=== PATIENT | female | born 1945 | race Caucasian/White ===

== ENCOUNTER → 2016-05-09 | Day surgery (SDC) | payer MEDICARE ==
[~2016-05-09] VITALS: Ht 167.6 cm; Wt 81.6 kg
[~2016-05-09] MED LIST: ALAVERT10 M1 PO; ALPRAZOLAM0.25 M2 PO; AMARYL2 MG PO; AMBIEN10 MG PO; AMBIEN5 MG PO; AMOXICILLIN500 M3 PO; AMOXICILLIN500 MG PO; ANTIVERT/2525 M1 PO; ANTIVERT25 MG PO; APRESOLINE25 MG PO; ARANESP100 MCG/1 SQ; ASPIRIN EC325 MG PO; ASPIRIN81 M1 PO; ATARAX25 MG PO; AUGMENTIN 500500 MG PO; AUGMENTIN 875 M1 TAB PO; BENTYL10 MG PO; CARAFATE1 GM; CARDIZEM CD180 MG PO; CARISOPRODOL350 M1 PO; CATAPRES0.3 MG PO; CEFTIN500 M1 PO; CEFUROXIME AXE250 MG PO; CELEXA20 MG PO; CILASTATIN IV; CIPRO250 MG PO; CIPRO500 MG PO; CIPROFLOXACIN500 M4 PO; CIPROFLOXACIN500 MG PO; CLEOCIN150 MG PO; CLONIDINE0.2 MG PO; CLONIDINE0.3 MG/21 PO; COUMADIN5 MG PO; COUMADIN7.5 M1 PO; Catapres PO; DEXTROSE IV; DIFLUCAN IV; DITROPAN5 MG PO; DONNATAL1 CA1 PO; DOXYCYCLINE MO100 MG PO; DUONEB 3 MG/3 ML3 M1 INH; DUONEB 3 MG/3 ML3 M1 NEB; DURAGESIC25 MCG/HR TD; ECOTRIN81 MG PO; FIORICET 50-301 EACH PO; FISH OIL1 IU PO; FLAGYL500 MG PO; FLEXERIL10 MG PO; FUROSEMIDE40 MG PO; HEPARIN SO5000 UNIT1 SQ; HYDROCHLOROTHIA25 MG PO; HYDROCODONE BIT1 T11 PO; IMIPENEM IV; KCL PO; KEFLEX500 MG PO; LASIX10 MG/M1 PO; LEVOFLOXACIN500 MG PO; LIDODERM 5% PATC1 EA T; LISINOPRIL2.5 MG PO; LISINOPRIL20 MG PO; LISINOPRIL40 MG PO; LOPRESSOR100 M1 PO; LOPRESSOR25 MG PO; LOPRESSOR50 M1 PO; LOTRIMIN AF133 GM TP; LOTRISONE CREAM15 GM TP; Lopressor25 MG PO; MACROBID100 M1 PO; MACRODANTIN100 M1 PO; MEDROL DOSEPAK4 MG PO; MOTRIN800 MG PO; MULTIVITAMIN1 CTB PO; NAPROSYN500 MG PO; NEURONTIN300 MG PO; NEURONTIN400 MG PO; NITROFURANTOIN100 MG PO; NORCO 325 MG-101 TAB PO; NOVOLOG10 ML IV; PERCOCET 325 MG1 TA2 PO; PERCOCET 325 MG1 TA7 PO; PHENERGAN25 M1 PO; PRAVACHOL40 MG PO; PRAVASTATIN SOD40 MG PO; PREDNICOT20 MG PO; PRILOSEC OTC20 MG PO; PRILOSEC20 M1 PO; PRILOSEC20 MG; PRILOSEC40 MG PO; PRINIVIL40 MG PO; PROTONIX IV40 MG IV; PROTONIX40 MG PO; PYRIDIUM100 MG PO; PYRIDIUM200 M1 PO; PYRIDIUM200 MG PO; ROBITUSSIN DM 105 ML PO; SILVADENE1% T; SOMA250 MG PO; SOMA350 MG PO; SYMBICORT1 AE1 INH; TEMAZEPAM15 M1 PO; TESSALON PERLE100 MG PO; TRAMADOL HCL50 MG PO; TYLENOL EXTRA500 M2 PO; ULTRAM50 MG PO; UNASYN 3GM3 GM/100 M IM; UNASYN 3GM3 GM/100 M IV; VALIUM10 MG PO; VICO10300 PO; VICODIN 5-3001 EACH PO; VITAMIN D2000 IU PO; VITAMIN E100 I1 PO; XANAX0.5 MG PO; ZANTAC 150150 MG PO; ZOCOR40 MG PO; ZOFRAN2 MG/ML IV; ZOFRAN4 MG PO; [UNRECOGNIZED DRUG - OTHER] PO; [UNRECOGNIZED DRUG - REMARK]
--- NOTE | ~2016-05-09 | PROC NOTE ---
[place], [place] PROCEDURE NOTE NAME: FARHAT MORALES UNIT #: [id number] ROOM: DOCTOR: REJI PATEL MD BIRTHDATE: [birth year] DOS: 05/09/2016 PREOPERATIVE DIAGNOSIS: History of diverticulitis. POSTOPERATIVE DIAGNOSIS: Pancolonic diverticulosis. PROCEDURE: Colonoscopy. ENDOSCOPIST: Reji Patel MD. DISPUTE COORDINATOR: MSMc. ANESTHESIA: MAC. INDICATIONS: This is a 71-year-old lady with a history of diverticulitis in the past, who comes in for colonoscopy. The procedure and its complications were explained to the patient in detail preoperatively. Complications that were discussed included but were not limited to bleeding, infection, perforation of the colon and missed lesions she agreed to proceed. DESCRIPTION OF PROCEDURE: After identifying the patient, the patient was brought to the endoscopy suite and placed in the left lateral position. After time-out procedure was called, the anesthesia team administered IV sedation to the patient and a digital rectal exam was performed by nh and this was within normal limits. At this point, an adult colonoscope was now introduced into the anal canal and advanced sequentially into the rectum, sigmoid colon, descending colon, transverse colon and ascending colon up to the cecum. There were some patches of stool that could be visualized in different parts of the colon and this was all sucked away. There was found to be diverticulosis in the sigmoid colon, but also in parts of the transverse colon as well. There were no other lesions that could be identified after the cecum was reached the colonoscopy was withdrawn. The withdrawal procedure took about 7 minutes and the findings of a planned colonic diverticulosis was confirmed after the colonoscope was withdrawn the patient was taken to the recovery room in a stable fashion based on these findings the patient is recommended to have another colonoscopy in 10 years or earlier if there are any symptoms that may arise between now and the period of 10 years. These findings were discussed with the patient and her in detail. [place], [place] PROCEDURE NOTE NAME: FARHAT MORALES UNIT #: [id number] ROOM: DOCTOR: REJI PATEL MD BIRTHDATE: [birth year] Reji Patel MD CM:PROCNOTE:PROCEDURE NOTE 1002 1231 REJI PATEL MD
[2016-05-09 07:30] VITALS: BP 135/75
[2016-05-09 09:14] VITALS: BP 138/74
[2016-05-09 09:28] VITALS: BP 174/98
[2016-05-09 09:38] VITALS: BP 176/89
== END | disposition home or self-care (01) ==
LOC: SDC 05-05 11:00
DX: K57.30 Diverticulosis of large intestine without perforation or abscess without bleeding (principal); Z86.73 Personal history of transient ischemic attack (TIA), and cerebral infarction without residual deficits; I10 Essential (primary) hypertension; E11.9 Type 2 diabetes mellitus without complications; G43.909 Migraine, unspecified, not intractable, without status migrainosus; K76.0 Fatty (change of) liver, not elsewhere classified; Z87.01 Personal history of pneumonia (recurrent); Z86.718 Personal history of other venous thrombosis and embolism; Z82.49 Family history of ischemic heart disease and other diseases of the circulatory system

== ENCOUNTER → 2016-05-22 | Outpatient (CLI) | payer MEDICARE ==
[2016-05-22 12:08] LABS: BASO % 0.4 % (0.0-1.0); EOS # 0.2 10*3/uL (0.0-0.4); EOS % 1.8 % (1.0-4.0); HEMATOCRIT 42.7 % (37.0-47.0); HEMOGLOBIN 13.8 g/dl (12.0-16.0); LYMPH % 17.7 % (27.0-41.0); MEAN CELL VOLUME 93.4 fl (81.0-99.0); MEAN CORPUSCULAR HGB 30.2 pg (27.0-31.0); MEAN CORPUSCULAR HGB CONC 32.3 g/dl (33.0-37.0); MEAN PLATELET VOLUME 9.9 fl (9.6-12.3); MONO # 0.9 10*3/uL (0.1-1.0); MONO % 7.9 % (3.0-9.0); NEUT # 8.1 10*3/uL (2.3-7.9); NEUT % 71.8 % (47.0-73.0); PLATELET COUNT AUTOMATED 245 10*3/uL (130-400); RED BLOOD COUNT 4.57 10*6/uL (4.10-5.10); RED CELL DISTRI WIDTH 12.7 % (0-14.5); WHITE BLOOD COUNT 11.2 10*3/uL (4.8-10.8)
[2016-05-22 12:11] LABS: BILIRUBIN NEGATIVE (NEGATIVE); BLOOD NEGATIVE (NEGATIVE); CLARITY CLEAR (CLEAR); COLOR YELLOW (YELLOW); GLUCOSE NEGATIVE (NEGATIVE); KETONE NEGATIVE (NEGATIVE); LEUKO ESTERASE 1+ (NEGATIVE); NITRITE NEGATIVE (NEGATIVE); PROTEIN NEGATIVE (NEGATIVE); SPECIFIC GRAVITY 1.025 (1.005-1.030); UROBILINOGEN 0.2 E.U./dl (0.2-1.0)
[2016-05-22 12:34] LABS: ALBUMIN 3.5 gm/dl (3.1-4.5); ALKALINE PHOSPHATASE 119 U/L (45-117); BILIRUBIN, DIRECT < 0.1 mg/dL (0.0-0.2); BILIRUBIN, TOTAL 0.5 mg/dl (0.2-1.0); BUN 11 mg/dl (7-24); CARBON DIOXIDE 26 mmol/L (21-32); CHLORIDE 106 mmol/L (98-107); EST GLOM FILT AFRICAN AMERICAN > 60 ml/min; GLUCOSE 112 mg/dL (65-99); POTASSIUM 4.6 mmol/L (3.5-5.1); SGOT/AST 17 IU/L (3-35); SGPT/ALT 16 U/L (12-78); SODIUM 141 mmol/L (136-145); TOTAL PROTEIN 8.5 gm/dL (6.4-8.2)
[2016-05-22 12:50] LABS: INTERNATIONAL NORM RATIO 0.9 (2.0-3.5)
[2016-05-22 13:15] LABS: BACTERIA 1+; MUCOUS 3+
== END | disposition home or self-care (01) ==
LOC: LAB 09:42
PROVIDERS: Surgery
DX: K57.90 Diverticulosis of intestine, part unspecified, without perforation or abscess without bleeding (principal); R10.2 Pelvic and perineal pain; Z90.49 Acquired absence of other specified parts of digestive tract

== ENCOUNTER 2016-07-22 10:01 | Inpatient (IN) | payer MEDICARE ==
[~2016-07-22] VITALS: Ht 152.4 cm; Wt 86.0 kg
[2016-07-22] VITALS (14 sets, daily range): BP systolic 110–158; BP diastolic 51–85
--- NOTE | ~2016-07-22 | PR ---
[place], [place] PROGRESS NOTE NAME: FARHAT MORALES [facility] #: [id number] UNIT #: [id number] ROOM: [facility] DOCTOR: EZEQUIEL ABDI MD BIRTHDATE: [birth year] DOS: SUBJECTIVE: The patient is very well known to me, seen by Dr. Rock yesterday. The patient was under my care up at [facility]. Cardiac status appears to be stable. OBJECTIVE: VITAL SIGNS: The patient's blood pressure is 98/50. She is in sinus rhythm. HEENT: Unremarkable. NECK: Supple, no JVD. LUNGS: Diminished breath sounds. HEART: Heart sounds are regular. ABDOMEN: According to the surgeons, the abdominal wounds are healing quite well. LABORATORY DATA: Shows hemoglobin yesterday was 7.6 and today's is pending. Potassium is 3.4, creatinine is 1.4. The patient was seen by Dr. Rock yesterday. IMPRESSION AND PLAN: The patient is status post abdominal surgery, paroxysmal atrial fibrillation, anemia. The patient was on Cardizem drip. The patient examined in the Intensive Care Unit. She is going in and out of atrial fibrillation. Metoprolol has been started and optimized the dosage and consideration should be given once the bleeding episodes stop to start some kind of anticoagulation. Creatinine is significantly improved and we will follow up. EZEQUIEL ABDI MD CM:PNTRANS 0622 0654 EZEQUIEL ABDI MD 07/24/16 0655 interface
--- NOTE | ~2016-07-22 | EKG ---
[place], [place] ELECTROCARDIOGRAM REPORT NAME: FARHAT MORALES UNIT #: [id number] ROOM: [facility] DOCTOR: JESSE CHERRY MD BIRTHDATE: [birth year] DOS: 07/22/2016 TIME: 1015 hours. Normal sinus rhythm with frequent PACs, rate 112 beats per minute. No evidence of ischemia or infraction. No previous tracing is available for comparison. JESSE CHERRY MD CM:EKGRPT:ELECTROCARDIOGRAM REPORT 1648 0119 JESSE CHERRY MD
--- NOTE | ~2016-07-22 | CON ---
[place], [place] REPORT OF CONSULTATION NAME: [facility]ES [id number] UNIT #: [id number] ROOM: [facility] DOCTOR: JESSE CHERRY MD BIRTHDATE: [birth year] DOS: 07/23/2016 HISTORY OF PRESENT ILLNESS: This is a 71-year-old -[place] woman with a history of bowel resection last month, or the month before, colostomy. She had 3 surgeries because of abscess formation, and during that period, she developed acute renal failure and had I believe 25 kilos of weight gain and was subsequently started on hemodialysis. She also had severe anemia, and in the course of her hospital stay, she developed atrial flutter/fibrillation and subsequently went into sinus rhythm and I believe she was given amiodarone at that time. She was stabilized and surgically she was improving markedly and then was transferred to [facility] where I saw her as well as Dr. 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 She last dialyzed on 07/17/2016 and her creatinine has remained fairly stable. She was transferred to this hospital because of abdominal pain and abdominal wound. In the course of evaluation, she was found to be in atrial fibrillation with rapid ventricular rate and she is back in sinus rhythm now. She does not have any palpitations or breathing difficulty. No cough, fever, or chills. She feels weak, but all-in-all had improved markedly. MEDICATIONS: Her medications were reviewed. She was not on any antiarrhythmic medication, but was on metoprolol along with other medications, but no anticoagulation. PHYSICAL EXAMINATION: GENERAL: This is a patient who looks pale. She is alert, comfortable. She is not in any distress. She is not tachypneic. Temperature is normal. VITAL SIGNS: Pulse is now 96 and regular, blood pressure 99/49. Previous blood pressures have been much higher. NECK: JVP appears to be normal. There is 1+ edema in the lower extremities and no edema of the torso. CARDIOVASCULAR: Cardiac auscultation reveals no murmurs or rub. LUNGS: She is not tachypneic. Auscultation reveals lots of crackles on the right side with reduced breath sounds, some crackles on the left side as well. DIAGNOSTIC STUDIES: First ECG demonstrated atrial fibrillation with a very rapid ventricular rate and monitor now shows sinus rhythm with rate in the 90s. Troponin I level has been just marginally abnormal. Creatinine is 1.57, potassium 3.6. Serum albumin is 1.7. Hemoglobin 8.8 g/dL. IMPRESSION: 1. This patient had recurrence of atrial fibrillation, is back in normal sinus rhythm. 2. Severe anemia is from chronic illness and due to renal insufficiency. RECOMMENDATIONS: Metoprolol dose should be continued. If heart rate is fast, we can increase this dose as well, but I strongly recommend starting her on propafenone 150 mg every 8 hours to maintain normal sinus rhythm. I think she should also be anticoagulated fully with either NOAC or warfarin on [place], [place] REPORT OF CONSULTATION NAME: FARHAT MORALES [facility]: [id number] UNIT #: [id number] ROOM: [facility] DOCTOR: JESSE CHERRY MD BIRTHDATE: [birth year] a long-term basis because of recurrence of atrial fibrillation and fear of embolic events. An echocardiogram during last hospitalization showed normal LV systolic function and one does not need to repeat another study. Probable right-sided pneumonia. This seemed to have been extensive. There is some pulmonary congestion on the left side, but this may have been from atrial fibrillation with rapid ventricular rate, i.e., some degree of diastolic dysfunction/diastolic failure. I thank you for this consult. JESSE CHERRY MD CM:CONSTR:REPORT OF CONSULTATION 0653 08/25/16 1429 interface
--- NOTE | ~2016-07-22 | CON ---
[place], [place] REPORT OF CONSULTATION NAME: [facility]AT [facility]ORALES [facility]: [id number] UNIT #: [id number] ROOM: [facility]- DOCTOR: STANISLAV GELLER MD BIRTHDATE: [birth year] DOS: 07/24/2016 REASON FOR CONSULTATION: Intraabdominal abscess and right lower lobe pneumonia. CONSULTING PHYSICIAN: Dr. Martinez. HISTORY OF PRESENT ILLNESS: This is a 71-year-old woman whom I have seen in the past for intraabdominal abscess status post exploratory laparotomy and colectomy with Meagan's procedure with colostomy bag who had problems with delayed healing and multiple intraabdominal fluid collections, needing repeat exploration and drainage of the same, also had anterior abdominal wall collection needing drainage, who had acute kidney injury during admission needing dialysis, was discharged on IV Zosyn and Diflucan to subacute nursing facility. Now, she is admitted with worsening drainage from the intraabdominal wall fistula and a fever. She had been started on broad spectrum antibiotics since admission. She remained afebrile. She was admitted to the ICU. Her kidney function had recovered to the point that her dialysis catheter was removed this morning. PAST MEDICAL HISTORY: Positive for history of hypertension, diverticulosis, CHF, AFib, abdominal abscess, anemia, anxiety, colon polyps, diverticulosis, COPD, fatty liver, GERD, hiatal hernia, hypertension, hyperlipidemia, obesity, migraine, insomnia, renal cyst. PAST SURGICAL HISTORY: History of hysterectomy, appendectomy, foot surgery, partial colectomy, tonsillectomy, adenoidectomy, abdominoplasty, cholecystectomy, colonoscopy, colostomy and exploratory laparotomy. SOCIAL HISTORY: Does not use alcohol or illicit drugs or tobacco. FAMILY HISTORY: Mother and father had coronary artery disease. ALLERGIES: REVIEWED INCLUDE SULFA, LEVOFLOXACIN, CORTISONE, HYDROMORPHONE, CODEINE, HYDROCODONE, MORPHINE, ACETAMINOPHEN, OXYCODONE, PREGABALIN, PROPOXYPHENE AND STEROIDS. HOME MEDICATIONS AND CURRENT INPATIENT MEDICATIONS: Reviewed. REVIEW OF SYSTEMS: A 14-point review of systems otherwise negative unless otherwise specified in the HPI. PHYSICAL EXAMINATION: VITAL SIGNS: Showed a temperature of 98, heart rate of 98, blood pressure of 122/61, respiratory rate of 24. GENERAL APPEARANCE: Awake, alert, oriented to time, place and person. No acute distress. Oral cavity: Moist and intact. NECK: Supple, no JVD, no lymphadenopathy. HEART: Regular rate and rhythm. S1, S2 normal. No murmurs, gallops or rubs. LUNGS: Clear to auscultation. Diminished air entry bilateral bases anteriorly. ABDOMEN: Midline retention sutures, three of them, with dry incision. [place], [place] REPORT OF CONSULTATION NAME: FARHAT MORALES UNIT #: [id number] ROOM: [facility] DOCTOR: STANISLAV GELLER MD BIRTHDATE: [birth year] part of the incision open with fibrinopurulent tissue at the base. No active drainage. Base looks healthy and red with granulation tissue. Colostomy bag with formed stools. EXTREMITIES: Mild edema, bilateral lower extremities. LABORATORY DATA: Reviewed. WBC of 9.6, hemoglobin of 8.5, platelets 242. Chemistry: BUN of 74, creatinine 1.49. AST of 20, ALT of 22, alkaline phosphatase was 194. UA: Wbc's 5-10, bacteria trace. IMAGING: Chest x-ray from this morning shows mild pulmonary vascular congestion. ASSESSMENT AND PLAN: 1. Leukocytosis, likely secondary to pelvic fluid collections versus pneumonia. I reviewed a CT of the abdomen and pelvis, which also got the lower part of the lungs. She is having no respiratory symptoms. She does have small effusion and atelectasis, not too impressed with a pneumonic process at this time. Her leukocytosis has resolved. She is currently on Zosyn and vancomycin. The intraabdominal fluid collections have resolved as well. I would therefore continue the Zosyn for another 2 weeks and follow her up in my clinic in 2 weeks' time. 2. Acute kidney injury with dialysis dependence. Her kidney function seems to have recovered. She is off dialysis. We will increase the dose of Zosyn to 3.375 every 8 hours. 3. Slow healing midline abdominal wound with open fistula. Continue dressing care per surgery. I will continue to follow. STANISLAV GELLER MD CM:CONSTR:REPORT OF CONSULTATION 1604 07/25/16 0217 interface
--- NOTE | ~2016-07-22 | EKG ---
[place], [place] ELECTROCARDIOGRAM REPORT NAME: FARHAT MORALES UNIT #: [id number] [place] [facility] DOCTOR: JESSE CHERRY MD BIRTHDATE: [birth year] DOS: 07/22/2016 TIME: 21:26 hours. Atrial fibrillation with rapid ventricular rate at 181 beats per minutes. Nonspecific ST-T wave changes in inferior and chest leads. Abnormal ECG. No previous one to compare with an ECG. JESSE CHERRY MD CM:EKGRPT:ELECTROCARDIOGRAM REPORT [id number] 1326 JESSE CHERRY MD
--- NOTE | ~2016-07-22 | PR ---
[place], [place] PROGRESS NOTE NAME: FARHAT MORALES [facility] #: [id number] UNIT #: [id number] ROOM: [facility] DOCTOR: JESSE CHERRY MD BIRTHDATE: [birth year] DOS: 07/25/2016 SUBJECTIVE: She feels quite well. She has been eating and drinking reasonably well. No abdominal pain. Has not had any diarrhea. She has no chest pain or palpitations. OBJECTIVE: GENERAL: She is very pleasant, alert, feels very comfortable, looking forward to going home. VITAL SIGNS: Pulse is irregular at 88 beats per minute, blood pressure 124/68. NECK: JVP is normal. HJR is negative. LUNGS: She has some crackles in both lungs. EXTREMITIES: No edema in the lower extremities. IMPRESSION: 1. Abdominal wound and pain has settled and the wound is healing. 2. Paroxysmal atrial fibrillation. She is in normal sinus rhythm now. 3. There is no evidence of heart failure. RECOMMENDATIONS: No specific recommendations are offered at this time. JESSE CHERRY MD CM:PNTRANS 0729 2 JESSE CHERRY MD 07/25/1613 interface
--- NOTE | ~2016-07-22 | PR ---
[place], [place] PROGRESS NOTE NAME: FARHAT MORALES [facility] #: [id number] UNIT #: [id number] ROOM: [facility] DOCTOR: STANISLAV GELLER MD BIRTHDATE: [birth year] DOS: 07/26/2016 REASON FOR FOLLOWUP: Intraabdominal abscess ____ Dr. Patel. SUBJECTIVE: The patient is feeling better, low grade fever overnight, hemodynamically stable, eating better. Walked in the hallway a little bit. OBJECTIVE: VITAL SIGNS: Temperature of 98.3, T-max of 100.6, pulse 99, respiratory rate 18, blood pressure 139/71. GENERAL APPEARANCE: Awake, alert, oriented to time, place, and person, in no acute distress. HEENT: Oral cavity moist. NECK: Supple, no JVD, no lymphadenopathy. HEART: Regular rate and rhythm. S1, S2 normal. No murmurs, gallops or rubs. LUNGS: Clear to auscultation, diminished entry anterior bases. ABDOMEN: Obese, colostomy with soft stools. Abdominal wound with healthy tissue, fibrotic tissue at the base with red beefy base. Mild serosanguineous drainage also noted. LABORATORY DATA: Reviewed. WBC of 10, hemoglobin 8.1, platelets 321. BUN 16, creatinine 1.26. AST 19, ALT 21, alk phos 169. ASSESSMENT AND PLAN: 1. Intraabdominal abscess with pelvic fluid collections, status post complicated intraabdominal surgery, slow healing wound, leukocytosis has resolved. Currently on meropenem and switched over by the resident director of national sales last night, will switch her back to ampicillin ____. Plan is to discharge her soon. If discharge is going to happen, I would continue IV antibiotics till she heals up completely. If every 6 hours of Unasyn is a problem, we can switch her to ceftriaxone and Flagyl. Otherwise, I would recommend 2 weeks of IV Unasyn 3 gram every 6 hours and follow up with myself in 2 weeks' time. 2. Acute kidney injury, improving, off dialysis now, making good urine. 3. Slow healing midline abdominal wound with open fistula. Continue dressing care per surgery and I will follow up. Okay for discharge from ID standpoint and okay with others. [place], [place] PROGRESS NOTE NAME: FARHAT MORALES UNIT #: [id number] ROOM: [facility] DOCTOR: STANISLAV GELLER MD BIRTHDATE: [birth year] STANISLAV GELLER MD CM:PNTRANS 1619 2233 STANISLAV GELLER MD 07/28/16 0033 interface
--- NOTE | ~2016-07-22 | PROC NOTE ---
[place], [place] PROCEDURE NOTE NAME: [facility]ORALES [id number] UNIT #: [id number] ROOM: [facility] DOCTOR: REJI PATEL MD BIRTHDATE: [birth year] DOS: 07/25/2016 DESCRIPTION OF PROCEDURE: The patient is well known to me and admitted with multiple medical problems, one of which is wound issues after abdominal surgery. Bedside debridement with scissors and forceps was carried out in a sharp fashion and a dressing was placed. The patient tolerated the procedure well. There were no complications. Dr. Reji Patel, the attending physician, was there for the entire case. Reji Patel MD CM:PROCNOTE:PROCEDURE NOTE 0744 1416 REJI PATEL MD
[~2016-07-22 10:01] MED LIST changes: -CILASTATIN IV; -IMIPENEM IV
[2016-07-22 10:24] LABS: BASO % 0.1 % (0.0-1.0); EOS # 0.3 10*3/uL (0.0-0.4); EOS % 1.8 % (1.0-4.0); HEMATOCRIT 26.8 % (37.0-47.0); HEMOGLOBIN 8.8 g/dl (12.0-16.0); IG # 0.1 10*3/uL (0.0-0.1); LYMPH # 2.4 10*3/uL (1.3-4.4); LYMPH % 17.6 % (27.0-41.0); MEAN CELL VOLUME 92.1 fl (81.0-99.0); MEAN CORPUSCULAR HGB 30.2 pg (27.0-31.0); MEAN CORPUSCULAR HGB CONC 32.8 g/dl (33.0-37.0); MEAN PLATELET VOLUME 9.7 fl (9.6-12.3); MONO # 0.9 10*3/uL (0.1-1.0); MONO % 6.4 % (3.0-9.0); NEUT % 73.6 % (47.0-73.0); PLATELET COUNT AUTOMATED 248 10*3/uL (130-400); RED BLOOD COUNT 2.91 10*6/uL (4.10-5.10); RED CELL DISTRI WIDTH 17.2 % (0-14.5); WHITE BLOOD COUNT 13.6 10*3/uL (4.8-10.8)
[2016-07-22] MEDS ORDERED: CILASTATIN IV (10:24)
[2016-07-22] MEDS ORDERED: IMIPENEM IV (10:24)
[2016-07-22 10:34] LABS: INTERNATIONAL NORM RATIO 1.1 (2.0-3.5); PROTHROMBIN TIME 11.3 SECONDS (9.0-12.4)
[2016-07-22 10:40] LABS: ALBUMIN 1.6 gm/dl (3.1-4.5); BILIRUBIN, TOTAL 0.6 mg/dl (0.2-1.0); C-REACTIVE PROTEIN 17.3 MG/DL (0-0.3); CKMB 1.1 ng/ml (0.5-3.6); MAGNESIUM 1.6 mg/dL (1.5-2.1); POTASSIUM 3.6 mmol/L (3.5-5.1); TOTAL PROTEIN 6.9 gm/dL (6.4-8.2); TROPONIN I 0.035 ng/ml (<0.045)
[2016-07-23] VITALS (18 sets, daily range): BP systolic 91–145; BP diastolic 40–62
[2016-07-23 03:17] LABS: BASO % 0.2 % (0.0-1.0); EOS # 0.2 10*3/uL (0.0-0.4); EOS % 1.4 % (1.0-4.0); HEMATOCRIT 24.1 % (37.0-47.0); HEMOGLOBIN 7.6 g/dl (12.0-16.0); IG # 0.1 10*3/uL (0.0-0.1); LYMPH # 1.6 10*3/uL (1.3-4.4); LYMPH % 13.9 % (27.0-41.0); MEAN CELL VOLUME 94.1 fl (81.0-99.0); MEAN CORPUSCULAR HGB 29.7 pg (27.0-31.0); MEAN CORPUSCULAR HGB CONC 31.5 g/dl (33.0-37.0); MEAN PLATELET VOLUME 9.4 fl (9.6-12.3); MONO # 0.7 10*3/uL (0.1-1.0); NEUT # 9.2 10*3/uL (2.3-7.9); NEUT % 77.8 % (47.0-73.0); PLATELET COUNT AUTOMATED 238 10*3/uL (130-400); RED BLOOD COUNT 2.56 10*6/uL (4.10-5.10); RED CELL DISTRI WIDTH 17.1 % (0-14.5); WHITE BLOOD COUNT 11.8 10*3/uL (4.8-10.8)
[2016-07-23 03:29] LABS: POTASSIUM 3.6 mmol/L (3.5-5.1)
[2016-07-23 04:50] LABS: BILIRUBIN 1+ (NEGATIVE); BLOOD TRACE-INTACT (NEGATIVE); CLARITY SL CLOUDY (CLEAR); COLOR YELLOW (YELLOW); GLUCOSE NEGATIVE (NEGATIVE); KETONE NEGATIVE (NEGATIVE); LEUKO ESTERASE NEGATIVE (NEGATIVE); NITRITE NEGATIVE (NEGATIVE); PROTEIN 2+ (NEGATIVE); SPECIFIC GRAVITY 1.025 (1.005-1.030)
[2016-07-23 04:56] LABS: BACTERIA TRACE; YEAST 1+
[2016-07-24] VITALS (12 sets, daily range): BP systolic 98–148; BP diastolic 50–77
[2016-07-24 06:00] LABS: ALBUMIN 1.5 gm/dl (3.1-4.5); BILIRUBIN, TOTAL 0.5 mg/dl (0.2-1.0); MAGNESIUM 1.6 mg/dL (1.5-2.1); PHOSPHOROUS 2.9 mg/dL (2.5-4.9); POTASSIUM 3.4 mmol/L (3.5-5.1); TOTAL PROTEIN 6.1 gm/dL (6.4-8.2)
[2016-07-24 06:17] LABS: BASO % 0.2 % (0.0-1.0); EOS # 0.3 10*3/uL (0.0-0.4); EOS % 2.7 % (1.0-4.0); HEMATOCRIT 26.6 % (37.0-47.0); HEMOGLOBIN 8.5 g/dl (12.0-16.0); IG # 0.1 10*3/uL (0.0-0.1); LYMPH # 1.5 10*3/uL (1.3-4.4); LYMPH % 15.2 % (27.0-41.0); MEAN CORPUSCULAR HGB 29.4 pg (27.0-31.0); MONO # 0.8 10*3/uL (0.1-1.0); MONO % 7.9 % (3.0-9.0); NEUT # 7.1 10*3/uL (2.3-7.9); NEUT % 73.4 % (47.0-73.0); PLATELET COUNT AUTOMATED 242 10*3/uL (130-400); RED BLOOD COUNT 2.89 10*6/uL (4.10-5.10); WHITE BLOOD COUNT 9.6 10*3/uL (4.8-10.8)
[2016-07-25] VITALS (8 sets, daily range): BP systolic 117–159; BP diastolic 51–84
[2016-07-26] VITALS: BP 118/56
[2016-07-26 04:00] VITALS: BP 149/68
[2016-07-26 06:00] LABS: ALBUMIN 1.6 gm/dl (3.1-4.5); BILIRUBIN, TOTAL 0.4 mg/dl (0.2-1.0); MAGNESIUM 1.6 mg/dL (1.5-2.1); PHOSPHOROUS 3.3 mg/dL (2.5-4.9); POTASSIUM 3.8 mmol/L (3.5-5.1); TOTAL PROTEIN 6.3 gm/dL (6.4-8.2)
[2016-07-26 06:12] LABS: BASO % 0.2 % (0.0-1.0); EOS # 0.3 10*3/uL (0.0-0.4); EOS % 3.2 % (1.0-4.0); HEMATOCRIT 26.1 % (37.0-47.0); HEMOGLOBIN 8.1 g/dl (12.0-16.0); IG # 0.1 10*3/uL (0.0-0.1); LYMPH % 20.4 % (27.0-41.0); MEAN CELL VOLUME 94.9 fl (81.0-99.0); MEAN CORPUSCULAR HGB 29.5 pg (27.0-31.0); MEAN PLATELET VOLUME 9.7 fl (9.6-12.3); MONO # 0.7 10*3/uL (0.1-1.0); MONO % 7.1 % (3.0-9.0); NEUT # 6.8 10*3/uL (2.3-7.9); NEUT % 68.3 % (47.0-73.0); RED BLOOD COUNT 2.75 10*6/uL (4.10-5.10); RED CELL DISTRI WIDTH 17.2 % (0-14.5)
[2016-07-26 06:25] LABS: PLATELET COUNT AUTOMATED 321 10*3/uL (130-400)
[2016-07-26 08:00] VITALS: BP 148/76
[2016-07-26 12:00] VITALS: BP 139/71
[2016-07-26 16:00] VITALS: BP 123/66
[2016-07-26 20:00] VITALS: BP 147/81
[2016-07-27] VITALS: BP 102/49
[2016-07-27 04:00] VITALS: BP 107/52
[2016-07-27 05:53] LABS: BASO % 0.1 % (0.0-1.0); EOS # 0.3 10*3/uL (0.0-0.4); EOS % 2.8 % (1.0-4.0); HEMATOCRIT 25.6 % (37.0-47.0); HEMOGLOBIN 8.2 g/dl (12.0-16.0); IG # 0.1 10*3/uL (0.0-0.1); LYMPH # 2.3 10*3/uL (1.3-4.4); MEAN CELL VOLUME 94.1 fl (81.0-99.0); MEAN CORPUSCULAR HGB 30.1 pg (27.0-31.0); MEAN PLATELET VOLUME 9.7 fl (9.6-12.3); MONO # 0.7 10*3/uL (0.1-1.0); MONO % 6.4 % (3.0-9.0); NEUT # 7.5 10*3/uL (2.3-7.9); NEUT % 69.1 % (47.0-73.0); PLATELET COUNT AUTOMATED 331 10*3/uL (130-400); RED BLOOD COUNT 2.72 10*6/uL (4.10-5.10); RED CELL DISTRI WIDTH 17.2 % (0-14.5); WHITE BLOOD COUNT 10.9 10*3/uL (4.8-10.8)
[2016-07-27 06:14] LABS: ALBUMIN 1.5 gm/dl (3.1-4.5); BILIRUBIN, TOTAL 0.4 mg/dl (0.2-1.0); PHOSPHOROUS 3.2 mg/dL (2.5-4.9); POTASSIUM 3.5 mmol/L (3.5-5.1); TOTAL PROTEIN 6.1 gm/dL (6.4-8.2)
[2016-07-27 08:00] VITALS: BP 133/67
[2016-07-27 12:00] VITALS: BP 130/64
[2016-07-27 16:00] VITALS: BP 127/59
[2016-07-27 20:00] VITALS: BP 158/68
[2016-07-28] VITALS: BP 116/59
[2016-07-28 04:00] VITALS: BP 136/69
[2016-07-28 05:56] LABS: BASO % 0.3 % (0.0-1.0); EOS # 0.4 10*3/uL (0.0-0.4); EOS % 3.2 % (1.0-4.0); HEMATOCRIT 26.3 % (37.0-47.0); HEMOGLOBIN 8.3 g/dl (12.0-16.0); IG # 0.1 10*3/uL (0.0-0.1); LYMPH # 1.9 10*3/uL (1.3-4.4); LYMPH % 16.6 % (27.0-41.0); MEAN CELL VOLUME 95.3 fl (81.0-99.0); MEAN CORPUSCULAR HGB 30.1 pg (27.0-31.0); MEAN CORPUSCULAR HGB CONC 31.6 g/dl (33.0-37.0); MEAN PLATELET VOLUME 9.8 fl (9.6-12.3); MONO # 0.7 10*3/uL (0.1-1.0); MONO % 6.5 % (3.0-9.0); NEUT # 8.2 10*3/uL (2.3-7.9); NEUT % 72.7 % (47.0-73.0); PLATELET COUNT AUTOMATED 367 10*3/uL (130-400); RED BLOOD COUNT 2.76 10*6/uL (4.10-5.10); RED CELL DISTRI WIDTH 17.1 % (0-14.5); WHITE BLOOD COUNT 11.2 10*3/uL (4.8-10.8)
[2016-07-28 06:17] LABS: ALBUMIN 1.6 gm/dl (3.1-4.5); MAGNESIUM 1.6 mg/dL (1.5-2.1); POTASSIUM 3.7 mmol/L (3.5-5.1)
[2016-07-28 12:00] VITALS: BP 124/67
[2016-07-28] MEDS ORDERED: UNASYN 3GM3 GM/100 M IM (14:32)
== END 2016-07-28 15:20 | disposition other institution (70) | DRG 901 ==
LOC: ED 10:01 → EDHOLD 16:43 → ICCU 16:43 → 4E 17:27 → ICCU 23:59
PROVIDERS: Emergency Medicine; Internal Medicine; Internal Medicine Nephrology
DX: T81.89XA Other complications of procedures, not elsewhere classified, initial encounter (principal); A41.9 Sepsis, unspecified organism; N17.0 Acute kidney failure with tubular necrosis; E43 Unspecified severe protein-calorie malnutrition; I50.33 Acute on chronic diastolic (congestive) heart failure; J18.9 Pneumonia, unspecified organism; N18.4 Chronic kidney disease, stage 4 (severe); I48.0 Paroxysmal atrial fibrillation; I13.0 Hypertensive heart and chronic kidney disease with heart failure and stage 1 through stage 4 chronic kidney disease, or unspecified chronic kidney disease; J44.9 Chronic obstructive pulmonary disease, unspecified; F41.9 Anxiety disorder, unspecified; K21.9 Gastro-esophageal reflux disease without esophagitis; D64.9 Anemia, unspecified; E78.5 Hyperlipidemia, unspecified; G43.909 Migraine, unspecified, not intractable, without status migrainosus; E66.09 Other obesity due to excess calories; E87.6 Hypokalemia; R74.8 Abnormal levels of other serum enzymes; Y83.8 Other surgical procedures as the cause of abnormal reaction of the patient, or of later complication, without mention of misadventure at the time of the procedure; Z68.37 Body mass index [BMI] 37.0-37.9, adult; Z90.710 Acquired absence of both cervix and uterus; Z90.49 Acquired absence of other specified parts of digestive tract; Z88.2 Allergy status to sulfonamides; Z88.1 Allergy status to other antibiotic agents; Z88.6 Allergy status to analgesic agent; Z88.8 Allergy status to other drugs, medicaments and biological substances; Z82.49 Family history of ischemic heart disease and other diseases of the circulatory system; Y92.89 Other specified places as the place of occurrence of the external cause

== ENCOUNTER 2016-07-30 18:29 | Inpatient (IN) | payer MEDICARE ==
[~2016-07-30] VITALS: Ht 165.1 cm; Wt 83.5 kg
[2016-07-30 18:29] VITALS: BP 156/80
[~2016-07-30 18:29] MED LIST changes: +CILASTATIN IV; +IMIPENEM IV
[2016-07-30] MEDS ORDERED: UNASYN 2 GM-11.5 GM IV (19:10)
[2016-07-30] MEDS ORDERED: Zofran4 MG PO (19:11)
[2016-07-30] MEDS ORDERED: PROTONIX40 MG PO (19:16)
[2016-07-30] MEDS ORDERED: MILK OF MA400 MG/51 PO (19:17)
[2016-07-30] MEDS ORDERED: DULCOLAX10 M1 RC (19:20)
[2016-07-30] MEDS ORDERED: NORMAL SALINE FL3 ML IV (19:23)
[2016-07-30] MEDS ORDERED: HEPARIN IV (19:24)
[2016-07-30] MEDS ORDERED: OXYGEN NAS (19:27)
[2016-07-30] MEDS ORDERED: SODIUM CHLORIDE IV (19:29)
[2016-07-30 19:30] LABS: BASO % 0.2 % (0.0-1.0); EOS # 0.2 10*3/uL (0.0-0.4); EOS % 1.8 % (1.0-4.0); HEMATOCRIT 25.9 % (37.0-47.0); HEMOGLOBIN 8.2 g/dl (12.0-16.0); IG # 0.1 10*3/uL (0.0-0.1); LYMPH % 17.2 % (27.0-41.0); MEAN CELL VOLUME 93.8 fl (81.0-99.0); MEAN CORPUSCULAR HGB 29.7 pg (27.0-31.0); MEAN CORPUSCULAR HGB CONC 31.7 g/dl (33.0-37.0); MEAN PLATELET VOLUME 9.6 fl (9.6-12.3); MONO # 0.8 10*3/uL (0.1-1.0); MONO % 6.7 % (3.0-9.0); NEUT # 8.8 10*3/uL (2.3-7.9); NEUT % 73.6 % (47.0-73.0); PLATELET COUNT AUTOMATED 457 10*3/uL (130-400); RED BLOOD COUNT 2.76 10*6/uL (4.10-5.10); RED CELL DISTRI WIDTH 16.6 % (0-14.5); WHITE BLOOD COUNT 11.9 10*3/uL (4.8-10.8)
[2016-07-30 19:41] LABS: INTERNATIONAL NORM RATIO 1.1 (2.0-3.5)
[2016-07-30 19:48] LABS: ALBUMIN 1.6 gm/dl (3.1-4.5); ALKALINE PHOSPHATASE 153 U/L (45-117); BILIRUBIN, TOTAL 0.3 mg/dl (0.2-1.0); BUN 11 mg/dl (7-24); CARBON DIOXIDE 28 mmol/L (21-32); CHLORIDE 104 mmol/L (98-107); EST GLOM FILT AFRICAN AMERICAN > 60 ml/min; GLUCOSE 115 mg/dL (65-99); POTASSIUM 3.6 mmol/L (3.5-5.1); SGOT/AST 19 IU/L (3-35); SGPT/ALT 16 U/L (12-78); SODIUM 142 mmol/L (136-145); TOTAL PROTEIN 6.7 gm/dL (6.4-8.2); TROPONIN I 0.017 ng/ml (<0.045)
[2016-07-30 20:00] VITALS: BP 156/88
[2016-07-30 21:19] VITALS: BP 164/86
[2016-07-30 21:52] VITALS: BP 166/90
[2016-07-30 23:11] VITALS: BP 166/85; BP 173/91
[2016-07-30 23:30] VITALS: BP 177/98
[2016-07-31] VITALS (9 sets, daily range): BP systolic 115–184; BP diastolic 60–89
[2016-07-31 06:11] LABS: BILIRUBIN NEGATIVE (NEGATIVE); BLOOD TRACE-INTACT (NEGATIVE); CLARITY SL CLOUDY (CLEAR); COLOR YELLOW (YELLOW); GLUCOSE NEGATIVE (NEGATIVE); KETONE NEGATIVE (NEGATIVE); LEUKO ESTERASE NEGATIVE (NEGATIVE); NITRITE NEGATIVE (NEGATIVE); PH 6.5 (5.0-9.0); PROTEIN 1+ (NEGATIVE); UROBILINOGEN 0.2 E.U./dl (0.2-1.0)
[2016-07-31 06:19] LABS: BACTERIA TRACE
[2016-07-31 06:20] LABS: URINE REFLEX COMMENT YES (NO)
[2016-07-31 06:22] LABS: BASO % 0.3 % (0.0-1.0); EOS # 0.2 10*3/uL (0.0-0.4); EOS % 1.9 % (1.0-4.0); HEMATOCRIT 23.9 % (37.0-47.0); HEMOGLOBIN 7.6 g/dl (12.0-16.0); IG # 0.1 10*3/uL (0.0-0.1); LYMPH # 2.1 10*3/uL (1.3-4.4); LYMPH % 19.7 % (27.0-41.0); MEAN CELL VOLUME 93.7 fl (81.0-99.0); MEAN CORPUSCULAR HGB 29.8 pg (27.0-31.0); MEAN CORPUSCULAR HGB CONC 31.8 g/dl (33.0-37.0); MEAN PLATELET VOLUME 9.9 fl (9.6-12.3); MONO # 0.8 10*3/uL (0.1-1.0); MONO % 7.3 % (3.0-9.0); NEUT # 7.5 10*3/uL (2.3-7.9); NEUT % 70.3 % (47.0-73.0); PLATELET COUNT AUTOMATED 443 10*3/uL (130-400); RED BLOOD COUNT 2.55 10*6/uL (4.10-5.10); RED CELL DISTRI WIDTH 16.6 % (0-14.5); WHITE BLOOD COUNT 10.6 10*3/uL (4.8-10.8)
[2016-07-31 06:35] LABS: ALBUMIN 1.4 gm/dl (3.1-4.5); ALKALINE PHOSPHATASE 135 U/L (45-117); BILIRUBIN, TOTAL 0.3 mg/dl (0.2-1.0); BUN 10 mg/dl (7-24); CARBON DIOXIDE 26 mmol/L (21-32); CHLORIDE 110 mmol/L (98-107); EST GLOM FILT AFRICAN AMERICAN > 60 ml/min; GLUCOSE 98 mg/dL (65-99); MAGNESIUM 1.6 mg/dL (1.5-2.1); POTASSIUM 3.6 mmol/L (3.5-5.1); SGOT/AST 19 IU/L (3-35); SGPT/ALT 13 U/L (12-78); SODIUM 144 mmol/L (136-145); TOTAL PROTEIN 6.2 gm/dL (6.4-8.2)
[2016-07-31 06:49] LABS: INTERNATIONAL NORM RATIO 1.1 (2.0-3.5); PROTHROMBIN TIME 12.2 SECONDS (9.0-12.4)
[2016-07-31 15:40] LABS: CKMB 1.4 ng/ml (0.5-3.6); TROPONIN I 0.016 ng/ml (<0.045)
== END 2016-07-31 20:16 | disposition short-term general hospital (02) | DRG 871 ==
LOC: ED 18:29 → ICCU 22:12 → EDHOLD 22:12 → ICCU 22:26
PROVIDERS: Hospitalist; Physician Assistant; Student in an Organized Health Care Education/Training Program
DX: A41.9 Sepsis, unspecified organism (principal); E43 Unspecified severe protein-calorie malnutrition; N18.4 Chronic kidney disease, stage 4 (severe); I50.32 Chronic diastolic (congestive) heart failure; J18.1 Lobar pneumonia, unspecified organism; T81.89XA Other complications of procedures, not elsewhere classified, initial encounter; I48.0 Paroxysmal atrial fibrillation; I13.10 Hypertensive heart and chronic kidney disease without heart failure, with stage 1 through stage 4 chronic kidney disease, or unspecified chronic kidney disease; J44.9 Chronic obstructive pulmonary disease, unspecified; F41.9 Anxiety disorder, unspecified; K57.90 Diverticulosis of intestine, part unspecified, without perforation or abscess without bleeding; K21.9 Gastro-esophageal reflux disease without esophagitis; G43.909 Migraine, unspecified, not intractable, without status migrainosus; Z90.710 Acquired absence of both cervix and uterus; Z90.49 Acquired absence of other specified parts of digestive tract; Z88.1 Allergy status to other antibiotic agents; Z88.5 Allergy status to narcotic agent; Z88.2 Allergy status to sulfonamides; G47.00 Insomnia, unspecified; E66.09 Other obesity due to excess calories; Z68.30 Body mass index [BMI] 30.0-30.9, adult; D64.9 Anemia, unspecified

== ENCOUNTER → 2016-07-31 | Outpatient (CLI) | payer MEDICARE ==
[~2016-07-31] MED LIST changes: +DULCOLAX10 M1 RC; +HEPARIN IV; +MILK OF MA400 MG/51 PO; +NORMAL SALINE FL3 ML IV; +OXYGEN NAS; +SODIUM CHLORIDE IV; +UNASYN 2 GM-11.5 GM IV; +Zofran4 MG PO
== END | disposition home or self-care (01) ==
LOC: TRNFUSION 00:50
DX: R79.89 Other specified abnormal findings of blood chemistry (principal); D64.9 Anemia, unspecified

== ENCOUNTER 2016-08-20 13:21 | Emergency (ER) | payer MEDICARE ==
[~2016-08-20] VITALS: Ht 165.1 cm; Wt 74.8 kg
[2016-08-20] MEDS ORDERED: AMBIEN5 MG PO (13:30)
[2016-08-20] MEDS ORDERED: COREG12.5 M1 PO (13:33)
[2016-08-20] MEDS ORDERED: LOSARTAN POTASS25 M1 PO (13:35)
[2016-08-20] MEDS ORDERED: ALDACTONE25 M1 PO (13:37)
[2016-08-20 14:18] LABS: BASO # 0.1 10*3/uL (0.0-0.1); BASO % 0.4 % (0.0-1.0); EOS # 0.3 10*3/uL (0.0-0.4); EOS % 2.5 % (1.0-4.0); HEMATOCRIT 39.2 % (37.0-47.0); HEMOGLOBIN 12.3 g/dl (12.0-16.0); IG # 0.1 10*3/uL (0.0-0.1); LYMPH # 2.9 10*3/uL (1.3-4.4); LYMPH % 23.2 % (27.0-41.0); MEAN CELL VOLUME 94.2 fl (81.0-99.0); MEAN CORPUSCULAR HGB 29.6 pg (27.0-31.0); MEAN CORPUSCULAR HGB CONC 31.4 g/dl (33.0-37.0); MEAN PLATELET VOLUME 9.4 fl (9.6-12.3); MONO # 0.9 10*3/uL (0.1-1.0); NEUT # 8.2 10*3/uL (2.3-7.9); NEUT % 66.1 % (47.0-73.0); PLATELET COUNT AUTOMATED 361 10*3/uL (130-400); RED BLOOD COUNT 4.16 10*6/uL (4.10-5.10); RED CELL DISTRI WIDTH 17.5 % (0-14.5); WHITE BLOOD COUNT 12.4 10*3/uL (4.8-10.8)
[2016-08-20 14:34] LABS: ALBUMIN 2.2 gm/dl (3.1-4.5); ALKALINE PHOSPHATASE 150 U/L (45-117); BILIRUBIN, TOTAL 0.3 mg/dl (0.2-1.0); BUN 21 mg/dl (7-24); CARBON DIOXIDE 28 mmol/L (21-32); CHLORIDE 99 mmol/L (98-107); EST GLOM FILT AFRICAN AMERICAN 36 ml/min; GLUCOSE 117 mg/dL (65-99); POTASSIUM 4.6 mmol/L (3.5-5.1); SGOT/AST 58 IU/L (3-35); SGPT/ALT 44 U/L (12-78); SODIUM 138 mmol/L (136-145)
[2016-08-20 14:38] LABS: TROPONIN I < 0.015 ng/ml (<0.045)
[2016-08-20 15:42] LABS: BILIRUBIN NEGATIVE (NEGATIVE); BLOOD 1+ (NEGATIVE); CLARITY CLOUDY (CLEAR); COLOR YELLOW (YELLOW); GLUCOSE NEGATIVE (NEGATIVE); KETONE NEGATIVE (NEGATIVE); LEUKO ESTERASE 3+ (NEGATIVE); NITRITE POSITIVE (NEGATIVE); PROTEIN TRACE (NEGATIVE); SPECIFIC GRAVITY <= 1.005 (1.005-1.030); UROBILINOGEN 0.2 E.U./dl (0.2-1.0)
[2016-08-20 15:52] LABS: URINE REFLEX COMMENT YES (NO); WBC TNTC wbc/hpf (0-5)
[2016-08-20 20:12] VITALS: BP 110/56
== END 2016-08-20 21:34 | disposition short-term general hospital (02) ==
LOC: ED 13:21
PROVIDERS: Emergency Medicine
DX: S31.109A Unspecified open wound of abdominal wall, unspecified quadrant without penetration into peritoneal cavity, initial encounter (principal); K94.09 Other complications of colostomy; I48.91 Unspecified atrial fibrillation; F41.9 Anxiety disorder, unspecified; I99.8 Other disorder of circulatory system; J44.9 Chronic obstructive pulmonary disease, unspecified; K21.9 Gastro-esophageal reflux disease without esophagitis; I12.9 Hypertensive chronic kidney disease with stage 1 through stage 4 chronic kidney disease, or unspecified chronic kidney disease; N18.4 Chronic kidney disease, stage 4 (severe); N39.0 Urinary tract infection, site not specified; B95.2 Enterococcus as the cause of diseases classified elsewhere; Z90.49 Acquired absence of other specified parts of digestive tract; Z88.1 Allergy status to other antibiotic agents; Z88.2 Allergy status to sulfonamides; Z88.6 Allergy status to analgesic agent; Z88.8 Allergy status to other drugs, medicaments and biological substances; Z79.899 Other long term (current) drug therapy; X58.XXXA Exposure to other specified factors, initial encounter; Y93.89 Activity, other specified; Y92.89 Other specified places as the place of occurrence of the external cause; Y99.9 Unspecified external cause status

== ENCOUNTER → 2016-09-24 | Outpatient (CLI) | payer MEDICARE ==
[~2016-09-24] MED LIST changes: +ALDACTONE25 M1 PO; +COREG12.5 M1 PO; +LOSARTAN POTASS25 M1 PO
== END | disposition home or self-care (01) ==
LOC: RAD/SH 08:30 → RAD 09:00
DX: J98.4 Other disorders of lung (principal); I70.0 Atherosclerosis of aorta; I10 Essential (primary) hypertension; I51.7 Cardiomegaly; R13.14 Dysphagia, pharyngoesophageal phase

== ENCOUNTER → 2016-10-03 | Day surgery (SDC) | payer MEDICARE ==
[~2016-10-03] VITALS: Ht 165.1 cm; Wt 62.1 kg
[~2016-10-03] MED LIST changes: +OMEPRAZOLE20 M2 PO
--- NOTE | ~2016-10-03 | O ---
[place], [place] OPERATIVE NOTE NAME: FARHAT MORALES UNIT #: [id number] ROOM: DOCTOR: DAVIE SEAMAN MD BIRTHDATE: [birth year] DOS: 10/03/2016 GASTROENDOSCOPIC REPORT INDICATIONS: This is a 71-year-old patient who presented with chief complaint of solid food dysphagia, undergoing investigation. PAST MEDICAL HISTORY: Hypertension, hypercholesterolemia. PAST SURGICAL HISTORY: Colostomy and revisions. ALLERGIES: SULFA, PERCOCET, PERCODAN, DARVOCET, LYRICA, CORTISONE. FAMILY HISTORY: Noncontributory. SOCIAL HISTORY: Nonsmoker, nonalcohol consumer. PROCEDURE: Today's procedure part of investigation is panendoscopy plus biopsy and balloon dilation of esophagus. PREMEDICATION: Versed and Diprivan. SCOPE: Olympus forward-viewing gastroscope Q10 video. REPORT: After putting the patient in the left lateral position and after application of lubricant to the scope, the scope was introduced. Thereafter, under direct visualization, I advanced through the length of esophagus without difficulty. Benign esophageal upper esophageal stricture was identified. Gastric pouch was entered, minimal degraded blood in the stomach was identified secondary to gastritis. Duodenal bulb, second and third part within normal limits. Antrum was biopsied for H. pylori. GI reflection of the scope reveals cardia to be benign. At this stage, a balloon size 20 was introduced into gastric pouch, inflated to size 20 and orally extracted. Highest resistance at distal esophagus and upper esophagus experienced. The patient extubated, tolerated procedure well. IMPRESSION: Esophageal stricture, benign in nature, status post balloon dilation to size 20 and gastritis, status post biopsy. PLAN AND DISCUSSION: We are going to keep this patient on omeprazole 20 mg, 1 q. day and clinical reassessment. Thank you very much indeed. [place], [place] OPERATIVE NOTE NAME: FARHAT MORALES UNIT #: [id number] ROOM: DOCTOR: DAVIE SEAMAN MD BIRTHDATE: [birth year] DAVIE SEAMAN MD CM:OPRECORD:OPERATIVE NOTE 1045 1123 CASSI SEAMAN MD 10/03/16 1426 interface
[2016-10-03 10:04] VITALS: BP 129/81
[2016-10-03 10:45] VITALS: BP 117/61
[2016-10-03 11:00] VITALS: BP 126/88
[2016-10-03 11:15] VITALS: BP 144/79
== END | disposition home or self-care (01) ==
LOC: SDC 10-01 11:00
DX: K22.2 Esophageal obstruction (principal); K29.50 Unspecified chronic gastritis without bleeding; I10 Essential (primary) hypertension; E78.00 Pure hypercholesterolemia, unspecified; Z87.891 Personal history of nicotine dependence; Z86.73 Personal history of transient ischemic attack (TIA), and cerebral infarction without residual deficits; K21.9 Gastro-esophageal reflux disease without esophagitis; J44.9 Chronic obstructive pulmonary disease, unspecified; F32.9 Major depressive disorder, single episode, unspecified; G43.909 Migraine, unspecified, not intractable, without status migrainosus; Z87.01 Personal history of pneumonia (recurrent); Z86.718 Personal history of other venous thrombosis and embolism; Z90.710 Acquired absence of both cervix and uterus; Z82.49 Family history of ischemic heart disease and other diseases of the circulatory system

== ENCOUNTER 2016-10-31 11:42 | Inpatient (IN) | payer MEDICARE ==
[~2016-10-31] VITALS: Ht 167.6 cm; Wt 65.8 kg
[~2016-10-31 11:42] MED LIST changes: +AMBIEN10 M1 PO
[2016-10-31 12:01] VITALS: BP 159/92
[2016-10-31 12:33] LABS: BASO # 0.1 10*3/uL (0.0-0.1); BASO % 0.4 % (0.0-1.0); EOS # 0.3 10*3/uL (0.0-0.4); EOS % 1.9 % (1.0-4.0); HEMOGLOBIN 13.8 g/dl (12.0-16.0); IG # 0.1 10*3/uL (0.0-0.1); LYMPH % 21.4 % (27.0-41.0); MEAN CELL VOLUME 87.9 fl (81.0-99.0); MEAN CORPUSCULAR HGB 28.2 pg (27.0-31.0); MEAN CORPUSCULAR HGB CONC 32.1 g/dl (33.0-37.0); MONO # 0.9 10*3/uL (0.1-1.0); MONO % 6.6 % (3.0-9.0); NEUT # 9.8 10*3/uL (2.3-7.9); NEUT % 69.3 % (47.0-73.0); PLATELET COUNT AUTOMATED 410 10*3/uL (130-400); RED BLOOD COUNT 4.89 10*6/uL (4.10-5.10); RED CELL DISTRI WIDTH 13.7 % (0-14.5); WHITE BLOOD COUNT 14.1 10*3/uL (4.8-10.8)
[2016-10-31 12:49] LABS: ALBUMIN 2.6 gm/dl (3.1-4.5); ALKALINE PHOSPHATASE 161 U/L (45-117); BILIRUBIN, TOTAL 0.3 mg/dl (0.2-1.0); BUN 15 mg/dl (7-24); C-REACTIVE PROTEIN 3.45 MG/DL (0-0.3); CARBON DIOXIDE 26 mmol/L (21-32); CHLORIDE 103 mmol/L (98-107); CPK 11 U/L (26-192); EST GLOM FILT AFRICAN AMERICAN 54 ml/min; GLUCOSE 106 mg/dL (65-99); MAGNESIUM 1.7 mg/dL (1.5-2.1); POTASSIUM 3.8 mmol/L (3.5-5.1); SGOT/AST 25 IU/L (3-35); SGPT/ALT 17 U/L (12-78); SODIUM 139 mmol/L (136-145); TOTAL PROTEIN 8.4 gm/dL (6.4-8.2)
[2016-10-31 12:51] LABS: CKMB < 0.5 ng/ml (0.5-3.6); TROPONIN I < 0.015 ng/ml (<0.045)
[2016-10-31 12:52] LABS: INTERNATIONAL NORM RATIO 1.1 (2.0-3.5); PROTHROMBIN TIME 11.7 SECONDS (9.0-12.4)
[2016-10-31 16:04] VITALS: BP 171/91
[2016-10-31 18:39] VITALS: BP 173/84
[2016-10-31] MEDS ORDERED: PRADAXA75 M1 PO (18:43)
[2016-10-31] MEDS ORDERED: CRESTOR10 M1 PO (18:43)
[2016-10-31] MEDS ORDERED: Zofran4 MG PO (18:44)
[2016-10-31] MEDS ORDERED: CLONIDINE HCL0.1 MG PO (18:45)
[2016-10-31 20:00] VITALS: BP 159/82
[2016-11-01 06:01] LABS: BASO # 0.1 10*3/uL (0.0-0.1); BASO % 0.6 % (0.0-1.0); EOS # 0.4 10*3/uL (0.0-0.4); EOS % 3.4 % (1.0-4.0); HEMATOCRIT 39.2 % (37.0-47.0); HEMOGLOBIN 12.5 g/dl (12.0-16.0); IG # 0.1 10*3/uL (0.0-0.1); LYMPH # 2.8 10*3/uL (1.3-4.4); LYMPH % 22.7 % (27.0-41.0); MEAN CELL VOLUME 88.7 fl (81.0-99.0); MEAN CORPUSCULAR HGB 28.3 pg (27.0-31.0); MEAN CORPUSCULAR HGB CONC 31.9 g/dl (33.0-37.0); MEAN PLATELET VOLUME 9.4 fl (9.6-12.3); MONO % 8.3 % (3.0-9.0); NEUT # 8.1 10*3/uL (2.3-7.9); NEUT % 64.5 % (47.0-73.0); PLATELET COUNT AUTOMATED 384 10*3/uL (130-400); RED BLOOD COUNT 4.42 10*6/uL (4.10-5.10); RED CELL DISTRI WIDTH 13.5 % (0-14.5); WHITE BLOOD COUNT 12.5 10*3/uL (4.8-10.8)
[2016-11-01 06:02] LABS: ALBUMIN 2.3 gm/dl (3.1-4.5); ALKALINE PHOSPHATASE 143 U/L (45-117); BILIRUBIN, TOTAL 0.3 mg/dl (0.2-1.0); BUN 16 mg/dl (7-24); CARBON DIOXIDE 24 mmol/L (21-32); CHLORIDE 104 mmol/L (98-107); CHOLESTEROL 157 mg/dL (<200); EST GLOM FILT AFRICAN AMERICAN > 60 ml/min; GLUCOSE 87 mg/dL (65-99); HDL CHOLESTEROL 31 mg/dl (40-60); LDL CHOLESTEROL 99 mg/dL (9-159); MAGNESIUM 1.5 mg/dL (1.5-2.1); PHOSPHOROUS 3.3 mg/dL (2.5-4.9); POTASSIUM 3.6 mmol/L (3.5-5.1); SGOT/AST 28 IU/L (3-35); SGPT/ALT 17 U/L (12-78); SODIUM 139 mmol/L (136-145); TOTAL PROTEIN 7.5 gm/dL (6.4-8.2); TRIGLYCERIDES 134 mg/dl (<150); VLDL CHOLESTEROL 27 mg/dL (6-40)
[2016-11-01 06:59] LABS: HEMOGLOBIN A1c 6.3 % (4.8-5.6)
[2016-11-01 07:39] LABS: FOLIC ACID 6.56 ng/mL (>5.38)
[2016-11-01 08:00] VITALS: BP 151/80
[2016-11-01 12:00] VITALS: BP 146/76
[2016-11-01 16:00] VITALS: BP 148/75
[2016-11-01 17:32] LABS: BILIRUBIN NEGATIVE (NEGATIVE); BLOOD TRACE-INTACT (NEGATIVE); CLARITY SL CLOUDY (CLEAR); COLOR YELLOW (YELLOW); GLUCOSE NEGATIVE (NEGATIVE); KETONE NEGATIVE (NEGATIVE); LEUKO ESTERASE 2+ (NEGATIVE); NITRITE NEGATIVE (NEGATIVE); PH 5.5 (5.0-9.0); PROTEIN NEGATIVE (NEGATIVE); UROBILINOGEN 0.2 E.U./dl (0.2-1.0)
[2016-11-01 17:40] LABS: BACTERIA 2+; URINE REFLEX COMMENT YES (NO); WBC TNTC wbc/hpf (0-5)
[2016-11-01] MEDS ORDERED: PRAD75 PO (19:14)
[2016-11-01] MEDS ORDERED: OMEPRAZOLE D/R20 MG PO (19:15)
[2016-11-01 20:00] VITALS: BP 158/80
[2016-11-02] VITALS: BP 148/87
[2016-11-02 08:00] VITALS: BP 116/70
[2016-11-02 12:00] VITALS: BP 125/72
[2016-11-02] MEDS ORDERED: LOPRESSOR25 MG PO (13:44)
[2016-11-02] MEDS ORDERED: DOXYCYCLINE100 M3 PO (13:46)
[2016-11-02] MEDS ORDERED: ASPIRIN ADULT L81 M1 PO (14:14)
== END 2016-11-02 15:26 | disposition home health service (06) | DRG 393 ==
LOC: ED 11:42 → EDHOLD 17:05 → 5E 17:05
PROVIDERS: Emergency Medicine; Hospitalist; Internal Medicine
DX: K94.01 Colostomy hemorrhage (principal); A41.9 Sepsis, unspecified organism; N17.0 Acute kidney failure with tubular necrosis; R65.20 Severe sepsis without septic shock; N18.4 Chronic kidney disease, stage 4 (severe); D68.59 Other primary thrombophilia; I50.32 Chronic diastolic (congestive) heart failure; I13.0 Hypertensive heart and chronic kidney disease with heart failure and stage 1 through stage 4 chronic kidney disease, or unspecified chronic kidney disease; Z99.81 Dependence on supplemental oxygen; K76.0 Fatty (change of) liver, not elsewhere classified; T45.515A Adverse effect of anticoagulants, initial encounter; D47.3 Essential (hemorrhagic) thrombocythemia; F41.9 Anxiety disorder, unspecified; I48.2 Chronic atrial fibrillation; G47.00 Insomnia, unspecified; K21.9 Gastro-esophageal reflux disease without esophagitis; J44.9 Chronic obstructive pulmonary disease, unspecified; E66.01 Morbid (severe) obesity due to excess calories; F32.9 Major depressive disorder, single episode, unspecified; K57.90 Diverticulosis of intestine, part unspecified, without perforation or abscess without bleeding; Z88.2 Allergy status to sulfonamides; Z88.1 Allergy status to other antibiotic agents; Z88.6 Allergy status to analgesic agent; Z88.8 Allergy status to other drugs, medicaments and biological substances; Z90.710 Acquired absence of both cervix and uterus; Z90.49 Acquired absence of other specified parts of digestive tract; Z86.73 Personal history of transient ischemic attack (TIA), and cerebral infarction without residual deficits; Z86.718 Personal history of other venous thrombosis and embolism; Z79.899 Other long term (current) drug therapy; Z68.24 Body mass index [BMI] 24.0-24.9, adult; Y92.89 Other specified places as the place of occurrence of the external cause; Z82.49 Family history of ischemic heart disease and other diseases of the circulatory system; Y83.3 Surgical operation with formation of external stoma as the cause of abnormal reaction of the patient, or of later complication, without mention of misadventure at the time of the procedure

== ENCOUNTER → 2017-07-16 | Outpatient (CLI) | payer MEDICARE ==
[~2017-07-16] MED LIST changes: +AMOXICILLIN250 MG PO; +ASPIRIN ADULT L81 M1 PO; +CLONIDINE HCL0.1 MG PO; +CRESTOR10 M1 PO; +DOXYCYCLINE100 M3 PO; +OMEPRAZOLE D/R20 MG PO; +PRAD75 PO; +PRADAXA75 M1 PO
[2017-07-16 10:07] LABS: CREATININE 1.15 mg/dL (0.55-1.02); POTASSIUM 4.7 mmol/L (3.5-5.1)
== END | disposition home or self-care (01) ==
LOC: LAB 09:17
PROVIDERS: Internal Medicine
DX: E86.0 Dehydration (principal)

== ENCOUNTER 2017-08-10 09:43 | Emergency (ER) | payer MEDICARE ==
[~2017-08-10] VITALS: Wt 77.6 kg
[~2017-08-10 09:43] MED LIST changes: +PERCOCET 5-3251 EACH PO
[2017-08-10 09:46] VITALS: BP 132/59
[2017-08-10 10:04] LABS: BASO # 0.1 10*3/uL (0.0-0.1); BASO % 0.6 % (0.0-1.0); EOS # 0.4 10*3/uL (0.0-0.4); HEMATOCRIT 35.6 % (37.0-47.0); HEMOGLOBIN 11.6 g/dl (12.0-16.0); LYMPH # 2.4 10*3/uL (1.3-4.4); MEAN CELL VOLUME 92.5 fl (81.0-99.0); MEAN CORPUSCULAR HGB 30.1 pg (27.0-31.0); MEAN CORPUSCULAR HGB CONC 32.6 g/dl (33.0-37.0); MEAN PLATELET VOLUME 9.5 fl (9.6-12.3); MONO # 0.7 10*3/uL (0.1-1.0); MONO % 8.3 % (3.0-9.0); NEUT # 4.9 10*3/uL (2.3-7.9); NEUT % 57.7 % (47.0-73.0); PLATELET COUNT AUTOMATED 235 10*3/uL (130-400); RED BLOOD COUNT 3.85 10*6/uL (4.10-5.10); RED CELL DISTRI WIDTH 12.8 % (0-14.5); WHITE BLOOD COUNT 8.5 10*3/uL (4.8-10.8)
[2017-08-10 10:19] LABS: ALBUMIN 3.1 gm/dl (3.1-4.5); CREATININE 1.31 mg/dL (0.55-1.02); POTASSIUM 4.3 mmol/L (3.5-5.1); TOTAL PROTEIN 7.8 gm/dL (6.4-8.2)
[2017-08-10 10:47] LABS: BILIRUBIN NEGATIVE (NEGATIVE); BLOOD NEGATIVE (NEGATIVE); CLARITY CLEAR (CLEAR); COLOR YELLOW (YELLOW); GLUCOSE NEGATIVE (NEGATIVE); KETONE NEGATIVE (NEGATIVE); LEUKO ESTERASE NEGATIVE (NEGATIVE); NITRITE NEGATIVE (NEGATIVE); UROBILINOGEN 0.2 E.U./dl (0.2-1.0)
[2017-08-10 10:56] LABS: BACTERIA 1+
== END 2017-08-10 11:08 | disposition home or self-care (01) ==
LOC: ED 09:43
PROVIDERS: Emergency Medicine
DX: M54.5 Low back pain (principal); I48.91 Unspecified atrial fibrillation; I13.0 Hypertensive heart and chronic kidney disease with heart failure and stage 1 through stage 4 chronic kidney disease, or unspecified chronic kidney disease; N18.4 Chronic kidney disease, stage 4 (severe); I50.9 Heart failure, unspecified; J44.9 Chronic obstructive pulmonary disease, unspecified; K21.9 Gastro-esophageal reflux disease without esophagitis; E66.9 Obesity, unspecified; Z79.82 Long term (current) use of aspirin; Z79.899 Other long term (current) drug therapy; Z88.2 Allergy status to sulfonamides; Z90.710 Acquired absence of both cervix and uterus; Z90.49 Acquired absence of other specified parts of digestive tract; Z98.890 Other specified postprocedural states; Z88.1 Allergy status to other antibiotic agents; Z88.5 Allergy status to narcotic agent; Z88.8 Allergy status to other drugs, medicaments and biological substances

== ENCOUNTER → 2017-08-19 | Outpatient (CLI) | payer MEDICARE | END | disposition home or self-care (01) | LOC: RAD 08:52 | DX: M54.9 Dorsalgia, unspecified (principal) ==

== ENCOUNTER → 2017-10-01 | Outpatient (CLI) | payer MEDICARE ==
[~2017-10-01] MED LIST changes: +AMINOPHYLLIN200 MG PO; +LOSARTAN POTASS50 M1 PO; +ONDANSETRON4 MG SL; +PERCOCET 7.5-31 EACH PO; +PHENAZOPYRIDIN100 M1 PO; +VITAMIN E400 UNI3 PO; +ZOFRAN ODT4 MG SL
[2017-10-01 12:28] LABS: BASO % 0.4 % (0.0-1.0); EOS # 0.3 10*3/uL (0.0-0.4); EOS % 2.7 % (1.0-4.0); HEMATOCRIT 36.9 % (37.0-47.0); HEMOGLOBIN 11.8 g/dl (12.0-16.0); LYMPH # 2.7 10*3/uL (1.3-4.4); LYMPH % 26.1 % (27.0-41.0); MEAN CELL VOLUME 92.9 fl (81.0-99.0); MEAN CORPUSCULAR HGB 29.7 pg (27.0-31.0); MEAN PLATELET VOLUME 9.6 fl (9.6-12.3); MONO # 0.7 10*3/uL (0.1-1.0); MONO % 6.4 % (3.0-9.0); NEUT # 6.6 10*3/uL (2.3-7.9); NEUT % 64.1 % (47.0-73.0); PLATELET COUNT AUTOMATED 254 10*3/uL (130-400); RED BLOOD COUNT 3.97 10*6/uL (4.10-5.10); RED CELL DISTRI WIDTH 12.5 % (0-14.5); WHITE BLOOD COUNT 10.3 10*3/uL (4.8-10.8)
[2017-10-01 12:43] LABS: ALBUMIN 3.3 gm/dl (3.1-4.5); CREATININE 1.25 mg/dL (0.55-1.02); POTASSIUM 4.3 mmol/L (3.5-5.1); TOTAL PROTEIN 8.4 gm/dL (6.4-8.2)
== END | disposition home or self-care (01) ==
LOC: LAB 11:52 → CT 13:00
PROVIDERS: Nurse Practitioner Family
DX: K57.30 Diverticulosis of large intestine without perforation or abscess without bleeding (principal); I70.90 Unspecified atherosclerosis; I10 Essential (primary) hypertension; N20.0 Calculus of kidney; N39.0 Urinary tract infection, site not specified; R11.0 Nausea; Z90.49 Acquired absence of other specified parts of digestive tract; Z90.710 Acquired absence of both cervix and uterus

== ENCOUNTER 2017-10-22 07:48 | Inpatient (IN) | payer MEDICARE ==
[~2017-10-22] VITALS: Ht 167.6 cm; Wt 83.0 kg
[2017-10-22] VITALS (7 sets, daily range): BP systolic 121–166; BP diastolic 59–78
--- NOTE | ~2017-10-22 | EKG ---
[place], [place] ELECTROCARDIOGRAM REPORT NAME: FARHAT MORALES UNIT #: [id number] ROOM: [facility] DOCTOR: JESSE CHERRY MD BIRTHDATE: [birth year] DOS: 10/22/2017 TIME: 0820 hours. FINDINGS: 1. Normal sinus rhythm at 68 beats per minute. 2. The tracing is normal. 3. No previous tracing is available for comparison. JESSE CHERRY MD CM:EKGRPT:ELECTROCARDIOGRAM REPORT 1745 0009 JESSE CHERRY MD
[~2017-10-22 07:48] MED LIST changes: -AMINOPHYLLIN200 MG PO; -LOSARTAN POTASS50 M1 PO; -ONDANSETRON4 MG SL; -PERCOCET 7.5-31 EACH PO; -PHENAZOPYRIDIN100 M1 PO; -VITAMIN E400 UNI3 PO; -ZOFRAN ODT4 MG SL
[2017-10-22 08:17] LABS: BILIRUBIN NEGATIVE (NEGATIVE); BLOOD TRACE-INTACT (NEGATIVE); CLARITY CLOUDY (CLEAR); COLOR YELLOW (YELLOW); GLUCOSE NEGATIVE (NEGATIVE); KETONE NEGATIVE (NEGATIVE); LEUKO ESTERASE 3+ (NEGATIVE); NITRITE NEGATIVE (NEGATIVE); PH 6.5 (5.0-9.0); SPECIFIC GRAVITY 1.015 (1.005-1.030); UROBILINOGEN 0.2 E.U./dl (0.2-1.0)
[2017-10-22 08:21] LABS: BASO # 0.1 10*3/uL (0.0-0.1); BASO % 0.6 % (0.0-1.0); EOS # 0.2 10*3/uL (0.0-0.4); EOS % 2.4 % (1.0-4.0); HEMATOCRIT 39.4 % (37.0-47.0); HEMOGLOBIN 12.6 g/dl (12.0-16.0); LYMPH # 1.4 10*3/uL (1.3-4.4); LYMPH % 16.4 % (27.0-41.0); MEAN CELL VOLUME 93.1 fl (81.0-99.0); MEAN CORPUSCULAR HGB 29.8 pg (27.0-31.0); MEAN PLATELET VOLUME 9.2 fl (9.6-12.3); MONO # 0.5 10*3/uL (0.1-1.0); MONO % 6.2 % (3.0-9.0); NEUT # 6.5 10*3/uL (2.3-7.9); NEUT % 74.2 % (47.0-73.0); PLATELET COUNT AUTOMATED 261 10*3/uL (130-400); RED BLOOD COUNT 4.23 10*6/uL (4.10-5.10); RED CELL DISTRI WIDTH 12.9 % (0-14.5); WHITE BLOOD COUNT 8.7 10*3/uL (4.8-10.8)
[2017-10-22 08:31] LABS: ACT PARTIAL THROMBO TIME 23.8 SECONDS (20.8-31.5)
[2017-10-22 08:38] LABS: ALBUMIN 3.1 gm/dl (3.1-4.5); ALKALINE PHOSPHATASE 111 U/L (45-117); BUN 17 mg/dl (7-24); CHLORIDE 101 mmol/L (98-107); CREATININE 1.24 mg/dL (0.55-1.02); LIPASE 178 U/L (73-393); POTASSIUM 4.1 mmol/L (3.5-5.1); SGOT/AST 16 IU/L (3-35); SGPT/ALT 16 U/L (12-78); SODIUM 136 mmol/L (136-145); TOTAL PROTEIN 7.9 gm/dL (6.4-8.2)
[2017-10-22 08:46] LABS: BACTERIA 2+; EPITHELIAL CELLS 15-20; WBC TNTC wbc/hpf (0-5)
[2017-10-22 08:55] LABS: TROPONIN I < 0.015 ng/ml (<0.045)
[2017-10-22] MEDS ORDERED: LOPRESSOR25 MG PO (11:08)
[2017-10-22] MEDS ORDERED: Lopressor25 MG PO (11:28)
[2017-10-22] MEDS ORDERED: LOPRESSOR50 M1 PO (11:29)
[2017-10-23] VITALS: BP 116/57
[2017-10-23 06:30] LABS: BASO # 0.1 10*3/uL (0.0-0.1); BASO % 0.8 % (0.0-1.0); EOS # 0.5 10*3/uL (0.0-0.4); EOS % 6.2 % (1.0-4.0); HEMATOCRIT 36.5 % (37.0-47.0); HEMOGLOBIN 11.3 g/dl (12.0-16.0); LYMPH # 2.5 10*3/uL (1.3-4.4); LYMPH % 30.3 % (27.0-41.0); MEAN CELL VOLUME 94.3 fl (81.0-99.0); MEAN CORPUSCULAR HGB 29.2 pg (27.0-31.0); MEAN PLATELET VOLUME 9.5 fl (9.6-12.3); MONO # 0.7 10*3/uL (0.1-1.0); MONO % 8.1 % (3.0-9.0); NEUT # 4.5 10*3/uL (2.3-7.9); NEUT % 54.1 % (47.0-73.0); PLATELET COUNT AUTOMATED 250 10*3/uL (130-400); RED BLOOD COUNT 3.87 10*6/uL (4.10-5.10); WHITE BLOOD COUNT 8.3 10*3/uL (4.8-10.8)
[2017-10-23 06:41] LABS: ACT PARTIAL THROMBO TIME 24.3 SECONDS (20.8-31.5)
[2017-10-23 07:01] LABS: ALBUMIN 2.8 gm/dl (3.1-4.5); ALKALINE PHOSPHATASE 128 U/L (45-117); BUN 16 mg/dl (7-24); CHLORIDE 108 mmol/L (98-107); CHOLESTEROL 164 mg/dL (<200); CREATININE 1.18 mg/dL (0.55-1.02); FREE T4 0.95 ng/dl (0.76-1.46); HDL CHOLESTEROL 35 mg/dl (40-60); LDL CHOLESTEROL 90 mg/dL (9-159); PHOSPHOROUS 3.8 mg/dL (2.5-4.9); SGOT/AST 17 IU/L (3-35); SGPT/ALT 18 U/L (12-78); SODIUM 142 mmol/L (136-145); TRIGLYCERIDES 196 mg/dl (<150); VLDL CHOLESTEROL 39 mg/dL (6-40)
[2017-10-23 07:59] LABS: VITAMIN D, 25-HYDROXY 11.2 ng/mL (30-100)
[2017-10-23 08:00] VITALS: BP 127/54
[2017-10-23 12:00] VITALS: BP 97/54
[2017-10-23] MEDS ORDERED: AMINOPHYLLIN200 MG PO (12:59)
[2017-10-23 13:29] VITALS: BP 112/58
== END 2017-10-23 14:11 | disposition home or self-care (01) | DRG 690 ==
LOC: ED 07:48 → 5E 09:22 → EDHOLD 09:22 → 5E 09:43
PROVIDERS: Emergency Medicine; Family Medicine
DX: N39.0 Urinary tract infection, site not specified (principal); E44.0 Moderate protein-calorie malnutrition; N18.4 Chronic kidney disease, stage 4 (severe); I48.91 Unspecified atrial fibrillation; E83.41 Hypermagnesemia; I50.32 Chronic diastolic (congestive) heart failure; I13.0 Hypertensive heart and chronic kidney disease with heart failure and stage 1 through stage 4 chronic kidney disease, or unspecified chronic kidney disease; E66.9 Obesity, unspecified; N28.1 Cyst of kidney, acquired; R31.9 Hematuria, unspecified; G89.29 Other chronic pain; R73.9 Hyperglycemia, unspecified; K76.0 Fatty (change of) liver, not elsewhere classified; M54.5 Low back pain; F41.9 Anxiety disorder, unspecified; J44.9 Chronic obstructive pulmonary disease, unspecified; G47.00 Insomnia, unspecified; K21.9 Gastro-esophageal reflux disease without esophagitis; K57.90 Diverticulosis of intestine, part unspecified, without perforation or abscess without bleeding; R11.2 Nausea with vomiting, unspecified; Z79.82 Long term (current) use of aspirin; Z93.3 Colostomy status; Z88.2 Allergy status to sulfonamides; Z88.6 Allergy status to analgesic agent; Z88.8 Allergy status to other drugs, medicaments and biological substances; Z79.899 Other long term (current) drug therapy; Z90.710 Acquired absence of both cervix and uterus; Z90.49 Acquired absence of other specified parts of digestive tract; Z90.89 Acquired absence of other organs; Z82.49 Family history of ischemic heart disease and other diseases of the circulatory system; Z68.29 Body mass index [BMI] 29.0-29.9, adult

== ENCOUNTER 2017-10-24 10:47 | Inpatient (IN) | payer MEDICARE ==
[~2017-10-24] VITALS: Ht 167.6 cm; Wt 83.1 kg
--- NOTE | ~2017-10-24 | O ---
[place], [place] OPERATIVE NOTE NAME: [facility]ES [id number] UNIT #: [id number] ROOM: 416 DOCTOR: JURGEN OCAMPODAVIE BIRTHDATE: [birth year] DOS: 10/26/2017 HISTORY OF PRESENT ILLNESS: This is a 72-year-old patient who presented with chief complaint of epigastric distress, dyspepsia, undergoing investigation. The patient has been admitted with CBC, white blood cell 8.7, H and H of 12 and 39. Differential within normal limit. Lactic acid normal. Urinalysis then 2+ bacteria. Comprehensive metabolic panel: BUN and creatinine 17 and 1.2. Electrolytes balance, liver function tests normal. BNP of 5254. Troponin normal. CT scan of the abdomen and pelvis, no acute changes were noticed. Urine culture results were negative. PAST MEDICAL HISTORY: Associated with atrial fibrillation, anxiety, congestive heart failure, chronic back pain, renal insufficiency, COPD, history of diverticulitis, status post colostomy, hyperglycemia. PAST SURGICAL HISTORY: Colostomy for diverticulitis and left sigmoid resection, hysterectomy, partial colectomy, tonsillectomy, adenoidectomy, cholecystectomy. SOCIAL HISTORY: Nonsmoker, nonalcohol consumer. FAMILY HISTORY: Noncontributory. MEDICATION: List reviewed. PROCEDURE: Today's procedure part of investigation is panendoscopy plus biopsy. PREMEDICATION: Versed and propofol. SCOPE: Olympus forward-viewing gastroscope Q10 video. REPORT: After putting the patient in left lateral position and application of lubricant to the scope, the scope was introduced. Thereafter, under direct visualization, I advanced through the length of esophagus without difficulty. A 2 cm hiatal hernia was noticed. Gastric pouch was entered. Moderate to severe gastritis, particularly expressed in antrum was identified, photographed and biopsied. Duodenal bulb, second and third part within normal limit. The patient extubated, tolerated procedure well. IMPRESSION: Moderate to severe gastritis. A small hiatal hernia 2 cm. PLAN AND DISCUSSION: This patient is on multiple medications and among which was Cipro and Flagyl that has been modified and pain medication as well. The patient has been on aspirin, Zofran and others that was reviewed. I do not see a PPI coverage for her. We are going to start her on Protonix 40 mg 1 daily p.o., and that would be adequate for management of her gastritis. DIET: Going to be given regular as tolerated. She needs a colonoscopy. Apparently, there are plans for reversal of colostomy and this is going to be organized the next day or two. [place], [place] OPERATIVE NOTE NAME: FARHAT MORALES UNIT #: [id number] ROOM: [facility] DOCTOR: DAVIE SEAMAN MD BIRTHDATE: [birth year] DAVIE SEAMAN MD CM:OPRECORD:OPERATIVE NOTE 1743 1828 DAVIE SEAMAN MD 10/27/17 1020 interface
--- NOTE | ~2017-10-24 | CON ---
[place], [place] REPORT OF CONSULTATION [id number] UN[facility] #: [id number] ROOM: 416 DOCTOR: DAVIE SEAMAN MD BIRTHDATE: [birth year] DOS: 10/26/2017 HISTORY OF PRESENT ILLNESS: This is a 72-year-old patient who presented with chief complaint of epigastric distress, dyspepsia, undergoing investigation. The patient has been admitted with CBC, white blood cell 8.7, H and H of 12 and 39. Differential within normal limit. Lactic acid normal. Urinalysis then 2+ bacteria. Comprehensive metabolic panel: BUN and creatinine 17 and 1.2. Electrolytes balance, liver function tests normal. BNP of 5254. Troponin normal. CT scan of the abdomen and pelvis, no acute changes were noticed. Urine culture results were negative. PAST MEDICAL HISTORY: Associated with atrial fibrillation, anxiety, congestive heart failure, chronic back pain, renal insufficiency, COPD, history of diverticulitis, status post colostomy, hyperglycemia. PAST SURGICAL HISTORY: Colostomy for diverticulitis and left sigmoid resection, hysterectomy, partial colectomy, tonsillectomy, adenoidectomy, cholecystectomy. SOCIAL HISTORY: Nonsmoker, nonalcohol consumer. FAMILY HISTORY: Noncontributory. MEDICATION: List reviewed. PROCEDURE: Today's procedure part of investigation is panendoscopy plus biopsy. PREMEDICATION: Versed and propofol. SCOPE: Olympus forward-viewing gastroscope Q10 video. REPORT: After putting the patient in left lateral position and application of lubricant to the scope, the scope was introduced. Thereafter, under direct visualization, I advanced through the length of esophagus without difficulty. A 2 cm hiatal hernia was noticed. Gastric pouch was entered. Moderate to severe gastritis, particularly expressed in antrum was identified, photographed and biopsied. Duodenal bulb, second and third part within normal limit. The patient extubated, tolerated procedure well. IMPRESSION: Moderate to severe gastritis. A small hiatal hernia 2 cm. PLAN AND DISCUSSION: This patient is on multiple medications and among which was Cipro and Flagyl that has been modified and pain medication as well. The patient has been on aspirin, Zofran and others that was reviewed. I do not see a PPI coverage for her. We are going to start her on Protonix 40 mg 1 daily p.o., and that would be adequate for management of her gastritis. DIET: Going to be given regular as tolerated. She needs a colonoscopy. Apparently, there are plans for reversal of colostomy and this is going to be organized the next day or two. [place], [place] REPORT OF CONSULTATION NAME: FARHAT MORALES UNIT #: [id number] ROOM: [facility] DOCTOR: DAVIE SEAMAN MD BIRTHDATE: [birth year] DAVIE SEAMAN MD CM:CONSTR:REPORT OF CONSULTATION 1743 10/27/17 1023 CHRISTINE SANTANA.TM
--- NOTE | ~2017-10-24 | O ---
[place], [place] OPERATIVE NOTE NAME: FARHAT MORALES UNIT #: [id number] ROOM: 416 DOCTOR: DAVEI SEAMAN MD BIRTHDATE: [birth year] DOS: 10/28/2017 HISTORY OF PRESENT ILLNESS: This is a 72-year-old patient status post previous colostomy, nonspecific abdominal pain and possibility for reanastomosis of the colon. PROCEDURE: Today's procedure part of investigation is colonoscopy per rectum and per ostomy. PREMEDICATION: Propofol. SCOPE: Olympus Skai colonoscope 10L video. REPORT: After putting the patient in left lateral position and application of lubricant to the scope, the scope was introduced. Thereafter, under direct visualization, I advanced through the length of colon through the rectum. Approximately 27 cm anastomotic site was noticed. Diverticulosis in this segment also encounter. Anastomotic site appears to be fresh and benign. Scope was withdrawn. The patient extubated, tolerated procedure well. At this stage, the ostomy site was approached from anterior part of the abdomen. Scope was introduced into the ostomy and advanced throughout the length of colon. There was no pathology except diverticulosis and colon. Base of cecum and appendiceal orifice photographed. Air was suctioned out. The patient was extubated, tolerated the procedure well. IMPRESSION: Diverticulosis. DISCUSSION: This patient had colonoscopy per rectum and per ostomy site done at the site the colon is viable for reanastomosis in the near future. Workup in progress. We will feed the patient today. DAVIE SEAMAN MD CM:OPRECORD:OPERATIVE NOTE [id number] DAVIE SEAMAN MD 10/28/17 1116 interface
--- NOTE | ~2017-10-24 | WRIGHTHP ---
[place], [place] PATIENT HISTORY AND PHYSICAL EXAM NAME: FARHAT MORALES [facility] #: [id number] UNIT #: [id number] ROOM: 416 DOCTOR: LELIA LUNA MD BIRTHDATE: [birth year] DOS: 10/24/2017 HISTORY OF PRESENT ILLNESS: She was admitted to the hospital only few days ago on Thursday last and was discharged from the hospital only on and she stayed home only for one day and yesterday came to Emergency Department with history of nausea and vomiting and feeling of marked weakness, so she was readmitted to the hospital to see what is happening with her and the patient was admitted last time with UTI, nausea and vomiting, hyperglycemia, hypermagnesia, congestive heart failure, anxiety, hypertension, insomnia, GERD syndrome, diverticulosis, COPD, chronic kidney disease, fatty liver, renal cyst, protein caloric malnutrition, chronic back pain. The patient has a colostomy in the left iliac fossa. ALLERGIES: She is allergic to multiple medications including SULFA, LEVOFLOXACIN, CORTISONE, HYDROMORPHONE, CODEINE, HYDROCODONE, OXYCODONE, LYRICA, AND DARVOCET-N 100. The patient has been taking the carisoprodol 350 mg every 8 hours p.r.n., Ambien 10 mg at bedtime p.r.n., aspirin 81 mg daily, Crestor 10 mg daily, Zofran 4 mg p.r.n., clonidine 0.1 mg twice daily and metoprolol 50 mg twice daily. PAST MEDICAL HISTORY: She has past history of atrial fibrillation, anxiety, congestive heart failure, chronic pain, chronic kidney disease with colostomy in place, COPD, diverticulosis, fatty liver, GERD syndrome, hypertension, hyperglycemia, hypermagnesia, protein-calorie malnutrition, renal cyst. PAST SURGICAL HISTORY: As showed a history of hysterectomy, appendectomy, foot surgery, partial colectomy, tonsillectomy, adenoidectomy, history of abdominoplasty, cholecystectomy and colonoscopy. PHYSICAL EXAMINATION: GENERAL: The patient is conscious, alert and oriented, sitting comfortably in the bed. VITAL SIGNS: Her blood pressure is 147/84, pulse 66, respirations 20, temperature 97.3. She is 5 feet 6 inches tall, weighing 179 pound. HEENT: Her ENT examination unremarkable. No glandular enlargement. NECK: Trachea is center. Neck veins are distended. HEART: Regular, no murmur. LUNGS: Showing increased expiration. No crepitation. ABDOMEN: Not distended. Liver and spleen not palpably having colostomy bag and positioned in the left iliac fossa. There is no area of tenderness, no mass palpable. Suprapubic region normal. EXTREMITIES: No edema of legs. NEUROLOGIC: No localized neurological deficit observed. LABORATORY DATA: Her KUB done in the Emergency Department showed osteotomy left lower quadrant. Normal gas pattern. No other abnormalities are detected. Urine culture and sensitivity did not grow any bacteria. Chest x-ray showed cardiomegaly. Otherwise, no interval change. Comprehensive metabolic profile showed glucose 169, BUN 14, creatinine 1.23, GFR 43, calcium 8.4, albumin 3. [place], [place] PATIENT HISTORY AND PHYSICAL EXAM NAME: FARHAT MORALES UNIT #: [id number] ROOM: [facility] DOCTOR: LELIA LUNA MD BIRTHDATE: [birth year] Rest of the values were normal. Her urine examination showed 3+ leukocyte esterase and WBC too numerous to count. DIAGNOSES: Acute urinary tract infection with nausea, vomiting, ASHD, hypertension, diverticulosis in position, hyponatremia, gastroesophageal reflux disease syndrome, status post colostomy in position. PLAN OF TREATMENT: The patient will be put on antibiotic. Cultures and sensitivity will be done. She will be started on her home medication and watched closely. LELIA LUNA MD CM:HISPHYS:PATIENT HISTORY AND PHYSICAL EXAMINATION 1308 [id number] LELIA LUNA MD 10/26/17 1201 interface
[2017-10-24 10:47] VITALS: BP 158/76
[~2017-10-24 10:47] MED LIST changes: +AMINOPHYLLIN200 MG PO
[2017-10-24 11:12] LABS: BILIRUBIN NEGATIVE (NEGATIVE); BLOOD TRACE-LYSED (NEGATIVE); CLARITY SL CLOUDY (CLEAR); COLOR YELLOW (YELLOW); GLUCOSE NEGATIVE (NEGATIVE); KETONE NEGATIVE (NEGATIVE); LEUKO ESTERASE 3+ (NEGATIVE); NITRITE NEGATIVE (NEGATIVE); SPECIFIC GRAVITY 1.015 (1.005-1.030); UROBILINOGEN 0.2 E.U./dl (0.2-1.0)
[2017-10-24 11:14] LABS: BASO # 0.1 10*3/uL (0.0-0.1); BASO % 0.5 % (0.0-1.0); EOS # 0.5 10*3/uL (0.0-0.4); EOS % 5.1 % (1.0-4.0); HEMATOCRIT 37.6 % (37.0-47.0); HEMOGLOBIN 12.1 g/dl (12.0-16.0); LYMPH # 2.5 10*3/uL (1.3-4.4); LYMPH % 25.3 % (27.0-41.0); MEAN CELL VOLUME 93.8 fl (81.0-99.0); MEAN CORPUSCULAR HGB 30.2 pg (27.0-31.0); MEAN CORPUSCULAR HGB CONC 32.2 g/dl (33.0-37.0); MEAN PLATELET VOLUME 9.1 fl (9.6-12.3); MONO # 0.7 10*3/uL (0.1-1.0); MONO % 6.6 % (3.0-9.0); NEUT # 6.1 10*3/uL (2.3-7.9); NEUT % 62.2 % (47.0-73.0); PLATELET COUNT AUTOMATED 238 10*3/uL (130-400); RED BLOOD COUNT 4.01 10*6/uL (4.10-5.10); RED CELL DISTRI WIDTH 12.9 % (0-14.5); WHITE BLOOD COUNT 9.8 10*3/uL (4.8-10.8)
[2017-10-24 11:22] LABS: BACTERIA TRACE; EPITHELIAL CELLS 31-40; WBC TNTC wbc/hpf (0-5)
[2017-10-24 11:29] LABS: CREATININE 1.23 mg/dL (0.55-1.02); POTASSIUM 3.6 mmol/L (3.5-5.1); TOTAL PROTEIN 7.4 gm/dL (6.4-8.2)
[2017-10-24 12:45] VITALS: BP 133/54
[2017-10-24 16:00] VITALS: BP 158/72
[2017-10-24 20:00] VITALS: BP 137/52
[2017-10-25] VITALS: BP 101/52
[2017-10-25 08:00] VITALS: BP 131/57
[2017-10-25 12:00] VITALS: BP 147/84
[2017-10-25 16:00] VITALS: BP 152/73
[2017-10-25 20:00] VITALS: BP 144/62
[2017-10-26] VITALS (9 sets, daily range): BP systolic 133–161; BP diastolic 55–78
[2017-10-27] VITALS: BP 101/70
[2017-10-27 07:08] LABS: BASO # 0.1 10*3/uL (0.0-0.1); BASO % 0.6 % (0.0-1.0); EOS # 0.7 10*3/uL (0.0-0.4); EOS % 8.4 % (1.0-4.0); HEMATOCRIT 36.7 % (37.0-47.0); HEMOGLOBIN 11.4 g/dl (12.0-16.0); LYMPH # 1.8 10*3/uL (1.3-4.4); LYMPH % 22.1 % (27.0-41.0); MEAN CELL VOLUME 95.1 fl (81.0-99.0); MEAN CORPUSCULAR HGB 29.5 pg (27.0-31.0); MEAN CORPUSCULAR HGB CONC 31.1 g/dl (33.0-37.0); MEAN PLATELET VOLUME 9.5 fl (9.6-12.3); MONO # 0.7 10*3/uL (0.1-1.0); MONO % 8.8 % (3.0-9.0); NEUT # 4.8 10*3/uL (2.3-7.9); NEUT % 59.9 % (47.0-73.0); PLATELET COUNT AUTOMATED 220 10*3/uL (130-400); RED BLOOD COUNT 3.86 10*6/uL (4.10-5.10); RED CELL DISTRI WIDTH 12.9 % (0-14.5); WHITE BLOOD COUNT 8.1 10*3/uL (4.8-10.8)
[2017-10-27 07:25] LABS: CREATININE 1.25 mg/dL (0.55-1.02); PHOSPHOROUS 3.6 mg/dL (2.5-4.9); POTASSIUM 3.9 mmol/L (3.5-5.1)
[2017-10-27 08:00] VITALS: BP 110/64
[2017-10-27 16:00] VITALS: BP 108/62
[2017-10-27 20:00] VITALS: BP 145/82
[2017-10-28] VITALS (9 sets, daily range): BP systolic 105–203; BP diastolic 57–76
[2017-10-28 06:20] LABS: CREATININE 1.12 mg/dL (0.55-1.02); POTASSIUM 3.7 mmol/L (3.5-5.1)
[2017-10-29] VITALS: BP 130/66
[2017-10-29 07:12] LABS: BASO # 0.1 10*3/uL (0.0-0.1); BASO % 0.6 % (0.0-1.0); EOS # 0.7 10*3/uL (0.0-0.4); EOS % 8.1 % (1.0-4.0); HEMATOCRIT 38.1 % (37.0-47.0); HEMOGLOBIN 11.8 g/dl (12.0-16.0); LYMPH # 2.1 10*3/uL (1.3-4.4); LYMPH % 25.1 % (27.0-41.0); MEAN CELL VOLUME 95.5 fl (81.0-99.0); MEAN CORPUSCULAR HGB 29.6 pg (27.0-31.0); MEAN PLATELET VOLUME 10.1 fl (9.6-12.3); MONO # 0.8 10*3/uL (0.1-1.0); MONO % 9.1 % (3.0-9.0); NEUT # 4.7 10*3/uL (2.3-7.9); NEUT % 56.7 % (47.0-73.0); PLATELET COUNT AUTOMATED 236 10*3/uL (130-400); RED BLOOD COUNT 3.99 10*6/uL (4.10-5.10); RED CELL DISTRI WIDTH 13.2 % (0-14.5); WHITE BLOOD COUNT 8.3 10*3/uL (4.8-10.8)
[2017-10-29 08:00] VITALS: BP 137/64
[2017-10-29 12:00] VITALS: BP 115/53
[2017-10-29] MEDS ORDERED: LOSARTAN POTASS50 M1 PO (13:29)
[2017-10-29] MEDS ORDERED: PROTONIX40 MG PO (13:30)
[2017-12-12] MEDS ORDERED: CEPHALEXIN500 M1 PO (16:16)
[2017-12-12] MEDS ORDERED: PYRIDIUM200 M1 PO (16:16)
[2017-12-14] MEDS ORDERED: CLONIDINE HCL0.1 MG PO (15:29)
[2017-12-14] MEDS ORDERED: PERCOCET 5-3251 EACH PO (15:30)
[2017-12-14] MEDS ORDERED: CELEXA20 MG PO (15:31)
[2017-12-14] MEDS ORDERED: TRAZODONE50 MG PO (15:31)
[2017-12-14] MEDS ORDERED: APRESOLINE25 MG PO (15:32)
[2017-12-14] MEDS ORDERED: NEURONTIN600 MG PO (15:32)
[2017-12-14] MEDS ORDERED: DULCOLAX10 M1 R (15:33)
[2017-12-18] MEDS ORDERED: Lidoderm 5% Patch T (08:11)
[2017-12-18] MEDS ORDERED: LOPRESSOR25 MG PO (08:11)
[2017-12-18] MEDS ORDERED: MACROBID100 M1 PO (08:11)
== END 2017-10-29 15:40 | disposition home or self-care (01) | DRG 690 ==
LOC: ED 10:47 → EDHOLD 12:11 → 4E 12:11
PROVIDERS: Emergency Medicine; Family Medicine
PROC: 0DB68ZX Excision of Stomach, Via Natural or Artificial Opening Endoscopic, Diagnostic (ICD-10-PCS; principal; 2017-10-26)
PROC: 0DJD8ZZ Inspection of Lower Intestinal Tract, Via Natural or Artificial Opening Endoscopic (ICD-10-PCS; 2017-10-28)
DX: N39.0 Urinary tract infection, site not specified (principal); E44.0 Moderate protein-calorie malnutrition; E87.1 Hypo-osmolality and hyponatremia; I50.32 Chronic diastolic (congestive) heart failure; I13.0 Hypertensive heart and chronic kidney disease with heart failure and stage 1 through stage 4 chronic kidney disease, or unspecified chronic kidney disease; I48.91 Unspecified atrial fibrillation; F41.9 Anxiety disorder, unspecified; N28.1 Cyst of kidney, acquired; G89.29 Other chronic pain; M54.9 Dorsalgia, unspecified; N18.3 Chronic kidney disease, stage 3 (moderate); I25.10 Atherosclerotic heart disease of native coronary artery without angina pectoris; G47.00 Insomnia, unspecified; K57.90 Diverticulosis of intestine, part unspecified, without perforation or abscess without bleeding; R73.9 Hyperglycemia, unspecified; K29.00 Acute gastritis without bleeding; K76.0 Fatty (change of) liver, not elsewhere classified; K44.9 Diaphragmatic hernia without obstruction or gangrene; K21.9 Gastro-esophageal reflux disease without esophagitis; J44.9 Chronic obstructive pulmonary disease, unspecified; Z87.440 Personal history of urinary (tract) infections; Z88.2 Allergy status to sulfonamides; Z88.1 Allergy status to other antibiotic agents; Z88.5 Allergy status to narcotic agent; Z88.8 Allergy status to other drugs, medicaments and biological substances; Z90.710 Acquired absence of both cervix and uterus; Z90.49 Acquired absence of other specified parts of digestive tract; Z79.82 Long term (current) use of aspirin; Z79.899 Other long term (current) drug therapy; Z82.49 Family history of ischemic heart disease and other diseases of the circulatory system; Z93.3 Colostomy status; Z68.29 Body mass index [BMI] 29.0-29.9, adult

== ENCOUNTER 2017-10-31 11:09 | Emergency (ER) | payer MEDICARE ==
[~2017-10-31] VITALS: Ht 167.6 cm; Wt 81.6 kg
[~2017-10-31 11:09] MED LIST changes: +LOSARTAN POTASS50 M1 PO
[2017-10-31 11:10] VITALS: BP 155/65
[2017-10-31] MEDS ORDERED: ZOFRAN ODT4 MG SL (11:38)
[2017-12-12] MEDS ORDERED: CEPHALEXIN500 M1 PO (16:16)
[2017-12-12] MEDS ORDERED: PYRIDIUM200 M1 PO (16:16)
[2017-12-14] MEDS ORDERED: CLONIDINE HCL0.1 MG PO (15:29)
[2017-12-14] MEDS ORDERED: PERCOCET 5-3251 EACH PO (15:30)
[2017-12-14] MEDS ORDERED: CELEXA20 MG PO (15:31)
[2017-12-14] MEDS ORDERED: TRAZODONE50 MG PO (15:31)
[2017-12-14] MEDS ORDERED: APRESOLINE25 MG PO (15:32)
[2017-12-14] MEDS ORDERED: NEURONTIN600 MG PO (15:32)
[2017-12-14] MEDS ORDERED: DULCOLAX10 M1 R (15:33)
[2017-12-18] MEDS ORDERED: MACROBID100 M1 PO (08:11)
[2017-12-18] MEDS ORDERED: Lidoderm 5% Patch T (08:11)
[2017-12-18] MEDS ORDERED: LOPRESSOR25 MG PO (08:11)
== END 2017-10-31 11:49 | disposition home or self-care (01) ==
LOC: ED 11:09
DX: R11.0 Nausea (principal); R42 Dizziness and giddiness; Z88.2 Allergy status to sulfonamides; Z88.1 Allergy status to other antibiotic agents; Z88.6 Allergy status to analgesic agent; Z88.8 Allergy status to other drugs, medicaments and biological substances; Z79.899 Other long term (current) drug therapy; Z79.82 Long term (current) use of aspirin

== ENCOUNTER 2017-11-13 09:09 | Inpatient (IN) | payer MEDICARE ==
[~2017-11-13] VITALS: Ht 167.6 cm; Wt 80.3 kg
--- NOTE | ~2017-11-13 | PR ---
[place], [place] PROGRESS NOTE NAME: FARHAT MORALES [facility] #: [id number] UNIT #: [id number] ROOM: 520 DOCTOR: LELIA LUNA MD BIRTHDATE: [birth year] DOS: 11/15/2017 SUBJECTIVE: The patient has been admitted to hospital with pain in the abdomen with fever and chills and urinary tract infection with also multiple other medical problems. The patient's urine culture and sensitivity grew heavy growth of gram-negative bacteria with E. coli, which is sensitive to most of the antibiotic. The patient is on antibiotics and is responding to that. Her basic metabolic profile shows glucose 58, BUN 18, creatinine 1.08, GFR 50, calcium 8.1. Other values are normal. Her CBC shows white count 8900, hemoglobin 11.5, hematocrit 36.4. OBJECTIVE: VITAL SIGNS: Blood pressure 110/50, pulse is 79 and respiration is 18, and temperature 99. CHEST: Clear. HEART: Regular. ABDOMEN: Showing slight tenderness in the suprapubic region. Rest of the abdomen is soft. LELIA LUNA MD CM:PNTRANS 6 LELIA LUNA MD 11/19/17 0844 interface
--- NOTE | ~2017-11-13 | EKG ---
[employer] [employer], [place] ELECTROCARDIOGRAM REPORT NAME: FARHAT MORALES UNIT #: [id number] ROOM: 520 DOCTOR: CASSI JIMÉNEZ MD BIRTHDATE: [birth year] DOS: 11/13/2017 TIME: 09:58:32 RATE AND RHYTHM: Sinus rhythm at 68 beats per minute. WI interval 157 milliseconds, QRS duration 91 milliseconds, corrected QT interval 427 milliseconds, QRS axis 38. IMPRESSION: 1. Sinus rhythm. 2. Low voltage precordial leads, otherwise normal EKG. CASSI JIMÉNEZ MD CM:EKGRPT:ELECTROCARDIOGRAM REPORT 1207 1628 CASSI JIMÉNEZ MD
--- NOTE | ~2017-11-13 | CON ---
[place], [place] REPORT OF CONSULTATION NAME: FARHAT MORALES [facility] #: [id number] UNIT #: [id number] ROOM: 520 DOCTOR: DAVIE SEAMAN MD BIRTHDATE: [birth year] DOS: 11/18/2017 GASTROENDOSCOPIC CONSULTATION REPORT HISTORY OF PRESENT ILLNESS: The patient has presented with nausea, vomiting, dysuria, and the patient has been symptomatically treated for nausea, vomiting since she has recently been endoscopically assessed with that and that has been already reported. Colonoscopy with diverticulosis, status post colostomy; known gastritis, and hiatal hernia history. Urinalysis has been sent out, the cultures are pending. She has been started on Rocephin. Comprehensive metabolic panel: BUN and creatinine 17 and 1.2. Electrolytes balance. Liver function test stable. BNP 203. Troponin 0.015. CBC differential, H and H of 11 and 36 and white blood cell 8.9; all have been recognized. Phosphorus of 4. Blood culture, E. coli greater than 100,000 with sensitivity to all antibiotic categories was noticed. Renal ultrasound has been done, no hydronephrosis noticed. Ultrasound of the abdomen, diffuse hepatic steatosis, absent gallbladder surgically. Urine culture, no bacterial growth. Blood culture, no growth yet. PAST MEDICAL HISTORY: Associated with diverticulosis, gastritis, hiatal hernia, chronic renal insufficiency, hypertension, congestive heart failure, atrial fibrillation, anxiety, COPD, fatty liver. PAST SURGICAL HISTORY: , appendectomy, partial colectomy, podiatric surgeries, tonsillectomy, adenoidectomy, hysterectomy, cholecystectomy, abdominoplasty; all have been recognized. Colostomy has been due to diverticulitis history. SOCIAL HISTORY: Rare alcohol consumer, nonsmoker. FAMILY HISTORY: Noncontributory. ALLERGIES: TO MULTI MEDICATIONS IDENTIFIED; CODEINE AND SULFA MEDICATION, LEVOFLOXACIN, CORTISONE, DILAUDID, MORPHINE, DARVOCET, AND LYRICA. REVIEW OF SYSTEMS: HEENT: Denies double vision, blurred vision. RESPIRATORY: Denies acute shortness of breath. CARDIOVASCULAR: Denies acute chest pain. DIGESTIVE SYSTEM: Nausea and vomiting. PHYSICAL EXAMINATION: VITAL SIGNS: Stable, afebrile. HEENT: Head normocephalic, nontraumatic. Mouth and buccal mucosa benign. NECK: Supple, no thyromegaly, no cervical lymphadenopathy. CHEST: Symmetric anatomy, equal expansion. No wheeze, no rhonchi. HEART: Normal sinus rhythm, no gallop, no murmur. ABDOMEN: Soft. No hepato-organomegaly. Bowel sounds present. Nonspecific tenderness, which is not related to bowel and abdomen. She is just anxious to the touch in her abdomen. Colostomy is functional and viable. Bowel sounds [place], [place] REPORT OF CONSULTATION NAME: FARHAT MORALES UNIT #: [id number] ROOM: [facility] DOCTOR: DAVIE SEAMAN MD BIRTHDATE: [birth year] present in all quadrants. EXTREMITIES: No cyanosis, no pedal edema. NEUROLOGIC: Fully alert, oriented to time, place, person. LABORATORY DATA: Reviewed, records reviewed. IMPRESSION: Nausea and vomiting, could be reactive secondary to her urinary tract infection. We will await antibiotic therapy. If the nausea and vomiting persistent, then we will reassess. Otherwise, old history of congestive heart failure, atrial fibrillation, history of anxiety, hypertension, gastritis, diverticulosis, chronic obstructive pulmonary disease, all have been recognized. PLAN AND DISCUSSION: Continuation with Protonix and Zofran on a p.r.n. basis until we are in control of UTI and reassessment thereafter. DAVIE SEAMAN MD CM:CONSTR:REPORT OF CONSULTATION 1522 11/18/172025 interface
--- NOTE | ~2017-11-13 | PR ---
[place], [place] PROGRESS NOTE NAME: FARHAT MORALES [facility] #: [id number] UNIT #: [id number] ROOM: 520 DOCTOR: LELIA LUNA MD BIRTHDATE: [birth year] DOS: 11/14/2017 SUBJECTIVE: The patient has been admitted to the hospital yesterday with history of increased frequency of urination with dysuria, pain in the lower part of the abdomen, some fever and chills and was seen by Dr. Martinez in the office and from there she is admitted to the hospital. The patient has past history of atrial fibrillation, anxiety, congestive heart failure, chronic back pain, chronic kidney disease, colostomy in place, COPD, diverticulitis, fatty liver, gastritis, GERD syndrome, hiatal hernia, hypertension, hyperglycemia, recurring attack of vomiting and nausea. The patient states she is feeling better. She denies any fever and chills. Her CBC today showed white count 8900, hemoglobin 11.5, hematocrit 36.4. Urine culture shows heavy growth of gram-negative bacteria. Basic metabolic profile shows glucose 58, BUN 14, creatinine 1.08, GFR 50, calcium 8.1. Other values are normal. OBJECTIVE: VITAL SIGNS: Her blood pressure is 107/51, pulse 80, respirations 17, temperature 98.3. HEART: Somewhat irregular. LUNGS: Showing no rhonchi and crepitation. ABDOMEN: Not showing any tenderness. LELIA LUNA MD CM:PNTRANS [id number] LELIA LUNA MD 12/17/17 0930 interface
--- NOTE | ~2017-11-13 | EKG ---
[place], [place] ELECTROCARDIOGRAM REPORT NAME: FARHAT MORALES UNIT #: [id number] ROOM: DOCTOR: RG DRAFT REPORT BIRTHDATE: [birth year] [facility] Test Date: 2017-11-13 Test Time: 09:58:32 Pat Name: FARHAT MORALES Department: Room: Gender: F International Organizer: DAVID : 1945 Requested By: EJ MOBLEY Order Number: [id number] [place] MD: Measurements Intervals [place] Rate: 68 P: 33 GA: 157 QRS: 38 QRSD: 91 T: 53 QT: 401 QTc: 427 Interpretive Statements Sinus rhythm Low voltage, precordial leads No previous ECG available for comparison CM:EKGRPT:ELECTROCARDIOGRAM REPORT 0700 EJ JOHNS DRAFT REPORT EJ MOBLEY DO
[~2017-11-13 09:09] MED LIST changes: +ZOFRAN ODT4 MG SL
[2017-11-13 09:14] VITALS: BP 143/66
[2017-11-13 09:27] LABS: BILIRUBIN NEGATIVE (NEGATIVE); BLOOD 1+ (NEGATIVE); CLARITY CLOUDY (CLEAR); COLOR YELLOW (YELLOW); GLUCOSE NEGATIVE (NEGATIVE); KETONE NEGATIVE (NEGATIVE); NITRITE NEGATIVE (NEGATIVE); UROBILINOGEN 0.2 E.U./dl (0.2-1.0)
[2017-11-13 09:36] LABS: LEUKO ESTERASE 3+ (NEGATIVE)
[2017-11-13 09:37] LABS: WBC TNTC wbc/hpf (0-5)
[2017-11-13 09:38] LABS: BACTERIA 3+; EPITHELIAL CELLS 15-20
[2017-11-13 09:54] LABS: BASO # 0.1 10*3/uL (0.0-0.1); BASO % 0.5 % (0.0-1.0); EOS # 0.4 10*3/uL (0.0-0.4); EOS % 4.3 % (1.0-4.0); HEMATOCRIT 38.6 % (37.0-47.0); HEMOGLOBIN 12.4 g/dl (12.0-16.0); LYMPH # 2.6 10*3/uL (1.3-4.4); LYMPH % 25.2 % (27.0-41.0); MEAN CELL VOLUME 93.9 fl (81.0-99.0); MEAN CORPUSCULAR HGB 30.2 pg (27.0-31.0); MEAN CORPUSCULAR HGB CONC 32.1 g/dl (33.0-37.0); MEAN PLATELET VOLUME 9.4 fl (9.6-12.3); MONO # 0.9 10*3/uL (0.1-1.0); NEUT # 6.1 10*3/uL (2.3-7.9); NEUT % 60.6 % (47.0-73.0); PLATELET COUNT AUTOMATED 259 10*3/uL (130-400); RED BLOOD COUNT 4.11 10*6/uL (4.10-5.10); RED CELL DISTRI WIDTH 13.1 % (0-14.5); WHITE BLOOD COUNT 10.1 10*3/uL (4.8-10.8)
[2017-11-13 10:03] LABS: ACT PARTIAL THROMBO TIME 24.3 SECONDS (20.8-31.5)
[2017-11-13 10:12] VITALS: BP 159/86
[2017-11-13 10:12] LABS: ALBUMIN 3.1 gm/dl (3.1-4.5); ALKALINE PHOSPHATASE 112 U/L (45-117); BUN 17 mg/dl (7-24); CHLORIDE 104 mmol/L (98-107); CREATININE 1.29 mg/dL (0.55-1.02); LIPASE 135 U/L (73-393); POTASSIUM 4.1 mmol/L (3.5-5.1); SGOT/AST 15 IU/L (3-35); SGPT/ALT 16 U/L (12-78); SODIUM 137 mmol/L (136-145)
[2017-11-13 10:14] LABS: TROPONIN I < 0.015 ng/ml (<0.045)
[2017-11-13 11:45] VITALS: BP 134/76
[2017-11-13 16:00] VITALS: BP 149/82
[2017-11-13 20:00] VITALS: BP 164/70
[2017-11-14] VITALS: BP 107/51
[2017-11-14 06:18] LABS: BASO # 0.1 10*3/uL (0.0-0.1); BASO % 0.6 % (0.0-1.0); EOS # 0.4 10*3/uL (0.0-0.4); EOS % 4.7 % (1.0-4.0); HEMATOCRIT 36.4 % (37.0-47.0); HEMOGLOBIN 11.5 g/dl (12.0-16.0); LYMPH # 2.3 10*3/uL (1.3-4.4); LYMPH % 25.6 % (27.0-41.0); MEAN CELL VOLUME 94.1 fl (81.0-99.0); MEAN CORPUSCULAR HGB 29.7 pg (27.0-31.0); MEAN CORPUSCULAR HGB CONC 31.6 g/dl (33.0-37.0); MEAN PLATELET VOLUME 10.2 fl (9.6-12.3); MONO % 11.1 % (3.0-9.0); NEUT # 5.1 10*3/uL (2.3-7.9); NEUT % 57.7 % (47.0-73.0); PLATELET COUNT AUTOMATED 258 10*3/uL (130-400); RED BLOOD COUNT 3.87 10*6/uL (4.10-5.10); RED CELL DISTRI WIDTH 13.2 % (0-14.5); WHITE BLOOD COUNT 8.9 10*3/uL (4.8-10.8)
[2017-11-14 06:45] LABS: BUN 14 mg/dl (7-24); CHLORIDE 105 mmol/L (98-107); CREATININE 1.08 mg/dL (0.55-1.02); POTASSIUM 3.9 mmol/L (3.5-5.1); SODIUM 140 mmol/L (136-145)
[2017-11-14 08:00] VITALS: BP 129/69
[2017-11-14 12:00] VITALS: BP 123/59
[2017-11-14 16:00] VITALS: BP 140/64
[2017-11-14 20:00] VITALS: BP 137/79
[2017-11-15] VITALS: BP 110/50
[2017-11-15 08:00] VITALS: BP 142/65
[2017-11-15 12:00] VITALS: BP 138/68
[2017-11-15 16:00] VITALS: BP 149/76
[2017-11-15 20:03] VITALS: BP 150/70
[2017-11-16] VITALS: BP 145/72
[2017-11-16 06:24] LABS: BASO # 0.1 10*3/uL (0.0-0.1); BASO % 0.6 % (0.0-1.0); EOS # 0.5 10*3/uL (0.0-0.4); EOS % 5.7 % (1.0-4.0); HEMATOCRIT 38.5 % (37.0-47.0); HEMOGLOBIN 12.3 g/dl (12.0-16.0); LYMPH # 2.2 10*3/uL (1.3-4.4); LYMPH % 26.4 % (27.0-41.0); MEAN CELL VOLUME 93.2 fl (81.0-99.0); MEAN CORPUSCULAR HGB 29.8 pg (27.0-31.0); MEAN CORPUSCULAR HGB CONC 31.9 g/dl (33.0-37.0); MEAN PLATELET VOLUME 9.8 fl (9.6-12.3); MONO # 0.8 10*3/uL (0.1-1.0); MONO % 9.2 % (3.0-9.0); NEUT # 4.8 10*3/uL (2.3-7.9); NEUT % 57.7 % (47.0-73.0); PLATELET COUNT AUTOMATED 268 10*3/uL (130-400); RED BLOOD COUNT 4.13 10*6/uL (4.10-5.10); RED CELL DISTRI WIDTH 12.9 % (0-14.5); WHITE BLOOD COUNT 8.4 10*3/uL (4.8-10.8)
[2017-11-16 06:59] LABS: CHLORIDE 105 mmol/L (98-107); POTASSIUM 4.3 mmol/L (3.5-5.1); SODIUM 139 mmol/L (136-145)
[2017-11-16 07:04] LABS: BUN 16 mg/dl (7-24); CREATININE 0.98 mg/dL (0.55-1.02)
[2017-11-16 08:00] VITALS: BP 145/75
[2017-11-16 12:00] VITALS: BP 129/64
[2017-11-16 16:00] VITALS: BP 111/68
[2017-11-16 20:00] VITALS: BP 144/65
[2017-11-16 21:19] LABS: BILIRUBIN NEGATIVE (NEGATIVE); BLOOD NEGATIVE (NEGATIVE); CLARITY CLEAR (CLEAR); COLOR YELLOW (YELLOW); GLUCOSE NEGATIVE (NEGATIVE); KETONE NEGATIVE (NEGATIVE); LEUKO ESTERASE 1+ (NEGATIVE); NITRITE NEGATIVE (NEGATIVE); PH 5.5 (5.0-9.0); SPECIFIC GRAVITY 1.025 (1.005-1.030); UROBILINOGEN 0.2 E.U./dl (0.2-1.0)
[2017-11-16 21:28] LABS: BACTERIA 1+; RBC 0-2 rbc/hpf (0-2); WBC TNTC wbc/hpf (0-5)
[2017-11-17] VITALS: BP 129/50
[2017-11-17 07:08] LABS: BASO % 0.5 % (0.0-1.0); EOS # 0.5 10*3/uL (0.0-0.4); EOS % 5.7 % (1.0-4.0); HEMOGLOBIN 13.2 g/dl (12.0-16.0); LYMPH # 2.2 10*3/uL (1.3-4.4); LYMPH % 26.3 % (27.0-41.0); MEAN CORPUSCULAR HGB 31.8 pg (27.0-31.0); MEAN CORPUSCULAR HGB CONC 33.8 g/dl (33.0-37.0); MEAN PLATELET VOLUME 9.5 fl (9.6-12.3); MONO # 0.8 10*3/uL (0.1-1.0); MONO % 9.5 % (3.0-9.0); NEUT # 4.9 10*3/uL (2.3-7.9); NEUT % 57.8 % (47.0-73.0); PLATELET COUNT AUTOMATED 245 10*3/uL (130-400); RED BLOOD COUNT 4.15 10*6/uL (4.10-5.10); RED CELL DISTRI WIDTH 12.9 % (0-14.5); WHITE BLOOD COUNT 8.4 10*3/uL (4.8-10.8)
[2017-11-17 07:24] LABS: CREATININE 1.13 mg/dL (0.55-1.02); POTASSIUM 3.9 mmol/L (3.5-5.1)
[2017-11-17 08:00] VITALS: BP 131/79
[2017-11-17 12:00] VITALS: BP 139/69
[2017-11-17 16:00] VITALS: BP 151/61
[2017-11-17 20:00] VITALS: BP 147/65
[2017-11-18] VITALS: BP 149/70
[2017-11-18 08:00] VITALS: BP 126/67
[2017-11-18 10:45] VITALS: BP 118/59
[2017-11-18 12:00] VITALS: BP 126/66
[2017-11-18 16:00] VITALS: BP 153/65
[2017-11-18] MEDS ORDERED: OMEPRAZOLE D/R20 MG PO (18:12)
[2017-11-18] MEDS ORDERED: PHENAZOPYRIDIN100 M1 PO (18:12)
[2017-11-18] MEDS ORDERED: VITAMIN E400 UNI3 PO (18:12)
[2017-11-18] MEDS ORDERED: ONDANSETRON4 MG SL (18:17)
[2017-11-18] MEDS ORDERED: PERCOCET 7.5-31 EACH PO (18:21)
[2017-11-18 20:00] VITALS: BP 154/61
[2017-11-19] VITALS: BP 121/84
[2017-12-12] MEDS ORDERED: CEPHALEXIN500 M1 PO (16:16)
[2017-12-12] MEDS ORDERED: PYRIDIUM200 M1 PO (16:16)
[2017-12-14] MEDS ORDERED: CLONIDINE HCL0.1 MG PO (15:29)
[2017-12-14] MEDS ORDERED: PERCOCET 5-3251 EACH PO (15:30)
[2017-12-14] MEDS ORDERED: TRAZODONE50 MG PO (15:31)
[2017-12-14] MEDS ORDERED: CELEXA20 MG PO (15:31)
[2017-12-14] MEDS ORDERED: NEURONTIN600 MG PO (15:32)
[2017-12-14] MEDS ORDERED: APRESOLINE25 MG PO (15:32)
[2017-12-14] MEDS ORDERED: DULCOLAX10 M1 R (15:33)
[2017-12-18] MEDS ORDERED: Lidoderm 5% Patch T (08:11)
[2017-12-18] MEDS ORDERED: MACROBID100 M1 PO (08:11)
[2017-12-18] MEDS ORDERED: LOPRESSOR25 MG PO (08:11)
== END 2017-11-19 07:34 | disposition home or self-care (01) | DRG 690 ==
LOC: ED 09:09 → EDHOLD 10:44 → 5E 10:44
PROVIDERS: Emergency Medicine; Internal Medicine Nephrology
DX: N39.0 Urinary tract infection, site not specified (principal); E44.0 Moderate protein-calorie malnutrition; I48.0 Paroxysmal atrial fibrillation; D72.1 Eosinophilia; I50.32 Chronic diastolic (congestive) heart failure; I13.0 Hypertensive heart and chronic kidney disease with heart failure and stage 1 through stage 4 chronic kidney disease, or unspecified chronic kidney disease; E83.41 Hypermagnesemia; N18.3 Chronic kidney disease, stage 3 (moderate); D72.810 Lymphocytopenia; E66.3 Overweight; K57.30 Diverticulosis of large intestine without perforation or abscess without bleeding; F41.9 Anxiety disorder, unspecified; R73.9 Hyperglycemia, unspecified; G47.00 Insomnia, unspecified; K21.9 Gastro-esophageal reflux disease without esophagitis; J44.9 Chronic obstructive pulmonary disease, unspecified; M54.9 Dorsalgia, unspecified; G89.29 Other chronic pain; K44.9 Diaphragmatic hernia without obstruction or gangrene; K76.0 Fatty (change of) liver, not elsewhere classified; Z79.899 Other long term (current) drug therapy; Z88.1 Allergy status to other antibiotic agents; Z88.5 Allergy status to narcotic agent; Z88.2 Allergy status to sulfonamides; Z88.8 Allergy status to other drugs, medicaments and biological substances; Z90.49 Acquired absence of other specified parts of digestive tract; Z90.710 Acquired absence of both cervix and uterus; Z82.49 Family history of ischemic heart disease and other diseases of the circulatory system; Z79.82 Long term (current) use of aspirin; Z87.19 Personal history of other diseases of the digestive system; Z68.28 Body mass index [BMI] 28.0-28.9, adult

== ENCOUNTER 2017-11-20 09:28 | Inpatient (IN) | payer MEDICARE ==
[~2017-11-20] VITALS: Ht 167.6 cm; Wt 81.8 kg
--- NOTE | ~2017-11-20 | PR ---
[place], [place] PROGRESS NOTE NAME: FARHAT MORALES [facility] #: [id number] UNIT #: [id number] ROOM: 407 DOCTOR: GEORGI STANTON,AUGUST BIRTHDATE: [birth year] DOS: 11/21/2017 SUBJECTIVE: The patient is a 72-year-old female being followed for possible UTI. She continued to have back pain, which she references around the area of her kidneys, which comes around to her suprapubic area. She also is complaining of dysuria which she states were resumed today. Does have some frequency, some nausea. No emesis. Stool per colostomy. No rash or itch. No fevers or chills. Has pain in the tops of her bilateral thighs, but no radiation in the lower legs. No numbness or tingling. VITAL SIGNS: Temperature 98.2, pulse 76, respirations 20, BP 132/53. LABORATORY DATA: WBCs 8.6, platelets 227, BUN 15, creatinine 1.06. Urine culture and blood cultures remained sterile. Her admitting urinalysis had a trace of blood in it, wbc's too numerous to count, leukocyte esterase +2. CT of the abdomen and pelvis was essentially unremarkable. CURRENT MEDICATIONS: Lipitor, vitamin E, Lovenox, aspirin, Protonix, Prilosec, Lopressor, Zofran, Rocephin, Reglan, Ambien, Percocet, Soma, Demerol, Mylicon, milk of mag, Dulcolax. PHYSICAL EXAMINATION: GENERAL: Alert and oriented, pleasant 72-year-old female, in no acute distress, nontoxic in appearance. HEENT: Normocephalic, no thrush. LUNGS: Clear to auscultation bilaterally. Respirations even and unlabored. HEART: Regular rhythm. No murmur appreciated. ABDOMEN: Soft, nondistended, obese. EXTREMITIES: No edema, deformity or cyanosis. She has no tenderness along her vertebrae. SKIN: Warm, dry, free of rashes. ASSESSMENT: Questionable urinary tract infection. She does have pyuria on her admitting urinalysis; however, cultures remained sterile. She was just recently treated for a pansensitive Escherichia coli urinary tract infection over the last 2 weeks. She does continue to complain of dysuria. PLAN: We will continue the Rocephin. Followup on the cultures. MICHAEL LAUREANO CNP [place], [place] PROGRESS NOTE NAME: LIEN MORALESTRI Diaz UNIT #: [id number] ROOM: 407 DOCTOR: GEORGI STANTON BIRTHDATE: [birth year] Kia Andrade MD CM:PNTRANS 1748 1809 AUGUST GEORGI STANTON 12/02/17 1031 interface
--- NOTE | ~2017-11-20 | PR ---
[place], [place] PROGRESS NOTE NAME: FARHAT MORALES [facility] #: [id number] UNIT #: [id number] ROOM: 407 DOCTOR: JURGEN OCAMOPALVINAVALENCIA BIRTHDATE: [birth year] DOS: 11/25/2017 GASTROENDOSCOPIC PROGRESS REPORT SUBJECTIVE: The patient is a 72-year-old with numerous complains of abdominal pain, has diverticulitis, status post colostomy and she is a candidate for reversal. She is complaining constantly of abdominal pain. Therefore, we are organizing a barium enema study through colostomy and per rectum both. For this reason, we are going to prep her colon to ensure that she have an empty colon for assessment. Her blood cultures were negative. Basic metabolic panel, electrolytes are balanced. CBC: White blood cell 11, H and H of 11 and 34. MRI of lumbar shows severe symmetric annular bulging of L2-L3 and multilevel as detailed in the MRI report. Urine cultures remained negative. PAST MEDICAL HISTORY: Renal insufficiency, hiatal hernia, diverticulosis, atrial fibrillation, COPD, fatty liver. PAST SURGICAL HISTORY: Cholecystectomy, , appendectomy, partial colectomy, colostomy for reversal. REVIEW OF SYSTEMS: In general: RESPIRATORY: No shortness of breath. CARDIOVASCULAR: No chest pain. ABDOMEN: No emesis, no diarrhea. Continues with ambiguous abdominal pain and lower back pain. PHYSICAL EXAMINATION: VITAL SIGNS: Stable. GENERAL: Nontoxic. HEAD, EYES, EARS, NOSE, AND THROAT: Head normocephalic, nontraumatic. Mouth and buccal mucosa benign. NECK: Supple, no thyromegaly, no cervical lymphadenopathy. CHEST: Symmetric anatomy, no wheeze, no rhonchi. HEART: Normal sinus rhythm, no gallop, no murmur. ABDOMEN: Soft. No hepato-organomegaly. Bowel sounds present. No pulsatile mass. EXTREMITIES: No cyanosis, no pedal edema. NEUROLOGIC: Alert, oriented to time, place, person. IMPRESSION: Abdominal ambiguous pain, status post colostomy for diverticulitis and preplanning for reversal colostomy which she wants to be done in [facility] and surgeon has recommended to be done prior to her going to the [facility] and this has been already preorganized as outpatient. Therefore, I am going to prep her colon to make sure that we have a colon free of debris, so that detail can be identified. Workup in progress. [place], [place] PROGRESS NOTE NAME: BRYONPATTIFARHAT Emily UNIT #: [id number] ROOM: 407 DOCTOR: DAVIE SEAMAN MD BIRTHDATE: [birth year] DAVIE SEAMAN MD CM:PNLAVELL 1222 1734 DAVIE SEAMAN MD 11/25/17 1733 interface
--- NOTE | ~2017-11-20 | EKG ---
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
--- NOTE | ~2017-11-20 | PR ---
[place], [place] PROGRESS NOTE NAME: FARHAT MORALES [facility] #: [id number] UNIT #: [id number] ROOM: 407 DOCTOR: LELIA LUNA MD BIRTHDATE: [birth year] DOS: SUBJECTIVE: The patient who has been admitted to hospital with abdominal pain. This is one of the many recent admission for almost similar problem. The patient has a history of colostomy which is functioning fairly good. She had colon resection done for diverticulitis. CAT scan of the abdomen was done, which was normal. The patient has past history of atrial fibrillation, anxiety, congestive heart failure, chronic back pain, chronic kidney disease, colostomy, COPD, diverticulosis, fatty liver, GERD syndrome, hiatal hernia, history of diabetes mellitus, history of gastritis, hypertension, insomnia, renal cyst. The resection of the colon was not done due to cancer, but it was done for diverticulosis. The patient has past history of appendectomy, GERD syndrome, total colectomy, tonsillectomy, total hysterectomy. The patient has been seen by Dr. Jackson who has advised the patient to be treated conservatively. He put her on Reglan and Protonix and he is not of the opinion the patient needs any EGD or colonoscopy, which she had got done recently. Urine drug screening was positive for opiates, which the patient is taking otherwise negative. CBC showed white count 8600, hemoglobin 10.7, hematocrit 33.9 indicating hypochromic anemia. Basic metabolic profile showed glucose 100, BUN 15, creatinine 1.06, GFR 51. Other values are stable. Urine culture and sensitivity did not grow any bacteria. OBJECTIVE: VITAL SIGNS: Her blood pressure 145/68, pulse 84, respirations 18, temperature 98.4. CHEST: Clear. HEART: Regular. ABDOMEN: Showing ill-defined tender lower abdomen, but no mass palpable. Colostomy functioning good. LELIA LUNA MD CM:PNTRANS 1212 [id number] LELIA LUNA MD 12/17/17 0849 interface
--- NOTE | ~2017-11-20 | PR ---
[place], [place] PROGRESS NOTE [id number] #: [id number] ROOM: 407 DOCTOR: SAMREEN ANDRADE MD BIRTHDATE: [birth year] DOS: 11/23/2017 ADDENDUM This is an addendum to progress note done by Dr. Jenkins. The patient was seen and examined with resident agree with assessment and plan as above. We will continue to follow. Kia Andrade MD CM:PNTRANS [id number] SAMREEN ANDRADE MD 12/28/17 1059 interface
--- NOTE | ~2017-11-20 | CON ---
[place], [place] REPORT OF CONSULTATION NAME: FARHAT MORALES [facility] #: [id number] UNIT #: [id number] ROOM: 407 DOCTOR: DAVIE SEAMAN MD BIRTHDATE: [birth year] DOS: 11/20/2017 GASTROENTEROLOGY CONSULTATION REPORT HISTORY OF PRESENT ILLNESS: A 72-year-old patient who has presented with chief complaint of nonspecific abdominal pain and nonspecific epigastric pain with nausea complaint. The patient has had the same scenario for multiple admissions. She has been recently having a colonoscopy per ostomy, the colostomy bag that she has, as well as a colonoscopy per rectum. The findings have been consistent with diverticulosis. She has had endoscopic assessment of upper tract and findings limited to small hiatal hernia, gastritis, and no acute findings. PAST MEDICAL HISTORY: Congestive heart failure, fatty liver, COPD, gastritis, diverticulosis, hiatal hernia, renal insufficiency, atrial fibrillation, anxiety. PAST SURGICAL HISTORY: Appendectomy, , partial colectomy, hysterectomy, adenoidectomy, tonsillectomy, cholecystectomy, colostomy with simply abdominoplasty, history of diverticulitis and as a result partial colectomy. SOCIAL HISTORY: Past smoker for years and rare alcohol consumer. FAMILY HISTORY: Noncontributory. ALLERGIES: MORPHINE, DILAUDID, DARVOCET, LYRICA, CORTISONE, LEVOFLOXACIN, SULFA MEDICATION. REVIEW OF SYSTEMS: In general: HEENT: Denies double vision, blurred vision. RESPIRATORY: Denies acute shortness of breath. CARDIOVASCULAR: Denies chest pain. DIGESTIVE SYSTEM: Nonspecific abdominal distress. No blood in colostomy. No emesis in fact. PHYSICAL EXAMINATION: GENERAL: Nontoxic patient. VITAL SIGNS: Stable. HEENT: Head is normocephalic, nontraumatic. Mouth and buccal mucosa benign. NECK: Supple. No thyromegaly, no cervical lymphadenopathy. CHEST: Symmetric anatomy, equal expansion. Decreased air entry bilaterally. No wheezes, no rhonchi. HEART: Normal sinus rhythm. No gallop, no murmur. ABDOMEN: Soft. No hepato-organomegaly. Bowel sounds present. No pulsatile mass. No rebound effect. She gestures as if she has pain. She is trying to convince me that she has urinary tract infection. Colostomy appears to be functional and benign. EXTREMITIES: No cyanosis, no pedal edema. NEUROLOGIC: Alert, oriented to time, place, and person. Sensory and motor [place], [place] REPORT OF CONSULTATION NAME: FARHAT MORALES UNIT #: [id number] ROOM: 407 DOCTOR: JURGEN OCAMPO,[facility] BIRTHDATE: [birth year] intact. Cranial nerves 2-12 intact. DIAGNOSTIC DATA: Her labs and records reviewed. She has had no bacteria in the urine on 11/16/2017 and she is very pleased to have been told that her urinalysis today showed a trace of blood in the urine and esterase positive and 2+ bacteria. INR 1.0. Comprehensive metabolic panel, BUN and creatinine 21 and 1.03 and GFR 48. Chemistry within normal limits. Liver function test normal. BNP of greater than 307. CT scan of the abdomen and pelvis, no acute findings in the abdomen and pelvis was found. Lactic acid entirely normal. Electrocardiogram, rate of 105, sinus tachycardia, otherwise normal. ASSESSMENT: Nonspecific abdominal pain and distress associated with diverticulosis, old history of diverticulitis, status post colostomy as a result, history of fatty liver, gastroesophageal reflux, hiatal hernia, diabetes mellitus, systemic hypertension, chronic back pain, renal insufficiency, congestive heart failure, atrial fibrillation history, and anxiety. This patient has had recent, a few weeks ago, EGD and colonoscopy done with findings of hiatal hernia, gastritis, and diverticulosis. Colonoscopy done per colostomy and per rectum, both, and anastomotic sites were benign and diverticulosis confirmed. PLAN AND DISCUSSION: She wants regular diet and we are going to oblige. She is going to be placed on Protonix 40 mg p.o. daily and for her nausea that she is expressing, I am going to start her on 5 mg of Reglan to see if this is going to help her nausea with history of diabetes mellitus as the possibility of an element of gastroparesis in the presence of hiatal hernia, GERD, and gastritis. She does not need another EGD and colonoscopy and we are awaiting urine culture and sensitivity to see if it has turned positive. The last set of urine culture and sensitivity on 11/16/2017 has been negative urine culture. Thank you very much indeed for your kind referral. DAVIE SEAMAN MD CM:CONSTR:REPORT OF CONSULTATION 1549 11/21/17 0545 interface
--- NOTE | ~2017-11-20 | PR ---
[place], [place] PROGRESS NOTE NAME: FARHAT MORALES UNIT #: [id number] ROOM: 407 DOCTOR: SAMREEN MURRIETA MD BIRTHDATE: [birth year] DOS: 11/21/2017 I had a [id number] encounter with the patient and agree with the assessment and plan made by the nurse practitioner and made the necessary changes. Kia Murrieta MD CM:PNTRANS [phone] SAMREEN MURRIETA MD 12/18/175 interface
--- NOTE | ~2017-11-20 | PR ---
[place], [place] PROGRESS NOTE NAME: FARHAT MORALES [facility] #: [id number] UNIT #: [id number] ROOM: 407 DOCTOR: LELIA LUNA MD BIRTHDATE: [birth year] DOS: 11/22/2017 SUBJECTIVE: The patient has been admitted to the hospital with pain in her abdomen due to urinary tract infection. She is gradually getting better and she is still complaining of some pain in the suprapubic region and left renal area, but on examination, there is no tenderness in that area and the patient is tolerating food fairly good. Her urine culture and sensitivity did not grow any bacteria. Her basic metabolic profile showed glucose 100, BUN 15, creatinine 1.06, GFR 51, chloride 109, and calcium 7.7. OBJECTIVE: VITAL SIGNS: Blood pressure is 111/65, pulse 94, respirations 20, temperature 98.8. CHEST: Clear. HEART: Regular. ABDOMEN: Soft. LELIA LUNA MD CM:PNTRANS [id number] LELIA LUNA MD 11/23/17 0005 interface
[~2017-11-20 09:28] MED LIST changes: +ONDANSETRON4 MG SL; +PERCOCET 7.5-31 EACH PO; +PHENAZOPYRIDIN100 M1 PO; +VITAMIN E400 UNI3 PO
[2017-11-20 09:32] VITALS: BP 142/76
[2017-11-20 09:44] LABS: BILIRUBIN NEGATIVE (NEGATIVE); BLOOD TRACE-LYSED (NEGATIVE); CLARITY CLOUDY (CLEAR); COLOR YELLOW (YELLOW); GLUCOSE NEGATIVE (NEGATIVE); KETONE NEGATIVE (NEGATIVE); LEUKO ESTERASE 2+ (NEGATIVE); NITRITE NEGATIVE (NEGATIVE); PH 5.5 (5.0-9.0); UROBILINOGEN 0.2 E.U./dl (0.2-1.0)
[2017-11-20 10:02] LABS: BASO % 0.5 % (0.0-1.0); EOS # 0.4 10*3/uL (0.0-0.4); EOS % 4.1 % (1.0-4.0); HEMATOCRIT 37.8 % (37.0-47.0); LYMPH # 2.8 10*3/uL (1.3-4.4); LYMPH % 33.5 % (27.0-41.0); MEAN CELL VOLUME 94.3 fl (81.0-99.0); MEAN CORPUSCULAR HGB 29.9 pg (27.0-31.0); MEAN CORPUSCULAR HGB CONC 31.7 g/dl (33.0-37.0); MEAN PLATELET VOLUME 9.9 fl (9.6-12.3); MONO # 0.7 10*3/uL (0.1-1.0); MONO % 8.5 % (3.0-9.0); NEUT # 4.5 10*3/uL (2.3-7.9); PLATELET COUNT AUTOMATED 247 10*3/uL (130-400); RED BLOOD COUNT 4.01 10*6/uL (4.10-5.10); WHITE BLOOD COUNT 8.5 10*3/uL (4.8-10.8)
[2017-11-20 10:18] LABS: WBC TNTC wbc/hpf (0-5)
[2017-11-20 10:19] LABS: ACT PARTIAL THROMBO TIME 24.3 SECONDS (20.8-31.5)
[2017-11-20 10:19] LABS: BACTERIA 2+
[2017-11-20 10:22] LABS: ALBUMIN 2.9 gm/dl (3.1-4.5); ALKALINE PHOSPHATASE 108 U/L (45-117); BUN 21 mg/dl (7-24); CHLORIDE 105 mmol/L (98-107); CREATININE 1.31 mg/dL (0.55-1.02); LIPASE 121 U/L (73-393); POTASSIUM 4.3 mmol/L (3.5-5.1); SGOT/AST 22 IU/L (3-35); SGPT/ALT 18 U/L (12-78); SODIUM 139 mmol/L (136-145); TOTAL PROTEIN 7.9 gm/dL (6.4-8.2); TROPONIN I < 0.015 ng/ml (<0.045)
[2017-11-20 10:50] VITALS: BP 123/73
[2017-11-20 12:35] VITALS: BP 135/54; BP 145/72
[2017-11-20 12:59] VITALS: BP 154/74
[2017-11-20 16:00] VITALS: BP 155/60
[2017-11-20 20:00] VITALS: BP 136/70
[2017-11-21] VITALS: BP 133/61
[2017-11-21 06:06] LABS: URINE AMPHETAMINES < 1000 (1000ng/ml); URINE BARBITURATES < 200 (200ng/ml); URINE BENZODIAZEPINES < 200 (200ng/ml); URINE CANNABINOIDS (THC) < 50 (50ng/ml); URINE COCAINE < 300 (300ng/ml); URINE METHADONE < 300 (300ng/ml); URINE OPIATES > 300 (300ng/ml); URINE PHENCYCLIDINE < 25 (25ng/ml)
[2017-11-21 06:59] LABS: BASO # 0.1 10*3/uL (0.0-0.1); BASO % 0.6 % (0.0-1.0); EOS # 0.5 10*3/uL (0.0-0.4); EOS % 5.8 % (1.0-4.0); HEMATOCRIT 33.9 % (37.0-47.0); HEMOGLOBIN 10.7 g/dl (12.0-16.0); LYMPH % 23.3 % (27.0-41.0); MEAN CELL VOLUME 93.9 fl (81.0-99.0); MEAN CORPUSCULAR HGB 29.6 pg (27.0-31.0); MEAN CORPUSCULAR HGB CONC 31.6 g/dl (33.0-37.0); MEAN PLATELET VOLUME 9.9 fl (9.6-12.3); MONO # 0.9 10*3/uL (0.1-1.0); MONO % 10.1 % (3.0-9.0); NEUT # 5.1 10*3/uL (2.3-7.9); PLATELET COUNT AUTOMATED 227 10*3/uL (130-400); RED BLOOD COUNT 3.61 10*6/uL (4.10-5.10); RED CELL DISTRI WIDTH 12.9 % (0-14.5); WHITE BLOOD COUNT 8.6 10*3/uL (4.8-10.8)
[2017-11-21 07:08] LABS: BUN 15 mg/dl (7-24); CHLORIDE 109 mmol/L (98-107); CREATININE 1.06 mg/dL (0.55-1.02); POTASSIUM 3.8 mmol/L (3.5-5.1); SODIUM 140 mmol/L (136-145)
[2017-11-21 08:00] VITALS: BP 135/50
[2017-11-21 12:00] VITALS: BP 145/68
[2017-11-21 16:00] VITALS: BP 132/53
[2017-11-21 20:00] VITALS: BP 149/68
[2017-11-22] VITALS: BP 111/65; BP 128/75
[2017-11-22 07:03] LABS: BUN 12 mg/dl (7-24); CHLORIDE 110 mmol/L (98-107); CREATININE 1.06 mg/dL (0.55-1.02); POTASSIUM 3.8 mmol/L (3.5-5.1); SODIUM 140 mmol/L (136-145)
[2017-11-22 07:05] LABS: BASO % 0.3 % (0.0-1.0); EOS # 0.5 10*3/uL (0.0-0.4); EOS % 5.3 % (1.0-4.0); HEMATOCRIT 32.7 % (37.0-47.0); HEMOGLOBIN 10.3 g/dl (12.0-16.0); LYMPH # 2.4 10*3/uL (1.3-4.4); LYMPH % 26.1 % (27.0-41.0); MEAN CELL VOLUME 94.5 fl (81.0-99.0); MEAN CORPUSCULAR HGB 29.8 pg (27.0-31.0); MEAN CORPUSCULAR HGB CONC 31.5 g/dl (33.0-37.0); MEAN PLATELET VOLUME 10.5 fl (9.6-12.3); MONO % 11.2 % (3.0-9.0); NEUT # 5.1 10*3/uL (2.3-7.9); NEUT % 56.9 % (47.0-73.0); PLATELET COUNT AUTOMATED 221 10*3/uL (130-400); RED BLOOD COUNT 3.46 10*6/uL (4.10-5.10); RED CELL DISTRI WIDTH 12.9 % (0-14.5)
[2017-11-22 08:00] VITALS: BP 137/64
[2017-11-22 12:00] VITALS: BP 128/84
[2017-11-22 16:00] VITALS: BP 156/68
[2017-11-22 20:00] VITALS: BP 141/88
[2017-11-23] VITALS: BP 118/58
[2017-11-23 06:44] LABS: BASO % 0.4 % (0.0-1.0); EOS # 0.5 10*3/uL (0.0-0.4); EOS % 5.9 % (1.0-4.0); HEMATOCRIT 31.7 % (37.0-47.0); HEMOGLOBIN 10.1 g/dl (12.0-16.0); LYMPH # 2.1 10*3/uL (1.3-4.4); LYMPH % 26.7 % (27.0-41.0); MEAN CELL VOLUME 93.5 fl (81.0-99.0); MEAN CORPUSCULAR HGB 29.8 pg (27.0-31.0); MEAN CORPUSCULAR HGB CONC 31.9 g/dl (33.0-37.0); MONO # 0.8 10*3/uL (0.1-1.0); MONO % 10.7 % (3.0-9.0); NEUT # 4.3 10*3/uL (2.3-7.9); PLATELET COUNT AUTOMATED 209 10*3/uL (130-400); RED BLOOD COUNT 3.39 10*6/uL (4.10-5.10); RED CELL DISTRI WIDTH 12.9 % (0-14.5); WHITE BLOOD COUNT 7.7 10*3/uL (4.8-10.8)
[2017-11-23 08:00] VITALS: BP 146/56
[2017-11-23 08:42] LABS: BUN 11 mg/dl (7-24); CHLORIDE 112 mmol/L (98-107); POTASSIUM 3.7 mmol/L (3.5-5.1); SODIUM 142 mmol/L (136-145)
[2017-11-23 12:00] VITALS: BP 169/80
[2017-11-23 16:00] VITALS: BP 164/68
[2017-11-23 20:00] VITALS: BP 170/85
[2017-11-23 20:30] VITALS: BP 152/86
[2017-11-24] VITALS: BP 153/72
[2017-11-24 06:16] LABS: BASO % 0.3 % (0.0-1.0); EOS # 0.5 10*3/uL (0.0-0.4); EOS % 4.1 % (1.0-4.0); HEMOGLOBIN 11.1 g/dl (12.0-16.0); LYMPH # 2.6 10*3/uL (1.3-4.4); MEAN CELL VOLUME 91.9 fl (81.0-99.0); MEAN CORPUSCULAR HGB CONC 32.6 g/dl (33.0-37.0); MEAN PLATELET VOLUME 10.1 fl (9.6-12.3); MONO % 8.9 % (3.0-9.0); NEUT # 6.9 10*3/uL (2.3-7.9); NEUT % 62.4 % (47.0-73.0); PLATELET COUNT AUTOMATED 239 10*3/uL (130-400); RED CELL DISTRI WIDTH 12.8 % (0-14.5)
[2017-11-24 06:24] VITALS: BP 149/71
[2017-11-24 06:27] LABS: BUN 10 mg/dl (7-24); CHLORIDE 107 mmol/L (98-107); CREATININE 1.03 mg/dL (0.55-1.02); POTASSIUM 3.6 mmol/L (3.5-5.1); SODIUM 140 mmol/L (136-145)
[2017-11-24 08:00] VITALS: BP 166/70
[2017-11-24 12:00] VITALS: BP 126/52
[2017-11-24 16:00] VITALS: BP 142/71
[2017-11-24 20:00] VITALS: BP 146/60
[2017-11-25] VITALS (7 sets, daily range): BP systolic 120–190; BP diastolic 48–90
[2017-11-26] VITALS: BP 161/83
[2017-11-26 08:00] VITALS: BP 188/86
[2017-11-26 09:48] VITALS: BP 180/82
[2017-11-26 12:10] VITALS: BP 162/86
[2017-11-26 14:00] VITALS: BP 148/76
[2017-11-26] MEDS ORDERED: KEFLEX 500 MG E2 CAP PO (15:28)
[2017-11-26] MEDS ORDERED: AMLODIPINE BESYL5 MG PO (15:28)
[2017-11-26] MEDS ORDERED: METOCLOPRAMIDE H5 M1 PO (15:28)
[2017-12-12] MEDS ORDERED: CEPHALEXIN500 M1 PO (16:16)
[2017-12-12] MEDS ORDERED: PYRIDIUM200 M1 PO (16:16)
[2017-12-14] MEDS ORDERED: CLONIDINE HCL0.1 MG PO (15:29)
[2017-12-14] MEDS ORDERED: PERCOCET 5-3251 EACH PO (15:30)
[2017-12-14] MEDS ORDERED: TRAZODONE50 MG PO (15:31)
[2017-12-14] MEDS ORDERED: CELEXA20 MG PO (15:31)
[2017-12-14] MEDS ORDERED: NEURONTIN600 MG PO (15:32)
[2017-12-14] MEDS ORDERED: APRESOLINE25 MG PO (15:32)
[2017-12-14] MEDS ORDERED: DULCOLAX10 M1 R (15:33)
[2017-12-18] MEDS ORDERED: MACROBID100 M1 PO (08:11)
[2017-12-18] MEDS ORDERED: Lidoderm 5% Patch T (08:11)
[2017-12-18] MEDS ORDERED: LOPRESSOR25 MG PO (08:11)
== END 2017-11-26 16:10 | disposition home or self-care (01) | DRG 690 ==
LOC: ED 09:28 → EDHOLD 11:44 → 4E 11:44
PROVIDERS: Emergency Medicine; Internal Medicine Nephrology
DX: N39.0 Urinary tract infection, site not specified (principal); E87.2 Acidosis; E44.0 Moderate protein-calorie malnutrition; E11.22 Type 2 diabetes mellitus with diabetic chronic kidney disease; D72.1 Eosinophilia; N18.3 Chronic kidney disease, stage 3 (moderate); E11.65 Type 2 diabetes mellitus with hyperglycemia; I50.32 Chronic diastolic (congestive) heart failure; I13.0 Hypertensive heart and chronic kidney disease with heart failure and stage 1 through stage 4 chronic kidney disease, or unspecified chronic kidney disease; G89.29 Other chronic pain; F41.9 Anxiety disorder, unspecified; R00.0 Tachycardia, unspecified; K57.90 Diverticulosis of intestine, part unspecified, without perforation or abscess without bleeding; R70.0 Elevated erythrocyte sedimentation rate; R79.82 Elevated C-reactive protein (CRP); E66.3 Overweight; I48.0 Paroxysmal atrial fibrillation; K76.0 Fatty (change of) liver, not elsewhere classified; M48.061 Spinal stenosis, lumbar region without neurogenic claudication; M47.896 Other spondylosis, lumbar region; M54.5 Low back pain; K44.9 Diaphragmatic hernia without obstruction or gangrene; J44.9 Chronic obstructive pulmonary disease, unspecified; G47.00 Insomnia, unspecified; K21.9 Gastro-esophageal reflux disease without esophagitis; Z88.5 Allergy status to narcotic agent; Z79.01 Long term (current) use of anticoagulants; Z79.82 Long term (current) use of aspirin; Z88.2 Allergy status to sulfonamides; Z88.8 Allergy status to other drugs, medicaments and biological substances; Z88.1 Allergy status to other antibiotic agents; Z93.3 Colostomy status; Z90.710 Acquired absence of both cervix and uterus; Z82.3 Family history of stroke; Z87.19 Personal history of other diseases of the digestive system; Z82.49 Family history of ischemic heart disease and other diseases of the circulatory system; Z90.49 Acquired absence of other specified parts of digestive tract; Z68.28 Body mass index [BMI] 28.0-28.9, adult; Z79.899 Other long term (current) drug therapy

== ENCOUNTER 2018-01-18 10:30 | Emergency (ER) | payer MEDICARE ==
[~2018-01-18] VITALS: Ht 165.1 cm; Wt 78.9 kg
[~2018-01-18 10:30] MED LIST changes: +AMLODIPINE BESYL5 MG PO; +CEPHALEXIN500 M1 PO; +DULCOLAX10 M1 R; +KEFLEX 500 MG E2 CAP PO; +Lidoderm 5% Patch T; +METOCLOPRAMIDE H5 M1 PO; +NEURONTIN600 MG PO; +TRAZODONE50 MG PO
[2018-01-18 11:11] LABS: BILIRUBIN NEGATIVE (NEGATIVE); BLOOD 1+ (NEGATIVE); CLARITY CLOUDY (CLEAR); COLOR YELLOW (YELLOW); GLUCOSE NEGATIVE (NEGATIVE); KETONE NEGATIVE (NEGATIVE); LEUKO ESTERASE 3+ (NEGATIVE); NITRITE POSITIVE (NEGATIVE); PH 5.5 (5.0-9.0); SPECIFIC GRAVITY 1.025 (1.005-1.030)
[2018-01-18 11:20] LABS: BACTERIA 4+; WBC TNTC wbc/hpf (0-5)
[2018-01-18 11:32] LABS: BASO % 0.4 % (0.0-1.0); EOS # 0.3 10*3/uL (0.0-0.4); EOS % 2.5 % (1.0-4.0); HEMATOCRIT 38.9 % (37.0-47.0); HEMOGLOBIN 12.2 g/dl (12.0-16.0); LYMPH # 2.3 10*3/uL (1.3-4.4); LYMPH % 22.9 % (27.0-41.0); MEAN CELL VOLUME 95.6 fl (81.0-99.0); MEAN CORPUSCULAR HGB CONC 31.4 g/dl (33.0-37.0); MEAN PLATELET VOLUME 9.9 fl (9.6-12.3); MONO # 0.8 10*3/uL (0.1-1.0); MONO % 7.5 % (3.0-9.0); NEUT # 6.8 10*3/uL (2.3-7.9); NEUT % 66.5 % (47.0-73.0); PLATELET COUNT AUTOMATED 232 10*3/uL (130-400); RED BLOOD COUNT 4.07 10*6/uL (4.10-5.10); RED CELL DISTRI WIDTH 12.8 % (0-14.5); WHITE BLOOD COUNT 10.2 10*3/uL (4.8-10.8)
[2018-01-18 11:52] LABS: ALBUMIN 3.4 gm/dl (3.1-4.5); CREATININE 1.21 mg/dL (0.55-1.02); TOTAL PROTEIN 8.1 gm/dL (6.4-8.2)
[2018-01-18 12:32] VITALS: BP 135/68
[2018-01-18] MEDS ORDERED: ZOFRAN ODT4 MG SL (13:46)
[2018-01-18] MEDS ORDERED: MACROBID100 M1 PO (13:47)
[2018-01-18] MEDS ORDERED: PERCOCET 10-321 EACH PO (14:26)
== END 2018-01-18 13:57 | disposition home or self-care (01) ==
LOC: ED 10:30
PROVIDERS: Emergency Medicine
DX: N12 Tubulo-interstitial nephritis, not specified as acute or chronic (principal); I13.0 Hypertensive heart and chronic kidney disease with heart failure and stage 1 through stage 4 chronic kidney disease, or unspecified chronic kidney disease; E11.22 Type 2 diabetes mellitus with diabetic chronic kidney disease; N18.3 Chronic kidney disease, stage 3 (moderate); I50.9 Heart failure, unspecified; I48.91 Unspecified atrial fibrillation; G89.29 Other chronic pain; J44.9 Chronic obstructive pulmonary disease, unspecified; K21.9 Gastro-esophageal reflux disease without esophagitis; E66.3 Overweight; Z88.2 Allergy status to sulfonamides; Z88.1 Allergy status to other antibiotic agents; Z88.5 Allergy status to narcotic agent; Z88.8 Allergy status to other drugs, medicaments and biological substances; Z79.82 Long term (current) use of aspirin; Z79.899 Other long term (current) drug therapy; Z93.3 Colostomy status; Z90.49 Acquired absence of other specified parts of digestive tract; Z90.710 Acquired absence of both cervix and uterus

== ENCOUNTER → 2018-02-09 | Outpatient (CLI) | payer MEDICARE ==
[~2018-02-09] MED LIST changes: +CENTRUM SILVER1 EAC1 PO; +KEFLEX500 M1 PO; +MOM30 M1 PO; +ONDANSETRON4 MG/2 M3 PO; +PERCOCET 10-321 EACH PO
[2018-02-09 13:55] LABS: BILIRUBIN NEGATIVE (NEGATIVE); BLOOD TRACE-INTACT (NEGATIVE); CLARITY SL CLOUDY (CLEAR); COLOR YELLOW (YELLOW); GLUCOSE NEGATIVE (NEGATIVE); KETONE NEGATIVE (NEGATIVE); LEUKO ESTERASE 3+ (NEGATIVE); NITRITE NEGATIVE (NEGATIVE); SPECIFIC GRAVITY 1.015 (1.005-1.030); UROBILINOGEN 0.2 E.U./dl (0.2-1.0)
[2018-02-09 14:04] LABS: BACTERIA 2+
[2018-02-09 14:05] LABS: EPITHELIAL CELLS 16-20; WBC 51-100 wbc/hpf (0-5)
== END | disposition home or self-care (01) ==
LOC: LAB 13:28
PROVIDERS: Emergency Medicine
DX: N39.0 Urinary tract infection, site not specified (principal)

== ENCOUNTER 2018-02-11 12:26 | Emergency (ER) | payer MEDICARE ==
[~2018-02-11] VITALS: Ht 165.1 cm; Wt 78.9 kg
[~2018-02-11 12:26] MED LIST changes: -CENTRUM SILVER1 EAC1 PO; -KEFLEX500 M1 PO; -MOM30 M1 PO; -ONDANSETRON4 MG/2 M3 PO
[2018-02-11 12:28] VITALS: BP 152/63
[2018-02-11 12:51] LABS: BILIRUBIN NEGATIVE (NEGATIVE); BLOOD TRACE-LYSED (NEGATIVE); CLARITY CLOUDY (CLEAR); COLOR YELLOW (YELLOW); GLUCOSE NEGATIVE (NEGATIVE); KETONE NEGATIVE (NEGATIVE); LEUKO ESTERASE 2+ (NEGATIVE); NITRITE NEGATIVE (NEGATIVE); UROBILINOGEN 0.2 E.U./dl (0.2-1.0)
[2018-02-11 13:09] LABS: BACTERIA 2+; EPITHELIAL CELLS 15-20; WBC TNTC wbc/hpf (0-5)
[2018-02-11 13:09] LABS: BASO % 0.4 % (0.0-1.0); EOS # 0.3 10*3/uL (0.0-0.4); EOS % 3.6 % (1.0-4.0); HEMATOCRIT 37.1 % (37.0-47.0); HEMOGLOBIN 12.1 g/dl (12.0-16.0); LYMPH # 2.7 10*3/uL (1.3-4.4); LYMPH % 28.3 % (27.0-41.0); MEAN CELL VOLUME 92.5 fl (81.0-99.0); MEAN CORPUSCULAR HGB 30.2 pg (27.0-31.0); MEAN CORPUSCULAR HGB CONC 32.6 g/dl (33.0-37.0); MEAN PLATELET VOLUME 9.6 fl (9.6-12.3); MONO # 0.9 10*3/uL (0.1-1.0); MONO % 9.4 % (3.0-9.0); NEUT # 5.5 10*3/uL (2.3-7.9); PLATELET COUNT AUTOMATED 228 10*3/uL (130-400); RED BLOOD COUNT 4.01 10*6/uL (4.10-5.10); RED CELL DISTRI WIDTH 12.6 % (0-14.5); WHITE BLOOD COUNT 9.5 10*3/uL (4.8-10.8)
[2018-02-11 13:27] LABS: ALBUMIN 3.2 gm/dl (3.1-4.5); CREATININE 1.2 mg/dL (0.55-1.02); POTASSIUM 4.1 mmol/L (3.5-5.1); TOTAL PROTEIN 7.8 gm/dL (6.4-8.2)
== END 2018-02-11 14:05 | disposition home or self-care (01) ==
LOC: ED 12:26
PROVIDERS: Emergency Medicine
DX: N39.0 Urinary tract infection, site not specified (principal); I13.0 Hypertensive heart and chronic kidney disease with heart failure and stage 1 through stage 4 chronic kidney disease, or unspecified chronic kidney disease; E11.22 Type 2 diabetes mellitus with diabetic chronic kidney disease; N18.3 Chronic kidney disease, stage 3 (moderate); I50.9 Heart failure, unspecified; I48.91 Unspecified atrial fibrillation; G89.29 Other chronic pain; J44.9 Chronic obstructive pulmonary disease, unspecified; K21.9 Gastro-esophageal reflux disease without esophagitis; E66.3 Overweight; Z88.2 Allergy status to sulfonamides; Z88.1 Allergy status to other antibiotic agents; Z88.5 Allergy status to narcotic agent; Z88.6 Allergy status to analgesic agent; Z88.8 Allergy status to other drugs, medicaments and biological substances; Z79.2 Long term (current) use of antibiotics; Z79.899 Other long term (current) drug therapy; Z79.82 Long term (current) use of aspirin; Z98.890 Other specified postprocedural states; Z93.3 Colostomy status

== ENCOUNTER 2018-03-04 15:03 | Emergency (ER) | payer MEDICARE ==
[~2018-03-04] VITALS: Ht 165.1 cm; Wt 78.5 kg
[2018-03-04 15:07] VITALS: BP 138/90
== END 2018-03-04 17:58 | disposition home or self-care (01) ==
LOC: ED 15:03
DX: M79.661 Pain in right lower leg (principal); Z88.2 Allergy status to sulfonamides; Z88.1 Allergy status to other antibiotic agents; Z88.6 Allergy status to analgesic agent; Z88.8 Allergy status to other drugs, medicaments and biological substances; Z79.899 Other long term (current) drug therapy; Z79.82 Long term (current) use of aspirin; Z86.718 Personal history of other venous thrombosis and embolism

== ENCOUNTER 2018-03-13 10:24 | Emergency (ER) | payer MEDICARE ==
[~2018-03-13] VITALS: Ht 165.1 cm; Wt 78.5 kg
--- NOTE | ~2018-03-13 | EKG ---
[place], [place] ELECTROCARDIOGRAM REPORT NAME: FARHAT MORALES UNIT #: [id number] ROOM: [facility] BIRTH[facility]: [birth year] [facility] Test Date: 2018-03-13 Test Time: 10:28:51 Pat Name: FARHAT MORALES Department: Er Room: 7 Gender: F Algebra Tutor: : 1945 Requested By: JOHN GORE Order Number: [id number] Reading MD: Josiane Rock MD Measurements Intervals [place] Rate: 73 P: 50 PA: 148 QRS: 53 QRSD: 91 T: 55 QT: 413 QTc: 456 Interpretive Statements Sinus rhythm Compared to ECG 11/20/2017 10:04:51 Sinus tachycardia no longer present Electronically Signed On 03-15-2018 7:20:27 PST by Josiane Rock MD CM:EKGRPT:ELECTROCARDIOGRAM REPORT [id number] JOHN DIEZ DRAFT REPORT JOHN GORE M.D.
[2018-03-13 10:53] LABS: BASO # 0.1 10*3/uL (0.0-0.1); BASO % 0.5 % (0.0-1.0); EOS # 0.2 10*3/uL (0.0-0.4); EOS % 1.4 % (1.0-4.0); HEMATOCRIT 39.1 % (37.0-47.0); HEMOGLOBIN 12.8 g/dl (12.0-16.0); LYMPH # 2.6 10*3/uL (1.3-4.4); LYMPH % 23.8 % (27.0-41.0); MEAN CELL VOLUME 91.6 fl (81.0-99.0); MEAN CORPUSCULAR HGB CONC 32.7 g/dl (33.0-37.0); MEAN PLATELET VOLUME 9.7 fl (9.6-12.3); MONO # 0.7 10*3/uL (0.1-1.0); MONO % 6.3 % (3.0-9.0); NEUT # 7.4 10*3/uL (2.3-7.9); NEUT % 67.6 % (47.0-73.0); PLATELET COUNT AUTOMATED 261 10*3/uL (130-400); RED BLOOD COUNT 4.27 10*6/uL (4.10-5.10); RED CELL DISTRI WIDTH 12.6 % (0-14.5); WHITE BLOOD COUNT 10.9 10*3/uL (4.8-10.8)
[2018-03-13 11:11] LABS: ACT PARTIAL THROMBO TIME 25.6 SECONDS (20.8-31.5)
[2018-03-13 11:25] LABS: BILIRUBIN NEGATIVE (NEGATIVE); BLOOD TRACE-INTACT (NEGATIVE); CLARITY CLEAR (CLEAR); COLOR YELLOW (YELLOW); GLUCOSE NEGATIVE (NEGATIVE); KETONE NEGATIVE (NEGATIVE); LEUKO ESTERASE 2+ (NEGATIVE); NITRITE NEGATIVE (NEGATIVE); PH 8.5 (5.0-9.0); UROBILINOGEN 0.2 E.U./dl (0.2-1.0)
[2018-03-13 11:35] LABS: BACTERIA 1+; WBC 21-30 wbc/hpf (0-5)
[2018-03-13 13:14] LABS: ALBUMIN 3.1 gm/dl (3.1-4.5); ALKALINE PHOSPHATASE 110 U/L (45-117); BUN 15 mg/dl (7-24); CHLORIDE 105 mmol/L (98-107); CREATININE 1.17 mg/dL (0.55-1.02); POTASSIUM 4.2 mmol/L (3.5-5.1); SGOT/AST 23 IU/L (3-35); SGPT/ALT 18 U/L (12-78); SODIUM 138 mmol/L (136-145); TOTAL PROTEIN 8.8 gm/dL (6.4-8.2); TROPONIN I < 0.015 ng/ml (<0.045)
[2018-03-13 13:16] VITALS: BP 178/80
[2018-03-13] MEDS ORDERED: PERCOCET 10-321 EACH PO (13:54)
[2018-03-13] MEDS ORDERED: KEFLEX500 M1 PO (13:58)
== END 2018-03-13 14:25 | disposition home or self-care (01) ==
LOC: ED 10:24
PROVIDERS: Emergency Medicine
DX: N39.0 Urinary tract infection, site not specified (principal); M54.9 Dorsalgia, unspecified; R07.9 Chest pain, unspecified; I13.0 Hypertensive heart and chronic kidney disease with heart failure and stage 1 through stage 4 chronic kidney disease, or unspecified chronic kidney disease; E11.22 Type 2 diabetes mellitus with diabetic chronic kidney disease; N18.3 Chronic kidney disease, stage 3 (moderate); I50.9 Heart failure, unspecified; I48.91 Unspecified atrial fibrillation; G89.29 Other chronic pain; J44.9 Chronic obstructive pulmonary disease, unspecified; K21.9 Gastro-esophageal reflux disease without esophagitis; Z90.710 Acquired absence of both cervix and uterus; Z90.49 Acquired absence of other specified parts of digestive tract; Z93.3 Colostomy status; Z88.2 Allergy status to sulfonamides; Z88.1 Allergy status to other antibiotic agents; Z88.5 Allergy status to narcotic agent; Z88.6 Allergy status to analgesic agent; Z79.899 Other long term (current) drug therapy; Z79.82 Long term (current) use of aspirin

== ENCOUNTER 2018-04-04 16:30 | Inpatient (IN) | payer MEDICARE ==
[~2018-04-04] VITALS: Ht 162.5 cm; Wt 80.9 kg
[2018-04-04] VITALS (7 sets, daily range): BP systolic 120–200; BP diastolic 60–96
--- NOTE | ~2018-04-04 | EKG ---
[place], [place] ELECTROCARDIOGRAM REPORT NAME: FARHAT MORALES UNIT #: [id number] ROOM: 403 DOCTOR: RG DRAFT REPORT BIRTHDATE: [birth year] [facility] Test Date: 2018-04-04 Test Time: 17:05:53 Pat Name: FARHAT MORALES Department: Room: 403 Gender: F Boarding House Manager: NAVI : 1945 Requested By: EJ MOBLEY Order Number: [id number] Reading MD: Mario Martinez MD Measurements Intervals [place] Rate: 93 P: 41 DC: 153 QRS: 44 QRSD: 90 T: 34 QT: 366 QTc: 456 Interpretive Statements Sinus rhythm Compared to ECG 03/13/2018 10:28:51 No significant changes Electronically Signed On 04-06-2018 7:59:11 PST by Mario Martinez MD CM:EKGRPT:ELECTROCARDIOGRAM REPORT [id number] EJ JOHNS DRAFT REPORT EJ MOBLEY DO
[~2018-04-04 16:30] MED LIST changes: +KEFLEX500 M1 PO
[2018-04-04 17:12] LABS: BASO # 0.1 10*3/uL (0.0-0.1); BASO % 0.5 % (0.0-1.0); EOS # 0.2 10*3/uL (0.0-0.4); EOS % 2.3 % (1.0-4.0); HEMATOCRIT 38.9 % (37.0-47.0); HEMOGLOBIN 12.5 g/dl (12.0-16.0); LYMPH # 2.8 10*3/uL (1.3-4.4); LYMPH % 27.5 % (27.0-41.0); MEAN CELL VOLUME 93.1 fl (81.0-99.0); MEAN CORPUSCULAR HGB 29.9 pg (27.0-31.0); MEAN CORPUSCULAR HGB CONC 32.1 g/dl (33.0-37.0); MEAN PLATELET VOLUME 9.4 fl (9.6-12.3); MONO # 0.8 10*3/uL (0.1-1.0); MONO % 7.3 % (3.0-9.0); NEUT # 6.4 10*3/uL (2.3-7.9); NEUT % 62.2 % (47.0-73.0); PLATELET COUNT AUTOMATED 260 10*3/uL (130-400); RED BLOOD COUNT 4.18 10*6/uL (4.10-5.10); RED CELL DISTRI WIDTH 12.9 % (0-14.5); WHITE BLOOD COUNT 10.3 10*3/uL (4.8-10.8)
[2018-04-04 17:25] LABS: ACT PARTIAL THROMBO TIME 24.2 SECONDS (20.8-31.5)
[2018-04-04 17:28] LABS: ALBUMIN 3.1 gm/dl (3.1-4.5); ALKALINE PHOSPHATASE 105 U/L (45-117); BUN 16 mg/dl (7-24); CHLORIDE 105 mmol/L (98-107); CREATININE 1.04 mg/dL (0.55-1.02); LIPASE 154 U/L (73-393); POTASSIUM 3.5 mmol/L (3.5-5.1); SGOT/AST 17 IU/L (3-35); SGPT/ALT 17 U/L (12-78); SODIUM 139 mmol/L (136-145); TOTAL PROTEIN 8.4 gm/dL (6.4-8.2); TROPONIN I < 0.015 ng/ml (<0.045)
[2018-04-04 17:43] LABS: BILIRUBIN NEGATIVE (NEGATIVE); BLOOD TRACE-INTACT (NEGATIVE); CLARITY SL CLOUDY (CLEAR); COLOR YELLOW (YELLOW); GLUCOSE NEGATIVE (NEGATIVE); KETONE NEGATIVE (NEGATIVE); LEUKO ESTERASE 2+ (NEGATIVE); NITRITE NEGATIVE (NEGATIVE); SPECIFIC GRAVITY 1.025 (1.005-1.030); UROBILINOGEN 0.2 E.U./dl (0.2-1.0)
[2018-04-04 17:47] LABS: BACTERIA 2+; EPITHELIAL CELLS 16-20; WBC 31-40 wbc/hpf (0-5)
[2018-04-04 17:48] LABS: MUCOUS TRACE
[2018-04-04] MEDS ORDERED: MOM30 M1 PO (20:18)
[2018-04-04] MEDS ORDERED: CENTRUM SILVER1 EAC1 PO (20:19)
[2018-04-04] MEDS ORDERED: SOMA350 MG PO (20:51)
[2018-04-05] VITALS: BP 130/65
[2018-04-05 06:07] LABS: BASO # 0.1 10*3/uL (0.0-0.1); BASO % 0.6 % (0.0-1.0); EOS # 0.3 10*3/uL (0.0-0.4); EOS % 3.9 % (1.0-4.0); HEMATOCRIT 35.2 % (37.0-47.0); HEMOGLOBIN 11.4 g/dl (12.0-16.0); LYMPH # 2.6 10*3/uL (1.3-4.4); MEAN CELL VOLUME 94.9 fl (81.0-99.0); MEAN CORPUSCULAR HGB 30.7 pg (27.0-31.0); MEAN CORPUSCULAR HGB CONC 32.4 g/dl (33.0-37.0); MEAN PLATELET VOLUME 9.9 fl (9.6-12.3); MONO # 0.7 10*3/uL (0.1-1.0); MONO % 8.3 % (3.0-9.0); NEUT # 4.9 10*3/uL (2.3-7.9); NEUT % 56.8 % (47.0-73.0); PLATELET COUNT AUTOMATED 230 10*3/uL (130-400); RED BLOOD COUNT 3.71 10*6/uL (4.10-5.10); RED CELL DISTRI WIDTH 13.1 % (0-14.5); WHITE BLOOD COUNT 8.5 10*3/uL (4.8-10.8)
[2018-04-05 06:45] LABS: CHLORIDE 107 mmol/L (98-107); POTASSIUM 3.9 mmol/L (3.5-5.1); SODIUM 142 mmol/L (136-145)
[2018-04-05 06:55] LABS: ALBUMIN 2.7 gm/dl (3.1-4.5); BUN 15 mg/dl (7-24); SGOT/AST 22 IU/L (3-35); SGPT/ALT 15 U/L (12-78); TOTAL PROTEIN 7.4 gm/dL (6.4-8.2)
[2018-04-05 06:56] LABS: ALKALINE PHOSPHATASE 91 U/L (45-117)
[2018-04-05 08:03] VITALS: BP 130/80
[2018-04-05 12:10] VITALS: BP 142/74
[2018-04-05 16:00] VITALS: BP 148/67
[2018-04-05 20:00] VITALS: BP 152/68
[2018-04-06] VITALS: BP 116/53
[2018-04-06 06:39] LABS: BASO % 0.4 % (0.0-1.0); EOS # 0.4 10*3/uL (0.0-0.4); EOS % 4.1 % (1.0-4.0); HEMATOCRIT 33.3 % (37.0-47.0); HEMOGLOBIN 10.6 g/dl (12.0-16.0); LYMPH # 2.3 10*3/uL (1.3-4.4); LYMPH % 23.7 % (27.0-41.0); MEAN CELL VOLUME 94.3 fl (81.0-99.0); MEAN CORPUSCULAR HGB CONC 31.8 g/dl (33.0-37.0); MONO # 0.8 10*3/uL (0.1-1.0); NEUT # 6.2 10*3/uL (2.3-7.9); NEUT % 63.4 % (47.0-73.0); PLATELET COUNT AUTOMATED 222 10*3/uL (130-400); RED BLOOD COUNT 3.53 10*6/uL (4.10-5.10); WHITE BLOOD COUNT 9.8 10*3/uL (4.8-10.8)
[2018-04-06 06:52] LABS: ALBUMIN 2.7 gm/dl (3.1-4.5); ALKALINE PHOSPHATASE 119 U/L (45-117); BUN 16 mg/dl (7-24); CHLORIDE 109 mmol/L (98-107); CREATININE 0.98 mg/dL (0.55-1.02); POTASSIUM 3.6 mmol/L (3.5-5.1); SGOT/AST 14 IU/L (3-35); SGPT/ALT 14 U/L (12-78); SODIUM 144 mmol/L (136-145); TOTAL PROTEIN 6.7 gm/dL (6.4-8.2)
[2018-04-06 08:00] VITALS: BP 166/68
[2018-04-06 12:00] VITALS: BP 186/72
[2018-04-06 16:00] VITALS: BP 177/76; BP 178/76
[2018-04-06 20:00] VITALS: BP 154/66
[2018-04-06 21:28] VITALS: BP 130/72
[2018-04-07] VITALS: BP 137/55
[2018-04-07 08:00] VITALS: BP 149/74
[2018-04-07 12:00] VITALS: BP 161/70
[2018-04-07 16:00] VITALS: BP 154/67
[2018-04-07 20:00] VITALS: BP 157/79
[2018-04-08 08:00] VITALS: BP 120/70
[2018-04-08 11:42] VITALS: BP 140/80
[2018-04-08] MEDS ORDERED: ONDANSETRON4 MG/2 M3 PO (11:52)
== END 2018-04-08 13:11 | disposition home or self-care (01) | DRG 394 ==
LOC: ED 16:30 → 4E 18:54 → EDHOLD 18:54 → 4E 19:24
PROVIDERS: Emergency Medicine; Internal Medicine; Internal Medicine Nephrology
DX: K43.9 Ventral hernia without obstruction or gangrene (principal); N39.0 Urinary tract infection, site not specified; I50.32 Chronic diastolic (congestive) heart failure; E87.2 Acidosis; I48.91 Unspecified atrial fibrillation; F41.9 Anxiety disorder, unspecified; G89.29 Other chronic pain; M54.9 Dorsalgia, unspecified; K29.70 Gastritis, unspecified, without bleeding; K59.00 Constipation, unspecified; N18.3 Chronic kidney disease, stage 3 (moderate); J44.9 Chronic obstructive pulmonary disease, unspecified; K43.2 Incisional hernia without obstruction or gangrene; Z53.29 Procedure and treatment not carried out because of patient's decision for other reasons; K57.90 Diverticulosis of intestine, part unspecified, without perforation or abscess without bleeding; K21.9 Gastro-esophageal reflux disease without esophagitis; E11.9 Type 2 diabetes mellitus without complications; I11.0 Hypertensive heart disease with heart failure; G47.00 Insomnia, unspecified; Z87.440 Personal history of urinary (tract) infections; Z88.2 Allergy status to sulfonamides; Z88.6 Allergy status to analgesic agent; Z88.1 Allergy status to other antibiotic agents; Z88.8 Allergy status to other drugs, medicaments and biological substances; Z93.3 Colostomy status; Z98.891 History of uterine scar from previous surgery; Z90.49 Acquired absence of other specified parts of digestive tract; Z90.710 Acquired absence of both cervix and uterus; Z82.49 Family history of ischemic heart disease and other diseases of the circulatory system; Z79.82 Long term (current) use of aspirin; Z79.899 Other long term (current) drug therapy

== ENCOUNTER 2018-05-12 07:51 | Inpatient (IN) | payer MEDICARE ==
[~2018-05-12] VITALS: Ht 162.5 cm; Wt 85.0 kg
--- NOTE | ~2018-05-12 | EKG ---
[place], [place] ELECTROCARDIOGRAM REPORT NAME: FARHAT MORALES UNIT #: [id number] ROOM: 401 DOCTOR: RG DRAFT REPORT BIRTHDATE: [birth year] [facility] Test Date: 2018-05-12 Test Time: 07:51:21 Pat Name: FARHAT MORALES Department: Room: 401 Gender: F Compliance Coordinator: : 1945 Requested By: EJ MOBLEY Order Number: [id number] Reading MD: Isak Arellano MD Measurements Intervals [place] Rate: 97 P: 43 DE: 169 QRS: 56 QRSD: 86 T: 47 QT: 362 QTc: 460 Interpretive Statements Sinus rhythm Compared to ECG 04/04/2018 17:05:53 No significant changes Electronically Signed On 05-12-2018 17:43:25 PST by Isak Arellano MD CM:EKGRPT:ELECTROCARDIOGRAM REPORT [id number] 1743 EJ JOHNS DRAFT REPORT EJ MOBLEY DO
[~2018-05-12 07:51] MED LIST changes: +CENTRUM SILVER1 EAC1 PO; +MOM30 M1 PO; +ONDANSETRON4 MG/2 M3 PO
[2018-05-12 07:55] VITALS: BP 165/82
[2018-05-12 08:22] LABS: BASO % 0.3 % (0.0-1.0); EOS # 0.4 10*3/uL (0.0-0.4); EOS % 3.6 % (1.0-4.0); HEMATOCRIT 41.6 % (37.0-47.0); HEMOGLOBIN 13.8 g/dl (12.0-16.0); LYMPH # 2.5 10*3/uL (1.3-4.4); LYMPH % 22.9 % (27.0-41.0); MEAN CELL VOLUME 93.9 fl (81.0-99.0); MEAN CORPUSCULAR HGB 31.2 pg (27.0-31.0); MEAN CORPUSCULAR HGB CONC 33.2 g/dl (33.0-37.0); MEAN PLATELET VOLUME 9.8 fl (9.6-12.3); MONO # 0.8 10*3/uL (0.1-1.0); MONO % 7.2 % (3.0-9.0); NEUT # 7.2 10*3/uL (2.3-7.9); NEUT % 65.7 % (47.0-73.0); PLATELET COUNT AUTOMATED 270 10*3/uL (130-400); RED BLOOD COUNT 4.43 10*6/uL (4.10-5.10)
[2018-05-12 08:31] LABS: ACT PARTIAL THROMBO TIME 25.2 SECONDS (20.8-31.5)
[2018-05-12 08:40] LABS: BILIRUBIN NEGATIVE (NEGATIVE); BLOOD TRACE-INTACT (NEGATIVE); CLARITY SL CLOUDY (CLEAR); COLOR YELLOW (YELLOW); GLUCOSE NEGATIVE (NEGATIVE); KETONE NEGATIVE (NEGATIVE); LEUKO ESTERASE 2+ (NEGATIVE); NITRITE NEGATIVE (NEGATIVE); UROBILINOGEN 0.2 E.U./dl (0.2-1.0)
[2018-05-12 08:43] LABS: ALBUMIN 3.7 gm/dl (3.1-4.5); ALKALINE PHOSPHATASE 131 U/L (45-117); BUN 24 mg/dl (7-24); CHLORIDE 105 mmol/L (98-107); CREATININE 1.26 mg/dL (0.55-1.02); LIPASE 238 U/L (73-393); POTASSIUM 4.4 mmol/L (3.5-5.1); SGOT/AST 15 IU/L (3-35); SGPT/ALT 19 U/L (12-78); SODIUM 138 mmol/L (136-145); TOTAL PROTEIN 8.8 gm/dL (6.4-8.2); TROPONIN I < 0.015 ng/ml (<0.045)
[2018-05-12 08:50] LABS: BACTERIA 1+; WBC 41-50 wbc/hpf (0-5)
[2018-05-12 09:56] VITALS: BP 159/73
[2018-05-12 10:45] VITALS: BP 152/61
--- NOTE | 2018-05-12 10:45 | NUR ---
Time: 1044 A 73 year old FEMALE admitted to 4E under services of DR. TINO OCAMPO,CASSI. Pt. arrived via stretcher from ER. Chief complaint: ABDOMINAL PAIN. NAOMY FRYE
--- NOTE | 2018-05-12 11:13 | NUR ---
PATIENT MED REC UPDATED PER POLICY.
[2018-05-12 12:00] VITALS: BP 148/86
--- NOTE | 2018-05-12 14:05 | NUR ---
DR HOROWITZ ON THE FLOOR AT THIS TIME TO SEE PATIENT, NOTIFIED OF PATIENT REPEATEDELY REQUESTING DEMEROL AT THIS TIME.
[2018-05-12 16:00] VITALS: BP 123/59
--- NOTE | 2018-05-12 16:08 | NUR ---
MEDICATED WITH PRN IV ZOFRAN FOR NAUSEA.
--- NOTE | 2018-05-12 16:22 | NUR ---
MEDICATED WITH PRN IV ZOFRAN FOR NAUSEA.
--- NOTE | 2018-05-12 17:48 | NUR ---
PHYSICAL THERAPY Just admitted, acutely ill and nausious. will attempt at a later date. Thank you for this referral. Aurelia Stratton,PT
--- NOTE | 2018-05-12 17:55 | NUR ---
MEDICATED WITH PRN PO PERCOCET FOR ABDOMINAL PAIN.
--- NOTE | 2018-05-12 17:56 | NUR ---
PRN IV ZOFRAN EFFECTIVE FOR NAUSEA, PER PATIENT.
--- NOTE | 2018-05-12 18:40 | NUR ---
PRN PO PERCOCET EFFECTIVE, PER PATIENT.
[2018-05-12 20:00] VITALS: BP 132/52
--- NOTE | 2018-05-12 21:26 | NUR ---
SPOKE WITH DR PERALTA ABOUT THE PT'S COMPLAINTS OF "NERVE PAIN" IN HER BILATERAL LOWER FEET. SHE STATES THAT HER FEET FEEL LIKE THEY ARE ASLEEP AND TINGLING. PT WAS INFORMED THAT SHE MAY NOT BE ABLE TO HAVE ANYTHING IN REGARDS TO HER KIDNEY FUNCTION. DR PERALTA WILL REVIEW CHART
--- NOTE | 2018-05-12 21:46 | NUR ---
PRN AMBIEN GIVEN FOR SLEEP. WILL MONITOR FOR EFFECTIVENESS.
--- NOTE | 2018-05-12 22:40 | NUR ---
PT RE-EVALUATED AT THIS TIME. PT IS SLEEPING AT THIS TIME. PRN AMBIEN EFFECTIVE.
--- NOTE | 2018-05-12 23:37 | NUR ---
PRN ZOFRAN GIVEN FOR COMPLAINTS OF NAUSEA. PT IS ALSO REQUESTING SOMETHING TO EAT AT THIS TIME. WILL MONITOR FOR EFFECTIVENESS.
[2018-05-13] VITALS: BP 124/53
--- NOTE | 2018-05-13 00:20 | NUR ---
RE-EVALUATED AT THIS TIME. PT IS SLEEPING. NO SIGNS OF DISTRESS AT THIS TIME. PT WAS ABLE TO TOLERATE APPLESAUCE, GRAHM CRACKERS, AND PEANUT BUTTER. ZOFRAN EFFECTIVE.
--- NOTE | 2018-05-13 01:49 | NUR ---
24HR CHART CHECK COMPLETED.
--- NOTE | 2018-05-13 05:03 | NUR ---
PRN ZOFRAN GIVEN FOR COMPLAINTS OF NAUSEA. WILL MONITOR FOR EFFECTIVENESS.
[2018-05-13 06:41] LABS: BASO % 0.4 % (0.0-1.0); EOS # 0.5 10*3/uL (0.0-0.4); EOS % 5.8 % (1.0-4.0); HEMATOCRIT 37.8 % (37.0-47.0); HEMOGLOBIN 11.8 g/dl (12.0-16.0); LYMPH # 2.3 10*3/uL (1.3-4.4); LYMPH % 28.3 % (27.0-41.0); MEAN CELL VOLUME 95.2 fl (81.0-99.0); MEAN CORPUSCULAR HGB 29.7 pg (27.0-31.0); MEAN CORPUSCULAR HGB CONC 31.2 g/dl (33.0-37.0); MEAN PLATELET VOLUME 10.1 fl (9.6-12.3); MONO # 0.8 10*3/uL (0.1-1.0); MONO % 9.5 % (3.0-9.0); NEUT # 4.6 10*3/uL (2.3-7.9); NEUT % 55.8 % (47.0-73.0); PLATELET COUNT AUTOMATED 221 10*3/uL (130-400); RED BLOOD COUNT 3.97 10*6/uL (4.10-5.10); WHITE BLOOD COUNT 8.2 10*3/uL (4.8-10.8)
[2018-05-13 06:52] LABS: ACT PARTIAL THROMBO TIME 25.5 SECONDS (20.8-31.5)
[2018-05-13 07:12] LABS: ALBUMIN 2.7 gm/dl (3.1-4.5)
[2018-05-13 07:22] LABS: CREATININE 1.1 mg/dL (0.55-1.02); FREE T4 0.83 ng/dl (0.76-1.46); PHOSPHOROUS 3.5 mg/dL (2.5-4.9); THYROID STIM HORMONE (HS) 3.99 uIU/ml (0.358-4.75); TOTAL PROTEIN 7.2 gm/dL (6.4-8.2)
[2018-05-13 08:00] VITALS: BP 136/86
[2018-05-13 08:07] LABS: VITAMIN D, 25-HYDROXY 20.6 ng/mL (30-100)
--- NOTE | 2018-05-13 08:48 | NUR ---
PT MEDICATED WITH PERCOCET AT HER REQUEST FOR CHRONIC BACK PAIN.
--- NOTE | 2018-05-13 09:00 | NUR ---
Wood Treating Inspector in to talk to patient. Patient states lives at home with her . There are 18 steps in the home. Physician: Dr. Mario Martinez [facility] Home health services: has had in the past but not currently Patient's level of ADLs: INDEPENDENT Patient has working utilities: yes DME: none Follow-up physician's appointment after d/c: she prefers to make her own follow up appt after discharge Does patient want to access PORTAL?: no Discharge plan discussed with patient. She lives at home with her . She is independent in her ADLs and ambulation. Discussed home health care services and she denies any home needs at this time. When medically stable she will be discharged to home. ÁNGEL WILLIS
[2018-05-13 12:00] VITALS: BP 129/61
--- NOTE | 2018-05-13 15:02 | NUR ---
PT MEDICATED WITH ZOFRAN FOR C/O NAUSEA.
--- NOTE | 2018-05-13 15:11 | NUR ---
PT ASKING IF I COULD CALL THE DR TO GET HER PAIN MEDICATION DOSE INCREASED. I SPOKE WITH DR HOROWITZ AND EXTRA DOSE OF PERCOCET ORDERED FOR NOW DUE TO PT'S C/O ABD PAIN AND CHROINC BACK PAIN.
[2018-05-13 16:00] VITALS: BP 139/79
[2018-05-13 20:00] VITALS: BP 138/68
--- NOTE | 2018-05-13 20:00 | NUR ---
RESTING IN BED WITH NO ACUTE DISTRESS NOTED. RESPIRATIONS EASY. LUNGS DIIMINISHED, CLEAR. PULSE OX 97% RA. ABD SOFT WITH HYPERACTIVE BOWEL SOUNDS, LEFT SIDE COLOSTOMY NOTED. OFFERED AND EDUCATED REGARDING TEDS, DECLINED. IV FLUIDS INFUSING PER ORDER. CALL LIGHT WITHIN REACH. NO VOICED COMPLAINTS
--- NOTE | 2018-05-13 20:45 | NUR ---
24 HR chart check completed.
--- NOTE | 2018-05-13 21:28 | NUR ---
REQUESTED AND RECEIVED PERCOCET PER PRN ORDER FOR COMPLAINTS OF ABD PAIN RATING A 6. ALSO REQUESTED AND RECEIVED AMBIEN TO ASSIST WITH SLEEP. CALL LIGHT WITHIN REACH. WILL MONITOR FOR EFFECTIVENESS
[2018-05-14] VITALS: BP 140/58
--- NOTE | 2018-05-14 | NUR ---
EARLIER MEDS EFFECTIVE, SLEEPING. RESPIRATIONS EASY. VSS. IV FLUIDS INFUSING PER ORDER. CALL LIGHT WITHIN REACH.
--- NOTE | 2018-05-14 06:00 | NUR ---
SLEPT THROUGHOUT NIGHT WITH NO DISTRESS NOTED. RESPIRATIONS EASY. IV FLUIDS MAINTAINED. CALL LIGHT WITHIN REACH. NO VOICED COMPLAINTS THIS SHIFT
[2018-05-14 08:00] VITALS: BP 137/63
--- NOTE | 2018-05-14 09:09 | NUR ---
PERCOCET GIVEN FOR C/O ABDM. PAIN. RATES 8/10 ON PAIN SCALE. WILL MONITOR.
--- NOTE | 2018-05-14 10:12 | NUR ---
ZOFRAN GIVEN FOR C/O NAUSEA. WILL MONITOR.
--- NOTE | 2018-05-14 10:15 | NUR ---
DULCOLAX GIVEN FOR C/O CONSTIPATION. WILL MONITOR.
--- NOTE | 2018-05-14 10:15 | NUR ---
PERCOCET EFFECTIVE PER PT.
--- NOTE | 2018-05-14 11:15 | NUR ---
ZOFRAN EFFECTIVE PER PT.
[2018-05-14 12:00] VITALS: BP 131/85
--- NOTE | 2018-05-14 14:14 | NUR ---
PHENERGAN GIVEN FOR C/O NAUSEA. DID NOT SCAN MED. WILL MONITOR.
[2018-05-14 16:00] VITALS: BP 140/71
--- NOTE | 2018-05-14 19:06 | NUR ---
PATIENT SITTING UP IN BED WATCHING TV. VOICES NO NEEDS OR COMPLAINTS. IV FLUIDS INFUSING. BED IS IN LOWEST POSITION WITH WHEELS LOCKED. CALL LIGHT IS WITHIN REACH. WILL CONTINUE TO MONITOR.
--- NOTE | 2018-05-14 19:24 | NUR ---
PATIENT RESTING IN BED AT THIS TIME. TRACH MASK IN PLACE. NONVERBAL BUT FOLLOW MOVEMENT WITH EYES. BED IS IN LOWEST POSITION WITH WHEELS LOCKED. CALL LIGHT IS WITHIN REACH. WILL MONITOR.
[2018-05-14 20:00] VITALS: BP 155/56
--- NOTE | 2018-05-14 21:51 | NUR ---
PRN PERCOCET GIVEN FOR COMPLAINTS OF PAIN. WILL EVALUATE EFFECTIVENESS. CALL LIGHT IS WITHIN REACH.
--- NOTE | 2018-05-14 22:44 | NUR ---
PRN AMBIEN AND PHENERGAN GIVEN FOR COMPLAINTS OF NAUSEA AND INSOMNIA. PATIENT STATED TAHT ZOFRAN DID NOT HELP PREVIOUSLY. WILL EVALUATE EFFECTIVENESS. CALL LIGHT IS WITHIN REACH.
[2018-05-15] VITALS: BP 107/59; BP 132/53
--- NOTE | 2018-05-15 01:37 | NUR ---
PATIENT RESTING IN BED WITH EYES CLOSED. RESPIRATIONS ARE EASY AND REGULAR. NO DISTRESS IS NOTED. CALL LIGHT IS WITHIN REACH. WILL MONITOR.
--- NOTE | 2018-05-15 04:34 | NUR ---
PATIENT RESTING IN BED WITH EYES CLOSED. RESPIRATIONS ARE EASY AND REGULAR. NO DISTRESS IS NOTED. CALL LIGHT IS WITHIN REACH. WILL MONITOR.
[2018-05-15 06:55] LABS: ALBUMIN 2.6 gm/dl (3.1-4.5); ALKALINE PHOSPHATASE 138 U/L (45-117); BUN 18 mg/dl (7-24); CHLORIDE 109 mmol/L (98-107); CREATININE 1.01 mg/dL (0.55-1.02); POTASSIUM 3.7 mmol/L (3.5-5.1); SGOT/AST 15 IU/L (3-35); SGPT/ALT 14 U/L (12-78); SODIUM 141 mmol/L (136-145); TOTAL PROTEIN 6.8 gm/dL (6.4-8.2)
[2018-05-15 08:00] VITALS: BP 189/82
--- NOTE | 2018-05-15 08:00 | NUR ---
PHENERGAN GIVEN FOR C/O NAUSEA. PERCOCET GVIE FOR C/O ABDM PAIN. RATES 8/10 ON PAIN SCALE. WILL MONITOR.
--- NOTE | 2018-05-15 09:10 | NUR ---
PERCOCET AND PHENERGAN EFFECTIVE PER PT.
[2018-05-15 12:00] VITALS: BP 136/57
[2018-05-15 16:00] VITALS: BP 142/76
--- NOTE | 2018-05-15 16:15 | NUR ---
PHENERGAN GIVEN FOR C/O NAUSEA. WILL MONITOR.
--- NOTE | 2018-05-15 18:13 | NUR ---
NOTIFIED DR. SEAMAN OF CONSULT.
--- NOTE | 2018-05-15 19:01 | NUR ---
PATIENT OFF OF FLOOR FOR CT SCAN FOR SHIFT REPORT.
--- NOTE | 2018-05-15 19:36 | NUR ---
PATIENT RESTING IN BED AT THIS TIME. DENIES ANY NEEDS OR COMPLAINTS. BED IS IN LOWEST POSITION WITH WHEELS LOCKED. CALL LIGHT IS WITHIN REACH. ENCOURAGED TO USE CALL LIGHT FOR NEEDS. WILL MONITOR.
[2018-05-15 20:00] VITALS: BP 155/78
--- NOTE | 2018-05-15 20:20 | NUR ---
PRN PERCOCET GIVEN FOR COMPLAINTS OF PAIN. WILL EVALUATE EFFECTIVENESS. CALL LIGHT IS WITHIN REACH.
--- NOTE | 2018-05-15 21:13 | NUR ---
PRN AMBIEN GIVEN FOR COMPLAINTS OF INSOMNIA. WILL EVALUATE EFFECTIVENESS. CALL LIGHT IS WITHIN REACH. WILL MONITOR.
--- NOTE | 2018-05-15 22:22 | NUR ---
PRN PHENERGAN GIVEN FOR COMPLAINTS OF NAUSEA. WILL EVALUATE EFFECTIVENESS. CALL LIGHT IS WITHIN REACH.
[2018-05-16] VITALS: BP 151/59
[2018-05-16 07:16] LABS: BASO % 0.4 % (0.0-1.0); EOS # 0.5 10*3/uL (0.0-0.4); HEMATOCRIT 37.2 % (37.0-47.0); HEMOGLOBIN 11.7 g/dl (12.0-16.0); LYMPH # 2.3 10*3/uL (1.3-4.4); LYMPH % 24.7 % (27.0-41.0); MEAN CELL VOLUME 94.2 fl (81.0-99.0); MEAN CORPUSCULAR HGB 29.6 pg (27.0-31.0); MEAN CORPUSCULAR HGB CONC 31.5 g/dl (33.0-37.0); MEAN PLATELET VOLUME 10.2 fl (9.6-12.3); MONO # 0.9 10*3/uL (0.1-1.0); MONO % 9.3 % (3.0-9.0); NEUT # 5.6 10*3/uL (2.3-7.9); NEUT % 60.3 % (47.0-73.0); PLATELET COUNT AUTOMATED 220 10*3/uL (130-400); RED BLOOD COUNT 3.95 10*6/uL (4.10-5.10); RED CELL DISTRI WIDTH 12.9 % (0-14.5); WHITE BLOOD COUNT 9.3 10*3/uL (4.8-10.8)
[2018-05-16 07:24] LABS: CHLORIDE 107 mmol/L (98-107); POTASSIUM 3.7 mmol/L (3.5-5.1); SODIUM 141 mmol/L (136-145)
[2018-05-16 07:32] LABS: BUN 21 mg/dl (7-24); CREATININE 0.93 mg/dL (0.55-1.02)
[2018-05-16 08:00] VITALS: BP 155/70
--- NOTE | 2018-05-16 09:33 | NUR ---
PHENERGRN 12.5 MG GIVEN, PER PT REQUEST FOR C/O NAUSEA, VIA INFUSION PUMP.
--- NOTE | 2018-05-16 11:04 | NUR ---
PHYSICAL THERAPY PATIENT SEEN IN ROOM TODAY TO ATTEMPT EVALUATION HOWEVER SHE IS FOUND TO BE UP AD LAURA IN ROOM WITH GOOD SAFETY AND (I) AMBULATION THUS NO PT SERVICES INDICATED AT THIS TIME AND PATIENT STATING "I DON'T NEED ANY THERAPY" THANK YOU FOR REFERRAL BRETT CALLAWAY PT
--- NOTE | 2018-05-16 11:20 | NUR ---
NOTIFIED DR SEAMAN OF CT ABD RESULTS. ORDERS RECIEVED.
--- NOTE | 2018-05-16 12:23 | NUR ---
PERCOSET GIVEN PER PT REQUEST FOR BACK PAIN,12/11.
--- NOTE | 2018-05-16 14:31 | NUR ---
CHANGE Q COLO APPLIANCE PT C/O PAIN AT Q COLO SITE. PT HAVING FORMED STOOL FROM SITE BACKED UP INTO APPLIANCE. NOTIFIED DR MILLARD PT TAKES LACTULOSE AT HOME. ORDERS RECIEVED.
--- NOTE | 2018-05-16 15:28 | NUR ---
ZOFRAN 4 MG GIVEN PER PT REQUEST FOR NAUSEA.
[2018-05-16 16:00] VITALS: BP 137/65
--- NOTE | 2018-05-16 17:12 | NUR ---
CHANGED LLQ COLO APPLIANCE WITH SUPPLIES PT BROUGHT IN FROM HOME PER PT REQUEST.
--- NOTE | 2018-05-16 19:28 | NUR ---
PATIENT RESTING IN BED WATCHING TV AT THIS TIME. DENIES ANY NEEDS OR COMPLAINTS. BED IS IN LOWEST POSITION WITH WHEELS LOCKED. CALL LIGHT IS WITHIN REACH. ENCOURAGED TO USE CALL LIGHT FOR NEEDS. WILL MONITOR.
[2018-05-16 20:00] VITALS: BP 166/82
--- NOTE | 2018-05-16 21:22 | NUR ---
PRN AMBIEN AND ZOFRAN GIVEN FOR COMPLAINTS OF NAUSEA AND INSOMNIA. WILL EVALUATE EFFECTIVENESS. CALL LIGHT IS WITHIN REACH.
--- NOTE | 2018-05-16 22:56 | NUR ---
AMBIEN AND ZOFRAN APPEAR TO BE EFFECTIVE. PATIENT RESTING IN BED WITH EYES CLOSED. RESPIRATIONS ARE EASY AND REGULAR. NO DISTRESS IS NOTED. CALL LIGHT IS WITHIN REACH. WILL CONTINUE TO MONITOR.
[2018-05-17] VITALS: BP 154/66
--- NOTE | 2018-05-17 00:55 | NUR ---
PRN PERCOCET GIVEN FOR COMPLAINTS OF BACK PAIN RATED 7/10. WILL EVALUATE EFFECTIVENESS. WILL MONITOR.
--- NOTE | 2018-05-17 04:08 | NUR ---
PATIENT RESTING IN BED ON RIGHT SIDE WITH EYES CLOSED. RESPIRATIONS ARE EASY AND REGULAR. NO DISTRESS IS NOTED. CALL LIGHT IS WITHIN REACH. WILL MONITOR.
[2018-05-17 08:00] VITALS: BP 158/72
--- NOTE | 2018-05-17 08:54 | NUR ---
PATIENT HAS NO C/O OF PAIN. STOOL CONSISTENCY COMING OUT OF COLOSTOMY IS LIQUID. PATIENT STATES SHE FEELS MUCH BETTER AND IS JUST READY TO GO HOME. DIVINA BECERRA
--- NOTE | 2018-05-17 09:00 | NUR ---
Foreign Service Officer in to see patient. No new needs or request at this time. She denies any home needs. When medically stable she will be discharged to home.
--- NOTE | 2018-05-17 10:53 | NUR ---
PATIENT STILL STATES NO C/O PAIN. SHE IS LAYING DOWN TO REST SINCE SHE WOKE UP EARLY THIS MORNING. SHE ASKED NOT TO BE BOTHERED WHILE SHE SLEEPS. DIVINA BECERRA
[2018-05-17 12:00] VITALS: BP 150/72
--- NOTE | 2018-05-17 12:53 | NUR ---
PATIENT WAS GIVEN PERCOCET PO PER ORDER FOR C/O PAIN IN RIGHT ABDOMEN. PATIENT RATED PAIN PRIOR TO MEDICATION ADMINISTRATION AN 12/11. DIVINA BECERRA
--- NOTE | 2018-05-17 13:32 | NUR ---
PATIENT STATES ABDOMINAL PAIN IS BETTER AFTER PERCOCET ADMINISTRATION. SHE RATED IT A 6/10 TO A PREVIOS 8/10. DIVINA BECERRA
[2018-05-17] MEDS ORDERED: PANTOPRAZOLE SO40 MG PO (14:28)
--- NOTE | 2018-05-17 15:04 | NUR ---
Discharge instructions reviewed with patient/family. Patient receptive and verbalizes understanding. Follow-up care arranged. Written instructions given to patient/family. WAGNER MCCALLUM
[2018-07-09] MEDS ORDERED: ONDANSETRON4 M1 PO (20:41)
[2018-07-09] MEDS ORDERED: PERCOCET 5-3251 EACH PO (22:03)
[2018-07-10] MEDS ORDERED: DULCOLAX5 M1 PO (09:16)
[2018-07-19] MEDS ORDERED: MECLIZINE HCL25 M2 PO (13:50)
== END 2018-05-17 15:04 | disposition home or self-care (01) | DRG 388 ==
LOC: ED 07:51 → 4E 09:09 → EDHOLD 09:09 → 4E 10:34
PROVIDERS: Emergency Medicine; Internal Medicine Nephrology; Student in an Organized Health Care Education/Training Program; ADMIT Internal Medicine
DX: K56.609 Unspecified intestinal obstruction, unspecified as to partial versus complete obstruction (principal); N17.0 Acute kidney failure with tubular necrosis; I13.0 Hypertensive heart and chronic kidney disease with heart failure and stage 1 through stage 4 chronic kidney disease, or unspecified chronic kidney disease; E86.0 Dehydration; E83.41 Hypermagnesemia; N18.3 Chronic kidney disease, stage 3 (moderate); K57.90 Diverticulosis of intestine, part unspecified, without perforation or abscess without bleeding; E11.22 Type 2 diabetes mellitus with diabetic chronic kidney disease; I48.91 Unspecified atrial fibrillation; I50.9 Heart failure, unspecified; M48.00 Spinal stenosis, site unspecified; D72.810 Lymphocytopenia; R74.8 Abnormal levels of other serum enzymes; F41.9 Anxiety disorder, unspecified; F51.01 Primary insomnia; K21.9 Gastro-esophageal reflux disease without esophagitis; E11.65 Type 2 diabetes mellitus with hyperglycemia; K59.00 Constipation, unspecified; G25.81 Restless legs syndrome; J41.0 Simple chronic bronchitis; M54.5 Low back pain; G89.29 Other chronic pain; Z88.6 Allergy status to analgesic agent; Z88.1 Allergy status to other antibiotic agents; Z88.5 Allergy status to narcotic agent; Z88.2 Allergy status to sulfonamides; Z88.8 Allergy status to other drugs, medicaments and biological substances; Z87.440 Personal history of urinary (tract) infections; Z90.49 Acquired absence of other specified parts of digestive tract; Z90.710 Acquired absence of both cervix and uterus; Z87.891 Personal history of nicotine dependence; Z82.49 Family history of ischemic heart disease and other diseases of the circulatory system; Z79.82 Long term (current) use of aspirin; Z79.899 Other long term (current) drug therapy

== ENCOUNTER 2018-08-11 17:20 | Inpatient (IN) | payer MEDICARE ==
[~2018-08-11] VITALS: Ht 167.6 cm; Wt 73.5 kg
--- NOTE | ~2018-08-11 | PR ---
[place], [place] PROGRESS NOTE NAME: FARHAT MORALES [facility] #: [id number] UNIT #: [id number] ROOM: 508 DOCTOR: LELIA LUNA MD BIRTHDATE: [birth year] DOS: 08/15/2018 SUBJECTIVE: The patient has been admitted to hospital with multiple medical problems including hypertensive emergency, nausea, urinary tract infection, leukocytosis, sepsis, congestive heart failure, anxiety, atrial fibrillation, GERD syndrome, COPD, chronic kidney disease, chronic back pain, hiatal hernia, colostomy in place, hyperlipidemia and diabetes mellitus. The patient was supposed to be discharged today, but she says she is not feeling good. She had vomiting last night and she was having nausea, so on examination her abdomen is soft. There is no tenderness. Her blood culture and sensitivity did not grow any bacteria. OBJECTIVE: VITAL SIGNS: The patient's blood pressure today 150/63, pulse 64, respirations 20, temperature 98.3. HEART: Regular. LUNGS: Clear. ABDOMEN: Soft. PLAN: The patient will be watched for another day and may be discharged tomorrow. LELIA LUNA MD CM:PNTRANS [id number] LELIA LUNA MD 09/01/18 1429 interface
--- NOTE | ~2018-08-11 | EKG ---
[place], [place] ELECTROCARDIOGRAM REPORT NAME: FARHAT MORALES UNIT #: [id number] ROOM: 508 DOCTOR: RG DRAFT REPORT BIRTHDATE: [birth year] [facility] Test Date: 2018-08-11 Test Time: 17:23:06 Pat Name: FARHAT MORALES Department: Room: 508 Gender: F Medical Coding Specialist: Mili Varela : 1945 Requested By: EJ MOBLEY Order Number: [id number] Reading MD: Armond Lester Measurements Intervals [place] Rate: 87 P: 41 VT: 151 QRS: 55 QRSD: 132 T: 72 QT: 388 QTc: 467 Interpretive Statements Sinus rhythm Probable left atrial enlargement Nonspecific intraventricular conduction delay Minimal ST depression, lateral leads Compared to ECG 07/16/2018 16:30:50 Intraventricular conduction delay now present ST (T wave) deviation now present Electronically Signed On 08-13-2018 10:58:23 PDT by Armond Lester CM:EKGRPT:ELECTROCARDIOGRAM REPORT [id number] 1058 EJ JOHNS DRAFT REPORT EJ MOBLEY DO
--- NOTE | ~2018-08-11 | EKG ---
[place], [place] ELECTROCARDIOGRAM REPORT NAME: FARHAT MORALES UNIT #: [id number] ROOM: 508 DOCTOR: RG DRAFT REPORT BIRTHDATE: [birth year] [facility] Test Date: 2018-08-11 Test Time: 23:16:16 Pat Name: FARHAT MORALES Department: Room: 508 Gender: F Mailing Machine Assistant: ALAN RESP : 1945 Requested By: EJ MOBLEY Order Number: [id number] Reading MD: Armond Lester Measurements Intervals [place] Rate: 102 P: 47 NV: 156 QRS: 67 QRSD: 85 T: 58 QT: 361 QTc: 471 Interpretive Statements Sinus tachycardia Compared to ECG 07/16/2018 16:30:50 Sinus rhythm no longer present Electronically Signed On 08-13-2018 11:03:28 PDT by Armond Lester CM:EKGRPT:ELECTROCARDIOGRAM REPORT 1103 EJ JOHNS DRAFT REPORT EJ MOBLEY DO
--- NOTE | ~2018-08-11 | EKG ---
[place], [place] ELECTROCARDIOGRAM REPORT NAME: FARHAT MORALES UNIT #: [id number] ROOM: 508 DOCTOR: RG DRAFT REPORT BIRTHDATE: [birth year] [facility] Test Date: 2018-08-11 Test Time: 19:56:36 Pat Name: FARHAT MORALES Department: Room: 508 Gender: F Hairspring Cutter: Mili Varela : 1945 Requested By: EJ MOBLEY Order Number: [id number] Reading MD: Armond Lester Measurements Intervals [place] Rate: 89 P: ME: QRS: 49 QRSD: 87 T: 46 QT: 380 QTc: 463 Interpretive Statements Sinus rhythm Occ PACs Abnormal R-wave progression, early transition Compared to ECG 07/16/2018 16:30:50 Electronically Signed On 08-13-2018 11:01:02 PDT by Armond Lester CM:EKGRPT:ELECTROCARDIOGRAM REPORT 55 EJ JOHNS DRAFT REPORT EJ MOBLEY DO
[~2018-08-11 17:20] MED LIST changes: +DULCOLAX5 M1 PO; +MECLIZINE HCL25 M2 PO; +ONDANSETRON4 M1 PO; +PANTOPRAZOLE SO40 MG PO
[2018-08-11 17:34] VITALS: BP 204/77
[2018-08-11 17:39] LABS: BASO % 0.2 % (0.0-1.0); EOS # 0.2 10*3/uL (0.0-0.4); EOS % 1.3 % (1.0-4.0); HEMATOCRIT 40.4 % (37.0-47.0); HEMOGLOBIN 13.5 g/dl (12.0-16.0); LYMPH # 2.5 10*3/uL (1.3-4.4); LYMPH % 18.7 % (27.0-41.0); MEAN CELL VOLUME 91.6 fl (81.0-99.0); MEAN CORPUSCULAR HGB 30.6 pg (27.0-31.0); MEAN CORPUSCULAR HGB CONC 33.4 g/dl (33.0-37.0); MEAN PLATELET VOLUME 9.4 fl (9.6-12.3); MONO # 0.8 10*3/uL (0.1-1.0); MONO % 6.2 % (3.0-9.0); NEUT # 9.9 10*3/uL (2.3-7.9); NEUT % 73.3 % (47.0-73.0); PLATELET COUNT AUTOMATED 243 10*3/uL (130-400); RED BLOOD COUNT 4.41 10*6/uL (4.10-5.10); RED CELL DISTRI WIDTH 12.6 % (0-14.5); WHITE BLOOD COUNT 13.5 10*3/uL (4.8-10.8)
[2018-08-11 17:48] VITALS: BP 188/78
[2018-08-11 17:58] LABS: ACT PARTIAL THROMBO TIME 25.3 SECONDS (20.8-31.5); ALBUMIN 3.2 gm/dl (3.1-4.5); ALKALINE PHOSPHATASE 119 U/L (45-117); BUN 16 mg/dl (7-24); CHLORIDE 104 mmol/L (98-107); CREATININE 1.04 mg/dL (0.55-1.02); POTASSIUM 3.7 mmol/L (3.5-5.1); SGOT/AST 13 IU/L (3-35); SGPT/ALT 14 U/L (12-78); SODIUM 137 mmol/L (136-145); TOTAL PROTEIN 8.6 gm/dL (6.4-8.2)
[2018-08-11 18:05] LABS: TROPONIN I < 0.015 ng/ml (<0.045)
[2018-08-11 18:56] LABS: LIPASE 121 U/L (73-393)
[2018-08-11 20:00] VITALS: BP 158/90
[2018-08-11 20:05] VITALS: BP 158/90
--- NOTE | 2018-08-11 20:05 | NUR ---
A 73, admitted to 5E, under the services of CASSI Gerard MD with a diagnosis of UTI HTN EMERGENCY NAUSEA.. Chief complaint is CHEST PAIN. Patient arrived via wheel chair from ER. Monitor applied. Initial assessment completed. Vital signs taken and recorded. CASSI GERARD MD notified of admission to the unit. Orders received. See assessment for past medical history, medications and allergies. Patient and/or family oriented to unit. [facility] 5TH FLOOR visitation policy reviewed. Clothing/patient valuable form completed. JASON LOPEZ
[2018-08-11] MEDS ORDERED: Phenergan25 MG PO (20:42)
[2018-08-12] VITALS: BP 148/79
[2018-08-12 06:12] LABS: BASO % 0.3 % (0.0-1.0); EOS # 0.2 10*3/uL (0.0-0.4); EOS % 1.2 % (1.0-4.0); HEMATOCRIT 39.7 % (37.0-47.0); HEMOGLOBIN 13.2 g/dl (12.0-16.0); LYMPH # 2.4 10*3/uL (1.3-4.4); LYMPH % 18.8 % (27.0-41.0); MEAN CELL VOLUME 92.8 fl (81.0-99.0); MEAN CORPUSCULAR HGB 30.8 pg (27.0-31.0); MEAN CORPUSCULAR HGB CONC 33.2 g/dl (33.0-37.0); MEAN PLATELET VOLUME 9.9 fl (9.6-12.3); NEUT # 9.2 10*3/uL (2.3-7.9); NEUT % 71.3 % (47.0-73.0); PLATELET COUNT AUTOMATED 229 10*3/uL (130-400); RED BLOOD COUNT 4.28 10*6/uL (4.10-5.10); WHITE BLOOD COUNT 12.9 10*3/uL (4.8-10.8)
[2018-08-12 06:32] LABS: ALBUMIN 2.8 gm/dl (3.1-4.5); BUN 14 mg/dl (7-24); CHLORIDE 107 mmol/L (98-107); POTASSIUM 3.8 mmol/L (3.5-5.1); SODIUM 139 mmol/L (136-145)
[2018-08-12 06:36] LABS: VITAMIN D, 25-HYDROXY 24.5 ng/mL (30-100)
[2018-08-12 06:42] LABS: ALKALINE PHOSPHATASE 96 U/L (45-117); CHOLESTEROL 160 mg/dL (<200); CREATININE 0.93 mg/dL (0.55-1.02); HDL CHOLESTEROL 38 mg/dl (40-60); LDL CHOLESTEROL 89 mg/dL (9-159); PHOSPHOROUS 3.7 mg/dL (2.5-4.9); SGOT/AST 20 IU/L (3-35); SGPT/ALT 13 U/L (12-78); TOTAL PROTEIN 7.5 gm/dL (6.4-8.2); TRIGLYCERIDES 164 mg/dl (<150); VLDL CHOLESTEROL 33 mg/dL (6-40)
--- NOTE | 2018-08-12 09:00 | NUR ---
Referral Clerk in to talk to patient. Patient states lives at home with her . There are 18 steps in the home. Physician: Dr. Mario Martinez [facility] Home health services: has had in the past but not currently Patient's level of ADLs: INDEPENDENT Patient has working utilities: yes DME: none Follow-up physician's appointment after d/c: she prefers to make her own follow up appt after discharge Does patient want to access PORTAL?: no Discharge plan discussed with patient. She lives at home with her . She is independent in her ADLs and ambulation. Discussed home health care services and she denies any home needs at this time. When medically stable she will be discharged to home. ÁNGEL WILLIS
[2018-08-12 12:00] VITALS: BP 139/65
[2018-08-12 16:00] VITALS: BP 116/63
[2018-08-12 20:00] VITALS: BP 138/70
--- NOTE | 2018-08-12 20:04 | NUR ---
NOTIFIED DR. COPELAND PATIENT IV IS BAD. STATES SHE DOES NOT WANT ANOTHER ONE UNLESS DR. CHANG CAN PUT ANOTHER MIDLINE IN OR SHE WOULD LIKE PO ANTIBIOTICS. DR. COPELAND STATED HE WILL SWITCH PATIENT TO PO ANTIOBIOTICS. PATIENT IS OKAY WITHOUT IV AT THIS TIME.
[2018-08-13] VITALS: BP 104/41
[2018-08-13 08:00] VITALS: BP 122/72
--- NOTE | 2018-08-13 08:54 | NUR ---
PATIENT C/O NAUSEA AND ALSO C/O EPIGASTRIC PAIN, REQUESTED AND RECEIVED PO PHENERGAN AND PO PERCOCET PER PRN ORDERS, WILL MONITOR PATIENT FOR MEDICATION EFFECTIVENESS. BED IN LOWEST/LOCKED POSITION, SIDERAILS UP X2 FOR SAFETY, CALL LIGHT WITHIN REACH.
--- NOTE | 2018-08-13 09:00 | NUR ---
Tool And Machine Maintainer in to see patient. No new needs or request at this time. She denies any home needs. When medically stable she will be discharged to home.
--- NOTE | 2018-08-13 10:41 | NUR ---
PATIENT RESTING IN BED WITH EYES CLOSED AT THIS TIME, APPEARS TO BE ASLEEP. PREVIOUS PRN MEDS APPEAR TO BE EFFECTIVE AT THIS TIME, WILL CONTINUE TO MONITOR PATIENT. SIDERAILS UP X2 FOR SAFETY & CALL LIGHT WITHIN REACH.
[2018-08-13 12:00] VITALS: BP 149/66
[2018-08-13 16:00] VITALS: BP 140/58
--- NOTE | 2018-08-13 16:41 | NUR ---
PATIENT REQUESTING TRUST ADMINISTRATOR TO BE TAKEN OFF AND TO STOP BLOOD SUGAR CHECKS, SPOKE WITH DR JIMÉNEZ WHO STATES PATIENT CAN TAKE OFF MONITOR AND IT IS OK TO D/C BLOOD SUGAR CHECKS.
[2018-08-13 16:46] LABS: BILIRUBIN NEGATIVE (NEGATIVE); BLOOD NEGATIVE (NEGATIVE); CLARITY CLEAR (CLEAR); COLOR YELLOW (YELLOW); GLUCOSE NEGATIVE (NEGATIVE); KETONE NEGATIVE (NEGATIVE); LEUKO ESTERASE 1+ (NEGATIVE); NITRITE NEGATIVE (NEGATIVE); UROBILINOGEN 0.2 E.U./dl (0.2-1.0)
[2018-08-13 17:07] LABS: BACTERIA TRACE; WBC 21-30 wbc/hpf (0-5)
[2018-08-13 20:00] VITALS: BP 163/68
[2018-08-14] VITALS: BP 153/51
--- NOTE | 2018-08-14 00:45 | NUR ---
PATIENT REQUESTING HER COLOSTOMY BE CHANGED AT THIS TIME.
--- NOTE | 2018-08-14 00:57 | NUR ---
PATIENT C.O OF NAUSEA AFTER EATING ICE CREAM. PATIENT C/O ABDOMINAL PAIN WELL. MEDICATED WITH PO PHENERGAN AND PERCOCET. WILL CHECK EFFECTIVENESS.
--- NOTE | 2018-08-14 04:12 | NUR ---
PATIENT ASLEEP. NO SIGNS OF DISTRESS. CALL LIGHT WITHIN REACH. WILL CONTINUE TO MONITOR.
[2018-08-14 07:05] LABS: BASO % 0.4 % (0.0-1.0); EOS # 0.5 10*3/uL (0.0-0.4); EOS % 4.8 % (1.0-4.0); HEMATOCRIT 35.5 % (37.0-47.0); HEMOGLOBIN 11.5 g/dl (12.0-16.0); LYMPH # 2.8 10*3/uL (1.3-4.4); LYMPH % 25.6 % (27.0-41.0); MEAN CELL VOLUME 94.7 fl (81.0-99.0); MEAN CORPUSCULAR HGB 30.7 pg (27.0-31.0); MEAN CORPUSCULAR HGB CONC 32.4 g/dl (33.0-37.0); MEAN PLATELET VOLUME 11.1 fl (9.6-12.3); NEUT # 6.5 10*3/uL (2.3-7.9); NEUT % 59.9 % (47.0-73.0); PLATELET COUNT AUTOMATED 176 10*3/uL (130-400); RED BLOOD COUNT 3.75 10*6/uL (4.10-5.10); RED CELL DISTRI WIDTH 13.2 % (0-14.5); WHITE BLOOD COUNT 10.8 10*3/uL (4.8-10.8)
[2018-08-14 07:21] LABS: BUN 18 mg/dl (7-24); CHLORIDE 107 mmol/L (98-107); CREATININE 1.05 mg/dL (0.55-1.02); POTASSIUM 4.1 mmol/L (3.5-5.1); SODIUM 139 mmol/L (136-145)
--- NOTE | 2018-08-14 10:39 | NUR ---
PT DISCHARGED BUT REPORTED AN EMESIS AND "FEELING AWFUL." DR JIMÉNEZ NOTIFIED. ORDER TO DC DISCHARGE
[2018-08-14 12:00] VITALS: BP 174/80
--- NOTE | 2018-08-14 15:30 | NUR ---
CALLED DR JIMÉNEZ PER PT REQUEST FOR PO LACTULOSE TO AVOID "CONSTIPATION." ORDER RECEIVED
[2018-08-14 16:00] VITALS: BP 128/49
[2018-08-14 20:00] VITALS: BP 151/64
[2018-08-15] VITALS: BP 115/49
[2018-08-15 08:00] VITALS: BP 150/57
--- NOTE | 2018-08-15 09:00 | NUR ---
ADMINISTERED PO PERCOCET AND ZOFRAN PER PT REQUEST FOR C/O ABDOMINAL PAIN RATED 7/10 AND NAUSEA. WILL MONITOR FOR EFFECTIVENESS
[2018-08-15 12:00] VITALS: BP 151/63
--- NOTE | 2018-08-15 12:00 | NUR ---
DR LUNA IN TO SEE PT. PER PT SHE IS "FEELING WORSE TODAY THAN YESTERDAY." PT NOT BEING DISCHARGED
[2018-08-15 16:00] VITALS: BP 152/75
--- NOTE | 2018-08-15 16:50 | NUR ---
CALLED DR GRAYSON PER PT REQUEST FOR LACTULOSE. ORDER RECEIVED
[2018-08-15 20:00] VITALS: BP 160/62
[2018-08-16] VITALS: BP 114/46
--- NOTE | 2018-08-16 03:14 | NUR ---
PERCOCET AND PO PHENERGEN GIVEN PER PT REQUEST FOR C/O 9/10 ABDOMINAL PAIN AND SOME NAUSEA. WILL MONTIOR EFFECTIVENESS.
[2018-08-16 08:00] VITALS: BP 136/61
[2018-08-16 12:00] VITALS: BP 148/67
--- NOTE | 2018-08-16 12:45 | NUR ---
Percocet given per patient c/o pain in her back and abdomen. Phenergan was given for c/o nausea/vomitting. Will monitor.
--- NOTE | 2018-08-16 14:09 | NUR ---
dc to home with all belongings
[2018-09-10] MEDS ORDERED: LACTULOSE10 GM/15 M PO (19:49)
[2018-09-16] MEDS ORDERED: PROTONIX40 MG PO (11:17)
== END 2018-08-16 14:09 | disposition home or self-care (01) | DRG 872 ==
LOC: ED 17:20 → 5E 18:41 → EDHOLD 18:41 → 5E 19:14
PROVIDERS: Emergency Medicine; Internal Medicine; ADMIT Internal Medicine
DX: A41.9 Sepsis, unspecified organism (principal); N39.0 Urinary tract infection, site not specified; I16.1 Hypertensive emergency; I13.0 Hypertensive heart and chronic kidney disease with heart failure and stage 1 through stage 4 chronic kidney disease, or unspecified chronic kidney disease; I50.30 Unspecified diastolic (congestive) heart failure; F41.9 Anxiety disorder, unspecified; I48.91 Unspecified atrial fibrillation; K21.9 Gastro-esophageal reflux disease without esophagitis; J44.9 Chronic obstructive pulmonary disease, unspecified; N18.3 Chronic kidney disease, stage 3 (moderate); M54.9 Dorsalgia, unspecified; G89.29 Other chronic pain; K57.90 Diverticulosis of intestine, part unspecified, without perforation or abscess without bleeding; G47.00 Insomnia, unspecified; K44.9 Diaphragmatic hernia without obstruction or gangrene; E78.5 Hyperlipidemia, unspecified; E11.22 Type 2 diabetes mellitus with diabetic chronic kidney disease; E11.40 Type 2 diabetes mellitus with diabetic neuropathy, unspecified; Z86.73 Personal history of transient ischemic attack (TIA), and cerebral infarction without residual deficits; Z88.1 Allergy status to other antibiotic agents; Z88.2 Allergy status to sulfonamides; Z88.6 Allergy status to analgesic agent; Z79.899 Other long term (current) drug therapy; Z98.891 History of uterine scar from previous surgery; Z87.891 Personal history of nicotine dependence; Z90.710 Acquired absence of both cervix and uterus; Z82.49 Family history of ischemic heart disease and other diseases of the circulatory system; Z82.3 Family history of stroke; Z79.82 Long term (current) use of aspirin

== ENCOUNTER 2018-10-07 14:18 | Inpatient (IN) | payer MEDICARE ==
[~2018-10-07] VITALS: Ht 165.1 cm; Wt 86.4 kg
--- NOTE | ~2018-10-07 | CON ---
[place], [place] REPORT OF CONSULTATION NAME[facility]ES [id number] UNIT #: [id number] ROOM: 512 DOCTOR: DAVIE SEAMAN MD BIRTHDATE: [birth year] DOS: 10/08/2018 GASTROENDOSCOPIC REPORT HISTORY OF PRESENT ILLNESS: This is a 73-year-old patient who is presented with chief complaint of abdominal pain of chronic origin. She has ostomy in place for the past 2 years. She has been concerned. At the time of admission, she was found to have white blood cell 12.5, H and H of 13 and 43. INR was 0.9. Chest x-ray was assessed. No acute pathology was identified. Urinalysis was benign. Comprehensive metabolic panel, electrolytes balanced, lipase within normal limits. Liver function tests normal. Lactic acid was 1.5. CT scan of the abdomen and pelvic was obtained. Left lower quadrant colostomy, diverticulosis, diverticulitis possibility, renal small lesion. Postoperative changes of the bowel, appendectomy, hysterectomy, cholecystectomy, all has been recognized. Her white blood cell normalized. CT scan of the abdomen reassessed. PAST MEDICAL HISTORY: Congestive heart failure, anxiety, AFib, COPD, diverticulosis, hepatic steatosis, systemic hypertension, obesity, all recognized. PAST SURGICAL HISTORY: Colostomy, appendectomy, , partial colectomy podiatric surgery, T and A, hysterectomy all has been recognized. SOCIAL HISTORY: Past smoker. Nonalcohol consumer. FAMILY HISTORY: Noncontributory. ALLERGIES: Recognized. MEDICATIONS: At home reviewed including aspirin. REVIEW OF SYSTEMS: HEENT: Denies double vision, blurred vision. RESPIRATORY: Denies acute shortness of breath. CARDIOVASCULAR: Denies acute chest pain. DIGESTIVE SYSTEM: No hematemesis, no hematochezia at this time, history of gastritis, history of colostomy. PHYSICAL EXAMINATION: VITAL SIGNS: Stable, nontoxic. HEENT: Head normocephalic, nontraumatic. Mouth and buccal mucosa benign. NECK: Supple, no thyromegaly, no cervical lymphadenopathy. CHEST: Symmetric anatomy, equal expansion. No wheeze, no rhonchi. In general, decreased air entry. HEART: Normal sinus rhythm, no gallop, no murmur. ABDOMEN: Soft. No hepato-organomegaly, obese, large ostomy functional. EXTREMITIES: No cyanosis, no pedal edema. NEUROLOGIC: Alert, oriented to time, place, person. [place], [place] REPORT OF CONSULTATION NAME: FARHAT MORALES UNIT #: [id number] ROOM: 512 DOCTOR: DAVIE SEAMAN MD BIRTHDATE: [birth year] IMPRESSION: Nonspecific abdominal pain, possibility of diverticulitis over diverticulosis, history of previous colostomy, gastritis. Other adjunctive diagnoses as outlined in past medical and surgical history including possible sepsis, renal insufficiency, mass, CHF, anxiety, AFib, hypertension, all has been recognized. PLAN AND DISCUSSION: Supportive management, antibiotic therapy and observation. DAVIE SEAMAN MD CM:CONSTR:REPORT OF CONSULTATION 2055 10/09/18 1148 interface
--- NOTE | ~2018-10-07 | EKG ---
[place], [place] ELECTROCARDIOGRAM REPORT NAME: FARHAT MORALES UNIT #: [id number] ROOM: 512 DOCTOR: RG DRAFT REPORT BIRTHDATE: [birth year] [facility] Test Date: 2018-10-07 Test Time: 15:59:59 Pat Name: FARHAT MORALES Department: Room: 512 Gender: F Burnisher: : 1945 Requested By: NKECHI SALGADO DNP Order Number: [id number] Reading MD: Mario Martinez MD Measurements Intervals [place] Rate: 88 P: 45 [place]: 147 QRS: 53 QRSD: 84 T: 77 QT: 362 QTc: 438 Interpretive Statements Sinus rhythm Borderline repolarization abnormality Baseline wander in lead(s) I,III,aVR,aVL,V3,V5 Compared to ECG 09/09/2018 10:52:00 No significant changes Electronically Signed On 10-12-2018 8:06:15 PDT by Mario Martinez MD CM:EKGRPT:ELECTROCARDIOGRAM REPORT [id number] NKECHI SALGADO DNP EPIPHANY DRAFT REPORT NKECHI SALGADO DNP
[~2018-10-07 14:18] MED LIST changes: +LACTULOSE10 GM/15 M PO; +Phenergan25 MG PO
[2018-10-07 14:25] VITALS: BP 140/67
[2018-10-07 16:32] VITALS: BP 142/68
[2018-10-07 17:10] LABS: BASO % 0.3 % (0.0-1.0); EOS # 0.4 10*3/uL (0.0-0.4); EOS % 2.9 % (1.0-4.0); HEMATOCRIT 42.6 % (37.0-47.0); HEMOGLOBIN 13.8 g/dl (12.0-16.0); LYMPH # 3.1 10*3/uL (1.3-4.4); LYMPH % 24.3 % (27.0-41.0); MEAN CELL VOLUME 95.5 fl (81.0-99.0); MEAN CORPUSCULAR HGB 30.9 pg (27.0-31.0); MEAN CORPUSCULAR HGB CONC 32.4 g/dl (33.0-37.0); MEAN PLATELET VOLUME 9.6 fl (9.6-12.3); MONO % 7.9 % (3.0-9.0); NEUT % 64.2 % (47.0-73.0); PLATELET COUNT AUTOMATED 257 10*3/uL (130-400); RED BLOOD COUNT 4.46 10*6/uL (4.10-5.10); RED CELL DISTRI WIDTH 13.2 % (0-14.5); WHITE BLOOD COUNT 12.5 10*3/uL (4.8-10.8)
[2018-10-07 17:19] LABS: BILIRUBIN NEGATIVE (NEGATIVE); BLOOD NEGATIVE (NEGATIVE); CLARITY CLEAR (CLEAR); COLOR YELLOW (YELLOW); GLUCOSE NEGATIVE (NEGATIVE); KETONE NEGATIVE (NEGATIVE); LEUKO ESTERASE 1+ (NEGATIVE); NITRITE NEGATIVE (NEGATIVE); UROBILINOGEN 0.2 E.U./dl (0.2-1.0)
[2018-10-07 17:21] LABS: ACT PARTIAL THROMBO TIME 26.1 SECONDS (20.0-32.1); INTERNATIONAL NORM RATIO 0.9 (2.0-3.5)
[2018-10-07 17:25] LABS: ALBUMIN 3.4 gm/dl (3.1-4.5); ALKALINE PHOSPHATASE 123 U/L (45-117); BUN 16 mg/dl (7-24); CHLORIDE 108 mmol/L (98-107); CREATININE 1.13 mg/dL (0.55-1.02); LIPASE 142 U/L (73-393); SGOT/AST 13 IU/L (3-35); SGPT/ALT 14 U/L (12-78); SODIUM 140 mmol/L (136-145); TOTAL PROTEIN 8.8 gm/dL (6.4-8.2)
[2018-10-07 17:26] LABS: BACTERIA 1+; MUCOUS 1+; WBC 21-30 wbc/hpf (0-5)
[2018-10-07 17:33] LABS: TROPONIN I < 0.015 ng/ml (<0.045)
[2018-10-07 18:40] VITALS: BP 138/70
--- NOTE | 2018-10-07 20:37 | NUR ---
PT C/O OF IV IN LEFT ARM BURNING.INFUSION OF NORMAL SALINE STOPPED.NEW IV ESTABLISHED IN PT RT UPPER ARM WITH 22GAUGE ANGIOCATH.PT MEDICATED PER EMAR WITH DEMEROL AND FLUIDS RESTARTED IN NEW IV SITE.
[2018-10-07 20:45] VITALS: BP 150/80
--- NOTE | 2018-10-07 21:42 | NUR ---
SECOND LITER OF NS INFUSING AT THIS TIME @70ML/HR.
[2018-10-07] MEDS ORDERED: PANTOPRAZOLE SO40 MG PO (22:39)
[2018-10-07] MEDS ORDERED: Percocet 325 MG1 TAB PO (22:39)
--- NOTE | 2018-10-07 22:42 | NUR ---
DR THOMAS AT BEDSIDE.
[2018-10-07 22:43] VITALS: BP 174/70
--- NOTE | 2018-10-07 22:57 | NUR ---
VERBAL ORDER FROM DR THOMAS OBTAINED FOR MEDICATION OF 25MG LOPRESSOR AND 10MG AMBIEN PO.
--- NOTE | 2018-10-07 23:10 | NUR ---
PT MOVED TO ROOM 14 VIA W/C.FLOOR BED PROVIDED FOR PT.PT RESTING IN BED WITH CALL ASHER IN REACH.
[2018-10-08] VITALS: BP 156/76
--- NOTE | 2018-10-08 | NUR ---
A 73, admitted to 5E, under the services of LYNNETTE Grace MD with a diagnosis of COLITIS/ABDOMINAL PAIN/SEPSIS. Chief complaint is ABDOMINAL PAIN. Patient arrived via bed from ER. Monitor applied. Initial assessment completed. Vital signs taken and recorded. DR. FREEMAN OCAMPO,LYNNETTE notified of admission to the unit. Orders received. See assessment for past medical history, medications and allergies. Patient and/or family oriented to 5E. visitation policy reviewed. Clothing/patient valuable form completed. LAURA REID
[2018-10-08 00:04] VITALS: BP 180/77
--- NOTE | 2018-10-08 01:12 | NUR ---
MED REC UPDATED BY DR. THOMAS.
--- NOTE | 2018-10-08 06:53 | NUR ---
PHYSICAL THERAPY Nursing screen received. Chart review complete. Recommend normal daily mobility with nursing prn. If difficulties with mobilty arise, please order PT. Thank you. Aurelia Stratton,PT
[2018-10-08 07:24] LABS: ALKALINE PHOSPHATASE 90 U/L (45-117); CHLORIDE 109 mmol/L (98-107); POTASSIUM 3.8 mmol/L (3.5-5.1); SODIUM 139 mmol/L (136-145); TOTAL PROTEIN 7.1 gm/dL (6.4-8.2)
[2018-10-08 07:30] LABS: ALBUMIN 2.9 gm/dl (3.1-4.5); BUN 15 mg/dl (7-24); CHOLESTEROL 156 mg/dL (<200); CREATININE 1.07 mg/dL (0.55-1.02); FREE T4 0.96 ng/dl (0.76-1.46); HDL CHOLESTEROL 39 mg/dl (40-60); LDL CHOLESTEROL 78 mg/dL (9-159); PHOSPHOROUS 3.9 mg/dL (2.5-4.9); SGOT/AST 21 IU/L (3-35); SGPT/ALT 15 U/L (12-78); TRIGLYCERIDES 197 mg/dl (<150); VLDL CHOLESTEROL 39 mg/dL (6-40)
[2018-10-08 07:32] LABS: BASO # 0.1 10*3/uL (0.0-0.1); BASO % 0.5 % (0.0-1.0); EOS # 0.5 10*3/uL (0.0-0.4); EOS % 4.8 % (1.0-4.0); HEMATOCRIT 36.8 % (37.0-47.0); HEMOGLOBIN 11.9 g/dl (12.0-16.0); LYMPH # 2.8 10*3/uL (1.3-4.4); LYMPH % 25.7 % (27.0-41.0); MEAN CELL VOLUME 96.3 fl (81.0-99.0); MEAN CORPUSCULAR HGB 31.2 pg (27.0-31.0); MEAN CORPUSCULAR HGB CONC 32.3 g/dl (33.0-37.0); MEAN PLATELET VOLUME 9.9 fl (9.6-12.3); MONO # 0.9 10*3/uL (0.1-1.0); MONO % 8.7 % (3.0-9.0); NEUT # 6.5 10*3/uL (2.3-7.9); NEUT % 59.8 % (47.0-73.0); PLATELET COUNT AUTOMATED 238 10*3/uL (130-400); RED BLOOD COUNT 3.82 10*6/uL (4.10-5.10); RED CELL DISTRI WIDTH 13.3 % (0-14.5); WHITE BLOOD COUNT 10.8 10*3/uL (4.8-10.8)
[2018-10-08 07:35] LABS: ACT PARTIAL THROMBO TIME 27.2 SECONDS (20.0-32.1)
--- NOTE | 2018-10-08 07:49 | NUR ---
CONSULT COMPLETE FOR DR. SEAMAN, NO NEW ORDERS AT THIS TIME.
[2018-10-08 08:00] VITALS: BP 142/74
[2018-10-08 08:41] LABS: VITAMIN D, 25-HYDROXY 16.2 ng/mL (30-100)
--- NOTE | 2018-10-08 09:00 | NUR ---
Executive Relations Specialist in to talk to patient. Patient states lives at home with her . There are 18 steps in the home. Physician: Dr. Mario Martinez [facility]acy: [facility] Home health services: has had in the past but not currently Patient's level of ADLs: INDEPENDENT Patient has working utilities: yes DME: none Follow-up physician's appointment after d/c: she prefers to make her own follow up appt after discharge Does patient want to access PORTAL?: no Discharge plan discussed with patient. She lives at home with her . She is independent in her ADLs and ambulation. Discussed home health care services and she denies any home needs at this time. When medically stable she will be discharged to home. ÁNGEL WILLIS
[2018-10-08 12:00] VITALS: BP 153/74
--- NOTE | 2018-10-08 14:11 | NUR ---
Nursing screen received. Chart review completed. 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 Encourage daily ADLs. If a decline is noted please refer for OT evaluation. Thank you. Katherine Victor OTR/l
[2018-10-08 16:00] VITALS: BP 176/74
[2018-10-08 20:00] VITALS: BP 146/63
[2018-10-09] VITALS: BP 91/53
[2018-10-09 00:50] VITALS: BP 110/54
--- NOTE | 2018-10-09 03:00 | NUR ---
SLEEPING. NO S/S OF DISTRESS NOTED. IVF MAINTAINED. CALL LIGHT IN REACH
--- NOTE | 2018-10-09 05:32 | NUR ---
PATIENT MEDICATED WITH PRN NORCO ORDERED FOR C/O ABDOMINAL PAIN RATED 10/10
[2018-10-09 08:00] VITALS: BP 150/74
--- NOTE | 2018-10-09 11:20 | NUR ---
LLQ COLOSTOMY CARE PROVIDED VIA OVCT FILM OR TAPE LIBRARIAN WITH RN INSTRUCTOR AT BEDSIDE.
[2018-10-09 12:00] VITALS: BP 152/64
--- NOTE | 2018-10-09 12:40 | NUR ---
NORCO 5/325 MG GIVEN FOR C/O PAIN TO LLE,01/11.
--- NOTE | 2018-10-09 13:00 | NUR ---
CHANGED LLQ COLOSTOMY BAG D/T "POPPING OFF" PER PT.BROWN LIQUID STOOL LEAKING FROM SIDE OF COLO BAG. LINEN CHANGE COMPLETED. ENCOURAGED PT TO BRING HER OWN SUPPLIES IN SHE HAS EXTENDERS TO HELP AVOID THE LEAKAGE.
[2018-10-09 16:00] VITALS: BP 139/61
--- NOTE | 2018-10-09 17:31 | NUR ---
NORCO 5/325 MG GIVEN FOR C/O GENERALIZED PAIN,01/11.
--- NOTE | 2018-10-09 18:20 | NUR ---
THIRD LLQ COLOSTOMY CHANGE TODAY. STOMA BEEFY RED. EXCORIATION NOTED TO AREA SURROUNDING STOMA D/T LEAKAGE FROM OSTOMY.
--- NOTE | 2018-10-09 18:44 | NUR ---
NOTIFIED DR MILLARD OF PT C/O PAIN. PT TEARFUL AND CRYING C/O PAIN WITH OSTOMY CHANGE.
[2018-10-09 20:00] VITALS: BP 145/64
--- NOTE | 2018-10-09 21:29 | NUR ---
PATIENT MEDICATED WITH AMBIEN FOR COMPLAINTS OF INSOMNIA. WILL CONTINUE TO MONITOR. CALL LIGHT IN REACH.
--- NOTE | 2018-10-09 21:34 | NUR ---
PATIENT MEDICATED WITH NORCO FOR COMPLAINTS OF PAIN. WILL CONTINUE TO MONITOR. CALL LIGHT IN REACH.
[2018-10-10] VITALS: BP 111/50
--- NOTE | 2018-10-10 02:46 | NUR ---
PATIENT MEDICATED WITH NORCO FOR COMPLAINTS OF ABDOMINAL PAIN. WILL CONTINUE TO MONITOR. CALL LIGHT IN REACH.
[2018-10-10 06:33] LABS: CREATININE 1.24 mg/dL (0.55-1.02); POTASSIUM 3.9 mmol/L (3.5-5.1)
[2018-10-10 08:00] VITALS: BP 156/72
--- NOTE | 2018-10-10 08:08 | NUR ---
NORCO 5/325 MG GIVEN FOR C/O GENERALIZED PAIN,11/10.
[2018-10-10 12:00] VITALS: BP 150/72
--- NOTE | 2018-10-10 12:16 | NUR ---
NORCO 5/325 MG GIVEN FOR C/O GENERALIZED PAIN TO ABD AREA, 12/11.
[2018-10-10 16:00] VITALS: BP 145/52
[2018-10-10 20:00] VITALS: BP 135/54
--- NOTE | 2018-10-10 22:26 | NUR ---
CARLIEIEN GIVEN PER PT REQUEST.
[2018-10-11] VITALS (7 sets, daily range): BP systolic 97–168; BP diastolic 63–86
[2018-10-11 06:25] LABS: BASO % 0.4 % (0.0-1.0); EOS # 0.6 10*3/uL (0.0-0.4); EOS % 5.7 % (1.0-4.0); HEMATOCRIT 32.8 % (37.0-47.0); HEMOGLOBIN 10.6 g/dl (12.0-16.0); LYMPH # 1.9 10*3/uL (1.3-4.4); LYMPH % 19.2 % (27.0-41.0); MEAN CELL VOLUME 95.1 fl (81.0-99.0); MEAN CORPUSCULAR HGB 30.7 pg (27.0-31.0); MEAN CORPUSCULAR HGB CONC 32.3 g/dl (33.0-37.0); MONO # 0.8 10*3/uL (0.1-1.0); NEUT # 6.5 10*3/uL (2.3-7.9); NEUT % 66.3 % (47.0-73.0); PLATELET COUNT AUTOMATED 212 10*3/uL (130-400); RED BLOOD COUNT 3.45 10*6/uL (4.10-5.10); WHITE BLOOD COUNT 9.8 10*3/uL (4.8-10.8)
[2018-10-11 06:32] LABS: CREATININE 1.16 mg/dL (0.55-1.02); POTASSIUM 3.3 mmol/L (3.5-5.1)
--- NOTE | 2018-10-11 08:01 | NUR ---
AFTER 2 ATTEMPTS AT INSERTING AN IV PATIENT REFUSED FURTHER ATTEMPTS. PATIENT REFUSED TO HAVE AN IV STUCK IN HAND. DARIUSZ WHITING MADE AWARE.
--- NOTE | 2018-10-11 09:00 | NUR ---
Hand Lacer in to see patient. She is sitting up in her bedside chair without distress noted. No new needs or request at this time. She denies any home needs. When medically stable she will be discharged to home.
--- NOTE | 2018-10-11 09:33 | NUR ---
ATTEMPTED IV START RIGHT ACN, UNSUCCESSFUL. PT REFUSING TO LET RN ATTEMPT A SECOND TIME OR USE HANDS, POSTERIOR WRIST AT THIS TIME. WILL TRY AND SEE IF ANYONE IS AVAILABLE TO ATTEMPT USING ULTRASOUND.
--- NOTE | 2018-10-11 10:00 | NUR ---
PT COMPLAIN OF ABDOMINAL PAIN, NORCO GIVEN PER PATIENT REQUEST. WILL MONITOR FOR EFFECTIVENESS
--- NOTE | 2018-10-11 10:12 | NUR ---
PT AGREED TO IV IN WRIST. PLACED #24 IN LEFT POSTERIOR WRIST. PT CRIED AND STATED THE IV START WAS VERY PAINFUL, TOLERATED VERY POOR. PT STATES "MIGHT BE OKAY THERE FOR A BIT, BUT I DON'T KNOW, IT HURTS"
--- NOTE | 2018-10-11 11:00 | NUR ---
PT STATES NORCO "SOMEWHAT EFFECTIVE"
--- NOTE | 2018-10-11 14:04 | NUR ---
SPEECH PATHOLOGY Nursing screen complete. There are no reports of acute communication or swallowing difficulty however this dept. will be available should future needs arise. MARGOT COSTA MSCCC-PURCHASING ADMINISTRATOR
--- NOTE | 2018-10-11 14:11 | NUR ---
PT COMPLAIN OF PAIN ABDOMINAL 02/10, NORCO GIVEN. WILL MONITOR FOR EFFECTIVENESS
--- NOTE | 2018-10-11 15:02 | NUR ---
NORCO EFFECTIVE FOR PAIN PER PATIENT
--- NOTE | 2018-10-11 19:10 | NUR ---
PT COMPLAIN OF PAIN ABDOMINAL 01/11, NORCO GIVEN
[2018-10-12] VITALS: BP 156/64
[2018-10-12 06:38] LABS: CREATININE 1.16 mg/dL (0.55-1.02); POTASSIUM 3.5 mmol/L (3.5-5.1)
[2018-10-12 06:45] LABS: HEMATOCRIT 33.4 % (37.0-47.0); HEMOGLOBIN 10.9 g/dl (12.0-16.0); MEAN CELL VOLUME 95.2 fl (81.0-99.0); MEAN CORPUSCULAR HGB 31.1 pg (27.0-31.0); MEAN CORPUSCULAR HGB CONC 32.6 g/dl (33.0-37.0); MEAN PLATELET VOLUME 10.4 fl (9.6-12.3); PLATELET COUNT AUTOMATED 206 10*3/uL (130-400); RED BLOOD COUNT 3.51 10*6/uL (4.10-5.10); RED CELL DISTRI WIDTH 13.1 % (0-14.5); WHITE BLOOD COUNT 8.9 10*3/uL (4.8-10.8)
[2018-10-12 07:22] LABS: PLATELET SUFFICIENCY NORMAL (NORMAL); TOTAL CELLS COUNTED 100 #CELLS
[2018-10-12 08:00] VITALS: BP 160/64
--- NOTE | 2018-10-12 09:00 | NUR ---
Interpreter Deaf in to see patient. No new needs or request at this time. She denies any home needs. When medically stable she will be discharged to home.
--- NOTE | 2018-10-12 09:23 | NUR ---
PT COMPLAIN OF PAIN ABDOMEN AND BACK 12/11, NORCO GIVEN. SEE EMAR. WILL MONITOR FOR EFFECTIVENESS
[2018-10-12 12:00] VITALS: BP 157/69
[2018-10-12] MEDS ORDERED: FLAGYL500 MG PO (12:20)
[2018-10-12] MEDS ORDERED: ZOFRAN4 MG PO (12:21)
--- NOTE | 2018-10-12 13:35 | NUR ---
Discharge instructions reviewed with patient/family. Patient receptive and verbalizes understanding. Follow-up care understood. Written instructions given to patient/family. iv removed left wrist, dressing applied. pt ostomy bag leaking, changed. pt understands to grape picker new rx at pharmacy. understands discharge instuctions, no questions. pt declines wheelchair HENOK MOSS
== END 2018-10-12 13:35 | disposition home or self-care (01) | DRG 871 ==
LOC: ED 14:18 → EDHOLD 19:29 → 5E 19:29
PROVIDERS: Internal Medicine; Nurse Practitioner Family; ADMIT Internal Medicine Nephrology
DX: A41.9 Sepsis, unspecified organism (principal); N17.0 Acute kidney failure with tubular necrosis; I50.32 Chronic diastolic (congestive) heart failure; I13.0 Hypertensive heart and chronic kidney disease with heart failure and stage 1 through stage 4 chronic kidney disease, or unspecified chronic kidney disease; K57.32 Diverticulitis of large intestine without perforation or abscess without bleeding; E86.0 Dehydration; E83.41 Hypermagnesemia; N28.89 Other specified disorders of kidney and ureter; F41.9 Anxiety disorder, unspecified; I48.0 Paroxysmal atrial fibrillation; F51.01 Primary insomnia; K21.9 Gastro-esophageal reflux disease without esophagitis; J44.9 Chronic obstructive pulmonary disease, unspecified; N18.3 Chronic kidney disease, stage 3 (moderate); M48.00 Spinal stenosis, site unspecified; K76.0 Fatty (change of) liver, not elsewhere classified; E11.22 Type 2 diabetes mellitus with diabetic chronic kidney disease; E66.9 Obesity, unspecified; G89.29 Other chronic pain; M54.9 Dorsalgia, unspecified; E78.5 Hyperlipidemia, unspecified; E87.8 Other disorders of electrolyte and fluid balance, not elsewhere classified; E83.51 Hypocalcemia; E87.6 Hypokalemia; N28.1 Cyst of kidney, acquired; E11.43 Type 2 diabetes mellitus with diabetic autonomic (poly)neuropathy; K52.9 Noninfective gastroenteritis and colitis, unspecified; Z93.3 Colostomy status; Z86.73 Personal history of transient ischemic attack (TIA), and cerebral infarction without residual deficits; Z86.718 Personal history of other venous thrombosis and embolism; Z88.1 Allergy status to other antibiotic agents; Z88.2 Allergy status to sulfonamides; Z88.8 Allergy status to other drugs, medicaments and biological substances; Z88.5 Allergy status to narcotic agent; Z88.6 Allergy status to analgesic agent; Z90.49 Acquired absence of other specified parts of digestive tract; Z98.891 History of uterine scar from previous surgery; Z90.710 Acquired absence of both cervix and uterus; Z87.891 Personal history of nicotine dependence; Z82.49 Family history of ischemic heart disease and other diseases of the circulatory system; Z79.82 Long term (current) use of aspirin; Z79.899 Other long term (current) drug therapy; Z68.31 Body mass index [BMI] 31.0-31.9, adult

== ENCOUNTER → 2018-10-27 | Outpatient (CLI) | payer MEDICARE ==
[~2018-10-27] MED LIST changes: +Percocet 325 MG1 TAB PO
== END | disposition home or self-care (01) ==
LOC: ORTHO 01:22
DX: M17.12 Unilateral primary osteoarthritis, left knee (principal)

== ENCOUNTER 2018-11-11 11:02 | Emergency (ER) | payer MEDICARE ==
[~2018-11-11] VITALS: Ht 165.1 cm; Wt 81.6 kg
[2018-11-11 14:09] LABS: BILIRUBIN NEGATIVE (NEGATIVE); BLOOD TRACE-INTACT (NEGATIVE); CLARITY SL CLOUDY (CLEAR); COLOR YELLOW (YELLOW); GLUCOSE NEGATIVE (NEGATIVE); KETONE NEGATIVE (NEGATIVE); LEUKO ESTERASE 3+ (NEGATIVE); NITRITE POSITIVE (NEGATIVE); UROBILINOGEN 0.2 E.U./dl (0.2-1.0)
[2018-11-11 14:22] LABS: BACTERIA 3+; WBC TNTC wbc/hpf (0-5)
[2018-11-11 15:02] LABS: BASO # 0.1 10*3/uL (0.0-0.1); BASO % 0.4 % (0.0-1.0); EOS # 0.3 10*3/uL (0.0-0.4); EOS % 2.6 % (1.0-4.0); HEMATOCRIT 39.2 % (37.0-47.0); HEMOGLOBIN 12.6 g/dl (12.0-16.0); LYMPH # 2.6 10*3/uL (1.3-4.4); LYMPH % 22.8 % (27.0-41.0); MEAN CELL VOLUME 95.8 fl (81.0-99.0); MEAN CORPUSCULAR HGB 30.8 pg (27.0-31.0); MEAN CORPUSCULAR HGB CONC 32.1 g/dl (33.0-37.0); MEAN PLATELET VOLUME 9.6 fl (9.6-12.3); MONO # 0.8 10*3/uL (0.1-1.0); MONO % 7.1 % (3.0-9.0); NEUT # 7.6 10*3/uL (2.3-7.9); NEUT % 66.8 % (47.0-73.0); PLATELET COUNT AUTOMATED 256 10*3/uL (130-400); RED BLOOD COUNT 4.09 10*6/uL (4.10-5.10); RED CELL DISTRI WIDTH 13.1 % (0-14.5); WHITE BLOOD COUNT 11.3 10*3/uL (4.8-10.8)
[2018-11-11 15:28] LABS: ALBUMIN 3.3 gm/dl (3.1-4.5); ALKALINE PHOSPHATASE 114 U/L (45-117); BUN 14 mg/dl (7-24); CHLORIDE 106 mmol/L (98-107); CREATININE 1.04 mg/dL (0.55-1.02); POTASSIUM 4.1 mmol/L (3.5-5.1); SGOT/AST 19 IU/L (3-35); SGPT/ALT 18 U/L (12-78); SODIUM 140 mmol/L (136-145); TOTAL PROTEIN 8.2 gm/dL (6.4-8.2)
[2018-11-11 16:28] LABS: ACT PARTIAL THROMBO TIME 25.9 SECONDS (20.0-32.1); INTERNATIONAL NORM RATIO 0.9 (2.0-3.5)
[2018-11-11 17:20] VITALS: BP 152/78
[2018-11-11] MEDS ORDERED: MACRODANTIN100 M1 PO (17:20)
== END 2018-11-11 17:55 | disposition home or self-care (01) ==
LOC: ED 11:02
PROVIDERS: Emergency Medicine
DX: N39.0 Urinary tract infection, site not specified (principal); I48.91 Unspecified atrial fibrillation; I13.0 Hypertensive heart and chronic kidney disease with heart failure and stage 1 through stage 4 chronic kidney disease, or unspecified chronic kidney disease; E11.22 Type 2 diabetes mellitus with diabetic chronic kidney disease; N18.3 Chronic kidney disease, stage 3 (moderate); I50.9 Heart failure, unspecified; E78.5 Hyperlipidemia, unspecified; K21.9 Gastro-esophageal reflux disease without esophagitis; J44.9 Chronic obstructive pulmonary disease, unspecified; Z87.19 Personal history of other diseases of the digestive system; E66.9 Obesity, unspecified; Z88.1 Allergy status to other antibiotic agents; Z88.2 Allergy status to sulfonamides; Z88.6 Allergy status to analgesic agent; Z88.8 Allergy status to other drugs, medicaments and biological substances; Z79.899 Other long term (current) drug therapy; Z79.82 Long term (current) use of aspirin; Z93.3 Colostomy status; Z87.891 Personal history of nicotine dependence; Z68.34 Body mass index [BMI] 34.0-34.9, adult

== ENCOUNTER 2018-11-13 11:02 | Emergency (ER) | payer MEDICARE ==
[~2018-11-13] VITALS: Ht 165.1 cm; Wt 81.6 kg
[2018-11-13 11:29] LABS: BILIRUBIN NEGATIVE (NEGATIVE); BLOOD TRACE-INTACT (NEGATIVE); CLARITY SL CLOUDY (CLEAR); COLOR YELLOW (YELLOW); GLUCOSE NEGATIVE (NEGATIVE); KETONE NEGATIVE (NEGATIVE); NITRITE NEGATIVE (NEGATIVE); PH 8.5 (5.0-9.0); UROBILINOGEN 0.2 E.U./dl (0.2-1.0)
[2018-11-13 11:33] VITALS: BP 152/88
[2018-11-13 11:37] LABS: LEUKO ESTERASE 3+ (NEGATIVE)
[2018-11-13 11:38] LABS: BACTERIA 2+; EPITHELIAL CELLS 21-30; WBC 21-30 wbc/hpf (0-5)
[2018-11-13 11:42] LABS: BASO % 0.3 % (0.0-1.0); EOS # 0.4 10*3/uL (0.0-0.4); EOS % 3.5 % (1.0-4.0); HEMATOCRIT 40.3 % (37.0-47.0); LYMPH # 2.1 10*3/uL (1.3-4.4); LYMPH % 20.4 % (27.0-41.0); MEAN CELL VOLUME 95.5 fl (81.0-99.0); MEAN CORPUSCULAR HGB 30.8 pg (27.0-31.0); MEAN CORPUSCULAR HGB CONC 32.3 g/dl (33.0-37.0); MEAN PLATELET VOLUME 9.5 fl (9.6-12.3); MONO # 0.7 10*3/uL (0.1-1.0); MONO % 6.8 % (3.0-9.0); NEUT # 7.1 10*3/uL (2.3-7.9); NEUT % 68.8 % (47.0-73.0); PLATELET COUNT AUTOMATED 263 10*3/uL (130-400); RED BLOOD COUNT 4.22 10*6/uL (4.10-5.10); RED CELL DISTRI WIDTH 13.1 % (0-14.5); WHITE BLOOD COUNT 10.3 10*3/uL (4.8-10.8)
[2018-11-13 11:58] LABS: ALBUMIN 3.4 gm/dl (3.1-4.5); CREATININE 1.1 mg/dL (0.55-1.02); POTASSIUM 4.2 mmol/L (3.5-5.1); TOTAL PROTEIN 8.1 gm/dL (6.4-8.2)
== END 2018-11-13 12:21 | disposition home or self-care (01) ==
LOC: ED 11:02
PROVIDERS: Emergency Medicine
DX: N39.0 Urinary tract infection, site not specified (principal); E11.22 Type 2 diabetes mellitus with diabetic chronic kidney disease; I13.0 Hypertensive heart and chronic kidney disease with heart failure and stage 1 through stage 4 chronic kidney disease, or unspecified chronic kidney disease; N18.3 Chronic kidney disease, stage 3 (moderate); I50.9 Heart failure, unspecified; E11.42 Type 2 diabetes mellitus with diabetic polyneuropathy; I48.91 Unspecified atrial fibrillation; J44.9 Chronic obstructive pulmonary disease, unspecified; K21.9 Gastro-esophageal reflux disease without esophagitis; E78.5 Hyperlipidemia, unspecified; E66.9 Obesity, unspecified; Z88.1 Allergy status to other antibiotic agents; Z88.2 Allergy status to sulfonamides; Z88.8 Allergy status to other drugs, medicaments and biological substances; Z88.5 Allergy status to narcotic agent; Z88.6 Allergy status to analgesic agent; Z79.899 Other long term (current) drug therapy; Z79.2 Long term (current) use of antibiotics; Z79.82 Long term (current) use of aspirin; Z68.30 Body mass index [BMI] 30.0-30.9, adult; Z90.49 Acquired absence of other specified parts of digestive tract; Z93.3 Colostomy status; Z90.710 Acquired absence of both cervix and uterus; Z87.891 Personal history of nicotine dependence

== ENCOUNTER 2018-12-02 12:22 | Inpatient (IN) | payer MEDICARE ==
[~2018-12-02] VITALS: Ht 167.6 cm; Wt 84.5 kg
--- NOTE | ~2018-12-02 | EKG ---
[place], [place] ELECTROCARDIOGRAM REPORT NAME: FARHAT MORALES UNIT #: [id number] ROOM: 515 DOCTOR: RG DRAFT REPORT BIRTHDATE: [birth year] [facility] Test Date: 2018-12-02 Test Time: 15:39:39 Pat Name: FARHAT MORALES Department: Room: [facility] Gender: F Hr Assistant: Sixto Byrd : 1945 Requested By: EJ MOBLEY Order Number: [id number] Reading MD: Rhianna Guillen MD Measurements Intervals [place] Rate: 103 P: 53 VT: 156 QRS: 57 QRSD: 81 T: 53 QT: 340 QTc: 445 Interpretive Statements Sinus tachycardia Atrial premature complex Consider left atrial enlargement Baseline wander in lead(s) II,III,aVR,aVL,aVF Compared to ECG 10/07/2018 15:59:59 Atrial premature complex(es) now present Sinus rhythm no longer present Electronically Signed On 12-03-2018 11:32:33 PDT by Rhianna Gulilen MD CM:EKGRPT:ELECTROCARDIOGRAM REPORT [id number] EJ JOHNS DRAFT REPORT EJ MOBLEY DO
--- NOTE | ~2018-12-02 | PR ---
[place], [place] PROGRESS NOTE NAME: FARHAT MORALES [facility] #: [id number] UNIT #: [id number] ROOM: 515 DOCTOR: STEPHANIA WING MD BIRTHDATE: [birth year] DOS: 12/06/2018 SUBJECTIVE: The patient is complaining of right lower quadrant pains. OBJECTIVE: VITAL SIGNS: Blood pressure 144/82, heart rate of 73 beats per minute, temperature 98.3 degrees Fahrenheit. GENERAL APPEARANCE: The patient is alert and oriented x 3, in no visible distress. HEENT AND NECK: Exam within normal limits. CARDIOVASCULAR SYSTEM: Heart rate is regular in rate and rhythm. S1 and S2 normally audible. LUNGS: Clear to auscultation. ABDOMEN: Some abdominal discomfort on palpation in the right lower quadrant. Generalized weakness. Colostomy present on abdominal exam. EXTREMITIES: Without significant cyanosis or edema. IMPRESSION: 1. The patient with urinary tract infection, being treated with antibiotics. 2. History of recent dehydration and dizziness being treated with IV fluids. 3. Right lower quadrant pain with previous history of diverticulitis, recent CT scan of the abdomen and pelvis did not show any significant abnormality. There is a left-sided colostomy. 4. Type 2 diabetes mellitus. Blood sugars are being monitored and treated. I am getting Dr. Jackson, the bus starter to evaluate the patient's pains. The patient is already on ceftriaxone. STEPHANIA WING MD CM:PNTRANS 03 0 STEPHANIA WING MD interface
--- NOTE | ~2018-12-02 | CON ---
[place], [place] REPORT OF CONSULTATION NAME[facility]ES [id number] UNIT #: [id number] ROOM: 515 DOCTOR: DAVIE SEAMAN MD BIRTHDATE: [birth year] DOS: 12/08/2018 GASTROENTEROLOGY CONSULTATION NOTE HISTORY OF PRESENT ILLNESS: A 73-year-old patient who presented with chief complaint of multiple medical issues among which has been abdominal pain. Pain management status post colostomy in the past and multiple ventral herniations. The patient has been admitted with investigation for the source of pathology and at the time of admission on 12/02/2018, white blood cell was 10, H and H of 13 and 41, differential within normal limit. INR was 0.9. Comprehensive metabolic panel was normal. Creatinine 1.09. Past CT scan on 12/05/2018 amongst many other reviews in the past shows findings suggesting ventral abdominal herniation and there is a loop of colon with herniated parastomal region, ostomy site is functional. Her H and H and CBC differential remained persistently within normal limit. Comprehensive metabolic panel remained to be normal. Lipase normal. Blood cultures no growth. PAST MEDICAL HISTORY: Associated with urinary tract infection, history of dizziness, anxiety, atrial fibrillation, chronic abdominal pain, congestive heart failure, renal insufficiency. PAST SURGICAL HISTORY: Diverticulitis, colostomy, endoscopies, appendectomy, C-sections, tonsillectomy, adenoidectomy, cholecystectomy. SOCIAL HISTORY: Nonsmoker, nonalcohol consumer at the present time. FAMILY HISTORY: Noncontributory. ALLERGIES: MULTIPLE MEDICATIONS INCLUDING LEVOFLOXACIN, SULFA PRODUCTS, MORPHINE, CORTISONE, DARVOCET, TORADOL, LYRICA, VICODIN. ALL HAS BEEN RECOGNIZED. MEDICATIONS: List has been reviewed. REVIEW OF SYSTEMS: HEENT: Denies double vision, blurred vision. RESPIRATORY: Denies shortness of breath, acutely. CARDIOVASCULAR: Denies acute chest pain. DIGESTIVE SYSTEM: Abdominal pain, nonspecific. PHYSICAL EXAMINATION: GENERAL: Obese patient. HEENT: Head normocephalic, nontraumatic. Mouth and buccal mucosa benign. NECK: Supple, no thyromegaly, no cervical lymphadenopathy. CHEST: Symmetric anatomy, equal expansion. No wheeze, no rhonchi. HEART: Normal sinus rhythm, no gallop, no murmur. ABDOMEN: Obese, large, soft. No hepato-organomegaly, multiple ventral hernias, colostomy functional in left lower quadrant. There is no evidence of blood in the colostomy. Bowel sounds present. EXTREMITIES: No cyanosis, no pedal edema. [place], [place] REPORT OF CONSULTATION NAME: FARHAT MORALES UNIT #: [id number] ROOM: [facility] DOCTOR: DAVIE SEAMAN MD BIRTHDATE: [birth year] NEUROLOGIC: Alert, oriented to time, place, person. IMPRESSION: Abdominal ventral hernias existing colostomy in left lower quadrant, nonspecific abdominal pain. OTHER ADJUNCTIVE DIAGNOSES: As identified in past medical and surgical history including renal insufficiency, urinary tract infection management, lactic acid elevation, ventral hernia, colostomy all has been recognized. I believe this patient has already have surgical consultation according to herself that she has arranged in [facility] as I understand and she is going to follow up. DAVIE SEAMAN MD CM:CONSTR:REPORT OF CONSULTATION 1151 12/08/18 1432 interface
--- NOTE | ~2018-12-02 | EKG ---
[place], [place] ELECTROCARDIOGRAM REPORT NAME: FARHAT MORALES UNIT #: [id number] ROOM: [facility] DOCTOR: RG DRAFT REPORT BIRTHDATE: [birth year] [facility] Test Date: 2018-12-02 Test Time: 12:24:58 Pat Name: FARHAT MORALES Department: Room: [facility] Gender: F Student Services Advisor: : 1945 Requested By: EJ MOBLEY Order Number: [id number] Reading MD: Rhianna Guillen MD Measurements Intervals [place] Rate: 105 P: 45 KS: 160 QRS: 46 QRSD: 84 T: 45 QT: 339 QTc: 449 Interpretive Statements Sinus tachycardia Baseline wander in lead(s) I,II,aVR Compared to ECG 10/07/2018 15:59:59 Sinus rhythm no longer present Electronically Signed On 12-03-2018 11:30:55 PDT by Rhianna Guillen MD CM:EKGRPT:ELECTROCARDIOGRAM REPORT [id number] EJ JOHNS DRAFT REPORT EJ MOBLEY DO
--- NOTE | ~2018-12-02 | DS ---
[place], [place] DISCHARGE SUMMARY NAME: FARHAT MORALES [facility] #: [id number] UNIT #: [id number] ROOM: 515 DOCTOR: STEPHANIA WING MD BIRTHDATE: [birth year] DOS: 12/08/2018 DISCHARGE DIAGNOSES: 1. Chronic abdominal pains, colostomy, abdominal hernia, evaluated by Dr. Hill and Dr. Jackson. 2. Chronic pain syndrome. 3. Gastroesophageal reflux disease and esophagitis. 4. Urinary tract infection with Escherichia coli. 5. Chronic atrial fibrillation. 6. Generalized anxiety disorder. 7. Chronic diastolic type congestive heart failure. 8. Chronic kidney disease stage 3. 9. Chronic obstructive pulmonary disease. 10. Type 2 diabetes mellitus. 11. Benign essential hypertension. 12. Obesity. HOSPITAL COURSE: 1. The patient was admitted by Dr. Mario Martinez for urinary tract infection. The patient was sick, nauseous, complaining of abdominal discomfort. The patient was treated with ceftriaxone and urine cultures grew E. coli, which has been adequately treated. 2. The patient started complaining of right lower quadrant pains and she has chronic abdominal pain problem with multiple surgeries, colostomy, ventral abdominal hernia and was evaluated by Dr. Hill who has suggested the patient should go to [facility] for surgical management, but the patient has refused. If Dr. Hill and Dr. Jackson clear her, she can be discharged to home today. The patient is chronically sick and has chronic abdominal pain symptoms. CT scan of the abdomen and pelvis did not show any new or acute abnormality. There are no signs of infection on CBC anymore and her urinary tract infection has been treated. 3. Type 2 diabetes mellitus. Blood sugars were monitored and treated. 4. Chronic kidney disease stage 3, remains stable. 5. Advance adult failure to thrive and chronic disability. 6. Chronic pain syndrome. The patient remains on tramadol and Percocet at home. 7. Gastroesophageal reflux disease and esophagitis, asymptomatic with Protonix. 8. Mixed hyperlipidemia, treated with atorvastatin. LABORATORY DATA: Urine cultures as mentioned above. Blood cultures were negative, no leukocytosis before discharge, white cell count 9800, hemoglobin 11.8. CT scan of the abdomen and pelvis with chronic abnormalities. No acute changes. DISCHARGE MANAGEMENT: Tramadol 50 mg every 8 hours p.r.n., Protonix 40 mg a day, multivitamin daily, aspirin 81 mg daily, Lipitor 10 mg a day, metoprolol 25 mg b.i.d. The patient takes Soma 350 mg b.i.d., Percocet b.i.d. p.r.n. which she was taking at home. Follow up with her PCP, Dr. Mraio Martinez within less than a week after discharge. [place], [place] DISCHARGE SUMMARY NAME: FARHAT MORALES [facility] #: [id number] UNIT #: [id number] ROOM: [facility] DOCTOR: STEPHANIA WING MD BIRTHDATE: [birth year] STEPHANIA WING MD CM:RIMMA [id number] STEPHANIA WING MD 12/08/18 1118 interface
--- NOTE | ~2018-12-02 | EKG ---
[place], [place] ELECTROCARDIOGRAM REPORT NAME: FARHAT MORALES UNIT #: [id number] ROOM: 515 DOCTOR: RG DRAFT REPORT BIRTHDATE: [birth year] [facility] Test Date: 2018-12-02 Test Time: 18:50:27 Pat Name: FARHAT MORALES Department: Room: [facility] Gender: F Air Conditioning Mechanic: Mesha Chaudhary : 1945 Requested By: EJ MOBLEY Order Number: [id number] Reading MD: Rhianna Guillen MD Measurements Intervals [place] Rate: 102 P: 47 ME: 166 QRS: 61 QRSD: 78 T: 56 QT: 349 QTc: 455 Interpretive Statements Sinus tachycardia Compared to ECG 10/07/2018 15:59:59 Sinus rhythm no longer present Electronically Signed On 12-03-2018 11:34:41 PDT by Rhianna Guillen MD CM:EKGRPT:ELECTROCARDIOGRAM REPORT [id number] [id number] EJ JOHNS DRAFT REPORT EJ MOBLEY DO
--- NOTE | ~2018-12-02 | CON ---
[place], [place] REPORT OF CONSULTATION [facility]: [facility] [id number] UNIT #: [id number] ROOM: 515 DOCTOR: DAVIE SEAMAN MD BIRTHDATE: [birth year] DOS: 12/08/2018 GASTROENDOSCOPIC REPORT HISTORY OF PRESENT ILLNESS: A 73-year-old patient who has presented with multiple issues among which has been nausea, abdominal pain chronically, numerous admissions, status post colostomy, multi-adhesions, multi-superficial herniation of the abdomen wall and she is admitted for pain management. The patient has had a panel of blood work done at the time of admission and it was suspected that she may have urinary tract infection and her white blood cell first was 10, H and H of 13 and 41, differential was within normal limit. Lipase and C-reactive proteins are normal. BNP was within normal limit. Lactic acid 2.8. Urinalysis 2+ leukocytes, 1+ bacteria. Troponin was within normal limits. CBC differential was within normal limit. Basic metabolic panel last one was within normal limits. DAVIE SEAMAN MD CM:CONSTR:REPORT OF CONSULTATION 1045 12/08/18 1420 interface
--- NOTE | ~2018-12-02 | PR ---
[place], [place] PROGRESS NOTE NAME: FARHAT MORALES [facility] #: [id number] UNIT #: [id number] ROOM: 515 DOCTOR: STEPHANIA WING MD BIRTHDATE: [birth year] DOS: 12/07/2018 SUBJECTIVE: The patient is still complaining of significant right lower quadrant pains. OBJECTIVE: VITAL SIGNS: Blood pressure 158/82, heart rate 68 beats per minute, breathing 18 times per minute, temperature 98.4 degrees Fahrenheit. GENERAL APPEARANCE: The patient is alert and oriented x 3, in no visible distress. HEENT AND NECK: Exam within normal limits. CARDIOVASCULAR SYSTEM: Heart rate is regular in rate and rhythm. S1 and S2 normally audible. LUNGS: Clear to auscultation. ABDOMEN: Some abdominal discomfort on palpation, lower abdomen, but she is generally tender all over. EXTREMITIES: Without significant cyanosis or edema. IMPRESSION: 1. Urinary tract infection, treated with ceftriaxone. 2. Mixed hyperlipidemia, treated with atorvastatin. 3. Continued right lower quadrant pains from uncertain etiology. CT scan did not show any acute abnormality there. Dr. Jackson, the rn documentation has been consulted for expert opinion. Dr. Hill, the surgeon is also following. No leucocytosis anymore. 4. Recent dehydration, dizziness, treated with hydration with IV fluids. 5. Type 2 diabetes mellitus. Blood sugars being monitored and controlled. 6. Chronic pain syndrome, treated with tramadol and Percocet. 7. Gastroesophageal reflux disease and esophagitis, treated with Protonix. STEPHANIA WING MD CM:PNTRANS 05 [id number] STEPHANIA WING MD 12/08/18 0209 interface
[2018-12-02 12:24] VITALS: BP 156/91
[2018-12-02 12:55] LABS: BASO # 0.1 10*3/uL (0.0-0.1); BASO % 0.6 % (0.0-1.0); EOS # 0.4 10*3/uL (0.0-0.4); EOS % 3.5 % (1.0-4.0); HEMATOCRIT 41.8 % (37.0-47.0); HEMOGLOBIN 13.4 g/dl (12.0-16.0); LYMPH # 2.4 10*3/uL (1.3-4.4); LYMPH % 22.8 % (27.0-41.0); MEAN CELL VOLUME 96.5 fl (81.0-99.0); MEAN CORPUSCULAR HGB 30.9 pg (27.0-31.0); MEAN CORPUSCULAR HGB CONC 32.1 g/dl (33.0-37.0); MEAN PLATELET VOLUME 9.7 fl (9.6-12.3); MONO % 9.7 % (3.0-9.0); NEUT # 6.5 10*3/uL (2.3-7.9); NEUT % 62.9 % (47.0-73.0); PLATELET COUNT AUTOMATED 218 10*3/uL (130-400); RED BLOOD COUNT 4.33 10*6/uL (4.10-5.10); RED CELL DISTRI WIDTH 12.5 % (0-14.5); WHITE BLOOD COUNT 10.4 10*3/uL (4.8-10.8)
[2018-12-02 13:06] LABS: ACT PARTIAL THROMBO TIME 26.2 SECONDS (20.0-32.1); INTERNATIONAL NORM RATIO 0.9 (2.0-3.5)
[2018-12-02 13:11] LABS: LIPASE 108 U/L (73-393)
[2018-12-02 13:12] LABS: ALBUMIN 3.4 gm/dl (3.1-4.5); ALKALINE PHOSPHATASE 145 U/L (45-117); BUN 12 mg/dl (7-24); CHLORIDE 109 mmol/L (98-107); CREATININE 1.09 mg/dL (0.55-1.02); POTASSIUM 4.7 mmol/L (3.5-5.1); SGOT/AST 21 IU/L (3-35); SGPT/ALT 20 U/L (12-78); SODIUM 142 mmol/L (136-145); TOTAL PROTEIN 8.2 gm/dL (6.4-8.2)
[2018-12-02 13:14] LABS: TROPONIN I < 0.015 ng/ml (<0.045)
[2018-12-02 13:22] LABS: BILIRUBIN NEGATIVE (NEGATIVE); BLOOD NEGATIVE (NEGATIVE); CLARITY SL CLOUDY (CLEAR); COLOR YELLOW (YELLOW); GLUCOSE NEGATIVE (NEGATIVE); KETONE NEGATIVE (NEGATIVE); LEUKO ESTERASE 2+ (NEGATIVE); NITRITE NEGATIVE (NEGATIVE); UROBILINOGEN 0.2 E.U./dl (0.2-1.0)
[2018-12-02 13:39] LABS: BACTERIA 1+
[2018-12-02 13:54] VITALS: BP 191/95
[2018-12-02 14:20] VITALS: BP 182/92
[2018-12-02 15:38] VITALS: BP 183/88
[2018-12-02 20:00] VITALS: BP 153/71
[2018-12-03] VITALS: BP 151/77
[2018-12-03 06:35] LABS: BASO # 0.1 10*3/uL (0.0-0.1); BASO % 0.5 % (0.0-1.0); EOS # 0.5 10*3/uL (0.0-0.4); EOS % 5.6 % (1.0-4.0); HEMATOCRIT 38.4 % (37.0-47.0); HEMOGLOBIN 12.2 g/dl (12.0-16.0); LYMPH # 2.6 10*3/uL (1.3-4.4); LYMPH % 28.4 % (27.0-41.0); MEAN CELL VOLUME 96.2 fl (81.0-99.0); MEAN CORPUSCULAR HGB 30.6 pg (27.0-31.0); MEAN CORPUSCULAR HGB CONC 31.8 g/dl (33.0-37.0); MEAN PLATELET VOLUME 9.9 fl (9.6-12.3); MONO % 10.5 % (3.0-9.0); NEUT % 54.7 % (47.0-73.0); PLATELET COUNT AUTOMATED 214 10*3/uL (130-400); RED BLOOD COUNT 3.99 10*6/uL (4.10-5.10); RED CELL DISTRI WIDTH 12.7 % (0-14.5); WHITE BLOOD COUNT 9.1 10*3/uL (4.8-10.8)
[2018-12-03 06:40] LABS: BUN 18 mg/dl (7-24); CHLORIDE 112 mmol/L (98-107); CREATININE 0.93 mg/dL (0.55-1.02); POTASSIUM 3.8 mmol/L (3.5-5.1); SODIUM 142 mmol/L (136-145)
[2018-12-03 12:00] VITALS: BP 161/74
[2018-12-03 16:00] VITALS: BP 172/68
[2018-12-03 20:00] VITALS: BP 172/86
[2018-12-04] VITALS: BP 172/86
[2018-12-04 01:43] VITALS: BP 138/68
[2018-12-04 08:00] VITALS: BP 130/64
[2018-12-04 12:00] VITALS: BP 130/64
[2018-12-04 16:00] VITALS: BP 176/67
[2018-12-04 20:00] VITALS: BP 176/73
[2018-12-05 05:54] LABS: BASO % 0.4 % (0.0-1.0); EOS # 0.6 10*3/uL (0.0-0.4); EOS % 5.6 % (1.0-4.0); HEMATOCRIT 35.9 % (37.0-47.0); HEMOGLOBIN 11.6 g/dl (12.0-16.0); LYMPH # 2.4 10*3/uL (1.3-4.4); LYMPH % 23.3 % (27.0-41.0); MEAN CORPUSCULAR HGB 30.7 pg (27.0-31.0); MEAN CORPUSCULAR HGB CONC 32.3 g/dl (33.0-37.0); MEAN PLATELET VOLUME 9.7 fl (9.6-12.3); MONO # 0.9 10*3/uL (0.1-1.0); MONO % 8.3 % (3.0-9.0); NEUT # 6.4 10*3/uL (2.3-7.9); NEUT % 62.2 % (47.0-73.0); PLATELET COUNT AUTOMATED 196 10*3/uL (130-400); RED BLOOD COUNT 3.78 10*6/uL (4.10-5.10); RED CELL DISTRI WIDTH 12.9 % (0-14.5); WHITE BLOOD COUNT 10.3 10*3/uL (4.8-10.8)
[2018-12-05 06:01] LABS: BUN 12 mg/dl (7-24); CHLORIDE 114 mmol/L (98-107); CREATININE 0.94 mg/dL (0.55-1.02); POTASSIUM 3.5 mmol/L (3.5-5.1); SODIUM 145 mmol/L (136-145)
[2018-12-05 08:00] VITALS: BP 158/68
[2018-12-05 12:00] VITALS: BP 151/73
[2018-12-05 16:00] VITALS: BP 155/64
[2018-12-05 20:00] VITALS: BP 168/73
[2018-12-06 06:19] LABS: BASO # 0.1 10*3/uL (0.0-0.1); BASO % 0.5 % (0.0-1.0); EOS # 0.6 10*3/uL (0.0-0.4); EOS % 5.7 % (1.0-4.0); HEMATOCRIT 36.3 % (37.0-47.0); HEMOGLOBIN 11.6 g/dl (12.0-16.0); LYMPH # 2.2 10*3/uL (1.3-4.4); LYMPH % 22.2 % (27.0-41.0); MEAN CELL VOLUME 95.5 fl (81.0-99.0); MEAN CORPUSCULAR HGB 30.5 pg (27.0-31.0); MONO # 0.9 10*3/uL (0.1-1.0); MONO % 8.6 % (3.0-9.0); NEUT # 6.2 10*3/uL (2.3-7.9); NEUT % 62.7 % (47.0-73.0); PLATELET COUNT AUTOMATED 196 10*3/uL (130-400); RED CELL DISTRI WIDTH 12.9 % (0-14.5); WHITE BLOOD COUNT 9.8 10*3/uL (4.8-10.8)
[2018-12-06 06:32] LABS: BUN 14 mg/dl (7-24); CHLORIDE 110 mmol/L (98-107); CREATININE 0.94 mg/dL (0.55-1.02); POTASSIUM 3.8 mmol/L (3.5-5.1); SODIUM 140 mmol/L (136-145)
[2018-12-06 09:37] VITALS: BP 160/84
[2018-12-06 12:00] VITALS: BP 155/79
[2018-12-06 13:56] VITALS: BP 144/82
[2018-12-06 16:00] VITALS: BP 176/69
[2018-12-06 20:00] VITALS: BP 137/77; BP 183/69
[2018-12-07 06:13] LABS: BASO % 0.4 % (0.0-1.0); EOS # 0.6 10*3/uL (0.0-0.4); EOS % 5.6 % (1.0-4.0); HEMATOCRIT 37.1 % (37.0-47.0); HEMOGLOBIN 11.8 g/dl (12.0-16.0); LYMPH # 2.3 10*3/uL (1.3-4.4); MEAN CELL VOLUME 96.1 fl (81.0-99.0); MEAN CORPUSCULAR HGB 30.6 pg (27.0-31.0); MEAN CORPUSCULAR HGB CONC 31.8 g/dl (33.0-37.0); MEAN PLATELET VOLUME 9.7 fl (9.6-12.3); MONO # 0.7 10*3/uL (0.1-1.0); MONO % 7.4 % (3.0-9.0); NEUT # 6.2 10*3/uL (2.3-7.9); NEUT % 63.3 % (47.0-73.0); PLATELET COUNT AUTOMATED 208 10*3/uL (130-400); RED BLOOD COUNT 3.86 10*6/uL (4.10-5.10); RED CELL DISTRI WIDTH 12.9 % (0-14.5); WHITE BLOOD COUNT 9.8 10*3/uL (4.8-10.8)
[2018-12-07 08:14] LABS: ALBUMIN 2.7 gm/dl (3.1-4.5); ALKALINE PHOSPHATASE 103 U/L (45-117); BUN 14 mg/dl (7-24); CHLORIDE 110 mmol/L (98-107); CREATININE 0.95 mg/dL (0.55-1.02); LIPASE 105 U/L (73-393); POTASSIUM 3.7 mmol/L (3.5-5.1); SGOT/AST 13 IU/L (3-35); SGPT/ALT 14 U/L (12-78); SODIUM 140 mmol/L (136-145); TOTAL PROTEIN 6.9 gm/dL (6.4-8.2)
[2018-12-07 12:00] VITALS: BP 158/82
[2018-12-07 16:00] VITALS: BP 185/76
[2018-12-07 20:00] VITALS: BP 187/72
[2018-12-07 21:38] VITALS: BP 166/80
[2018-12-08] VITALS: BP 155/67
== END 2018-12-08 13:25 | disposition home or self-care (01) | DRG 690 ==
LOC: ED 12:22 → 5E 14:41 → EDHOLD 14:41 → 5E 15:09
PROVIDERS: Emergency Medicine; Internal Medicine; Internal Medicine Gastroenterology; Internal Medicine Nephrology; ADMIT Internal Medicine
DX: N39.0 Urinary tract infection, site not specified (principal); E87.2 Acidosis; I13.0 Hypertensive heart and chronic kidney disease with heart failure and stage 1 through stage 4 chronic kidney disease, or unspecified chronic kidney disease; I50.32 Chronic diastolic (congestive) heart failure; E86.0 Dehydration; E83.41 Hypermagnesemia; E87.8 Other disorders of electrolyte and fluid balance, not elsewhere classified; N18.3 Chronic kidney disease, stage 3 (moderate); B96.20 Unspecified Escherichia coli [E. coli] as the cause of diseases classified elsewhere; K43.9 Ventral hernia without obstruction or gangrene; F41.9 Anxiety disorder, unspecified; M54.9 Dorsalgia, unspecified; J44.9 Chronic obstructive pulmonary disease, unspecified; E11.22 Type 2 diabetes mellitus with diabetic chronic kidney disease; K57.90 Diverticulosis of intestine, part unspecified, without perforation or abscess without bleeding; G47.00 Insomnia, unspecified; E66.9 Obesity, unspecified; E11.65 Type 2 diabetes mellitus with hyperglycemia; E78.2 Mixed hyperlipidemia; K21.0 Gastro-esophageal reflux disease with esophagitis; G89.4 Chronic pain syndrome; R74.8 Abnormal levels of other serum enzymes; K46.9 Unspecified abdominal hernia without obstruction or gangrene; I48.2 Chronic atrial fibrillation; R62.7 Adult failure to thrive; Z93.3 Colostomy status; Z88.8 Allergy status to other drugs, medicaments and biological substances; Z88.6 Allergy status to analgesic agent; Z88.2 Allergy status to sulfonamides; Z79.899 Other long term (current) drug therapy; Z79.82 Long term (current) use of aspirin; Z87.440 Personal history of urinary (tract) infections; Z90.49 Acquired absence of other specified parts of digestive tract; Z98.891 History of uterine scar from previous surgery; Z90.89 Acquired absence of other organs; Z90.710 Acquired absence of both cervix and uterus; Z87.891 Personal history of nicotine dependence; Z82.49 Family history of ischemic heart disease and other diseases of the circulatory system; Z68.30 Body mass index [BMI] 30.0-30.9, adult

== ENCOUNTER 2018-12-16 12:22 | Inpatient (IN) | payer MEDICARE ==
[~2018-12-16] VITALS: Ht 165.1 cm; Wt 84.8 kg
--- NOTE | ~2018-12-16 | WRIGHTHP ---
[place], [place] PATIENT HISTORY AND PHYSICAL EXAM NAME: FARHAT MORALES [facility] #: [id number] UNIT #: [id number] ROOM: 508 DOCTOR: CASSI JIMÉNEZ MD BIRTHDATE: [birth year] DOS: 12/16/2018 CHIEF COMPLAINT: Dizziness and lower abdominal pain. HISTORY OF PRESENT ILLNESS: This is a 73-year-old patient who presented to the office today with lower abdominal pain and burning, feeling dizzy. Her legs were hurting and her blood pressure was 160/100. The patient was crying in the office. She was sent to the ER from where she was admitted for urinary tract infection and lower abdominal pain. She was given Dilaudid IV in the ER by Dr. Johnathan Garcia. The patient was continued on Rocephin and IV fluids and we will see the patient in the morning again in the hospital. PAST MEDICAL HISTORY: Significant for: 1. Cerebrovascular accident. 2. Hypertension. 3. Normal stress test in May 2016. 4. Back pain. MRI showed L5-S1 degenerative disk disease at multiple levels. 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 It is diffuse involvement. 5. Vitamin D deficiency. 6. Mixed connective tissue disorder. 7. Chronic obstructive pulmonary disease with FEV1 of 39%. 8. Fatty liver. 9. Autonomic dysfunction. 10. Diabetes mellitus type 2. 11. Gastroesophageal reflux disease. PAST SURGICAL HISTORY: x 3, hysterectomy, gallbladder surgery, left foot surgery and the patient had colostomy done. MEDICATIONS: Ambien 10 mg at bedtime, Soma 350 mg b.i.d., Percocet 5/325 one tablet b.i.d., metoprolol 25 mg twice a day, Neurontin 60 mg twice a day, Crestor 10 mg daily, Requip 0.5 mg b.i.d., aspirin 81 mg daily. FAMILY HISTORY: Father at 63 of heart disease. Mother at 78 years of heart disease. Otherwise, she has three daughters, they are all healthy. SOCIAL HISTORY: Nonsmoker, nonalcoholic. No illicit drug use. ALLERGIES: LIPITOR, SULFACET, MORPHINE SULFATE (the patient can take Dilaudid), CORTISONE and PYRIDIUM. REVIEW OF SYSTEMS: She is feeling weak. She has no fever. No headache. She does have dizziness. She has nausea and she has balance difficulty. Other than that, other 10-point review of systems is unremarkable. The patient also has abdominal pain. [place], [place] PATIENT HISTORY AND PHYSICAL EXAM NAME: FARHAT MORALES UNIT #: [id number] ROOM: 508 DOCTOR: CASSI JIMÉNEZ MD BIRTHDATE: [birth year] PHYSICAL EXAMINATION: VITAL SIGNS: Blood pressure is 160/100 mmHg, heart rate is 89, temperature 98.3, oxygen saturation is 95%. HEENT: Head normocephalic, atraumatic. Eyes: Pupils equal, round, react to light. Extraocular movements are intact. EAR, NOSE AND THROAT: No discharge noted. Tongue is moist. Throat clear. NECK: No JVD, no lymphadenopathy. HEART: S1, S2 regular in rate and no murmur, gallop or rub. ABDOMEN: Soft, but there is tenderness in the lower abdomen. EXTREMITIES: No cyanosis, clubbing or edema. NEUROLOGIC: No focal deficit noted. ASSESSMENT: At this time: 1. Acute cystitis with hematuria. The patient admitted to the floor and started on Rocephin. We will get basic panel in the morning. 2. Chronic obstructive pulmonary disease. 3. Lower abdominal pain. The patient was evaluated by Dr. Hill last time, please see his consult report for full note. 4. Depression. 5. Hypertension. 6. Gastroesophageal reflux disease. 7. Chronic kidney disease. PLAN OF CARE: 1. The patient admitted to the floor. 2. Rocephin started. 3. Lovenox for deep venous thrombosis prophylaxis. 4. Regular diet and continue all home medications. 5. Basic panel in the morning. 6. We will follow the patient in the morning. CASSI JIMÉNEZ MD CM:HISPHYS:PATIENT HISTORY AND PHYSICAL EXAMINATION [id number] CASSI JIMÉNEZ MD 12/16/[id number] interface
[2018-12-16 12:23] VITALS: BP 195/89
[2018-12-16 12:38] LABS: BILIRUBIN NEGATIVE (NEGATIVE); BLOOD NEGATIVE (NEGATIVE); CLARITY SL CLOUDY (CLEAR); COLOR YELLOW (YELLOW); GLUCOSE NEGATIVE (NEGATIVE); KETONE NEGATIVE (NEGATIVE); LEUKO ESTERASE 2+ (NEGATIVE); NITRITE NEGATIVE (NEGATIVE); PH 7.5 (5.0-9.0); UROBILINOGEN 0.2 E.U./dl (0.2-1.0)
[2018-12-16 12:51] LABS: WBC 41-50 wbc/hpf (0-5)
[2018-12-16 12:51] LABS: BASO # 0.1 10*3/uL (0.0-0.1); BASO % 0.6 % (0.0-1.0); EOS # 0.4 10*3/uL (0.0-0.4); EOS % 3.2 % (1.0-4.0); HEMOGLOBIN 13.7 g/dl (12.0-16.0); LYMPH # 2.6 10*3/uL (1.3-4.4); LYMPH % 23.1 % (27.0-41.0); MEAN CELL VOLUME 96.4 fl (81.0-99.0); MEAN CORPUSCULAR HGB 30.7 pg (27.0-31.0); MEAN CORPUSCULAR HGB CONC 31.9 g/dl (33.0-37.0); MEAN PLATELET VOLUME 9.5 fl (9.6-12.3); MONO # 0.9 10*3/uL (0.1-1.0); MONO % 7.7 % (3.0-9.0); NEUT # 7.4 10*3/uL (2.3-7.9); NEUT % 65.1 % (47.0-73.0); PLATELET COUNT AUTOMATED 277 10*3/uL (130-400); RED BLOOD COUNT 4.46 10*6/uL (4.10-5.10); RED CELL DISTRI WIDTH 12.9 % (0-14.5); WHITE BLOOD COUNT 11.4 10*3/uL (4.8-10.8)
[2018-12-16 12:52] LABS: BACTERIA 1+
[2018-12-16 12:59] LABS: ACT PARTIAL THROMBO TIME 22.6 SECONDS (20.0-32.1); INTERNATIONAL NORM RATIO 0.9 (2.0-3.5)
[2018-12-16 13:08] LABS: ALBUMIN 3.5 gm/dl (3.1-4.5); ALKALINE PHOSPHATASE 112 U/L (45-117); BUN 12 mg/dl (7-24); CHLORIDE 107 mmol/L (98-107); CREATININE 1.02 mg/dL (0.55-1.02); LIPASE 106 U/L (73-393); POTASSIUM 4.4 mmol/L (3.5-5.1); SGOT/AST 13 IU/L (3-35); SGPT/ALT 15 U/L (12-78); SODIUM 139 mmol/L (136-145); TOTAL PROTEIN 8.5 gm/dL (6.4-8.2)
[2018-12-16 13:30] VITALS: BP 182/88
[2018-12-16 14:35] VITALS: BP 182/88
--- NOTE | 2018-12-16 14:45 | NUR ---
Time: 1444 A 73 year old FEMALE admitted to 5E under services of DR. TINO OCAMPO,[facility]. Pt. arrived via wheelchair from ER. Chief complaint: Pt states she was having rt sided abdominal pain, nausea vomiting and UTI symptoms at home. Pt arrived in wheelchair from ER with IVF running to gravity. Pt states that IV site is burning and very painful. Sangita from ER states that they just obtained IV site after 6 attempts and pt was just given dilaudid in ER. Pt iv in left thumb is red with slight edema noted. LAURA COLLINS
--- NOTE | 2018-12-16 15:00 | NUR ---
Attempted iv restart x 2 and unable to obtain. Pt states she usually has to have iv site put in by ultrasound. Called to 4e to see if anyone was available to start iv.
--- NOTE | 2018-12-16 15:11 | NUR ---
I attempted to flush IV to left thumb and obtained a good blood return. Pt states that it is not hurting as bad. States "maybe it was dilaudid" that burned. States she will use for now.
--- NOTE | 2018-12-16 15:39 | NUR ---
Medicated with percocet per prn order for complaints of pain to rt lower quad.
[2018-12-16 16:00] VITALS: BP 182/88
--- NOTE | 2018-12-16 16:15 | NUR ---
States that percocet effective.
--- NOTE | 2018-12-16 17:00 | NUR ---
BP was 158/90 past clonodine.
--- NOTE | 2018-12-16 17:18 | NUR ---
Pt states she is experiencing dizziness. Requesting antivert. Spoke with Dr. Martinez new orders received.
[2018-12-16 20:00] VITALS: BP 168/72; BP 171/68
--- NOTE | 2018-12-16 22:00 | NUR ---
PATIENT IS REQUESTING NOT TO BE AWAKEN AT [facility]IGT FOR VITALS OR OTHER MEDICATIONS. PATIENT IS REQUESTED ANTIVERT NOW INSTEAD OF MIDNIGHT.
--- NOTE | 2018-12-17 00:55 | NUR ---
PATIENT SLEEPING, NO DISTRESS. CALL LGT WITHIN REACH
[2018-12-17 07:24] LABS: BUN 14 mg/dl (7-24); CHLORIDE 110 mmol/L (98-107); POTASSIUM 4.1 mmol/L (3.5-5.1); SODIUM 140 mmol/L (136-145)
[2018-12-17 08:00] VITALS: BP 179/73
--- NOTE | 2018-12-17 08:30 | NUR ---
Flue Blower in to talk to patient. Patient states lives at home with her . There are 18 steps in the home. Physician: Dr. Mario Martinez Pharmacy: [facility]: has had in the past but not currently Patient's level of ADLs: INDEPENDENT Patient has working utilities: yes DME: none Follow-up physician's appointment after d/c: she prefers to make her own follow up appt after discharge Does patient want to access PORTAL?: no Discharge plan discussed with patient. She lives at home with her . She is independent in her ADLs and ambulation. Discussed home health care services and she denies any home needs at this time. When medically stable she will be discharged to home. Her will transport on discharge. ÁNGEL WILLIS
[2018-12-17 16:00] VITALS: BP 158/67
[2018-12-17 20:00] VITALS: BP 163/69
--- NOTE | 2018-12-17 21:29 | NUR ---
PATIENT MEDICATED WITH PHENERGAN FOR C/O NAUSEA. WILL MONITOR
--- NOTE | 2018-12-17 21:30 | NUR ---
ADDRESSED PATIENTS NEED AT THIS TIME. PER PRIOR NURSING MULTIPLE ATTEMPT MADE TO ACHIEVE IV ACCESS. PATIENT HAD REQUESTED NO MORE STICK AFTER LAST ACCUCATH BECAME PAINFUL. PATIENT HAS NO IV ACCESS AT THIS TIME
--- NOTE | 2018-12-17 22:29 | NUR ---
PHENERGAN APPEARS EFFECTIVE PATIENT RESTING IN BEE. NO DISTRESS NOTED. CALL LIGHT WITHIN REACH
[2018-12-18] VITALS: BP 163/64
--- NOTE | 2018-12-18 05:22 | NUR ---
24 HR chart check completed.
--- NOTE | 2018-12-18 05:50 | NUR ---
PATIENT STATED SHE THOUGHT COLOSTOMY BAG OPENED. AREA WAS IN TACT NO LEAKAGE PRESENT AND NO STOOL PRESENT IN BAG. PATIENT STATED UNDERSTANDING
--- NOTE | 2018-12-18 05:51 | NUR ---
PATIENT MEDICATED WITH PHENERGAN AND PERCOCET FOR C/O NAUSEA AND "PAIN ALL OVER BODY" 02/10 PAIN. WILL MONITOR
[2018-12-18 06:25] LABS: BASO # 0.1 10*3/uL (0.0-0.1); BASO % 0.5 % (0.0-1.0); EOS # 0.5 10*3/uL (0.0-0.4); EOS % 4.7 % (1.0-4.0); HEMATOCRIT 37.7 % (37.0-47.0); LYMPH # 2.6 10*3/uL (1.3-4.4); LYMPH % 25.7 % (27.0-41.0); MEAN CELL VOLUME 96.2 fl (81.0-99.0); MEAN CORPUSCULAR HGB 30.6 pg (27.0-31.0); MEAN CORPUSCULAR HGB CONC 31.8 g/dl (33.0-37.0); MEAN PLATELET VOLUME 9.4 fl (9.6-12.3); MONO # 0.9 10*3/uL (0.1-1.0); MONO % 9.3 % (3.0-9.0); NEUT % 59.4 % (47.0-73.0); PLATELET COUNT AUTOMATED 262 10*3/uL (130-400); RED BLOOD COUNT 3.92 10*6/uL (4.10-5.10)
[2018-12-18 06:40] LABS: BUN 13 mg/dl (7-24); CHLORIDE 109 mmol/L (98-107); CREATININE 0.98 mg/dL (0.55-1.02); POTASSIUM 3.9 mmol/L (3.5-5.1); SODIUM 140 mmol/L (136-145)
[2018-12-18 08:00] VITALS: BP 154/52
--- NOTE | 2018-12-18 09:00 | NUR ---
PATIENT'S COLOSTOMY CHANGED.
[2018-12-18 12:00] VITALS: BP 159/74
--- NOTE | 2018-12-18 12:43 | NUR ---
DR UREÑA NOTIFIED OF CONSULT. STATES THAT HE WILL SEE HER TOMORROW OR THURSDAY AND WILL PROBABLY PLACE MEDIPORT ON THURSDAY.
--- NOTE | 2018-12-18 12:57 | NUR ---
PERCOCET 5/325 GIVEN PER PATIENT REQUEST FOR A HEADACHE RATING 8
--- NOTE | 2018-12-18 14:00 | NUR ---
NO FURTHER COMPLAINTS OF HEADACHE. PERCOCET EFFECTIVE.
--- NOTE | 2018-12-18 14:32 | NUR ---
UNABLE TO HANG IV FLUIDS PRESCRIBED. UNABLE TO GET IV SITE. DR JIMÉNEZ AWARE. ROCEPHIN CHANGED TO IM UNTIL MEDIPORT IS PLACED.
[2018-12-18 16:00] VITALS: BP 163/75
--- NOTE | 2018-12-18 16:30 | NUR ---
PATIENT'S COLOSTOMY CHANGED WITH ASSISTANCE FROM .
[2018-12-18 20:00] VITALS: BP 159/78
--- NOTE | 2018-12-18 21:56 | NUR ---
CALLED AND INFORMED THAT PATIENT IS HAVING 10/10 PAIN AT THIS TIME AND IS REQUESTING A X1 DOSE OF HER USUAL PERCOCET ORDER. STATED THAT IS FINE
[2018-12-19] VITALS (7 sets, daily range): BP systolic 129–208; BP diastolic 57–90
--- NOTE | 2018-12-19 08:08 | NUR ---
SURGERY CALLED. PACKET COMPLETE AT THIS TIME. PT REMAINS NPO FOR SCHEDULED MEDI-PORT INSERTION.
--- NOTE | 2018-12-19 08:48 | NUR ---
PATIENT OFF FLOOR FOR SCHEDULED PROCEDURE.
--- NOTE | 2018-12-19 13:31 | NUR ---
PATIENT BACK ON FLOOR AT THIS TIME.
--- NOTE | 2018-12-19 14:00 | NUR ---
PERCOCET GIVEN PER PRN ORDER FOR C/O PAIN TO MEDIPORT INSERTION SITE. RATES PAIN 7/10. WILL MONITOR EFFECTIVENESS.
--- NOTE | 2018-12-19 15:21 | NUR ---
PAIN BEING RELIEVED PER PT. WILL CONTINUE TO MONITOR.
--- NOTE | 2018-12-19 17:22 | NUR ---
PT GIVEN SOMA PER ROUTINE ORDER. PT MISSED AM DOSE AT 10AM DUE TO BEING OFF THE FLOOR FOR MEDIPORT INSERTION. WILL CONTINUE TO MONITOR.
--- NOTE | 2018-12-19 20:00 | NUR ---
PT RESTING IN BED. RESP-EASY AND REGULAR. C/O SORENESS TO [facility] SITE, PT HAD INSERTED TODAY. REFUSED MEDICATION AT THIS TIME. SHE WILL TAKE PERCOCET AT 10PM PER PT. CALL LIGHT IN REACH. WILL CON'T TO MONITOR.
--- NOTE | 2018-12-19 21:23 | NUR ---
PT TOLERATED ROUTINE MED WITH NO PROBLEM. C/O BACK PAIN RATES PAIN 9-9 1/2 ALSO MEDIPORT SITE PAIN, RATES PAIN 10 ON PAIN SCALE 0-10. MEDICATED WITH PERCOCET ONE TAB PO PER PRN ORDER, SEE EMAR. ALSO MEDICATED WITH AMBIEN PO FOR INSOMNIA. CALL LIGHT IN REACH. CALL LIGHT IN REACH.
--- NOTE | 2018-12-19 22:20 | NUR ---
PT SLEEPING IN BED. RESP-EASY AND REGULAR. MEDICATION SEEMS TO BE EFFECTIVE. CALL LIGHT IN REACH.
[2018-12-20] VITALS: BP 144/70
--- NOTE | 2018-12-20 | NUR ---
PT RESTING IN BED WITH EYES CLOSED. RESP-EASY AND REGULAR. NO C/O AT THIS TIME. CALL LIGHT IN REACH. SEE SHIFT ASSESSMENT.
--- NOTE | 2018-12-20 02:04 | NUR ---
24 HR chart check completed.
--- NOTE | 2018-12-20 04:00 | NUR ---
RESTING IN BED WITH EYES CLOSED. RESP-EASY AND REGULAR. CALL LIGHT IN REACH.
--- NOTE | 2018-12-20 06:10 | NUR ---
TOLERATED ROUTINE MED WITH NO PROBLEM. NO C/O AT THIS TIME. CALL LIGHT IN REACH.
[2018-12-20 08:00] VITALS: BP 156/81
--- NOTE | 2018-12-20 09:00 | NUR ---
High Tension Tester in to see patient. No new needs or request at this time. She denies any home needs. When medically stable she will be discharged to home.
--- NOTE | 2018-12-20 09:42 | NUR ---
PERCOSET GIVEN PER MAR FOR C/O RIGHT ABD/FLANK GENERALIZED PAIN.12/11.
--- NOTE | 2018-12-20 11:54 | NUR ---
PHENERGRYN 25 MG TAB GIVEN FOR C/O NAUSEA.
[2018-12-20 12:00] VITALS: BP 148/71
--- NOTE | 2018-12-20 13:19 | NUR ---
PT RESTING IN BED WITH EYES CLOSED. NO DISTRESS NOTED. MEDICATIONS APPEAR TO BE EFFECTIVE AT THIS TIME.RESPS EASY ON RA.NO DISTRESS NOTED. CALL LIGHT IN REACH.
--- NOTE | 2018-12-20 15:06 | NUR ---
RESTING IN BED WITH EYES CLOSED. NO DISTRESS NOTED.RESPS EASY ON RA.WILL CONTINUE TO MONITOR.CALL LIGHT IN REACH.
[2018-12-20 16:00] VITALS: BP 127/82
--- NOTE | 2018-12-20 17:58 | NUR ---
PERCOSET GIVEN PER [facility] FOR C/O RIGHT ABD/FLANK PAIN,01/11.
--- NOTE | 2018-12-20 18:33 | NUR ---
Discharge instructions reviewed with patient/family. Patient receptive and verbalizes understanding. Follow-up care arranged. Written instructions given to patient/family. WAGNER MCCALLUM
== END 2018-12-20 18:33 | disposition home or self-care (01) | DRG 674 ==
LOC: ED 12:22 → 5E 13:28 → EDHOLD 13:28 → 5E 13:42
PROVIDERS: Family Medicine; Internal Medicine Nephrology; ADMIT Internal Medicine
PROC: B5181ZA Fluoroscopy of Superior Vena Cava using Low Osmolar Contrast, Guidance (ICD-10-PCS; principal; 2018-12-19)
PROC: 0JH60WZ Insertion of Totally Implantable Vascular Access Device into Chest Subcutaneous Tissue and Fascia, Open Approach (ICD-10-PCS; principal; 2018-12-19)
PROC: 02HV33Z Insertion of Infusion Device into Superior Vena Cava, Percutaneous Approach (ICD-10-PCS; principal; 2018-12-19)
PROC: B548ZZA Ultrasonography of Superior Vena Cava, Guidance (ICD-10-PCS; principal; 2018-12-19)
DX: N30.01 Acute cystitis with hematuria (principal); I13.0 Hypertensive heart and chronic kidney disease with heart failure and stage 1 through stage 4 chronic kidney disease, or unspecified chronic kidney disease; I48.91 Unspecified atrial fibrillation; F41.9 Anxiety disorder, unspecified; I50.9 Heart failure, unspecified; G89.29 Other chronic pain; M54.9 Dorsalgia, unspecified; N18.3 Chronic kidney disease, stage 3 (moderate); J44.9 Chronic obstructive pulmonary disease, unspecified; E11.22 Type 2 diabetes mellitus with diabetic chronic kidney disease; K57.90 Diverticulosis of intestine, part unspecified, without perforation or abscess without bleeding; K21.9 Gastro-esophageal reflux disease without esophagitis; E78.5 Hyperlipidemia, unspecified; G47.00 Insomnia, unspecified; E66.9 Obesity, unspecified; E11.43 Type 2 diabetes mellitus with diabetic autonomic (poly)neuropathy; F32.9 Major depressive disorder, single episode, unspecified; E86.9 Volume depletion, unspecified; N28.1 Cyst of kidney, acquired; K76.0 Fatty (change of) liver, not elsewhere classified; E55.9 Vitamin D deficiency, unspecified; Z93.3 Colostomy status; Z88.8 Allergy status to other drugs, medicaments and biological substances; Z88.2 Allergy status to sulfonamides; Z88.6 Allergy status to analgesic agent; Z79.899 Other long term (current) drug therapy; Z87.440 Personal history of urinary (tract) infections; Z90.49 Acquired absence of other specified parts of digestive tract; Z98.891 History of uterine scar from previous surgery; Z90.710 Acquired absence of both cervix and uterus; Z90.89 Acquired absence of other organs; Z87.891 Personal history of nicotine dependence; Z82.49 Family history of ischemic heart disease and other diseases of the circulatory system; Z86.73 Personal history of transient ischemic attack (TIA), and cerebral infarction without residual deficits; Z68.30 Body mass index [BMI] 30.0-30.9, adult

== ENCOUNTER 2019-01-06 08:54 | Emergency (ER) | payer MEDICARE ==
[~2019-01-06] VITALS: Ht 167.6 cm; Wt 81.6 kg
[2019-01-06 09:03] VITALS: BP 178/78
== END 2019-01-06 11:13 | disposition home or self-care (01) ==
LOC: ED 08:54
DX: M79.604 Pain in right leg (principal); I10 Essential (primary) hypertension; E78.5 Hyperlipidemia, unspecified; Z86.73 Personal history of transient ischemic attack (TIA), and cerebral infarction without residual deficits; Z86.718 Personal history of other venous thrombosis and embolism; Z88.1 Allergy status to other antibiotic agents; Z88.2 Allergy status to sulfonamides; Z88.8 Allergy status to other drugs, medicaments and biological substances; Z88.6 Allergy status to analgesic agent; Z88.5 Allergy status to narcotic agent; Z79.899 Other long term (current) drug therapy; Z79.82 Long term (current) use of aspirin; Z90.710 Acquired absence of both cervix and uterus; Z90.49 Acquired absence of other specified parts of digestive tract; Z87.891 Personal history of nicotine dependence; Z93.3 Colostomy status

== ENCOUNTER → 2019-01-27 | Outpatient (CLI) | payer MEDICARE ==
[~2019-01-27] MED LIST changes: +NITROFURANTOIN100 M9 PO; +NYSTOP60 GM T
--- NOTE | 2019-01-27 09:30 | NUR ---
PATIENT PRESENTS TO THE OUTPATIENT AREA FOR MEDIPORT FLUSH. AREA PREPPED AND NONCORING NEEDLE INSTILLED. PATIENT TOLERATED WELL. PROMPTED BLOOD RETURN AND FLUSHED PER PROTOCOL. TOLERATED WELL.
== END | disposition home or self-care (01) ==
LOC: MEDIPORT 09:10
DX: Z45.2 Encounter for adjustment and management of vascular access device (principal); M54.2 Cervicalgia; J44.9 Chronic obstructive pulmonary disease, unspecified

== ENCOUNTER 2019-02-07 16:56 | Inpatient (IN) | payer MEDICARE ==
[~2019-02-07] VITALS: Ht 165.1 cm; Wt 87.6 kg
[~2019-02-07 16:56] MED LIST changes: -NITROFURANTOIN100 M9 PO; -NYSTOP60 GM T
[2019-02-07 16:59] VITALS: BP 148/68
--- NOTE | 2019-02-07 18:00 | NUR ---
pt refused lab draw has port wanted it accessed
--- NOTE | 2019-02-07 18:17 | NUR ---
port accessed but unable to get blood lab in to attempt lab draw
[2019-02-07 18:28] LABS: BASO % 0.4 % (0.0-1.0); EOS # 0.4 10*3/uL (0.0-0.4); EOS % 4.4 % (1.0-4.0); HEMATOCRIT 41.2 % (37.0-47.0); HEMOGLOBIN 13.1 g/dl (12.0-16.0); LYMPH # 2.6 10*3/uL (1.3-4.4); MEAN CORPUSCULAR HGB 30.5 pg (27.0-31.0); MEAN CORPUSCULAR HGB CONC 31.8 g/dl (33.0-37.0); MEAN PLATELET VOLUME 9.2 fl (9.6-12.3); NEUT # 5.2 10*3/uL (2.3-7.9); NEUT % 55.9 % (47.0-73.0); PLATELET COUNT AUTOMATED 247 10*3/uL (130-400); RED BLOOD COUNT 4.29 10*6/uL (4.10-5.10); RED CELL DISTRI WIDTH 13.6 % (0-14.5); WHITE BLOOD COUNT 9.4 10*3/uL (4.8-10.8)
[2019-02-07 18:45] LABS: ALBUMIN 2.9 gm/dl (3.1-4.5); ALKALINE PHOSPHATASE 127 U/L (45-117); BUN 15 mg/dl (7-24); CHLORIDE 106 mmol/L (98-107); CREATININE 1.03 mg/dL (0.55-1.02); POTASSIUM 3.9 mmol/L (3.5-5.1); SGOT/AST 12 IU/L (3-35); SGPT/ALT 14 U/L (12-78); SODIUM 138 mmol/L (136-145); TOTAL PROTEIN 7.4 gm/dL (6.4-8.2)
[2019-02-07 21:40] VITALS: BP 172/80
--- NOTE | 2019-02-07 21:40 | NUR ---
A 73, admitted to 5E, under the services of Dr. TINO OCAMPO,[facility] with a diagnosis of INABILITY TO AMBULATE DUE TO KNEE PAIN. GENERALIZED WEAKNESS. Chief complaint is PAIN. Patient arrived via bed from ER. Initial assessment completed. Vital signs taken and recorded. DR. THOMAS notified of admission to the unit. Orders received. See assessment for past medical history, medications and allergies. Patient and/or family oriented to unit. [address] visitation policy reviewed. Clothing/patient valuable form completed. NO WOUNDS ON ASSESSMENT. PT VACCINATED THIS FLU SEASON. BENJAMIN,JYOTI
--- NOTE | 2019-02-07 22:22 | NUR ---
DR THOMAS NOTIFIED OF PT ARRIVAL TO FLOOR & COMPLETION OF MED REC. AWAITING ORDERS.
--- NOTE | 2019-02-07 22:23 | NUR ---
DR THOMAS AWARE OF PT C/O 10/10 PAIN IN LEGS,KNEES,CALVES, AND BACK. AWAITING ORDERS.
--- NOTE | 2019-02-07 22:56 | NUR ---
DR DELCID IN TO SEE PT.
--- NOTE | 2019-02-07 22:56 | NUR ---
SPOKE WITH DR DELCID REGARDING NIGHT MEDICATIONS. STATES I CAN OVERRIDE THE ORDER TO ADMINISTERED NIGHT MEDICATIONS NOW.
--- NOTE | 2019-02-07 23:37 | NUR ---
PRN ZOFRAN AND AMBIEN ADMINISTERED PRESCRIBED.
[2019-02-08] VITALS: BP 136/60; BP 192/68
--- NOTE | 2019-02-08 00:09 | NUR ---
DEMEROL ADMINISTERED PRESCRIBED FOR PT C/O 01/11 BACK PAIN. WILL CONTINUE TO MONITOR AND REASSESS. NO OTHER COMPLAINTS AT THIS TIME.
--- NOTE | 2019-02-08 01:30 | NUR ---
PT STATES THE DEMEROL WAS EFFECTIVE. WILL CONTINUE TO MONITOR.
--- NOTE | 2019-02-08 04:14 | NUR ---
PT TEARFUL STATING SHE "IS IN SO MUCH PAIN". STATES THE PAIN IS A 9/10 ON THE PAIN SCALE AND IS IN HER LEGS, BACK, AND KNEES. PT UP TO THE BATHROOM WITH ASSISTANCE AND IS AMBULATING WITHOUT GREAT DIFFICULTY. PT MADE AWARE THAT PERCOCET IS ONLY PRESCRIBED BID, BUT SHE WANTED THE FIRST DOSE NOW. NO OTHER COMPLAINTS AT THIS TIME. CALL LIGHT IN REACH. WILL CONTINUE TO MONITOR AND REASSESS IN AN HOUR.
[2019-02-08 07:33] LABS: BASO % 0.5 % (0.0-1.0); EOS # 0.4 10*3/uL (0.0-0.4); EOS % 4.9 % (1.0-4.0); HEMATOCRIT 38.6 % (37.0-47.0); HEMOGLOBIN 12.3 g/dl (12.0-16.0); LYMPH % 24.6 % (27.0-41.0); MEAN CELL VOLUME 95.5 fl (81.0-99.0); MEAN CORPUSCULAR HGB 30.4 pg (27.0-31.0); MEAN CORPUSCULAR HGB CONC 31.9 g/dl (33.0-37.0); MEAN PLATELET VOLUME 9.7 fl (9.6-12.3); MONO # 0.8 10*3/uL (0.1-1.0); MONO % 10.2 % (3.0-9.0); NEUT # 4.8 10*3/uL (2.3-7.9); NEUT % 59.6 % (47.0-73.0); PLATELET COUNT AUTOMATED 237 10*3/uL (130-400); RED BLOOD COUNT 4.04 10*6/uL (4.10-5.10); RED CELL DISTRI WIDTH 13.6 % (0-14.5); WHITE BLOOD COUNT 8.1 10*3/uL (4.8-10.8)
[2019-02-08 07:54] LABS: ALBUMIN 2.7 gm/dl (3.1-4.5); ALKALINE PHOSPHATASE 100 U/L (45-117); BUN 11 mg/dl (7-24); CHLORIDE 105 mmol/L (98-107); CREATININE 0.91 mg/dL (0.55-1.02); FREE T4 0.88 ng/dl (0.76-1.46); PHOSPHOROUS 3.4 mg/dL (2.5-4.9); POTASSIUM 3.7 mmol/L (3.5-5.1); SGOT/AST 14 IU/L (3-35); SGPT/ALT 15 U/L (12-78); SODIUM 139 mmol/L (136-145); TOTAL PROTEIN 6.9 gm/dL (6.4-8.2)
[2019-02-08 08:00] VITALS: BP 153/71
--- NOTE | 2019-02-08 11:00 | NUR ---
Nursing screen completed and Occupational Therapy referral received. Thank you. Katherine Victor OTR/L
--- NOTE | 2019-02-08 11:03 | NUR ---
DR. JIMÉNEZ HERE TO SEE PATIENT
--- NOTE | 2019-02-08 11:18 | NUR ---
Occupational Therapy evaluation offered this date but patient declines OT stating that she did not think she needed it. Discharge OT referral per patient's request. Thank you. Katherine Victor OTR/l
--- NOTE | 2019-02-08 11:52 | NUR ---
DR. JIMENEZ'S OFFICE NOTIFIED OF CONSULT
[2019-02-08 12:00] VITALS: BP 170/69
--- NOTE | 2019-02-08 12:55 | NUR ---
Facility Assistant in to talk to patient. Patient states lives at HOME with . There are SEVERAL steps in the home. Physician: TINO Pharmacy: [facility] [place] [facility] services: NONE Patient's level of ADLs: INDEPENDENT Patient has working utilities: YES DME: [facility] Follow-up physician's appointment after d/c: PREFERS TO MAKE OWN APPOINTMENT AFTER DISCHARGE Does patient want to access PORTAL?: NO Discharge plan PT LIVES AT HOME WITH HER AND IS INDEPENDENT IN HER CARE. DENIES SHE WILL HAVE ANY NEEDS ON DISCHARGE. WILL RETURN HOME WHEN MEDICALLY STABLE. WILL CONTINUE TO FOLLOW. PT STATES SHE WILL HAVE A RIDE.. KIMBERLYN HERRON
--- NOTE | 2019-02-08 13:48 | NUR ---
PERCOCET GIVEN FOR PAIN TO RT KNEE RATED 10/10. NO OUTWARD SIGNS OF PAIN NOTED. SITTING IN BED WITH LEGS CROSSED. CALL LIGHT IN REACH. WILL MONITOR.
[2019-02-08 16:00] VITALS: BP 103/64
--- NOTE | 2019-02-08 18:47 | NUR ---
REQUESTING PAIN PILL. INFORMED PT THAT SHE HAS ALREADY HAD IT TWICE TODAY AND THIS WOULD BE THE LAST DOSE ON ORDER TODAY. SAID IT WAS OK BECAUSE SHE WILL GET HER SOMA AND AMBIEN LATER TONIGHT. SEE MAR.
[2019-02-08 20:00] VITALS: BP 141/75
[2019-02-09] VITALS: BP 111/56
--- NOTE | 2019-02-09 01:18 | NUR ---
24 HR chart check completed.
--- NOTE | 2019-02-09 04:11 | NUR ---
PERCOCET GIVEN PER ORDER FOR KNEE PAIN AND BACK PAIN RATED "9" OUT OF 10 PER PT. SEE MAR.
--- NOTE | 2019-02-09 05:10 | NUR ---
PERCOCET EFFECTIVE FOR PAIN IN KNEES AND BACK.
[2019-02-09 06:24] LABS: BASO % 0.4 % (0.0-1.0); EOS # 0.4 10*3/uL (0.0-0.4); EOS % 5.6 % (1.0-4.0); HEMATOCRIT 38.5 % (37.0-47.0); HEMOGLOBIN 11.9 g/dl (12.0-16.0); LYMPH # 1.8 10*3/uL (1.3-4.4); MEAN CORPUSCULAR HGB CONC 30.9 g/dl (33.0-37.0); MEAN PLATELET VOLUME 10.2 fl (9.6-12.3); MONO # 0.8 10*3/uL (0.1-1.0); MONO % 11.7 % (3.0-9.0); NEUT % 56.9 % (47.0-73.0); PLATELET COUNT AUTOMATED 231 10*3/uL (130-400); RED BLOOD COUNT 3.97 10*6/uL (4.10-5.10); RED CELL DISTRI WIDTH 13.6 % (0-14.5); WHITE BLOOD COUNT 7.1 10*3/uL (4.8-10.8)
[2019-02-09 06:41] LABS: BUN 11 mg/dl (7-24); CHLORIDE 107 mmol/L (98-107); CREATININE 0.98 mg/dL (0.55-1.02); POTASSIUM 3.7 mmol/L (3.5-5.1); SODIUM 139 mmol/L (136-145)
[2019-02-09 08:00] VITALS: BP 150/77
--- NOTE | 2019-02-09 11:16 | NUR ---
PATIENT MEDICATED WITH PO PERCOCET PER ORDER FOR COMPLAINTS OF BACK PAIN 12/11; WILL MONITOR FOR EFFECTIVENESS.
[2019-02-09 12:00] VITALS: BP 145/65
--- NOTE | 2019-02-09 12:18 | NUR ---
PT STATES SHE WANTS TO RETURN HOME ON DISCHARGE. DENIES SHE WILL HAVE ANY NEEDS AT THIS TIME. WILL CONTINUE TO FOLLOW.
--- NOTE | 2019-02-09 12:30 | NUR ---
PER PATIENT, PAIN MED HAS BEEN SOMEWHAT EFFECTIVE.
[2019-02-09 16:00] VITALS: BP 160/90
[2019-02-09 20:00] VITALS: BP 154/74
--- NOTE | 2019-02-09 21:44 | NUR ---
AMBIEN GIVEN PER ORDER FOR INSOMNIA. SEE MAR.
--- NOTE | 2019-02-09 23:29 | NUR ---
C/O NAUSEA, ZOFRAN GIVEN PER ORDER. SEE MAR.
[2019-02-10] VITALS: BP 154/69
--- NOTE | 2019-02-10 01:53 | NUR ---
24 HR chart check completed.
--- NOTE | 2019-02-10 02:54 | NUR ---
AWAKE AND WANTING SOMETHING FOR PAIN. PERCOCET TO BE GIVEN FOR BILAT.KNEE PAIN AND BACK PAIN.
--- NOTE | 2019-02-10 02:59 | NUR ---
PERCOCET GIVEN PER ORDER FOR PAIN RATED "8/10" SEE MAR.
[2019-02-10] MEDS ORDERED: NITROFURANTOIN100 M9 PO (06:37)
[2019-02-10 08:00] VITALS: BP 152/68
[2019-02-10 08:43] LABS: BILIRUBIN NEGATIVE (NEGATIVE); BLOOD NEGATIVE (NEGATIVE); CLARITY CLEAR (CLEAR); COLOR YELLOW (YELLOW); GLUCOSE NEGATIVE (NEGATIVE); KETONE NEGATIVE (NEGATIVE); LEUKO ESTERASE TRACE (NEGATIVE); NITRITE NEGATIVE (NEGATIVE); UROBILINOGEN 0.2 E.U./dl (0.2-1.0)
--- NOTE | 2019-02-10 09:03 | NUR ---
PHYSICAL THERAPY Physical therapy order received. Pt is independent with all ADLs and planning to follow up with outpatient physical therapy upon discharge. Reports no needs at this time. Pt will be Discharged from PT services. Thank you Bethany Kelley, PT, DPT
--- NOTE | 2019-02-10 10:22 | NUR ---
PATIENT COMPLAINING OF PAIN TO BACK AND LEGS AT THIS TIME 11/10 AND REQUESTING PAIN MEDICATION. MEDICATED WITH PERCOCET PER ORDER. WILL MONITOR FOR EFFECTIVENESS.
[2019-02-10 10:37] LABS: BACTERIA TRACE
--- NOTE | 2019-02-10 11:40 | NUR ---
PER PATIENT, PAIN MEDICATION HAS BEEN EFFECTIVE. NO FURTHER COMPLAINTS AT THIS TIME. CALL LIGHT IN REACH
[2019-02-10 12:00] VITALS: BP 132/53; BP 152/68
--- NOTE | 2019-02-10 14:58 | NUR ---
TALKED WITH PT ABOUT PHYSICAL THERAPY AFTER DISCHARGE. STATES SHE WANTS TO GO TO THE FOR OUTPT THERAPY.
[2019-02-10 16:00] VITALS: BP 154/62
[2019-02-10 20:00] VITALS: BP 153/65
--- NOTE | 2019-02-10 21:42 | NUR ---
AMBIEN GIVEN PER ORDER FOR INSOMNIA.
--- NOTE | 2019-02-10 22:30 | NUR ---
ROSALIO EFFECTIVE PT. SLEEPING.
--- NOTE | 2019-02-10 22:50 | NUR ---
ZOFRAN GIVEN PER ORDER FOR NAUSEA. SEE MAR.
[2019-02-11] VITALS: BP 153/71
--- NOTE | 2019-02-11 03:37 | NUR ---
PERCOCET GIVEN PER ORDER FOR BACK AND BILAT KNEE PAIN RATED "5". SEE MAR
[2019-02-11 08:00] VITALS: BP 148/80
[2019-02-11] MEDS ORDERED: NITROFURANTOIN100 M9 PO (10:44)
[2019-02-11] MEDS ORDERED: NYSTOP60 GM T (10:46)
--- NOTE | 2019-02-11 11:30 | NUR ---
Discharge instructions reviewed with patient/family. Patient receptive and verbalizes understanding. Follow-up care arranged. Written instructions given to patient/family. DAVIE VALDES
== END 2019-02-11 11:30 | disposition home or self-care (01) | DRG 551 ==
LOC: ED 16:56 → EDHOLD 19:28 → ED 19:28 → 5E 20:37 → EDHOLD 20:37 → 5E 20:40
PROVIDERS: Family Medicine; Internal Medicine; Nurse Practitioner Family; ADMIT Internal Medicine
PROC: 3E0U3NZ Introduction of Analgesics, Hypnotics, Sedatives into Joints, Percutaneous Approach (ICD-10-PCS; principal; 2019-02-09)
DX: M51.36 Other intervertebral disc degeneration, lumbar region (principal); N17.0 Acute kidney failure with tubular necrosis; E43 Unspecified severe protein-calorie malnutrition; I13.0 Hypertensive heart and chronic kidney disease with heart failure and stage 1 through stage 4 chronic kidney disease, or unspecified chronic kidney disease; I50.32 Chronic diastolic (congestive) heart failure; B37.89 Other sites of candidiasis; N39.0 Urinary tract infection, site not specified; M17.0 Bilateral primary osteoarthritis of knee; R26.2 Difficulty in walking, not elsewhere classified; I48.91 Unspecified atrial fibrillation; F41.9 Anxiety disorder, unspecified; E11.22 Type 2 diabetes mellitus with diabetic chronic kidney disease; N18.3 Chronic kidney disease, stage 3 (moderate); K21.9 Gastro-esophageal reflux disease without esophagitis; E83.51 Hypocalcemia; E11.42 Type 2 diabetes mellitus with diabetic polyneuropathy; J44.9 Chronic obstructive pulmonary disease, unspecified; R74.0 Nonspecific elevation of levels of transaminase and lactic acid dehydrogenase [LDH]; E11.65 Type 2 diabetes mellitus with hyperglycemia; R30.0 Dysuria; E11.43 Type 2 diabetes mellitus with diabetic autonomic (poly)neuropathy; K44.9 Diaphragmatic hernia without obstruction or gangrene; G89.29 Other chronic pain; G47.00 Insomnia, unspecified; M54.9 Dorsalgia, unspecified; E66.9 Obesity, unspecified; Z88.2 Allergy status to sulfonamides; Z88.1 Allergy status to other antibiotic agents; Z88.5 Allergy status to narcotic agent; Z88.8 Allergy status to other drugs, medicaments and biological substances; Z79.82 Long term (current) use of aspirin; Z79.899 Other long term (current) drug therapy; Z90.49 Acquired absence of other specified parts of digestive tract; Z98.891 History of uterine scar from previous surgery; Z90.710 Acquired absence of both cervix and uterus; Z87.891 Personal history of nicotine dependence; Z82.49 Family history of ischemic heart disease and other diseases of the circulatory system; Z93.3 Colostomy status

== ENCOUNTER → 2019-02-25 | Outpatient (CLI) | payer MEDICARE ==
[~2019-02-25] MED LIST changes: +NITROFURANTOIN100 M9 PO; +NYSTOP60 GM T; +ZITHROMAX250 MG PO
== END | disposition home or self-care (01) ==
LOC: MEDIPORT 02-24 09:30
DX: Z45.2 Encounter for adjustment and management of vascular access device (principal)

== ENCOUNTER 2019-03-12 16:55 | Emergency (ER) | payer MEDICARE ==
[~2019-03-12] VITALS: Ht 165.1 cm; Wt 79.4 kg
[~2019-03-12 16:55] MED LIST changes: -ZITHROMAX250 MG PO
[2019-03-12 16:56] VITALS: BP 126/62
== END 2019-03-12 19:00 | disposition home or self-care (01) ==
LOC: ED 16:55
DX: S62.647A Nondisplaced fracture of proximal phalanx of left little finger, initial encounter for closed fracture (principal); S00.212A Abrasion of left eyelid and periocular area, initial encounter; I10 Essential (primary) hypertension; K21.9 Gastro-esophageal reflux disease without esophagitis; J44.9 Chronic obstructive pulmonary disease, unspecified; Z88.1 Allergy status to other antibiotic agents; Z88.2 Allergy status to sulfonamides; Z88.6 Allergy status to analgesic agent; Z88.8 Allergy status to other drugs, medicaments and biological substances; Z79.899 Other long term (current) drug therapy; Z79.82 Long term (current) use of aspirin; Z87.891 Personal history of nicotine dependence; Z86.718 Personal history of other venous thrombosis and embolism; W18.39XA Other fall on same level, initial encounter; W22.03XA Walked into furniture, initial encounter; Y93.89 Activity, other specified; Y92.89 Other specified places as the place of occurrence of the external cause; Y99.8 Other external cause status

== ENCOUNTER → 2019-03-28 | Outpatient (CLI) | payer MEDICARE ==
[~2019-03-28] MED LIST changes: +ZITHROMAX250 MG PO
--- NOTE | 2019-03-28 10:40 | NUR ---
PT HERE FOR MEDIPORT FLUSH ORDERED. [facility] MEDIPORT ACCESSED WITH NONCORING NEEDLE WITHOUT DIFFUCULTY. PROMPT BLOOD RETURN NOTED. HEPARIN FLUSH PER PP. NEEDLE REMOVED. DRESSING APPLIED. TOLERATED WELL. NO BLEEDING OR HEMATOMA NOTED. FREDI RODRÍGUEZ RN
== END | disposition home or self-care (01) ==
LOC: MEDIPORT 10:23
DX: Z45.2 Encounter for adjustment and management of vascular access device (principal)

== ENCOUNTER 2019-04-06 11:16 | Inpatient (IN) | payer MEDICARE ==
[~2019-04-06] VITALS: Ht 167.6 cm; Wt 86.0 kg
[~2019-04-06 11:16] MED LIST changes: -ZITHROMAX250 MG PO
[2019-04-06 11:20] VITALS: BP 188/97
[2019-04-06 11:58] LABS: BASO % 0.4 % (0.0-1.0); EOS # 0.5 10*3/uL (0.0-0.4); EOS % 5.1 % (1.0-4.0); HEMATOCRIT 42.1 % (37.0-47.0); HEMOGLOBIN 13.3 g/dl (12.0-16.0); LYMPH # 2.9 10*3/uL (1.3-4.4); LYMPH % 30.1 % (27.0-41.0); MEAN CELL VOLUME 98.6 fl (81.0-99.0); MEAN CORPUSCULAR HGB 31.1 pg (27.0-31.0); MEAN CORPUSCULAR HGB CONC 31.6 g/dl (33.0-37.0); MONO # 0.9 10*3/uL (0.1-1.0); MONO % 9.1 % (3.0-9.0); NEUT # 5.3 10*3/uL (2.3-7.9); NEUT % 55.1 % (47.0-73.0); PLATELET COUNT AUTOMATED 236 10*3/uL (130-400); RED BLOOD COUNT 4.27 10*6/uL (4.10-5.10); RED CELL DISTRI WIDTH 13.1 % (0-14.5); WHITE BLOOD COUNT 9.7 10*3/uL (4.8-10.8)
[2019-04-06 12:07] LABS: BILIRUBIN NEGATIVE (NEGATIVE); BLOOD NEGATIVE (NEGATIVE); CLARITY CLEAR (CLEAR); COLOR YELLOW (YELLOW); GLUCOSE NEGATIVE (NEGATIVE); KETONE NEGATIVE (NEGATIVE); LEUKO ESTERASE 1+ (NEGATIVE); NITRITE NEGATIVE (NEGATIVE); UROBILINOGEN 0.2 E.U./dl (0.2-1.0)
[2019-04-06 12:16] LABS: ALBUMIN 3.3 gm/dl (3.1-4.5); ALKALINE PHOSPHATASE 100 U/L (45-117); BUN 14 mg/dl (7-24); CHLORIDE 108 mmol/L (98-107); CREATININE 1.08 mg/dL (0.55-1.02); LIPASE 155 U/L (73-393); SGOT/AST 27 IU/L (3-35); SGPT/ALT 16 U/L (12-78); SODIUM 140 mmol/L (136-145); TOTAL PROTEIN 7.7 gm/dL (6.4-8.2)
[2019-04-06 12:18] LABS: TROPONIN I < 0.015 ng/ml (<0.045)
[2019-04-06 12:19] LABS: ACT PARTIAL THROMBO TIME 26.8 SECONDS (20.0-32.1); INTERNATIONAL NORM RATIO 0.9 (2.0-3.5)
[2019-04-06 12:21] LABS: BACTERIA 1+
[2019-04-06 12:22] LABS: WBC 16-20 wbc/hpf (0-5)
--- NOTE | 2019-04-06 12:47 | NUR ---
MILD PAIN RELIEF WITH MEDS,FAMILY @ BEDSIDE AND CALL LIGHT WITHIN REACH.
[2019-04-06 14:22] VITALS: BP 173/92
[2019-04-06 14:30] VITALS: BP 149/66
--- NOTE | 2019-04-06 14:53 | NUR ---
Time: 1400 A 74 year old FEMALE admitted to 5E under services of DR. TINO OCAMPO,[facility]. Pt. arrived via bed from ER. Chief complaint: UTI, DEHYDRATION. PATIENT ORIENTED TO THE FLOOR 5E, CALL LIGHT REVIEWED AND DEMONSTRATED DR. COY NOTIFIED THAT MED REC IS UP-TO-DATE. KAYA RUBIN
[2019-04-06 16:00] VITALS: BP 152/82
[2019-04-06 20:00] VITALS: BP 148/64
[2019-04-07] VITALS: BP 141/75
--- NOTE | 2019-04-07 02:40 | NUR ---
CALLED (COVERING FOR ) ABOUT PT HAVING PAIN AN UNABLE TO WAIT UNTIL NEXT DUE TIME. DR. COPELAND STATED IT WAS OKAY TO GIVE PERCOCET EARLY.
[2019-04-07 06:13] LABS: BASO % 0.3 % (0.0-1.0); EOS # 0.5 10*3/uL (0.0-0.4); EOS % 4.8 % (1.0-4.0); HEMATOCRIT 38.2 % (37.0-47.0); HEMOGLOBIN 12.2 g/dl (12.0-16.0); LYMPH # 2.1 10*3/uL (1.3-4.4); LYMPH % 21.3 % (27.0-41.0); MEAN CELL VOLUME 96.5 fl (81.0-99.0); MEAN CORPUSCULAR HGB 30.8 pg (27.0-31.0); MEAN CORPUSCULAR HGB CONC 31.9 g/dl (33.0-37.0); MEAN PLATELET VOLUME 10.1 fl (9.6-12.3); MONO # 0.7 10*3/uL (0.1-1.0); MONO % 7.1 % (3.0-9.0); NEUT # 6.5 10*3/uL (2.3-7.9); NEUT % 66.2 % (47.0-73.0); PLATELET COUNT AUTOMATED 235 10*3/uL (130-400); RED BLOOD COUNT 3.96 10*6/uL (4.10-5.10); RED CELL DISTRI WIDTH 12.9 % (0-14.5); WHITE BLOOD COUNT 9.8 10*3/uL (4.8-10.8)
[2019-04-07 06:34] LABS: CHLORIDE 113 mmol/L (98-107); HDL CHOLESTEROL 31 mg/dl (40-60); SODIUM 144 mmol/L (136-145)
[2019-04-07 06:44] LABS: ALBUMIN 2.8 gm/dl (3.1-4.5); ALKALINE PHOSPHATASE 84 U/L (45-117); BUN 10 mg/dl (7-24); CHOLESTEROL 137 mg/dL (<200); CREATININE 0.86 mg/dL (0.55-1.02); FREE T4 0.85 ng/dl (0.76-1.46); LDL CHOLESTEROL 62 mg/dL (9-159); PHOSPHOROUS 3.4 mg/dL (2.5-4.9); SGOT/AST 15 IU/L (3-35); SGPT/ALT 15 U/L (12-78); TOTAL PROTEIN 6.7 gm/dL (6.4-8.2); TRIGLYCERIDES 220 mg/dl (<150); VLDL CHOLESTEROL 44 mg/dL (6-40)
[2019-04-07 06:58] LABS: ACT PARTIAL THROMBO TIME 26.2 SECONDS (20.0-32.1); INTERNATIONAL NORM RATIO 0.9 (2.0-3.5)
[2019-04-07 08:00] VITALS: BP 139/59
--- NOTE | 2019-04-07 09:41 | NUR ---
PT COMPLAIN OF DIZZINESS AND FAST HEART RATE, HEART RATE REGULAR AND 110 AT THIS TIME. PT TAKES METOPROLOL HOME MEDICATION, GIVEN AT THIS TIME. PT STATES PAIN, SCHEDULED SOMA GIVEN. IF FLUIDS INFUSING RIGHT CHEST JOSELITO, SITE WNL
[2019-04-07 09:46] LABS: VITAMIN D, 25-HYDROXY 23.5 ng/mL (30-100)
--- NOTE | 2019-04-07 10:30 | NUR ---
Service Plumber in to talk to patient. Patient states lives at home with her . There are 18 steps in the home. Physician: Dr. Mario Martinez Pharmacy: [facility]: has had in the past but not currently Patient's level of ADLs: INDEPENDENT Patient has working utilities: yes DME: none Follow-up physician's appointment after d/c: she prefers to make her own follow up appt after discharge Does patient want to access PORTAL?: no Discharge plan discussed with patient. She lives at home with her . She is independent in her ADLs and ambulation. Discussed home health care services and she denies any home needs at this time. When medically stable she will be discharged to home. Her will provide transportation on discharge. Rocephin and zithromax for pneumonitis, IVFs, +UTI, -UC, BC pending. ÁNGEL WILLIS
[2019-04-07 12:00] VITALS: BP 158/82
--- NOTE | 2019-04-07 12:37 | NUR ---
PT SLEEPING, NO DISTRESS NOTED. WILL CONTINUE TO MONITOR
--- NOTE | 2019-04-07 15:36 | NUR ---
PT COMPLAIN OF ABDOMINAL PAIN 01/11, PERCOCET GIVEN. WILL MONITOR FOR EFFECTIVENESS
[2019-04-07 16:00] VITALS: BP 150/75
[2019-04-07 20:00] VITALS: BP 130/70
--- NOTE | 2019-04-07 21:33 | NUR ---
ROSALIO GIVEN PER PT REQUEST FOR INSOMNIA. WILL CHECK EFFECTIVENESS. CALL LIGHT WITHIN REACH.
[2019-04-08] VITALS: BP 145/59
--- NOTE | 2019-04-08 02:36 | NUR ---
PT SLEEPING IN BED. RESPIRATIONS EASY, NONLABORED. NO SIGNS OF DISTRESS NOTED. CALL LIGHT WITHIN REACH.
--- NOTE | 2019-04-08 04:33 | NUR ---
PT CO ABDOMAINAL PAIN AND LOWER BACK PAIN RATED 10/10. WILL CHECK EFFECTIVENESS. CALL LIGHT IN REACH.
--- NOTE | 2019-04-08 05:25 | NUR ---
PT SLEEPING. RESPIRATIONS EASY, NONLABORED. NO SIGNS OF DISTRESS NOTED. PAIN MED SEEMS TO BE EFFECTIVE.
[2019-04-08 06:34] LABS: BASO % 0.4 % (0.0-1.0); EOS # 0.4 10*3/uL (0.0-0.4); EOS % 4.5 % (1.0-4.0); HEMATOCRIT 37.1 % (37.0-47.0); HEMOGLOBIN 11.8 g/dl (12.0-16.0); LYMPH % 21.7 % (27.0-41.0); MEAN CELL VOLUME 97.4 fl (81.0-99.0); MEAN CORPUSCULAR HGB CONC 31.8 g/dl (33.0-37.0); MEAN PLATELET VOLUME 10.5 fl (9.6-12.3); MONO # 0.8 10*3/uL (0.1-1.0); MONO % 8.9 % (3.0-9.0); NEUT # 5.9 10*3/uL (2.3-7.9); NEUT % 64.2 % (47.0-73.0); PLATELET COUNT AUTOMATED 220 10*3/uL (130-400); RED BLOOD COUNT 3.81 10*6/uL (4.10-5.10); WHITE BLOOD COUNT 9.1 10*3/uL (4.8-10.8)
[2019-04-08 06:36] LABS: ALBUMIN 2.6 gm/dl (3.1-4.5); BUN 9 mg/dl (7-24); CHLORIDE 112 mmol/L (98-107); POTASSIUM 3.8 mmol/L (3.5-5.1); SODIUM 143 mmol/L (136-145)
[2019-04-08 06:39] LABS: ALKALINE PHOSPHATASE 90 U/L (45-117); CREATININE 0.81 mg/dL (0.55-1.02); SGOT/AST 13 IU/L (3-35); SGPT/ALT 13 U/L (12-78); TOTAL PROTEIN 6.4 gm/dL (6.4-8.2)
--- NOTE | 2019-04-08 07:51 | NUR ---
Shift chart check completed.
[2019-04-08 08:00] VITALS: BP 172/76
--- NOTE | 2019-04-08 09:00 | NUR ---
Concrete Craftsman in to see patient. No new needs or request at this time. She denies any home needs. When medically stable she will be discharged to home. Rocephin and zithromax for pneumonitis, IVFs, +UTI, -UC, -BC. Possible discharge today as yesterday patient needed another day per multidisciplinary discharge planning meeting.
--- NOTE | 2019-04-08 10:53 | NUR ---
PT COMPLAINING OF NAUSEA, PO PHENERGAN GIVEN. PT STATES ABDOMEN CONTINUES TO HAVE PAIN.
[2019-04-08 12:00] VITALS: BP 158/75
--- NOTE | 2019-04-08 12:47 | NUR ---
RESIDENT NOTIFIED THAT PATIENT STATES ORAL PHENERGAN INEFFECTIVE. PT DOES HAVE ORDER FOR IV ZOFRAN THAT PATIENT STATED "DOESN'T WORK", RESIDENT WANTS ZOFRAN GIVEN, NOTIFY IF INEFFECTIVE
--- NOTE | 2019-04-08 12:54 | NUR ---
PT COMPLAIN OF NAUSEA, ZOFRAN GIVEN.
--- NOTE | 2019-04-08 15:24 | NUR ---
DR. JIMÉNEZ RESIDENT AWARE THAT PATIENT REFUSED TORADOL, STATES TORADOL MAKES HER "DEATHLY ILL, VOMITING", ALSO MADE AWARE THAT PATIENT REQUESTING IV PHENERGAN AND IV DEMEROL. RESIDENT WILL DISCUSS WITH DR. JIMÉNEZ.
[2019-04-08 16:00] VITALS: BP 173/76
--- NOTE | 2019-04-08 16:33 | NUR ---
PT STATES ABDOMINAL PAIN 9/10, DILAUDID GIVEN ORDERED. WILL MONITOR FOR EFFECTIVENESS
--- NOTE | 2019-04-08 17:00 | NUR ---
PT STATES PAIN MEDICATION EFFECTIVE
[2019-04-08 20:00] VITALS: BP 174/72
--- NOTE | 2019-04-08 20:24 | NUR ---
PT CO FEELING NAUSEOUS. PT STATES "THE ZOFRAN ONLY WORKED A LITTLE BIT FOR ME EARLIER, BUT IT WORKED BETTER THAN THAT PILL THAT I TOOK, SO I WILL TRY IT." MEDICATED WITH PRN ZOFRAN ORDERED. WILL CHECK EFFECTIVENESS. CALL LIGHT WITHIN REACH.
[2019-04-08 20:30] VITALS: BP 154/72
--- NOTE | 2019-04-08 21:00 | NUR ---
PT STATES TRISTEN WAS "SOMEWHAT EFFECTIVE" DENIES NEED FOR ANYTHING ELSE AT THIS TIME. SHE STATES "NOTHING WORKS." WILL CONTINUE TO MONITOR. CALL LIGHT WITHIN REACH.
[2019-04-09] VITALS: BP 134/64
--- NOTE | 2019-04-09 01:10 | NUR ---
24 HR chart check completed.
--- NOTE | 2019-04-09 02:24 | NUR ---
Patient sleeping. Respirations relaxed and easy. Siderails up . [place] on. No signs of distress noted. HARSHAD ROE
--- NOTE | 2019-04-09 04:21 | NUR ---
PT CO LOWER BACK AND ABDOMINAL PAIN RATED 8/10. MEDICATED WITH PRN PERCOCET. WILL CHECK EFFECTIVENESS. CALL LIGHT WITHIN REACH.
--- NOTE | 2019-04-09 07:05 | NUR ---
PT REFUSING LAB WORK THIS AM. NOTIFIED PT REFUSING LAB WORK. HE SAID THAT WAS FINE.
[2019-04-09 08:00] VITALS: BP 174/72
[2019-04-09 12:00] VITALS: BP 170/86
[2019-04-09 13:02] LABS: BASO % 0.3 % (0.0-1.0); EOS # 0.4 10*3/uL (0.0-0.4); HEMATOCRIT 37.2 % (37.0-47.0); HEMOGLOBIN 11.9 g/dl (12.0-16.0); LYMPH # 2.2 10*3/uL (1.3-4.4); LYMPH % 19.7 % (27.0-41.0); MEAN CELL VOLUME 95.9 fl (81.0-99.0); MEAN CORPUSCULAR HGB 30.7 pg (27.0-31.0); MEAN PLATELET VOLUME 9.9 fl (9.6-12.3); MONO # 0.8 10*3/uL (0.1-1.0); MONO % 7.5 % (3.0-9.0); NEUT # 7.4 10*3/uL (2.3-7.9); NEUT % 68.1 % (47.0-73.0); PLATELET COUNT AUTOMATED 221 10*3/uL (130-400); RED BLOOD COUNT 3.88 10*6/uL (4.10-5.10); WHITE BLOOD COUNT 10.9 10*3/uL (4.8-10.8)
[2019-04-09 13:38] LABS: ALBUMIN 2.7 gm/dl (3.1-4.5); ALKALINE PHOSPHATASE 88 U/L (45-117); BUN 10 mg/dl (7-24); CHLORIDE 110 mmol/L (98-107); CREATININE 0.93 mg/dL (0.55-1.02); POTASSIUM 3.9 mmol/L (3.5-5.1); SGOT/AST 14 IU/L (3-35); SGPT/ALT 13 U/L (12-78); SODIUM 141 mmol/L (136-145); TOTAL PROTEIN 6.8 gm/dL (6.4-8.2)
[2019-04-09 16:09] VITALS: BP 160/80
--- NOTE | 2019-04-09 18:44 | NUR ---
PT RESTING COMFORTABLY. PAIN MEDS EFFECTIVE. PT PLEASANT AND COOPERATIVE THROUGHOUT DAY.
[2019-04-09 20:00] VITALS: BP 154/71
--- NOTE | 2019-04-09 22:37 | NUR ---
PT REFUSED LACTULOSE EARLIER AND WAS REQUESTING IT AT THIS TIME. ADMINISTERED LACTULOSE AT THIS TIME PER PT REQUEST.
[2019-04-10] VITALS: BP 159/69
--- NOTE | 2019-04-10 01:12 | NUR ---
PT REQUESTING PAIN MED FOR LOWER BACK AND ABDOMINAL PAIN RATED 8/10. MEDICATED WITH PRN PERCOCET. WILL CHECK EFFECTIVENESS. CALL LIGHT WITHIN REACH.
--- NOTE | 2019-04-10 02:11 | NUR ---
24 HR chart check completed.
--- NOTE | 2019-04-10 02:15 | NUR ---
PT STATES PAIN MED WAS EFFECTIVE. WILL ROGE. CALL LIGHT IN REACH.
--- NOTE | 2019-04-10 04:34 | NUR ---
Patient sleeping. Respirations relaxed and easy. Siderails up . [place] on. No signs of distress noted. Will monitor. Call light within reach. HARSHAD ROE
[2019-04-10 08:44] VITALS: BP 178/87
[2019-04-10 12:00] VITALS: BP 152/86
[2019-04-10] MEDS ORDERED: ZOFRAN4 MG PO (14:21)
[2019-04-10] MEDS ORDERED: ZITHROMAX250 MG PO (14:21)
--- NOTE | 2019-04-10 14:58 | NUR ---
Discharge instructions reviewed with patient/family. Patient receptive and verbalizes understanding. Follow-up care arranged. Written instructions given to patient/family. DAVIE VALDES
--- NOTE | 2019-04-11 12:38 | NUR ---
Faxed home health resumption to [facility]
== END 2019-04-10 14:58 | disposition home or self-care (01) | DRG 640 ==
LOC: ED 11:16 → EDHOLD 13:33 → 5E 13:33
PROVIDERS: Emergency Medicine; Internal Medicine; ADMIT Internal Medicine
DX: E86.0 Dehydration (principal); J18.9 Pneumonia, unspecified organism; N39.0 Urinary tract infection, site not specified; I50.30 Unspecified diastolic (congestive) heart failure; I13.0 Hypertensive heart and chronic kidney disease with heart failure and stage 1 through stage 4 chronic kidney disease, or unspecified chronic kidney disease; D72.1 Eosinophilia; E87.8 Other disorders of electrolyte and fluid balance, not elsewhere classified; E83.41 Hypermagnesemia; F41.9 Anxiety disorder, unspecified; K21.9 Gastro-esophageal reflux disease without esophagitis; J44.9 Chronic obstructive pulmonary disease, unspecified; N18.3 Chronic kidney disease, stage 3 (moderate); M54.9 Dorsalgia, unspecified; G89.29 Other chronic pain; M48.00 Spinal stenosis, site unspecified; I48.91 Unspecified atrial fibrillation; E11.22 Type 2 diabetes mellitus with diabetic chronic kidney disease; E11.65 Type 2 diabetes mellitus with hyperglycemia; E11.43 Type 2 diabetes mellitus with diabetic autonomic (poly)neuropathy; E66.9 Obesity, unspecified; Z90.49 Acquired absence of other specified parts of digestive tract; Z88.1 Allergy status to other antibiotic agents; Z88.2 Allergy status to sulfonamides; Z88.8 Allergy status to other drugs, medicaments and biological substances; Z88.5 Allergy status to narcotic agent; Z88.6 Allergy status to analgesic agent; Z87.440 Personal history of urinary (tract) infections; Z98.891 History of uterine scar from previous surgery; Z90.710 Acquired absence of both cervix and uterus; Z87.891 Personal history of nicotine dependence; Z82.49 Family history of ischemic heart disease and other diseases of the circulatory system; Z79.899 Other long term (current) drug therapy; Z79.82 Long term (current) use of aspirin; Z93.3 Colostomy status

== ENCOUNTER 2019-04-29 16:22 | Emergency (ER) | payer MEDICARE ==
[~2019-04-29] VITALS: Ht 167.6 cm; Wt 81.2 kg
[~2019-04-29 16:22] MED LIST changes: +ZITHROMAX250 MG PO
[2019-04-29 16:23] VITALS: BP 169/82
[2019-04-29 17:47] LABS: BILIRUBIN NEGATIVE (NEGATIVE); BLOOD TRACE-LYSED (NEGATIVE); CLARITY SL CLOUDY (CLEAR); COLOR YELLOW (YELLOW); GLUCOSE NEGATIVE (NEGATIVE); KETONE NEGATIVE (NEGATIVE); LEUKO ESTERASE 3+ (NEGATIVE); NITRITE NEGATIVE (NEGATIVE); PH 6.5 (5.0-9.0); SPECIFIC GRAVITY <= 1.005 (1.005-1.030); UROBILINOGEN 0.2 E.U./dl (0.2-1.0)
[2019-04-29 17:53] LABS: BACTERIA 4+; BASO % 0.4 % (0.0-1.0); EOS # 0.2 10*3/uL (0.0-0.4); EOS % 1.8 % (1.0-4.0); HEMATOCRIT 41.1 % (37.0-47.0); HEMOGLOBIN 13.4 g/dl (12.0-16.0); LYMPH # 2.8 10*3/uL (1.3-4.4); LYMPH % 25.2 % (27.0-41.0); MEAN CELL VOLUME 95.4 fl (81.0-99.0); MEAN CORPUSCULAR HGB 31.1 pg (27.0-31.0); MEAN CORPUSCULAR HGB CONC 32.6 g/dl (33.0-37.0); MONO # 0.9 10*3/uL (0.1-1.0); MONO % 8.1 % (3.0-9.0); NEUT # 7.1 10*3/uL (2.3-7.9); NEUT % 64.2 % (47.0-73.0); PLATELET COUNT AUTOMATED 258 10*3/uL (130-400); RED BLOOD COUNT 4.31 10*6/uL (4.10-5.10); WBC 21-30 wbc/hpf (0-5); WHITE BLOOD COUNT 11.1 10*3/uL (4.8-10.8)
[2019-04-29 18:09] LABS: ALBUMIN 3.7 gm/dl (3.1-4.5); ALKALINE PHOSPHATASE 101 U/L (45-117); BUN 14 mg/dl (7-24); CHLORIDE 107 mmol/L (98-107); CREATININE 1.03 mg/dL (0.55-1.02); POTASSIUM 3.6 mmol/L (3.5-5.1); SGOT/AST 19 IU/L (3-35); SGPT/ALT 21 U/L (12-78); SODIUM 140 mmol/L (136-145); TOTAL PROTEIN 8.2 gm/dL (6.4-8.2)
[2019-04-29 18:49] VITALS: BP 155/76
--- NOTE | 2019-04-29 20:25 | NUR ---
PATIENT HAS STATED THAT SHE WANTS TO LEAVE AMA. PATIENT WAS TOLD THE RISKS FOR LEAVING AMA BUT SHE DECIDED SHE WANTED TO ANYWAY.
--- NOTE | 2019-04-29 20:41 | NUR ---
PATIENT STATED SHE DID NOT WANT A MEDIPORT [facility] FOR HER MEDIPORT. PATIENT DID NOT GIVE A REASON.
== END 2019-04-29 20:43 | disposition left against medical advice (07) ==
LOC: ED 16:22 → EDHOLD 19:06 → ED 20:42
PROVIDERS: Physician Assistant
DX: N39.0 Urinary tract infection, site not specified (principal); I10 Essential (primary) hypertension; K21.9 Gastro-esophageal reflux disease without esophagitis; J44.9 Chronic obstructive pulmonary disease, unspecified; E78.00 Pure hypercholesterolemia, unspecified; Z88.1 Allergy status to other antibiotic agents; Z88.2 Allergy status to sulfonamides; Z88.8 Allergy status to other drugs, medicaments and biological substances; Z88.5 Allergy status to narcotic agent; Z88.6 Allergy status to analgesic agent; Z79.2 Long term (current) use of antibiotics; Z79.899 Other long term (current) drug therapy; Z79.82 Long term (current) use of aspirin; Z90.49 Acquired absence of other specified parts of digestive tract; Z90.710 Acquired absence of both cervix and uterus; Z87.891 Personal history of nicotine dependence; Z86.73 Personal history of transient ischemic attack (TIA), and cerebral infarction without residual deficits

== ENCOUNTER 2019-04-30 15:10 | Inpatient (IN) | payer MEDICARE ==
[~2019-04-30] VITALS: Ht 167.6 cm; Wt 81.8 kg
[2019-04-30 15:12] VITALS: BP 172/90
[2019-04-30 15:56] LABS: BASO % 0.4 % (0.0-1.0); EOS # 0.3 10*3/uL (0.0-0.4); EOS % 2.9 % (1.0-4.0); HEMATOCRIT 39.9 % (37.0-47.0); HEMOGLOBIN 12.7 g/dl (12.0-16.0); LYMPH # 2.4 10*3/uL (1.3-4.4); LYMPH % 26.8 % (27.0-41.0); MEAN CELL VOLUME 95.5 fl (81.0-99.0); MEAN CORPUSCULAR HGB 30.4 pg (27.0-31.0); MEAN CORPUSCULAR HGB CONC 31.8 g/dl (33.0-37.0); MEAN PLATELET VOLUME 9.9 fl (9.6-12.3); MONO # 0.9 10*3/uL (0.1-1.0); MONO % 9.3 % (3.0-9.0); NEUT # 5.5 10*3/uL (2.3-7.9); NEUT % 60.5 % (47.0-73.0); PLATELET COUNT AUTOMATED 263 10*3/uL (130-400); RED BLOOD COUNT 4.18 10*6/uL (4.10-5.10); RED CELL DISTRI WIDTH 12.2 % (0-14.5); WHITE BLOOD COUNT 9.1 10*3/uL (4.8-10.8)
[2019-04-30 16:13] LABS: ALBUMIN 3.4 gm/dl (3.1-4.5); ALKALINE PHOSPHATASE 94 U/L (45-117); BUN 12 mg/dl (7-24); CHLORIDE 108 mmol/L (98-107); CREATININE 0.96 mg/dL (0.55-1.02); LIPASE 87 U/L (73-393); POTASSIUM 3.7 mmol/L (3.5-5.1); SGOT/AST 13 IU/L (3-35); SGPT/ALT 17 U/L (12-78); SODIUM 140 mmol/L (136-145); TOTAL PROTEIN 7.6 gm/dL (6.4-8.2)
[2019-04-30 17:00] LABS: BILIRUBIN NEGATIVE (NEGATIVE); BLOOD NEGATIVE (NEGATIVE); CLARITY SL CLOUDY (CLEAR); COLOR YELLOW (YELLOW); GLUCOSE NEGATIVE (NEGATIVE); KETONE NEGATIVE (NEGATIVE); LEUKO ESTERASE 1+ (NEGATIVE); NITRITE NEGATIVE (NEGATIVE); PH 6.5 (5.0-9.0); UROBILINOGEN 0.2 E.U./dl (0.2-1.0)
[2019-04-30 17:10] LABS: BACTERIA 2+; RBC 0-2 rbc/hpf (0-2)
--- NOTE | 2019-04-30 17:37 | NUR ---
PT REFUSED PERCOCET PO FOR PAIN REQUESTED IV DEMEROL POKE WITH PRICE ACCURACY SUPERVISOR JOSE PT REQUEST DENIED PT DEMANDED ROOM IN 15 MIN I ADVISED PT THAT SHE WAS NOT EVEN ADMITTED TO FLOOR OF YET AND I WOULD KEEP HER ADVISED OF ANY UPDATES
--- NOTE | 2019-04-30 17:47 | NUR ---
PT GIVEN PILLOW ADJUSTED BED AND TURNED DOWN LIGHT PER PT REQUEST BED IN LOWEST POSITION BED RAILS UP X 2 CALL LIGHT IN REACH
--- NOTE | 2019-04-30 18:09 | NUR ---
PT REQUEST TO USE BEDSIDE COMMODE BEFORE IV ANTIBIOTIC ADMINISTRATION PT PROVIDED BEDSIDE COMMODE
[2019-04-30 18:34] VITALS: BP 184/86
--- NOTE | 2019-04-30 19:00 | NUR ---
NURSE TO NURSE REPORT GIVEN TO THIS RN.PT AWAITING ROOM ASSIGNMENT TO UNIT.
--- NOTE | 2019-04-30 19:25 | NUR ---
THIS RN CONTACTED FLOOR AND REQUEST 15 MINUTES BEFORE TRANSFER PT TO FLOOR.PT UPDATED ON CURRENT PLAN OF CARE.
[2019-04-30 20:00] VITALS: BP 181/94
--- NOTE | 2019-04-30 20:05 | NUR ---
Time: 1999 A 74 year old FEMALE admitted to 5E under services of DR. TINO OCAMPO,[facility]. Pt. arrived via bed from ER. Chief complaint: UTI, GENERALIZED PAIN. DAVIE VALDES
--- NOTE | 2019-04-30 20:16 | NUR ---
NOTIFIED OF ADMISSION, NEW ORDERS RECIEVED AND VERIFIED BACK
--- NOTE | 2019-05-01 07:30 | NUR ---
PT RESTING IN BED. VOICES NO CONCERNS AT THIS TIME. NO S/S OF DISTRESS NOTED. RESPS EASY AND NON LABORED. REENFORCED EDUCATION REGARDING COLOSOMY. CALL LIGHT WITHIN REACH
[2019-05-01 08:00] VITALS: BP 143/56
--- NOTE | 2019-05-01 10:05 | NUR ---
PT COMPLAINS OF 6/10 CHRONIC "ALL OVER" PAIN. MEDICATED PER ORDER. WILL MONITOR FOR RELIEF. VOICES NO OTHER CONCERNS AT THIS TIME. RESTING IN BED. CALL LIGHT WITHIN REACH.
--- NOTE | 2019-05-01 10:43 | NUR ---
Shift chart check completed.
--- NOTE | 2019-05-01 11:05 | NUR ---
PAIN MEDICATION PARTIALLY EFFECTIVE PER PT
[2019-05-01 12:00] VITALS: BP 142/72; BP 165/67
--- NOTE | 2019-05-01 12:56 | NUR ---
PT RESTING IN BED. VOICES NO CONCERNS AT THIS TIME. RESPS EASY AND NON LABORED. CALL LIGHT WITHIN REACH
--- NOTE | 2019-05-01 15:18 | NUR ---
PT C/O PAIN AROUND STOMA SITE. STOMA WAS FREE FROM EXCESSIVE REDNESS OR EDEMA. PT STATED IT FELT LIKE SOMETHING WAS STUCK IN IT. NO BOWEL WAS NOTED TO BE "STUCK" IN THE STOMA. ABDOMEN IS SOFT AND NON DISTENDED.WAS REQUESTING BAG TO BE CHANGED. EDUCATION WAS PROVIDED ON STOMA CARE AND FREQUENCY OF BAG CHANGING. PT IS ALSO COMPLAINING OF NAUSEA AT THIS TIME. SPOKE WITH DR JIMÉNEZ WHO STATED TO GIVE 12.5MG IV TORADOL AND 15MG IV PHENERGAN
--- NOTE | 2019-05-01 15:41 | NUR ---
PT MEDICATED WITH PHENERGAN FOR C/O NAUSEA. WILL MONITOR FOR RELIEF. REFUSING TORADOL STATING THAT SHE IS ALLERGIC TO IT. WHEN ASKED TO DESCRIBE THE REACTION SHE STATES IT "JUST DOESNT WORK FOR HER". VOICES NO OTHER CONCERNS AT THIS TIME. CALL LIGHT WITHIN REACH.
[2019-05-01 16:00] VITALS: BP 157/80
--- NOTE | 2019-05-01 17:24 | NUR ---
PHENERGAN EFFECTIVE PER PT
[2019-05-01 20:00] VITALS: BP 144/62
--- NOTE | 2019-05-01 20:08 | NUR ---
PT C/O CONSTIPATION. STATES SHE HAS HAD MINIMAL OUTPUT FROM COLOSTOMY & STATES WHEN THIS HAPPENS, SHE NEEDS A LAXATIVE OR HER STOMA WILL BLEED. RN NOTIFIED OF PATIENT'S REQUEST. AWARE THAT LACTULOSE WAS GIVEN AT 1100 THIS AM. NEW ORDERS RECEIVED FOR SENNOKOT BID.
--- NOTE | 2019-05-01 20:09 | NUR ---
HERE TO SEE PATIENT.
--- NOTE | 2019-05-01 20:41 | NUR ---
PT MEDICATED WITH PO SENNA PER PRN ORDER FOR C/O CONSTIPATION. STATES HELP DESK COORDINATOR WAS ALREADY IN FOR KUB OF ABD.
--- NOTE | 2019-05-01 21:06 | NUR ---
IV FLUIDS INITIATED PER ORDER. PT STATES SHE WANTS TO WAIT FOR PM MEDS. WILL MONITOR. CALL LIGHT IN REACH. PT REFUSING TO WEAR TEDs DESPITE EDUCATION.
--- NOTE | 2019-05-01 21:58 | NUR ---
PO PERCOCET ADMINISTERED PER PRN ORDER FOR C/O PAIN "EVERYWHERE" RATED 10/10. PO AMBIEN ALSO ADMINISTERED PER REQUEST FOR C/O SLEEPLESSNESS. WILL MONITOR EFFECTIVENESS OF MEDICATIONS. PT ASSISTED UP INTO BATHROOM TO GET WASHED UP/CLEAN COLOSTOMY BAG. RN OFFERED TO PUT CHAIR IN BATHROOM, BUT PT REFUSING. STATES SHE CAN DO HERSELF WHILE STANDING. CALL LIGHT USE ENCOURAGED.
--- NOTE | 2019-05-01 22:40 | NUR ---
PT REFUSING MIDNIGHT VITALS. STATES SHE DOES NOT WANT TO BE WOKEN UP.
--- NOTE | 2019-05-02 04:16 | NUR ---
PT REQUESTING MORNING MEDS NOW SHE IS AWAKE TO GO TO BATHROOM. PROTONIX SCHEDULED FOR 0600 GIVEN AT THIS TIME. EL GRAEME ALSO PROVIDED PER REQUEST FOR MILD NAUSEA. WILL MONITOR. CALL LIGHT IN REACH.
[2019-05-02 08:00] VITALS: BP 151/78
--- NOTE | 2019-05-02 08:09 | NUR ---
PT LAYING IN BED CRYING STATES HER " BAG HURTS ". SHE STATES THAT "STOOL IS BURNING " PT THEN STOPPED CRYING ONCE SHE WAS TOLD TO MOVE STOOL AWAY FROM SKIN PT STATES THAT THIS DOESNT HAPPEN AT HOME
--- NOTE | 2019-05-02 08:35 | NUR ---
PHYSICAL THERAPY Screen received pt admitted from home with UTI, asa consult PT if pt has a decline in functional status from baseline, thank you Pricilla Moser PT
--- NOTE | 2019-05-02 08:37 | NUR ---
PT REQUESTED AND GIVEN PERCOCET FOR C/O ABD PAIN PT RATES PAIN 8/ WILL MONITOR
--- NOTE | 2019-05-02 09:00 | NUR ---
Business Process Expert in to talk to patient. Patient states lives at home with . There are few steps in the home. Physician: ale [facility]acy: [facility] [facility] physical therpay only Patient's level of ADLs: INDEPENDENT Patient has working utilities: all working DME: none Follow-up physician's appointment after d/c: patient chooses to make own follow up doctors appointment Does patient want to access PORTAL?: no Discharge plan discussed with patient, she states she lives at home with her she states she gets around fine, she is independent in adls, she states she currently has [facility] for physical therapy and would like to resume their services, case managment will send a resume order when patient is medically stable for discharge. HEAVEN FAY
--- NOTE | 2019-05-02 11:06 | NUR ---
PERCOCOET APPEARS TO BE EFFECTIVE. PT NO LONGER SCREAMING IN PAIN
[2019-05-02 12:00] VITALS: BP 140/53
--- NOTE | 2019-05-02 15:00 | NUR ---
PT STATES HER COLOSTOMY BAG BROKE AND STOOL EVERYWHERE COLOSTOMY BAG CHANGED , BY NURSE PT REFUSED TO DO STATES THAT SHE CANT
[2019-05-02 16:00] VITALS: BP 150/76
--- NOTE | 2019-05-02 18:37 | NUR ---
pt requested and given phenergan for c/o nausea/ will monitor
--- NOTE | 2019-05-02 19:35 | NUR ---
PT SITTING UP IN BED WATCHING TV. NO S/S OF DISTRESS NOTED. WILL MONITOR. CALL LIGHT IN REACH.
[2019-05-02 20:00] VITALS: BP 187/77
--- NOTE | 2019-05-02 22:06 | NUR ---
PO PERCOCET ADMINISTERED FOR C/O ALL OVER PAIN RATED 03/13. PO AMBIEN ALSO ADMINSITERED PER PRN ORDER FOR INSOMNIA. SCHEDULED SOMA ALSO ADMINISTERED PER ORDER. WILL MONITOR.
[2019-05-03] VITALS (7 sets, daily range): BP systolic 143–206; BP diastolic 59–92
--- NOTE | 2019-05-03 02:15 | NUR ---
PT ASLEEP IN BED. NO S/S OF DISTRESS NOTED. WILL MONITOR. CALL LIGHT IN REACH.
--- NOTE | 2019-05-03 04:24 | NUR ---
PT ASLEEP IN BED. RESPIRATIONS EASY. NO S/S OF DISTRESS NOTED. WILL MONITOR. CALL LIGHT IN REACH.
--- NOTE | 2019-05-03 06:30 | NUR ---
PT REQUESTING NOT TO BE WOKEN UP IN AM UNTIL "SHE HAS TO." WILL LET AM SHIFT KNOW THAT 0600 PROTONIX HELD FOR THIS REASON. LABS ALSO POSTPONED UNTIL PT IS AWAKE PER REQUEST.
[2019-05-03 08:30] LABS: BASO # 0.1 10*3/uL (0.0-0.1); BASO % 0.6 % (0.0-1.0); EOS # 0.5 10*3/uL (0.0-0.4); EOS % 5.6 % (1.0-4.0); HEMATOCRIT 37.2 % (37.0-47.0); LYMPH # 2.3 10*3/uL (1.3-4.4); LYMPH % 25.8 % (27.0-41.0); MEAN CELL VOLUME 95.9 fl (81.0-99.0); MEAN CORPUSCULAR HGB 30.9 pg (27.0-31.0); MEAN CORPUSCULAR HGB CONC 32.3 g/dl (33.0-37.0); MEAN PLATELET VOLUME 10.2 fl (9.6-12.3); MONO # 0.8 10*3/uL (0.1-1.0); MONO % 9.6 % (3.0-9.0); NEUT # 5.1 10*3/uL (2.3-7.9); NEUT % 58.3 % (47.0-73.0); PLATELET COUNT AUTOMATED 223 10*3/uL (130-400); RED BLOOD COUNT 3.88 10*6/uL (4.10-5.10); RED CELL DISTRI WIDTH 12.5 % (0-14.5); WHITE BLOOD COUNT 8.8 10*3/uL (4.8-10.8)
[2019-05-03 08:49] LABS: CREATININE 0.92 mg/dL (0.55-1.02)
--- NOTE | 2019-05-03 09:35 | NUR ---
Hooper given per patient request for c/o chronic back and abdominal pain. Will monitor.
--- NOTE | 2019-05-03 10:15 | NUR ---
Jose M effective. Patient satisfied.
--- NOTE | 2019-05-03 17:28 | NUR ---
Per patient request spoke with Dr. Jasso to change pain medication to TID. See new orders.
--- NOTE | 2019-05-03 17:45 | NUR ---
Dumont given per patient request for c/o chronic back pain rated 8.5/10. Will monitor.
--- NOTE | 2019-05-03 18:30 | NUR ---
Hawks effective. Patient satisified.
--- NOTE | 2019-05-03 19:58 | NUR ---
PT AWAKE IN BED. ICE CREAM PROVIDED PER REQUEST. PT STATES SHE IS VERY PLEASED WITH PAIN MEDICATION BEING CHANGED TO THREE TIMES A DAY. PT GOES ON TO EXPLAIN THAT THIS MEANS SHE CAN HAVE IT EVERY 4 HOURS. RN EXPLAINED TO HER THAT THIS IS NOT THE CASE. TID MEANS APPROXIMATELY Q8H. PT VERBALIZES UNDERSTANDING. PT ASKS IF SHE CAN HAVE A PAIN PILL TONIGHT @ HS. RN EXPLAINED THAT SHE MAY HAVE ONE BEFORE BED, BUT FROM THERE ON OUT IT WILL BE APPROXIMATELY Q8H. PT ALSO REQUESTING THAT SHE NOT BE WOKEN UP FOR MIDNIGHT VITALS. BP 160S/70S AT PRESENT TIME. RN EXPLAINED THAT WE WILL NEED TO CHECK HER BP LATER TO MAKE SURE IT DOES NOT GET ANY HIGHER. PT AGREES TO THIS LONG RN/LAB WILL NOT WAKE HER UP IN THE MORNING.
--- NOTE | 2019-05-03 22:06 | NUR ---
IV PHENERGAN INFUSION INITIATED PER PRN ORDER FOR C/O NAUSEA. PO PERCOCET AND PO AMBIEN GIVEN FOR C/O PAIN IN BACK/"ALL OVER" RATED 9/10 AND INSOMNIA. SCHEDULED PO SOMA ALSO GIVEN AT THIS TIME. BP NOW 206/90 MANUALLY. WILL NOTIFY
--- NOTE | 2019-05-03 22:14 | NUR ---
NOTIFIED OF MANUAL BP 206/90 WITH HR 78. AWARE THAT PO METOPROLOL GIVEN AROUND 2039 AND PO SOMA, PO PERCOCET, AND PO AMBIEN GIVEN JUST PRIOR TO PHONE CALL. INSTRUCTED TO RECHECK PRESSURE IN 1 HOUR.
--- NOTE | 2019-05-03 23:21 | NUR ---
NOTIFIED OF REPEAT BP 164/74 MANUALLY 1 HOUR FOLLOWING MEDICATIONS. NO NEW ORDERS RECEIVED.
[2019-05-04] VITALS: BP 134/52
--- NOTE | 2019-05-04 04:09 | NUR ---
PT ASLEEP IN BED. RESPIRATIONS EASY. NO S/S OF DISTRESS NOTED. WILL MONITOR. CALL LIGHT IN REACH.
[2019-05-04 08:00] VITALS: BP 156/62
--- NOTE | 2019-05-04 09:56 | NUR ---
PT STATES SHE IS HAVING PAIN IN HER BACK AND HER LEGS RATING IT A 9/10 ANDIS REQUESTING PAIN MEDICATIONS. PO PERCOCET IS GIVEN AT THIS TIME. WILL CONTINUE TO MONITOR THE PATIENT CALL LIGHT WITHIN REACH.
--- NOTE | 2019-05-04 13:05 | NUR ---
PT ATTEMPTED TO LEAVE THE FLOOR WITH HER BROTHER. I REDIRCTED HER INTO THE ROOM. PT IS VERY CONFUSED WITH THE FAMILY IN. GOT THE PATIENT COMFORTABLE IN HER ROOM WITH THE TV, AND SHE IS CURRENTLY WAITING FOR HER LUNCH TO ARRIVE.
--- NOTE | 2019-05-04 15:00 | NUR ---
PT STATES THAT SHE IS FEELING SICK TO HER STOMACH AND IS REQUESTING PHERERGAN. IV PHERGAN IS GIVEN AT THIS TIME. WILL CONTINUE TO MONITOR. CALL LIGHT WITHIN REACH.
[2019-05-04 16:00] VITALS: BP 170/82
--- NOTE | 2019-05-04 16:28 | NUR ---
DR MILLARD ON THE FLOOR AND I UPDATED HER ON THE LAST BLOOD PRESSURE BEING 170/82, SHE STATES SHE WILL LOOK OVER THE MEDICATIONS SHE IS ON
--- NOTE | 2019-05-04 17:21 | NUR ---
IN TO SEE PATIENT AND SHE STATES THAT HER NAUSEA HAS GONE AWAY. WILL CONTINUE TO MONITOR
--- NOTE | 2019-05-04 19:37 | NUR ---
24 HR chart check completed.
--- NOTE | 2019-05-04 21:45 | NUR ---
PATIENT REQUESTING PAIN MEDICATION FOR CHRONIC BACK PAIN RATED 8/10 ON 0/10 SCALE AND ALEEPING PILL. PERCOCET AND AMBIEN ADMINISTERED PRESCRIBED.WILL MONITOR FOR EFECTIVENESS.
--- NOTE | 2019-05-04 22:45 | NUR ---
PATIENT RESTING WITH EYES CLOSED. RESPIRATIONS EASY AND UNLABORED. CALL LIGHT IN REACH. WILL MONITOR.
[2019-05-05] VITALS: BP 166/72; BP 174/74
--- NOTE | 2019-05-05 02:00 | NUR ---
PATIENT RESTING WITH EYES CLOSED. RESPIRATIONS EASY AND UNLABORED. CALL LIGHT IN REACH. WILL MONITOR.
--- NOTE | 2019-05-05 03:50 | NUR ---
PATIENT REQUESTING PAIN MEDICATION FOR BACK PAIN RATED 9.5/10 ON 0/10 SCALE. PERCOCET ADMINISTERED PRESCRIBED. WILL MONITOR FOR EFFECTIVENESS.
--- NOTE | 2019-05-05 04:34 | NUR ---
PATIENT REQUESTING MEDICATION FOR NAUSEA. ZOFRAN ADMINISTERED PRESCRIBED. WILL MONITOR FOR EFFECTIVENESS.
--- NOTE | 2019-05-05 05:00 | NUR ---
PATIENT RESTING WITH EYES CLOSED. RESPIRATIONS EASY AND UNLABORED. CALL LIGHT IN REACH. WILL MONITOR.
[2019-05-05 08:00] VITALS: BP 142/88
--- NOTE | 2019-05-05 10:00 | NUR ---
C/O PAIN TO BACK OF 01/11. PERCOCET GIVEN PER REQUEST. WILL CONT TO MONITOR. CALL LIGHT IN REACH.
--- NOTE | 2019-05-05 10:30 | NUR ---
Brass Instrument Repair Technician in to see patient. Discussed home health care services and she states she currently has [facility] PT and would like to resume those services upon discharge. Discussed discharge possibly today and she states she doesn't feel well enough to go home. When medically stable she will be discharged to home with the resumption of her [facility] services.
--- NOTE | 2019-05-05 10:56 | NUR ---
PERCOCET EFF FOR PAIN. WILL CONT TO MONITOR. CALL LIGHT IN REACH.
[2019-05-05 16:00] VITALS: BP 134/64
--- NOTE | 2019-05-05 20:35 | NUR ---
COLOSTOMY BAG CHANGED AT THIS TIME FOR LEAKING.
[2019-05-05 21:58] VITALS: BP 150/86
--- NOTE | 2019-05-06 04:42 | NUR ---
PT SLEEPING; RESPIRATIONS EASY AND REGULAR ON ROOM AIR. BED IN LOW, LOCKED POS.
--- NOTE | 2019-05-06 05:13 | NUR ---
PERCOCET GIVEN PER PT REQUEST FOR PAIN TO BACK AND LEGS. WILL MONTIOR. CALL LIGHT IN REACH.
[2019-05-06 08:00] VITALS: BP 152/78
--- NOTE | 2019-05-06 11:49 | NUR ---
Lens Shaper Grinder in to see patient. Discussed discharge planning and how she was feeling. She states "if throwing up all night is feeling better then yes. My stomach is so sore from dry heaving. I guess I could go home and throw up." No new needs or request at this time. When medically stable she will be discharged to home with the resumption of her [facility] PT services.
[2019-05-06 12:00] VITALS: BP 154/65
--- NOTE | 2019-05-06 12:54 | NUR ---
Faxed home health resumption order to [facility]
[2019-05-06] MEDS ORDERED: AMLODIPINE BESYL5 MG PO (13:49)
--- NOTE | 2019-05-06 15:02 | NUR ---
Discharge instructions reviewed with patient/family. Patient receptive and verbalizes understanding. Follow-up care arranged. Written instructions given to patient/family. STEPHANIA SALAS
== END 2019-05-06 15:02 | disposition home health service (06) | DRG 690 ==
LOC: ED 15:10 → EDHOLD 18:15 → 5E 18:15
PROVIDERS: Nurse Practitioner Family; ADMIT Internal Medicine
DX: N39.0 Urinary tract infection, site not specified (principal); G99.0 Autonomic neuropathy in diseases classified elsewhere; I50.32 Chronic diastolic (congestive) heart failure; I13.0 Hypertensive heart and chronic kidney disease with heart failure and stage 1 through stage 4 chronic kidney disease, or unspecified chronic kidney disease; E86.0 Dehydration; N28.9 Disorder of kidney and ureter, unspecified; K59.00 Constipation, unspecified; F41.9 Anxiety disorder, unspecified; I48.91 Unspecified atrial fibrillation; G89.29 Other chronic pain; M54.9 Dorsalgia, unspecified; N18.3 Chronic kidney disease, stage 3 (moderate); E11.22 Type 2 diabetes mellitus with diabetic chronic kidney disease; R10.9 Unspecified abdominal pain; R11.2 Nausea with vomiting, unspecified; E66.9 Obesity, unspecified; M48.00 Spinal stenosis, site unspecified; K76.0 Fatty (change of) liver, not elsewhere classified; E55.9 Vitamin D deficiency, unspecified; K21.9 Gastro-esophageal reflux disease without esophagitis; J44.9 Chronic obstructive pulmonary disease, unspecified; Z93.3 Colostomy status; Z88.1 Allergy status to other antibiotic agents; Z88.2 Allergy status to sulfonamides; Z88.8 Allergy status to other drugs, medicaments and biological substances; Z88.5 Allergy status to narcotic agent; Z90.49 Acquired absence of other specified parts of digestive tract; Z98.891 History of uterine scar from previous surgery; Z90.710 Acquired absence of both cervix and uterus; Z87.891 Personal history of nicotine dependence; Z82.49 Family history of ischemic heart disease and other diseases of the circulatory system; Z87.440 Personal history of urinary (tract) infections; Z79.82 Long term (current) use of aspirin; Z79.899 Other long term (current) drug therapy; Z68.29 Body mass index [BMI] 29.0-29.9, adult

== ENCOUNTER 2019-05-08 16:14 | Inpatient (IN) | payer MEDICARE ==
[~2019-05-08] VITALS: Ht 167.6 cm; Wt 82.1 kg
[2019-05-08 16:19] VITALS: BP 179/91
[2019-05-08 17:08] LABS: BASO # 0.1 10*3/uL (0.0-0.1); BASO % 0.4 % (0.0-1.0); EOS # 0.3 10*3/uL (0.0-0.4); EOS % 2.1 % (1.0-4.0); HEMATOCRIT 38.3 % (37.0-47.0); HEMOGLOBIN 12.5 g/dl (12.0-16.0); LYMPH # 2.2 10*3/uL (1.3-4.4); LYMPH % 17.3 % (27.0-41.0); MEAN CORPUSCULAR HGB 31.3 pg (27.0-31.0); MEAN CORPUSCULAR HGB CONC 32.6 g/dl (33.0-37.0); MEAN PLATELET VOLUME 9.9 fl (9.6-12.3); MONO # 0.9 10*3/uL (0.1-1.0); MONO % 6.6 % (3.0-9.0); NEUT # 9.4 10*3/uL (2.3-7.9); NEUT % 73.2 % (47.0-73.0); PLATELET COUNT AUTOMATED 246 10*3/uL (130-400); RED BLOOD COUNT 3.99 10*6/uL (4.10-5.10); RED CELL DISTRI WIDTH 12.3 % (0-14.5); WHITE BLOOD COUNT 12.8 10*3/uL (4.8-10.8)
[2019-05-08 17:19] LABS: ACT PARTIAL THROMBO TIME 26.7 SECONDS (20.0-32.1); INTERNATIONAL NORM RATIO 0.9 (2.0-3.5)
[2019-05-08 17:27] LABS: ALBUMIN 3.2 gm/dl (3.1-4.5); ALKALINE PHOSPHATASE 133 U/L (45-117); BUN 19 mg/dl (7-24); CHLORIDE 109 mmol/L (98-107); CREATININE 1.25 mg/dL (0.55-1.02); POTASSIUM 3.6 mmol/L (3.5-5.1); SGOT/AST 15 IU/L (3-35); SGPT/ALT 14 U/L (12-78); SODIUM 141 mmol/L (136-145); TOTAL PROTEIN 7.8 gm/dL (6.4-8.2); TROPONIN I < 0.015 ng/ml (<0.045)
[2019-05-08 17:30] LABS: BILIRUBIN NEGATIVE (NEGATIVE); BLOOD NEGATIVE (NEGATIVE); CLARITY CLEAR (CLEAR); COLOR YELLOW (YELLOW); GLUCOSE NEGATIVE (NEGATIVE); KETONE NEGATIVE (NEGATIVE); LEUKO ESTERASE 2+ (NEGATIVE); NITRITE NEGATIVE (NEGATIVE); PH 6.5 (5.0-9.0); UROBILINOGEN 0.2 E.U./dl (0.2-1.0)
[2019-05-08 17:38] LABS: BACTERIA 2+; EPITHELIAL CELLS 15-20; WBC 31-40 wbc/hpf (0-5)
[2019-05-08 20:55] VITALS: BP 193/91
[2019-05-09] VITALS: BP 133/57
[2019-05-09 07:06] LABS: BASO # 0.1 10*3/uL (0.0-0.1); BASO % 0.5 % (0.0-1.0); EOS # 0.5 10*3/uL (0.0-0.4); EOS % 4.9 % (1.0-4.0); HEMOGLOBIN 11.9 g/dl (12.0-16.0); LYMPH # 2.6 10*3/uL (1.3-4.4); MEAN CELL VOLUME 96.4 fl (81.0-99.0); MEAN CORPUSCULAR HGB CONC 32.2 g/dl (33.0-37.0); MEAN PLATELET VOLUME 10.3 fl (9.6-12.3); MONO # 0.9 10*3/uL (0.1-1.0); NEUT # 5.7 10*3/uL (2.3-7.9); NEUT % 58.3 % (47.0-73.0); PLATELET COUNT AUTOMATED 236 10*3/uL (130-400); RED BLOOD COUNT 3.84 10*6/uL (4.10-5.10); RED CELL DISTRI WIDTH 12.6 % (0-14.5); WHITE BLOOD COUNT 9.7 10*3/uL (4.8-10.8)
[2019-05-09 07:11] LABS: BUN 12 mg/dl (7-24); CHLORIDE 112 mmol/L (98-107); CREATININE 0.89 mg/dL (0.55-1.02); POTASSIUM 4.1 mmol/L (3.5-5.1); SODIUM 142 mmol/L (136-145)
[2019-05-09 08:00] VITALS: BP 152/64
[2019-05-09 12:00] VITALS: BP 130/58
[2019-05-09 16:00] VITALS: BP 146/59
[2019-05-09 20:00] VITALS: BP 146/64
[2019-05-10] VITALS: BP 119/48
[2019-05-10 00:37] VITALS: BP 120/52
[2019-05-10 08:00] VITALS: BP 146/66
[2019-05-10 12:00] VITALS: BP 137/60
[2019-05-10 16:00] VITALS: BP 159/65
[2019-05-10 20:00] VITALS: BP 155/61
[2019-05-11] VITALS: BP 144/65
[2019-05-11 08:00] VITALS: BP 156/70
[2019-05-11 10:06] VITALS: BP 152/78
[2019-05-11 12:00] VITALS: BP 152/68
[2019-05-11] MEDS ORDERED: AMOXICILLIN875 MG PO (14:56)
[2019-05-11] MEDS ORDERED: ZOFRAN4 MG PO (14:56)
[2019-05-11] MEDS ORDERED: BENADRYL ALLERG25 M5 PO (14:56)
== END 2019-05-11 18:15 | disposition home health service (06) | DRG 872 ==
LOC: ED 16:14 → EDHOLD 18:51 → 4E 18:51 → 5E 20:31 → 4E 20:31
PROVIDERS: Physician Assistant; ADMIT Internal Medicine
DX: A41.9 Sepsis, unspecified organism (principal); I16.1 Hypertensive emergency; N39.0 Urinary tract infection, site not specified; I50.32 Chronic diastolic (congestive) heart failure; I13.0 Hypertensive heart and chronic kidney disease with heart failure and stage 1 through stage 4 chronic kidney disease, or unspecified chronic kidney disease; N17.9 Acute kidney failure, unspecified; F41.9 Anxiety disorder, unspecified; J44.9 Chronic obstructive pulmonary disease, unspecified; I48.0 Paroxysmal atrial fibrillation; N18.3 Chronic kidney disease, stage 3 (moderate); E11.22 Type 2 diabetes mellitus with diabetic chronic kidney disease; E11.65 Type 2 diabetes mellitus with hyperglycemia; G89.29 Other chronic pain; E66.9 Obesity, unspecified; K21.9 Gastro-esophageal reflux disease without esophagitis; B95.2 Enterococcus as the cause of diseases classified elsewhere; Z68.29 Body mass index [BMI] 29.0-29.9, adult; Z88.1 Allergy status to other antibiotic agents; Z88.5 Allergy status to narcotic agent; Z88.8 Allergy status to other drugs, medicaments and biological substances; Z93.3 Colostomy status; Z90.49 Acquired absence of other specified parts of digestive tract; Z87.891 Personal history of nicotine dependence; Z82.49 Family history of ischemic heart disease and other diseases of the circulatory system; Z79.82 Long term (current) use of aspirin; Z79.899 Other long term (current) drug therapy

== ENCOUNTER 2019-05-19 12:43 | Emergency (ER) | payer MEDICARE ==
[~2019-05-19] VITALS: Ht 167.6 cm; Wt 81.6 kg
[~2019-05-19 12:43] MED LIST changes: +AMOXICILLIN875 MG PO; +BENADRYL ALLERG25 M5 PO
[2019-05-19 12:51] VITALS: BP 112/70
== END 2019-05-19 16:15 | disposition home or self-care (01) ==
LOC: ED 12:43
DX: S20.212A Contusion of left front wall of thorax, initial encounter (principal); M79.89 Other specified soft tissue disorders; J44.9 Chronic obstructive pulmonary disease, unspecified; E78.00 Pure hypercholesterolemia, unspecified; I48.91 Unspecified atrial fibrillation; G89.29 Other chronic pain; K21.9 Gastro-esophageal reflux disease without esophagitis; E11.43 Type 2 diabetes mellitus with diabetic autonomic (poly)neuropathy; E11.22 Type 2 diabetes mellitus with diabetic chronic kidney disease; I13.0 Hypertensive heart and chronic kidney disease with heart failure and stage 1 through stage 4 chronic kidney disease, or unspecified chronic kidney disease; N18.3 Chronic kidney disease, stage 3 (moderate); I50.9 Heart failure, unspecified; E66.9 Obesity, unspecified; Z88.1 Allergy status to other antibiotic agents; Z88.2 Allergy status to sulfonamides; Z88.5 Allergy status to narcotic agent; Z88.6 Allergy status to analgesic agent; Z88.8 Allergy status to other drugs, medicaments and biological substances; Z79.2 Long term (current) use of antibiotics; Z79.82 Long term (current) use of aspirin; Z79.899 Other long term (current) drug therapy; Z86.73 Personal history of transient ischemic attack (TIA), and cerebral infarction without residual deficits; Z87.891 Personal history of nicotine dependence; Z68.30 Body mass index [BMI] 30.0-30.9, adult; W18.2XXA Fall in (into) shower or empty bathtub, initial encounter; Y93.E8 Activity, other personal hygiene; Y92.091 Bathroom in other non-institutional residence as the place of occurrence of the external cause; Y99.8 Other external cause status

== ENCOUNTER → 2019-05-31 | Outpatient (CLI) | payer MEDICARE ==
--- NOTE | 2019-05-31 12:57 | NUR ---
PT HERE FOR MEDIPORT FLUSH WITH NONCORING NEEDLE PER P&P. ACCESSED WITHOUT DIFFUCULTY. PROMPT BLOOD RETURN. FLUSHED WITH HEPARIN PER P&P. NEEDLE REMOVED DRESSING APPLIED. NO BLEEDING NOTED. PT TOLERATED WELL. FREDI RODRÍGUEZ RN
== END | disposition home or self-care (01) ==
LOC: MEDIPORT 12:35
DX: Z45.2 Encounter for adjustment and management of vascular access device (principal)

== ENCOUNTER → 2019-07-04 | Outpatient (CLI) | payer MEDICARE ==
--- NOTE | 2019-07-04 09:03 | NUR ---
PATIENT ARRIVED TO SAME DAY SURGERY WALKING W/ NO C/O. CONDITION STABLE. PATIENT FOR MEDIPORT FLUSH. PORT ACCESSED AND FLUSHED PER [facility] POLICY/ PROCEDURE. SITE ASYMPTOMATIC.
== END | disposition home or self-care (01) ==
LOC: MEDIPORT 08:17
DX: Z45.2 Encounter for adjustment and management of vascular access device (principal)

== ENCOUNTER → 2019-08-01 | Outpatient (CLI) | payer MEDICARE ==
--- NOTE | 2019-08-01 11:18 | NUR ---
PT HERE FOR MEDIPORT FLUSH ORDERED. [facility] MEDIPORT ACCESSED WITH NONCORING NEEDLE PER POLICY WITHOUT DIFFUCULTY. PROMPT BLOOD RETURN. HEPARIN FLUSH PER POLICY/PROCEDURE. NEEDLE REMOVED. DRESSING APPLIED. NO BLEEDING NOTED. SCHEDULED FOR 09/01/19 AT 1300 FOR NEXT APPT. PT TOLERATED WELL. FREDI RODRÍGUEZ RN
== END | disposition home or self-care (01) ==
LOC: MEDIPORT 07-29 11:00
DX: Z45.2 Encounter for adjustment and management of vascular access device (principal)

== ENCOUNTER → 2019-10-06 | Outpatient (CLI) | payer MEDICARE ==
--- NOTE | 2019-10-06 12:25 | NUR ---
PATIENT ARRIVED TO OPS VIA WHEELCHAIR W/ OUT INCIDENT. CONDITION STABLE. PATIENT FOR MEDIPORT FLUSH. PORT ACCESSED AND FLUSHED PER [facility] POLICY/PROCEDURE. SITE ASYMPTOMATIC.
== END | disposition home or self-care (01) ==
LOC: MEDIPORT 11:54
DX: Z45.2 Encounter for adjustment and management of vascular access device (principal)

== ENCOUNTER → 2019-11-03 | Outpatient (CLI) | payer MEDICARE ==
--- NOTE | 2019-11-03 11:53 | NUR ---
PATIENT WHEELED INTO OUTPATIENT AREA BY WHEELCHAIR BY HER . PATIENT DENIES ANY DISTERESS. CLEANED AREA AND ACCESSED MEDIPORT PER PROTOCOL. PROMPT BLOOD RETURN. FLUSED WITH SALINE AND HEPARIN PER PROTOCOL. REMOVED ACCESS AND APPLIED A BANDAID. THERE IS NO BLEEDING AT THE SITE. PATIENT D/C WITH SPOUSE.
== END | disposition home or self-care (01) ==
LOC: MEDIPORT 11:36
DX: Z45.2 Encounter for adjustment and management of vascular access device (principal)

== ENCOUNTER 2019-11-14 11:57 | Inpatient (IN) | payer MEDICARE ==
[~2019-11-14] VITALS: Ht 168 cm; Wt 77.0 kg
[2019-11-14 12:03] VITALS: BP 147/69
[2019-11-14 13:03] LABS: BILIRUBIN NEGATIVE (NEGATIVE); BLOOD TRACE-INTACT (NEGATIVE); CLARITY SL CLOUDY (CLEAR); COLOR YELLOW (YELLOW); GLUCOSE NEGATIVE (NEGATIVE); KETONE NEGATIVE (NEGATIVE); SPECIFIC GRAVITY 1.015 (1.005-1.030)
[2019-11-14 13:04] LABS: LEUKO ESTERASE 2+ (NEGATIVE); NITRITE NEGATIVE (NEGATIVE); UROBILINOGEN 0.2 E.U./dl (0.2-1.0)
[2019-11-14 13:16] LABS: ACT PARTIAL THROMBO TIME 25.2 SECONDS (20.0-32.1)
[2019-11-14 13:22] LABS: BACTERIA 2+; MUCOUS 1+; WBC 21-30 wbc/hpf (0-5)
[2019-11-14 13:24] LABS: ALBUMIN 3.6 gm/dl (3.1-4.5); ALKALINE PHOSPHATASE 125 U/L (45-117); BUN 12 mg/dl (7-24); CHLORIDE 107 mmol/L (98-107); CREATININE 1.08 mg/dL (0.55-1.02); LIPASE 164 U/L (73-393); POTASSIUM 3.8 mmol/L (3.5-5.1); SGOT/AST 19 IU/L (3-35); SGPT/ALT 18 U/L (12-78); SODIUM 138 mmol/L (136-145)
[2019-11-14 13:27] LABS: TROPONIN I < 0.015 ng/ml (<0.045)
[2019-11-14 14:03] LABS: BASO % 0.4 % (0.0-1.0); EOS # 0.3 10*3/uL (0.0-0.4); EOS % 2.8 % (1.0-4.0); HEMATOCRIT 40.7 % (37.0-47.0); LYMPH # 1.8 10*3/uL (1.3-4.4); LYMPH % 18.4 % (27.0-41.0); MEAN CELL VOLUME 94.9 fl (81.0-99.0); MEAN CORPUSCULAR HGB 30.5 pg (27.0-31.0); MEAN CORPUSCULAR HGB CONC 32.2 g/dl (33.0-37.0); MEAN PLATELET VOLUME 9.6 fl (9.6-12.3); MONO # 0.8 10*3/uL (0.1-1.0); MONO % 8.5 % (3.0-9.0); NEUT # 6.9 10*3/uL (2.3-7.9); NEUT % 69.7 % (47.0-73.0); PLATELET COUNT AUTOMATED 263 10*3/uL (130-400); RED BLOOD COUNT 4.29 10*6/uL (4.10-5.10); RED CELL DISTRI WIDTH 12.6 % (0-14.5); WHITE BLOOD COUNT 9.9 10*3/uL (4.8-10.8)
[2019-11-14 17:01] VITALS: BP 137/73
[2019-11-14] MEDS ORDERED: CRESTOR10 M1 PO (18:42)
[2019-11-14] MEDS ORDERED: NORVASC5 MG PO (18:43)
[2019-11-14 20:00] VITALS: BP 152/69
[2019-11-15] VITALS: BP 135/60
[2019-11-15 07:28] LABS: BASO # 0.1 10*3/uL (0.0-0.1); BASO % 0.6 % (0.0-1.0); EOS # 0.5 10*3/uL (0.0-0.4); HEMATOCRIT 39.9 % (37.0-47.0); LYMPH # 1.9 10*3/uL (1.3-4.4); MEAN CELL VOLUME 94.8 fl (81.0-99.0); MEAN CORPUSCULAR HGB 30.2 pg (27.0-31.0); MEAN CORPUSCULAR HGB CONC 31.8 g/dl (33.0-37.0); MEAN PLATELET VOLUME 9.7 fl (9.6-12.3); MONO # 0.8 10*3/uL (0.1-1.0); MONO % 9.8 % (3.0-9.0); NEUT # 5.2 10*3/uL (2.3-7.9); NEUT % 61.1 % (47.0-73.0); PLATELET COUNT AUTOMATED 250 10*3/uL (130-400); RED BLOOD COUNT 4.21 10*6/uL (4.10-5.10); RED CELL DISTRI WIDTH 12.7 % (0-14.5); WHITE BLOOD COUNT 8.5 10*3/uL (4.8-10.8)
[2019-11-15 07:42] LABS: ALBUMIN 2.8 gm/dl (3.1-4.5); BUN 15 mg/dl (7-24); CHLORIDE 111 mmol/L (98-107); POTASSIUM 3.6 mmol/L (3.5-5.1); SGOT/AST 17 IU/L (3-35); SODIUM 141 mmol/L (136-145); TOTAL PROTEIN 7.1 gm/dL (6.4-8.2)
[2019-11-15 07:45] LABS: ALKALINE PHOSPHATASE 109 U/L (45-117); SGPT/ALT 15 U/L (12-78)
[2019-11-15 08:00] VITALS: BP 150/54
[2019-11-15 13:00] VITALS: BP 147/52
[2019-11-15 16:00] VITALS: BP 135/56
[2019-11-15 20:00] VITALS: BP 156/68
[2019-11-16] VITALS: BP 131/61
[2019-11-16 08:00] VITALS: BP 141/63
[2019-11-16 12:00] VITALS: BP 147/64
[2019-11-16 16:00] VITALS: BP 144/58
[2019-11-17] VITALS: BP 136/65; BP 154/102
[2019-11-17 08:00] VITALS: BP 161/74
[2019-11-17 12:00] VITALS: BP 127/78; BP 150/62
[2019-11-17 16:00] VITALS: BP 160/81
[2019-11-17 20:00] VITALS: BP 154/65
[2019-11-18] VITALS: BP 148/52
[2019-11-18 08:00] VITALS: BP 138/61
[2019-11-18 12:00] VITALS: BP 139/67
== END 2019-11-18 13:35 | disposition home or self-care (01) | DRG 393 ==
LOC: ED 11:57 → 5E 15:49 → EDHOLD 15:49 → 5E 16:03
PROVIDERS: Emergency Medicine; ADMIT Internal Medicine
DX: K43.9 Ventral hernia without obstruction or gangrene (principal); E43 Unspecified severe protein-calorie malnutrition; N13.6 Pyonephrosis; I13.0 Hypertensive heart and chronic kidney disease with heart failure and stage 1 through stage 4 chronic kidney disease, or unspecified chronic kidney disease; I50.32 Chronic diastolic (congestive) heart failure; I48.91 Unspecified atrial fibrillation; K21.9 Gastro-esophageal reflux disease without esophagitis; E55.9 Vitamin D deficiency, unspecified; M48.00 Spinal stenosis, site unspecified; F41.9 Anxiety disorder, unspecified; J44.9 Chronic obstructive pulmonary disease, unspecified; K76.0 Fatty (change of) liver, not elsewhere classified; E11.43 Type 2 diabetes mellitus with diabetic autonomic (poly)neuropathy; N18.3 Chronic kidney disease, stage 3 (moderate); Z93.3 Colostomy status; Z90.49 Acquired absence of other specified parts of digestive tract; Z90.710 Acquired absence of both cervix and uterus; Z87.891 Personal history of nicotine dependence; Z82.49 Family history of ischemic heart disease and other diseases of the circulatory system; Z88.1 Allergy status to other antibiotic agents; Z88.5 Allergy status to narcotic agent; Z88.2 Allergy status to sulfonamides; Z79.82 Long term (current) use of aspirin; Z79.899 Other long term (current) drug therapy; Z68.27 Body mass index [BMI] 27.0-27.9, adult

== ENCOUNTER → 2019-12-05 | Outpatient (CLI) | payer MEDICARE ==
[~2019-12-05] MED LIST changes: +NORVASC5 MG PO
--- NOTE | 2019-12-05 10:50 | NUR ---
PT HERE FOR MEDIPORT FLUSH ORDERED. [facility] MEDIPORT ACCESSED WITHOUT DIFFUCULTY. PROMPT BLOOD RETURN NOTED. FLUSH WITH HEPARIN PER POLICY. NEEDLE REMOVED AND DRESSING APPLIED. TOLERATED WELL. FREDI RODRÍGUEZ RN
== END | disposition home or self-care (01) ==
LOC: MEDIPORT 11:19
DX: Z45.2 Encounter for adjustment and management of vascular access device (principal)

== ENCOUNTER 2019-12-14 05:29 | Inpatient (IN) | payer MEDICARE ==
[~2019-12-14] VITALS: Ht 165.1 cm; Wt 86.2 kg
[2019-12-14 05:37] VITALS: BP 155/73
[2019-12-14 05:57] LABS: BILIRUBIN NEGATIVE (NEGATIVE); BLOOD NEGATIVE (NEGATIVE); CLARITY CLEAR (CLEAR); COLOR YELLOW (YELLOW); GLUCOSE NEGATIVE (NEGATIVE); KETONE NEGATIVE (NEGATIVE); PH 6.5 (5.0-9.0)
[2019-12-14 05:58] LABS: LEUKO ESTERASE 2+ (NEGATIVE); NITRITE NEGATIVE (NEGATIVE); UROBILINOGEN 0.2 E.U./dl (0.2-1.0)
[2019-12-14 06:03] LABS: WBC 21-30 wbc/hpf (0-5)
[2019-12-14 06:30] LABS: BASO # 0.1 10*3/uL (0.0-0.1); BASO % 0.5 % (0.0-1.0); EOS # 0.3 10*3/uL (0.0-0.4); EOS % 3.1 % (1.0-4.0); HEMATOCRIT 42.5 % (37.0-47.0); LYMPH # 2.1 10*3/uL (1.3-4.4); LYMPH % 20.8 % (27.0-41.0); MEAN CELL VOLUME 96.2 fl (81.0-99.0); MEAN CORPUSCULAR HGB 30.5 pg (27.0-31.0); MEAN CORPUSCULAR HGB CONC 31.8 g/dl (33.0-37.0); MEAN PLATELET VOLUME 9.6 fl (9.6-12.3); MONO # 0.8 10*3/uL (0.1-1.0); NEUT # 6.9 10*3/uL (2.3-7.9); NEUT % 67.4 % (47.0-73.0); PLATELET COUNT AUTOMATED 261 10*3/uL (130-400); RED BLOOD COUNT 4.42 10*6/uL (4.10-5.10); WHITE BLOOD COUNT 10.3 10*3/uL (4.8-10.8)
[2019-12-14 06:45] LABS: ALBUMIN 3.2 gm/dl (3.1-4.5); ALKALINE PHOSPHATASE 91 U/L (45-117); BUN 12 mg/dl (7-24); CHLORIDE 107 mmol/L (98-107); CREATININE 1.07 mg/dL (0.55-1.02); LIPASE 124 U/L (73-393); POTASSIUM 4.2 mmol/L (3.5-5.1); SGOT/AST 16 IU/L (3-35); SGPT/ALT 16 U/L (12-78); SODIUM 138 mmol/L (136-145); TOTAL PROTEIN 8.3 gm/dL (6.4-8.2)
--- NOTE | 2019-12-14 07:55 | NUR ---
PT UP TO [facility] SHE WAS "A LITTLE DIZZY" ASSISTED WITH EMPTYING HER COLOSTOMY
--- NOTE | 2019-12-14 08:57 | NUR ---
PT ASSISTED TO [facility] PT TO CT
--- NOTE | 2019-12-14 11:00 | NUR ---
Time: 1100 A 74 year old FEMALE admitted to 5E under services of DR. TINO OCAMPO,[facility]. Pt. arrived via stretcher from ER. Chief complaint: UTI. JASON DUTTON
[2019-12-14 11:15] VITALS: BP 170/78
--- NOTE | 2019-12-14 11:22 | NUR ---
MED REC UPDATED PER PT. DR VALENCIA NOTIFIED.
--- NOTE | 2019-12-14 11:38 | NUR ---
PT REQUESTED AND WAS MEIDCATED WITH DEMEROL AND PHENGRAN FOR C/O ABDOMINAL/BACK PAIN AND NAUSEA. CALL LIGHT IN REACH. WILL MONITOR.
--- NOTE | 2019-12-14 11:38 | NUR ---
PT REQUESTED AND WAS MEDICATED WITH DEMEROL IV FOR C/O BACK PAIN AND PHENEGRAN FOR C/O NAUSEA. CALL LIGHT IN REACH. WILL MONITOR.
--- NOTE | 2019-12-14 12:15 | NUR ---
MEDICATIONS EFFECTIVE PER PT. CALL LIGHT IN REACH. WILL MONITOR
[2019-12-14 16:00] VITALS: BP 136/84
--- NOTE | 2019-12-14 17:49 | NUR ---
PT REQUESTED AND WAS MEDICATED WITH ZOFRAN IV FOR C/O NAUSEA AND DEMEROL FOR C/O ABDOMINAL/BACK PAIN. CALL LIGHT IN REACH. WILL MONITOR
[2019-12-14 20:00] VITALS: BP 131/75
--- NOTE | 2019-12-14 21:45 | NUR ---
PATIENT MEDICATED WITH AMBIEN FOR COMPLAINTS OF INSOMNIA AND PERCOCET FOR COMPLAINTS OF BACK PAIN. WILL MONITOR FOR EFFECTIVENESS. CALL LIGHT IN REACH.
--- NOTE | 2019-12-14 21:48 | NUR ---
PATIENT MEDICATED WITH ZOFRAN FOR COMPLAINTS OF NAUSEA. WILL CONTINUE TO MONITOR.
--- NOTE | 2019-12-14 21:58 | NUR ---
MEDICATED WITH DEMEROL FOR COMPLAINTS OF CHRONIC BACK PAIN. WILL CONTINUE TO MONITOR.
--- NOTE | 2019-12-14 22:40 | NUR ---
PERCOCET AND DEMEROL EFFECTIVE. DENIES COMPLAINTS OF PAIN OR DISCOMFORT AT THIS TIME. ZOFRAN AND AMBIEN ALSO EFFECTIVE. NO SIGNS OR SYMPTOMS OF DISTRESS NOTED. CALL LIGHT IN REACH.
[2019-12-15] VITALS: BP 99/43
--- NOTE | 2019-12-15 05:39 | NUR ---
PATIENT MEDICATED WITH DEMEROL FOR COMPLAINTS OF BACK AND ABDOMINAL PAIN. WILL MONITOR FOR EFFECTIVENESS.
[2019-12-15 06:34] LABS: BASO # 0.1 10*3/uL (0.0-0.1); BASO % 0.7 % (0.0-1.0); EOS # 0.6 10*3/uL (0.0-0.4); EOS % 5.6 % (1.0-4.0); HEMATOCRIT 43.1 % (37.0-47.0); LYMPH # 2.9 10*3/uL (1.3-4.4); LYMPH % 27.4 % (27.0-41.0); MEAN CELL VOLUME 96.4 fl (81.0-99.0); MEAN CORPUSCULAR HGB 30.2 pg (27.0-31.0); MEAN CORPUSCULAR HGB CONC 31.3 g/dl (33.0-37.0); MEAN PLATELET VOLUME 10.2 fl (9.6-12.3); MONO # 1.2 10*3/uL (0.1-1.0); MONO % 11.8 % (3.0-9.0); NEUT # 5.7 10*3/uL (2.3-7.9); NEUT % 54.2 % (47.0-73.0); PLATELET COUNT AUTOMATED 279 10*3/uL (130-400); RED BLOOD COUNT 4.47 10*6/uL (4.10-5.10); RED CELL DISTRI WIDTH 13.2 % (0-14.5); WHITE BLOOD COUNT 10.4 10*3/uL (4.8-10.8)
[2019-12-15 06:46] LABS: ACT PARTIAL THROMBO TIME 26.5 SECONDS (20.0-32.1)
[2019-12-15 06:52] LABS: ALBUMIN 2.9 gm/dl (3.1-4.5); CREATININE 1.32 mg/dL (0.55-1.02); FREE T4 1.07 ng/dl (0.76-1.46); POTASSIUM 3.6 mmol/L (3.5-5.1); TOTAL PROTEIN 7.7 gm/dL (6.4-8.2)
[2019-12-15 06:57] LABS: THYROID STIM HORMONE (HS) 6.79 uIU/ml (0.358-4.75)
[2019-12-15 08:00] VITALS: BP 118/68
--- NOTE | 2019-12-15 08:30 | NUR ---
PT RESTING IN BED. RESPS EASY AND NON LABORED. NO S/S OF DISTRESS NOTED. VSS. WHITE BOARD UPDATED. POC DISCUSSED W PT. A/O X3. PT C/O CHRONIC BACK PAIN AND REQUESTING A PERCOCET. STATES THAT SHE IS STILL HAVING BURNING WITH URINATION. COLOSTOMY SITE INTACT LLQ. WILL CONTINUE TO MONITOR. CALL LIGHT WITHIN REACH.
--- NOTE | 2019-12-15 08:40 | NUR ---
PT C/O 12/11 ACHING CHRONIC BACK PAIN. MEDICATED PER ORDER.WILL MONITOR FOR RELIEF. RESTING IN BED WATCHING TV. RESPS EASY AND NON LABORED. CALL LIGHT WITHIN REACH.
--- NOTE | 2019-12-15 09:00 | NUR ---
Mill Feeder in to talk to patient. Patient states lives at home with her . There are 18 steps in the home. Physician: Dr. Mario Martinez Pharmacy: [facility] [place] health services: none, has had [facility] in the past but not currently Patient's level of ADLs: independent Patient has working utilities: yes DME: cane, walker, wheelchair (does not use any) Follow-up physician's appointment after d/c: she prefers to make her own follow up appt after discharge Does patient want to access PORTAL?: no Discharge plan discussed with patient. She lives at home with her . She is independent in her ADLs and ambulation. Discussed home health care services and she declines at this time. CM will continue to follow for any discharge planning needs. When medically stable she will be discharged to home. She states her will provide transportation on discharge. ÁNGEL WILLIS
--- NOTE | 2019-12-15 09:40 | NUR ---
PT STATES PAIN MEDICATION PARTIALLY EFFECTIVE AND WOULD LIKE DEMEROL WHEN SHE CAN HAVE IT
--- NOTE | 2019-12-15 10:00 | NUR ---
PER DR MILLARD GIVE FLUIDS AT 70ML/H INSTEAD OF 60 ML/H
--- NOTE | 2019-12-15 10:02 | NUR ---
PT C/O 12/11 ACHING CHRONIC BACK PAIN. MEDICATED PER ORDER WILL MONITOR FOR RELIEF. VOICES NO OTHER CONCERNS AT THIS TIME. RESPS EASY AND NON LABORED. RESTING IN BED WATCHING TV. CALL LIGHT WITHIN REACH.
--- NOTE | 2019-12-15 11:00 | NUR ---
MEDICATION APPEARS EFFECTIVE. PT RESTING IN BED. RESPS EASY AND NON LABORED. NO S/S OF DISTRESS. CALL LIGHT WITHIN REACH.
[2019-12-15 12:00] VITALS: BP 120/59
--- NOTE | 2019-12-15 14:41 | NUR ---
PT C/O 12/11 ACHING CHRONIC BACK PAIN. MEDICATED PER ORDER. WILL MONITOR FOR RELIEF. VOICES NO OTHER CONCERNS AT THIS TIME. RESPS EASY AND NON LABORED. SITTING UP WATCHING TV. CALL LIGHT WITHIN REACH
--- NOTE | 2019-12-15 15:40 | NUR ---
PAIN MEDICATION MOSTLY EFFECTIVE PER PT.
[2019-12-15 16:00] VITALS: BP 118/50
--- NOTE | 2019-12-15 18:50 | NUR ---
PT C/O 12/11 ACHING CHRONIC BACK PAIN. MEDICATED PER ORDER. ONCOMING NURSE TO REASSESS EFFECTIVENESS. RESPS EASY AND NON LABORED. SITTING UP WATCHING TV. CALL LIGHT WITHIN REACH.
[2019-12-15 20:00] VITALS: BP 133/62
--- NOTE | 2019-12-15 21:54 | NUR ---
PATIENT MEDICATED WITH AMBIEN FOR COMPLAINTS OF INSOMNIA AND PERCOCET FOR COMPLAINTS OF ABDOMINAL AND BACK PAIN. WILL CONTINUE TO MONITOR.
--- NOTE | 2019-12-15 22:45 | NUR ---
PERCOCET EFFECTIVE. MEDICATED WITH DEMEROL AT THIS TIME FOR MORE PAIN RELIEF. WILL CONTINUE TO MONITOR.
--- NOTE | 2019-12-15 23:30 | NUR ---
AMBIEN AND DEMEROL EFFECTIVE AT THIS TIME. PATIENT IN BED SLEEPING. NO SIGNS OR SYMPTOMS OF DISTRESS NOTED. CALL LIGHT IN REACH.
[2019-12-16] VITALS: BP 117/51
--- NOTE | 2019-12-16 01:47 | NUR ---
MEDICATED WITH ZOFRAN FOR COMPLAINTS OF NAUSEA. WILL CONTINUE TO MONITOR.
--- NOTE | 2019-12-16 05:32 | NUR ---
MEDICATED WITH DEMEROL FOR COMPLAINTS OF ABDOMINAL PAIN. WILL CONTINUE TO MONITOR.
[2019-12-16 06:45] LABS: ALBUMIN 2.5 gm/dl (3.1-4.5); CREATININE 1.19 mg/dL (0.55-1.02); POTASSIUM 3.7 mmol/L (3.5-5.1); TOTAL PROTEIN 6.5 gm/dL (6.4-8.2)
[2019-12-16 08:00] VITALS: BP 113/49
--- NOTE | 2019-12-16 08:00 | NUR ---
PATIENT RESTING IN BED. CO CHRONIC BACK PAIN AND ABDOMINAL PAIN RATING IT A 10/10. PATIENTS DEMEROL IS NOT DUE AT THIS TIME. OFFERRED PATIENT HER PERCOCET AND PATIENT STATES SHE WANTED TO WAIT FOR HER DEMEROL. VOICES NO OTHER CONCERNS. ASSESSMENT COMPLETE. LLQ COLOSTOMY INTACT. RESPS EASY AND REGULAR. CALL LIGHT IN REACH.
--- NOTE | 2019-12-16 09:00 | NUR ---
CM in to see patient. No new needs or request at this time. Discussed home health care services and she declines. CM will continue to follow for any discharge planning needs. When medically stable she will be discharged to home,
--- NOTE | 2019-12-16 09:31 | NUR ---
MEDICATED WITH PRN DEMEROL FOR CO BACK AND ABDOMINAL PAIN RATED A 10/10. WILL ASSESS EFFECTIVENESS.
--- NOTE | 2019-12-16 10:31 | NUR ---
PER PATIENT DEMEROL EFFECTIVE.
--- NOTE | 2019-12-16 11:13 | NUR ---
24 HR chart check completed.
[2019-12-16 12:00] VITALS: BP 101/50
--- NOTE | 2019-12-16 13:51 | NUR ---
MEDICATED WITH PRN DEMEROL FOR CO ABDOMINAL PAIN AND CHRONIC BACK PAIN RATED 10/10. WILL ASSESS EFFECTIVENESS.
--- NOTE | 2019-12-16 14:42 | NUR ---
NOTIFIED OF NEW CONSULT.
--- NOTE | 2019-12-16 14:51 | NUR ---
PER PT DEMEROL EFFECTIVE,
[2019-12-16 16:00] VITALS: BP 113/68
[2019-12-16 20:00] VITALS: BP 144/73
--- NOTE | 2019-12-16 20:00 | NUR ---
IN TO ASSESS PATIENT AT THIS TIME. ON ENTRY INTO ROOM, PT APPEARS COMFORTABLE. PATIENTS ONLY COMPLAINT IS CONTINUED DYSURIA AND FLANK PAIN. ASSESSMENT OTHERWISE NEGATIVE. COLOSTOMY TO LLQ- STOMA RED. WILL MONITOR. CALL LIGHT IN REACH. BED LOCKED AND IN THE LOWEST POSITION.
--- NOTE | 2019-12-16 22:17 | NUR ---
PERCOCET ADMINISTERED FOR PT C/O 9/10 FLANK AND ABDOMINAL PAIN. WILL MONITOR AND REASSESS.
--- NOTE | 2019-12-16 23:03 | NUR ---
PT RESTING IN BED AT THIS TIME WITH NO OVERT SIGNS OF DISCOMFORT OR DISTRESS. WILL CONTINUE TO MONITOR.
--- NOTE | 2019-12-16 23:54 | NUR ---
DEMEROL ADMINISTERED FOR ABDOMINAL PAIN RATED A 9/10. WILL CONTINUE TO MONITOR AND REASSESS. STATES IT FEELS LIKE "SOMEONE HAS A SCREW [employer]TER[employer] SOFTWARE ENGINEER IN HER STOMACH AND IS POKING HER".
[2019-12-17] VITALS: BP 160/68
--- NOTE | 2019-12-17 00:50 | NUR ---
PT ASLEEP AT THIS TIME. NO S/S OF DISTRESS NOTED.
--- NOTE | 2019-12-17 05:57 | NUR ---
DEMEROL ADMINISTERED FOR PT C/O 02/10 ABDOMINAL AND BACK PAIN. WILL MONITOR AND REASSESS.
--- NOTE | 2019-12-17 06:54 | NUR ---
PT ASLEEP AT THIS TIME. NO S/S OF DISTRESS NOTED.
[2019-12-17 07:24] LABS: ALBUMIN 2.5 gm/dl (3.1-4.5); ALKALINE PHOSPHATASE 136 U/L (45-117); BUN 14 mg/dl (7-24); CHLORIDE 112 mmol/L (98-107); CREATININE 0.95 mg/dL (0.55-1.02); POTASSIUM 3.8 mmol/L (3.5-5.1); SGOT/AST 11 IU/L (3-35); SGPT/ALT 10 U/L (12-78); SODIUM 141 mmol/L (136-145); TOTAL PROTEIN 6.7 gm/dL (6.4-8.2)
[2019-12-17 08:05] VITALS: BP 119/43
--- NOTE | 2019-12-17 09:49 | NUR ---
MEDICATED WITH PRN IV DEMORAL FOR ABDOMINAL PAIN AND IV ZOFRAN FOR NAUSEA.
--- NOTE | 2019-12-17 10:07 | NUR ---
DR. LOYOLA IN TO SEE PATIENT RE: PLAN OF CARE, IS PLANNING FOR EGD ON THURSDAY.
--- NOTE | 2019-12-17 10:21 | NUR ---
PRN IV ZOFRAN AND DEMORAL EFFECTIVE, PER PATIENT.
[2019-12-17 12:00] VITALS: BP 147/64
--- NOTE | 2019-12-17 14:33 | NUR ---
MEDICATED WITH PRN IV DEMORAL FOR ABDOMINAL PAIN.
--- NOTE | 2019-12-17 15:12 | NUR ---
PRN IV DEMORAL EFFECTIVE, PER PATIENT.
[2019-12-17 16:00] VITALS: BP 157/75
--- NOTE | 2019-12-17 18:37 | NUR ---
MEDICATED WITH PRN IV DEMORAL AND ZOFRAN FOR ABDOMINAL PAIN AND NAUSEA.
[2019-12-17 20:00] VITALS: BP 173/78
--- NOTE | 2019-12-17 21:20 | NUR ---
PERCOCET ADMINISTERED FOR PT C/0 ABDOMINAL PAIN RATED A 9/10. WILL MONITOR AND REASSESS.
--- NOTE | 2019-12-17 22:00 | NUR ---
PT STATES THE PERCOCET WAS NOT TOO EFFECTIVE. WILL ADMINISTER DEMEROL WHEN ABLE.
--- NOTE | 2019-12-17 22:58 | NUR ---
DEMEROL ADMINISTERED FOR PT C/O 9.5/10 PAIN IN ABDOMEN. WILL CONTINUE TO MONITOR AND REASSESS.
--- NOTE | 2019-12-17 23:46 | NUR ---
PT ASLEEP AT THIS TIME. NO SIGNS OF DISCOMFORT OR DISTRESS NOTED.
[2019-12-18] VITALS: BP 151/75
--- NOTE | 2019-12-18 03:18 | NUR ---
DEMEROL ADMINISTERED FOR PT C/O ABDOMINAL PAIN RATED A 9/10 ON THE PAIN SCALE. WILL MONITOR AND REASSESS.
--- NOTE | 2019-12-18 04:18 | NUR ---
PT ASLEEP AT THIS TIME. NO S/S OF DISTRESS. WILL MONITOR.
[2019-12-18 06:04] LABS: BASO % 0.5 % (0.0-1.0); EOS # 0.9 10*3/uL (0.0-0.4); EOS % 10.5 % (1.0-4.0); LYMPH # 1.9 10*3/uL (1.3-4.4); LYMPH % 23.4 % (27.0-41.0); MEAN CORPUSCULAR HGB 30.2 pg (27.0-31.0); MEAN CORPUSCULAR HGB CONC 31.1 g/dl (33.0-37.0); MEAN PLATELET VOLUME 9.8 fl (9.6-12.3); MONO # 0.8 10*3/uL (0.1-1.0); MONO % 9.5 % (3.0-9.0); NEUT # 4.6 10*3/uL (2.3-7.9); NEUT % 55.9 % (47.0-73.0); PLATELET COUNT AUTOMATED 241 10*3/uL (130-400); RED BLOOD COUNT 3.71 10*6/uL (4.10-5.10); RED CELL DISTRI WIDTH 13.2 % (0-14.5); WHITE BLOOD COUNT 8.2 10*3/uL (4.8-10.8)
[2019-12-18 08:00] VITALS: BP 158/56
--- NOTE | 2019-12-18 08:00 | NUR ---
MORNING ASSESSMENT COMPLETE. NO COMPLAINTS VOICED AT THIS TIME.
--- NOTE | 2019-12-18 08:00 | NUR ---
MORNING ASSESSMENT COMPLETED. PATIENT ADMITS TO ABDOMINAL PAIN RATING A 9/10 AND NAUSEA. DEMEROL 25MG AND ZOFRAN 4MG GIVEN.
[2019-12-18 12:00] VITALS: BP 150/60
--- NOTE | 2019-12-18 12:24 | NUR ---
DEMEROL 25MG IV GIVEN PER PATIENT REQUEST FOR ABDOMINAL PAIN.
[2019-12-18 16:00] VITALS: BP 155/66
--- NOTE | 2019-12-18 16:49 | NUR ---
PT MEDICATED FOR ABD PAIN AND NAUSEA AT THIS TIME WITH ZOFRAN AND DEMEROL. WILL MONITOR FOR EFFECTIVENESS.
--- NOTE | 2019-12-18 17:49 | NUR ---
PER PT PRN MEDICATION HAS BEEN EFFECTIVE. NO FURTHER COMPLAINTS AT THIS TIME.
[2019-12-18 20:00] VITALS: BP 163/67
--- NOTE | 2019-12-18 20:50 | NUR ---
24 HR chart check completed.
--- NOTE | 2019-12-18 21:00 | NUR ---
RESTING IN BED. RESPIRATIONS EASY. LUNGS DIMINISHED, CLEAR. PULSE OX 93% RA. COLOSTOMY PATENT. IV FLUIDS INFUSING PER ORDER. CALL LIGHT WITHIN REACH. NO VOICED COMPLAINTS. NPO STATUS DISCUSSED FOR SURGERY IN AM
--- NOTE | 2019-12-18 22:13 | NUR ---
REQUESTED AND RECEIVED PERCOCET AND AMBIEN PER PRN ORDER FOR COMPLAINTS OF "BELLY AND BACK" PAIN RATING A 10 AND TO ASSIST WITH SLEEP. CALL LIGHT WITHIN REACH. WILL MONITOR FOR EFFECTIVENESS
--- NOTE | 2019-12-18 23:00 | NUR ---
STATES EARLIER MEDS "HELPING." CALL LIGHT WITHIN REACH. NO FURTHER VOICED COMPLAINTS
--- NOTE | 2019-12-18 23:29 | NUR ---
REQUESTED AND RECEIVED DEMEROL AND ZOFRAN IV PER PRN ORDER FOR COMPLAINTS OF "BELLY" PAIN RATING A 9 AND NAUSEA. CALL LIGHT WITHIN REACH. WILL MONITOR
[2019-12-19] VITALS (8 sets, daily range): BP systolic 131–177; BP diastolic 56–77
--- NOTE | 2019-12-19 | NUR ---
MEDS APPEAR EFFECTIVE. SLEEPING. RESPIRATIONS EASY. VSS. CALL LIGHT WITHIN REACH.
--- NOTE | 2019-12-19 03:39 | NUR ---
IMMEDIATELY UPON AWAKENING, C/O "BELLY" PAIN RATING A 10 - MEDICATED WITH DEMEROL PER PRN ORDER. CALL LIGHT WITHIN REACH. WILL MONITOR
--- NOTE | 2019-12-19 04:15 | NUR ---
MEDS EFFECTIVE. SLEEPING. RESPIRATIONS EASY. IV FLUIDS INFUSING. CALL LIGHT WITHIN REACH
[2019-12-19 06:17] LABS: BUN 10 mg/dl (7-24); CHLORIDE 109 mmol/L (98-107); CREATININE 0.96 mg/dL (0.55-1.02); POTASSIUM 3.9 mmol/L (3.5-5.1); SODIUM 140 mmol/L (136-145)
--- NOTE | 2019-12-19 08:01 | NUR ---
IN TO ASSESS PATIENT. IMMEDIATLY UPON AWAKENING PT REQUESTING PAIN MEDICINE. DEMEROL ADMINISTERED FOR PT C/O ABDOMINAL PAIN. WILL MONITOR AND REASSESS.
--- NOTE | 2019-12-19 08:41 | NUR ---
PT ASLEEP AT THIS TIME. NO S/S OF DISTRESS. WILL CONTINUE TO MONITOR.
--- NOTE | 2019-12-19 09:30 | NUR ---
CM in to see patient. She is currently not in her room. Will follow up at a later time.
--- NOTE | 2019-12-19 12:30 | NUR ---
PT BACK FROM SURGERY AT THIS TIME.
--- NOTE | 2019-12-19 12:31 | NUR ---
REPORT GIVEN FROM SURGICAL NURSE. PT WILL BE RETURNING TO FLOOR SOON.
--- NOTE | 2019-12-19 13:27 | NUR ---
DEMEROL ADMINISTERED FOR PT C/O 01/11 ABDOMINAL AND BACK PAIN. WILL MONITOR AND REASSES.
--- NOTE | 2019-12-19 13:51 | NUR ---
COLOSTOMY SITE CHANGED PER PT REQUEST.
--- NOTE | 2019-12-19 14:24 | NUR ---
PT RESTING IN BED WITH NO S/S OF DISCOMFORT. DEMEROL APPEARS EFFECTIVE. WILL MONITOR.
[2019-12-19] MEDS ORDERED: AMBIEN10 M1 PO (17:12)
[2019-12-19] MEDS ORDERED: Carafate1 GM PO (17:12)
[2019-12-19] MEDS ORDERED: PERCOCET 5-3251 EACH PO (17:12)
[2019-12-19] MEDS ORDERED: SOMA350 MG PO (17:12)
--- NOTE | 2019-12-19 17:36 | NUR ---
MEDIPORT REMOVED FROM RIGHT SUBCLAVIAN. DISCHARGE INSTRUCTIONS REVIEWED WITH PATIENT. ALL BELONGINGS PACKED UP AND WITH HER. PAPER SCRIPTS ATTACHED TO DISCHARGE INSTRUCTIONS. PT OFF FLOOR BY WHEELCHAIR TO BE PICKED UP AT MAIN ENTRANCE BY .
== END 2019-12-19 17:36 | disposition home or self-care (01) | DRG 391 ==
LOC: ED 05:29 → EDHOLD 10:14 → 5E 10:14
PROVIDERS: Emergency Medicine; Internal Medicine; ADMIT Internal Medicine
PROC: 0DB78ZX Excision of Stomach, Pylorus, Via Natural or Artificial Opening Endoscopic, Diagnostic (ICD-10-PCS; principal; 2019-12-19)
DX: K29.70 Gastritis, unspecified, without bleeding (principal); N17.0 Acute kidney failure with tubular necrosis; N39.0 Urinary tract infection, site not specified; I13.0 Hypertensive heart and chronic kidney disease with heart failure and stage 1 through stage 4 chronic kidney disease, or unspecified chronic kidney disease; E44.0 Moderate protein-calorie malnutrition; I50.30 Unspecified diastolic (congestive) heart failure; K44.9 Diaphragmatic hernia without obstruction or gangrene; M54.9 Dorsalgia, unspecified; E66.9 Obesity, unspecified; F41.9 Anxiety disorder, unspecified; I48.91 Unspecified atrial fibrillation; K21.9 Gastro-esophageal reflux disease without esophagitis; J44.9 Chronic obstructive pulmonary disease, unspecified; E11.22 Type 2 diabetes mellitus with diabetic chronic kidney disease; E11.65 Type 2 diabetes mellitus with hyperglycemia; N18.3 Chronic kidney disease, stage 3 (moderate); M48.00 Spinal stenosis, site unspecified; G89.29 Other chronic pain; K76.0 Fatty (change of) liver, not elsewhere classified; K43.2 Incisional hernia without obstruction or gangrene; E11.43 Type 2 diabetes mellitus with diabetic autonomic (poly)neuropathy; K43.9 Ventral hernia without obstruction or gangrene; K57.90 Diverticulosis of intestine, part unspecified, without perforation or abscess without bleeding; E87.8 Other disorders of electrolyte and fluid balance, not elsewhere classified; E83.51 Hypocalcemia; Z68.31 Body mass index [BMI] 31.0-31.9, adult; Z90.710 Acquired absence of both cervix and uterus; Z93.3 Colostomy status; Z90.49 Acquired absence of other specified parts of digestive tract; Z87.891 Personal history of nicotine dependence; Z82.49 Family history of ischemic heart disease and other diseases of the circulatory system; Z79.4 Long term (current) use of insulin; Z79.899 Other long term (current) drug therapy

== ENCOUNTER → 2020-02-02 | Outpatient (CLI) | payer MEDICARE ==
[~2020-02-02] MED LIST changes: +Carafate1 GM PO
--- NOTE | 2020-02-02 11:05 | NUR ---
PT HERE FOR MEDIPORT FLUSH ORDERED. [facility] MEDIPORT ACCESSED WITH NONCORING NEEDLE. HEPARIN FLUSH PER POLICY. PROMPT BLOOD RETURN NOTED. NEEDLE REMOVED AND DRESSING APPLIED. TOLERATED WELL. NO BLEEDING NOTED. RESCHEDULED FOR 03/04/20. FREDI RODRÍGUEZ RN
== END | disposition home or self-care (01) ==
LOC: MEDIPORT 01-05 13:00
PROVIDERS: ATTEND Internal Medicine
DX: Z45.2 Encounter for adjustment and management of vascular access device (principal)

== ENCOUNTER → 2020-03-06 | Outpatient (CLI) | payer MEDICARE ==
--- NOTE | 2020-03-06 10:40 | NUR ---
PT HERE FOR MEDIPORT FLUSH PER POLICY. MEDIPORT ACCESSED WITHOUT DIFFCULTY. HEPARIN FLUSHED PER POLICY. TOLERATED WELL. NEEDLE REMOVED. DRESSING APPLIED. FREDI RODRÍGUEZ RN
== END | disposition home or self-care (01) ==
LOC: MEDIPORT 10:22
PROVIDERS: ATTEND Internal Medicine
DX: Z45.2 Encounter for adjustment and management of vascular access device (principal)

== ENCOUNTER 2020-04-08 09:58 | Emergency (ER) | payer MEDICARE ==
[~2020-04-08] VITALS: Ht 167.6 cm; Wt 83.9 kg
[2020-04-08 10:04] VITALS: BP 155/83
[2020-04-08 10:33] LABS: BASO # 0.1 10*3/uL (0.0-0.1); BASO % 0.5 % (0.0-1.0); EOS # 0.4 10*3/uL (0.0-0.4); EOS % 3.4 % (1.0-4.0); HEMATOCRIT 41.5 % (37.0-47.0); LYMPH # 2.6 10*3/uL (1.3-4.4); LYMPH % 25.4 % (27.0-41.0); MEAN CELL VOLUME 96.5 fl (81.0-99.0); MEAN CORPUSCULAR HGB 30.5 pg (27.0-31.0); MEAN CORPUSCULAR HGB CONC 31.6 g/dl (33.0-37.0); MEAN PLATELET VOLUME 9.7 fl (9.6-12.3); MONO # 0.9 10*3/uL (0.1-1.0); MONO % 8.9 % (3.0-9.0); NEUT # 6.3 10*3/uL (2.3-7.9); NEUT % 61.4 % (47.0-73.0); PLATELET COUNT AUTOMATED 293 10*3/uL (130-400); RED CELL DISTRI WIDTH 12.8 % (0-14.5); WHITE BLOOD COUNT 10.3 10*3/uL (4.8-10.8)
[2020-04-08 10:48] LABS: BILIRUBIN Negative (Negative); BLOOD Negative (Negative); CLARITY Clear (Clear); COLOR Yellow (Yellow); GLUCOSE Negative (Negative); KETONE Negative (Negative); LEUKO ESTERASE 2+ (Negative); NITRITE Negative (Negative); PH 6.5 (4.5-8.0); SPECIFIC GRAVITY 1.015 (1.001-1.030)
[2020-04-08 10:50] LABS: ALBUMIN 3.2 gm/dl (3.1-4.5); ALKALINE PHOSPHATASE 131 U/L (45-117); BUN 14 mg/dl (7-24); CHLORIDE 108 mmol/L (98-107); CREATININE 1.07 mg/dL (0.55-1.02); POTASSIUM 4.2 mmol/L (3.5-5.1); SGOT/AST 48 IU/L (3-35); SGPT/ALT 18 U/L (12-78); SODIUM 139 mmol/L (136-145); TOTAL PROTEIN 8.6 gm/dL (6.4-8.2)
[2020-04-08 10:58] LABS: BACTERIA 1+
[2020-04-08] MEDS ORDERED: MACROBID100 M1 PO (11:18)
== END 2020-04-08 11:48 | disposition home or self-care (01) ==
LOC: ED 09:58
PROVIDERS: Physician Assistant
DX: N39.0 Urinary tract infection, site not specified (principal); Z93.3 Colostomy status; R30.9 Painful micturition, unspecified; Z88.1 Allergy status to other antibiotic agents; Z88.2 Allergy status to sulfonamides; Z88.8 Allergy status to other drugs, medicaments and biological substances; Z88.6 Allergy status to analgesic agent; Z91.048 Other nonmedicinal substance allergy status; Z79.899 Other long term (current) drug therapy; Z79.82 Long term (current) use of aspirin; Z98.890 Other specified postprocedural states; Z90.49 Acquired absence of other specified parts of digestive tract; Z90.710 Acquired absence of both cervix and uterus; Z87.891 Personal history of nicotine dependence; I10 Essential (primary) hypertension; K21.9 Gastro-esophageal reflux disease without esophagitis; J44.9 Chronic obstructive pulmonary disease, unspecified; F32.9 Major depressive disorder, single episode, unspecified; E78.00 Pure hypercholesterolemia, unspecified; Z86.73 Personal history of transient ischemic attack (TIA), and cerebral infarction without residual deficits; M19.90 Unspecified osteoarthritis, unspecified site; Z86.718 Personal history of other venous thrombosis and embolism

== ENCOUNTER → 2020-04-23 | Outpatient (CLI) | payer MEDICARE | END | disposition home or self-care (01) | LOC: US 09:55 | PROVIDERS: ATTEND Internal Medicine Nephrology | DX: N30.00 Acute cystitis without hematuria (principal); R10.30 Lower abdominal pain, unspecified ==

== ENCOUNTER → 2020-05-07 | Outpatient (CLI) | payer MEDICARE ==
--- NOTE | 2020-05-07 11:07 | NUR ---
PT WC'ED IN FOR MEDIPORT FLUSH. PORT FLUSHED PER P/P. NON-CORING NEEDLE USED. NEEDLE REMOVED INTACT. PT TOLERATED PROCEDURE WELL. FEROZ WAKEFIELD RN
[2020-05-07 11:19] LABS: CHOLESTEROL 159 mg/dL (<200); HDL CHOLESTEROL 45 mg/dl (40-60); LDL CHOLESTEROL 72 mg/dL (9-159); TRIGLYCERIDES 212 mg/dl (<150); VLDL CHOLESTEROL 42 mg/dL (6-40)
== END | disposition home or self-care (01) ==
LOC: MEDIPORT 04-04 11:00 → LAB 09:06 → MEDIPORT 09:06
PROVIDERS: ATTEND Internal Medicine
DX: Z45.2 Encounter for adjustment and management of vascular access device (principal); E11.22 Type 2 diabetes mellitus with diabetic chronic kidney disease; N18.9 Chronic kidney disease, unspecified

== ENCOUNTER → 2020-06-07 | Outpatient (CLI) | payer MEDICARE | END | disposition home or self-care (01) | LOC: MEDIPORT 10:27 | PROVIDERS: ATTEND Internal Medicine | DX: Z45.2 Encounter for adjustment and management of vascular access device (principal) ==

== ENCOUNTER → 2020-07-09 | Outpatient (CLI) | payer MEDICARE | END | disposition home or self-care (01) | LOC: MEDIPORT 07-05 10:00 | PROVIDERS: ATTEND Internal Medicine | DX: Z45.2 Encounter for adjustment and management of vascular access device (principal) ==

== ENCOUNTER → 2020-08-09 | Outpatient (CLI) | payer MEDICARE | END | disposition home or self-care (01) | LOC: MEDIPORT 08:56 | PROVIDERS: ATTEND Internal Medicine | DX: Z45.2 Encounter for adjustment and management of vascular access device (principal) ==

== ENCOUNTER → 2020-09-06 | Outpatient (CLI) | payer MEDICARE | END | disposition home or self-care (01) | LOC: MEDIPORT 08:49 | PROVIDERS: ATTEND Internal Medicine | DX: Z45.2 Encounter for adjustment and management of vascular access device (principal) ==

== ENCOUNTER 2020-09-10 10:41 | Emergency (ER) | payer MEDICARE ==
[~2020-09-10] VITALS: Wt 90.7 kg
== END 2020-09-10 10:51 | disposition left against medical advice (07) ==
LOC: ED 10:41
DX: R10.9 Unspecified abdominal pain (principal); R42 Dizziness and giddiness; R11.0 Nausea; Z53.21 Procedure and treatment not carried out due to patient leaving prior to being seen by health care provider

== ENCOUNTER → 2020-10-08 | Outpatient (CLI) | payer MEDICARE | END | disposition home or self-care (01) | LOC: MEDIPORT 10-04 09:00 | PROVIDERS: ATTEND Internal Medicine | DX: Z45.2 Encounter for adjustment and management of vascular access device (principal) ==

== ENCOUNTER → 2020-11-06 | Outpatient (CLI) | payer MEDICARE | END | disposition home or self-care (01) | LOC: MEDIPORT 11-05 10:00 | PROVIDERS: ATTEND Internal Medicine | DX: Z45.2 Encounter for adjustment and management of vascular access device (principal) ==

== ENCOUNTER → 2020-12-07 | Outpatient (CLI) | payer MEDICARE | END | disposition home or self-care (01) | LOC: MEDIPORT 08:44 | PROVIDERS: ATTEND Internal Medicine | DX: Z45.2 Encounter for adjustment and management of vascular access device (principal) ==

== ENCOUNTER 2021-01-08 09:59 | Inpatient (IN) | payer MEDICARE ==
[~2021-01-08] VITALS: Ht 167.6 cm; Wt 86.7 kg
[2021-01-08 10:06] VITALS: BP 184/83
[2021-01-08 10:20] LABS: BASO % 0.4 % (0.0-1.0); EOS # 0.3 10*3/uL (0.0-0.4); EOS % 2.9 % (1.0-4.0); HEMATOCRIT 41.3 % (37.0-47.0); LYMPH # 2.3 10*3/uL (1.3-4.4); LYMPH % 23.6 % (27.0-41.0); MEAN CELL VOLUME 95.4 fl (81.0-99.0); MEAN CORPUSCULAR HGB CONC 31.5 g/dl (33.0-37.0); MEAN PLATELET VOLUME 9.8 fl (9.6-12.3); MONO # 0.8 10*3/uL (0.1-1.0); MONO % 7.6 % (3.0-9.0); NEUT # 6.4 10*3/uL (2.3-7.9); NEUT % 65.3 % (47.0-73.0); PLATELET COUNT AUTOMATED 293 10*3/uL (130-400); RED BLOOD COUNT 4.33 10*6/uL (4.10-5.10); RED CELL DISTRI WIDTH 12.9 % (0-14.5); WHITE BLOOD COUNT 9.8 10*3/uL (4.8-10.8)
[2021-01-08 10:36] LABS: ALBUMIN 3.3 gm/dl (3.1-4.5); ALKALINE PHOSPHATASE 155 U/L (45-117); BUN 9 mg/dl (7-24); CHLORIDE 101 mmol/L (98-107); CREATININE 0.85 mg/dL (0.55-1.02); POTASSIUM 3.9 mmol/L (3.5-5.1); SGOT/AST 12 IU/L (3-35); SGPT/ALT 12 U/L (12-78); SODIUM 136 mmol/L (136-145); TOTAL PROTEIN 8.3 gm/dL (6.4-8.2)
[2021-01-08 10:37] LABS: TROPONIN I < 0.015 ng/ml (<0.045)
[2021-01-08 11:25] LABS: BILIRUBIN Negative (Negative); BLOOD Negative (Negative); CLARITY Clear (Clear); COLOR Yellow (Yellow); GLUCOSE Negative (Negative); KETONE Negative (Negative); LEUKO ESTERASE 2+ (Negative); NITRITE Negative (Negative); PH 6.5 (4.5-8.0); SPECIFIC GRAVITY <= 1.005 (1.001-1.030); UROBILINOGEN 0.2 E.U./dl (0.0-1.0)
[2021-01-08 11:34] LABS: WBC 16-20 wbc/hpf (0-5)
[2021-01-08 12:00] VITALS: BP 155/64
[2021-01-08 14:00] VITALS: BP 148/62
[2021-01-08 18:00] VITALS: BP 152/82
[2021-01-08 20:00] VITALS: BP 155/64
[2021-01-08 21:43] VITALS: BP 160/83
[2021-01-09] VITALS (9 sets, daily range): BP systolic 128–172; BP diastolic 51–84
[2021-01-09 05:51] LABS: BUN 11 mg/dl (7-24); CHLORIDE 105 mmol/L (98-107); CREATININE 0.73 mg/dL (0.55-1.02); POTASSIUM 3.7 mmol/L (3.5-5.1); SODIUM 139 mmol/L (136-145); TRIGLYCERIDES 163 mg/dl (<150)
[2021-01-09 05:54] LABS: CHOLESTEROL 139 mg/dL (<200); LDL CHOLESTEROL 68 mg/dL (9-159)
[2021-01-09 06:14] LABS: BASO % 0.4 % (0.0-1.0); EOS # 0.4 10*3/uL (0.0-0.4); EOS % 3.5 % (1.0-4.0); HEMATOCRIT 37.6 % (37.0-47.0); LYMPH # 2.1 10*3/uL (1.3-4.4); LYMPH % 20.9 % (27.0-41.0); MEAN CELL VOLUME 94.7 fl (81.0-99.0); MEAN CORPUSCULAR HGB CONC 31.6 g/dl (33.0-37.0); MEAN PLATELET VOLUME 10.3 fl (9.6-12.3); MONO # 0.8 10*3/uL (0.1-1.0); MONO % 7.9 % (3.0-9.0); NEUT # 6.8 10*3/uL (2.3-7.9); PLATELET COUNT AUTOMATED 273 10*3/uL (130-400); RED BLOOD COUNT 3.97 10*6/uL (4.10-5.10); RED CELL DISTRI WIDTH 13.1 % (0-14.5); WHITE BLOOD COUNT 10.2 10*3/uL (4.8-10.8)
[2021-01-10] VITALS: BP 117/46
[2021-01-10 06:23] LABS: BASO % 0.3 % (0.0-1.0); EOS # 0.4 10*3/uL (0.0-0.4); EOS % 3.6 % (1.0-4.0); HEMATOCRIT 36.3 % (37.0-47.0); LYMPH # 2.5 10*3/uL (1.3-4.4); LYMPH % 22.2 % (27.0-41.0); MEAN CELL VOLUME 94.3 fl (81.0-99.0); MEAN CORPUSCULAR HGB 29.9 pg (27.0-31.0); MEAN CORPUSCULAR HGB CONC 31.7 g/dl (33.0-37.0); MONO # 0.9 10*3/uL (0.1-1.0); MONO % 8.2 % (3.0-9.0); NEUT # 7.2 10*3/uL (2.3-7.9); NEUT % 65.4 % (47.0-73.0); PLATELET COUNT AUTOMATED 269 10*3/uL (130-400); RED BLOOD COUNT 3.85 10*6/uL (4.10-5.10); RED CELL DISTRI WIDTH 13.2 % (0-14.5)
[2021-01-10 06:37] LABS: BUN 13 mg/dl (7-24); CHLORIDE 109 mmol/L (98-107); CREATININE 0.71 mg/dL (0.55-1.02); POTASSIUM 3.9 mmol/L (3.5-5.1); SODIUM 140 mmol/L (136-145)
[2021-01-10 07:57] VITALS: BP 140/78
[2021-01-10 08:00] VITALS: BP 140/61
[2021-01-10 12:00] VITALS: BP 157/71
[2021-01-10 16:00] VITALS: BP 154/67
[2021-01-10 20:00] VITALS: BP 155/71
[2021-01-11] VITALS: BP 135/83
[2021-01-11 04:00] VITALS: BP 151/63
[2021-01-11 08:00] VITALS: BP 151/54
[2021-01-11 12:00] VITALS: BP 149/57
[2021-01-11 16:00] VITALS: BP 155/67
[2021-01-11 20:00] VITALS: BP 130/61
[2021-01-12] VITALS: BP 150/55
[2021-01-12 05:56] LABS: BUN 8 mg/dl (7-24); CHLORIDE 110 mmol/L (98-107); SODIUM 142 mmol/L (136-145)
[2021-01-12 06:11] LABS: BASO % 0.3 % (0.0-1.0); EOS # 0.5 10*3/uL (0.0-0.4); EOS % 5.4 % (1.0-4.0); HEMATOCRIT 37.2 % (37.0-47.0); LYMPH # 1.8 10*3/uL (1.3-4.4); LYMPH % 18.3 % (27.0-41.0); MEAN CELL VOLUME 96.1 fl (81.0-99.0); MEAN CORPUSCULAR HGB CONC 31.2 g/dl (33.0-37.0); MEAN PLATELET VOLUME 10.7 fl (9.6-12.3); MONO # 0.8 10*3/uL (0.1-1.0); MONO % 8.1 % (3.0-9.0); NEUT # 6.8 10*3/uL (2.3-7.9); NEUT % 67.7 % (47.0-73.0); PLATELET COUNT AUTOMATED 232 10*3/uL (130-400); RED BLOOD COUNT 3.87 10*6/uL (4.10-5.10); RED CELL DISTRI WIDTH 13.2 % (0-14.5)
[2021-01-12 08:00] VITALS: BP 156/66
== END 2021-01-12 14:16 | disposition home or self-care (01) | DRG 690 ==
LOC: ED 09:59 → 5E 13:06 → EDHOLD 13:06 → 5E 01-09 07:19 → 4E 01-11 17:13
PROVIDERS: Emergency Medicine; Podiatrist Foot & Ankle Surgery; ADMIT Internal Medicine; ATTEND Internal Medicine
PROC: 4A02XM4 Measurement of Cardiac Total Activity, External Approach (ICD-10-PCS; principal; 2021-01-10)
PROC: 3E073KZ Introduction of Other Diagnostic Substance into Coronary Artery, Percutaneous Approach (ICD-10-PCS; 2021-01-10)
DX: N39.0 Urinary tract infection, site not specified (principal); K21.9 Gastro-esophageal reflux disease without esophagitis; R07.89 Other chest pain; M54.9 Dorsalgia, unspecified; K43.2 Incisional hernia without obstruction or gangrene; N28.89 Other specified disorders of kidney and ureter; I10 Essential (primary) hypertension; E55.9 Vitamin D deficiency, unspecified; E11.65 Type 2 diabetes mellitus with hyperglycemia; G47.00 Insomnia, unspecified; Z90.49 Acquired absence of other specified parts of digestive tract; Z98.891 History of uterine scar from previous surgery; Z90.710 Acquired absence of both cervix and uterus; Z87.891 Personal history of nicotine dependence; Z93.3 Colostomy status; Z82.49 Family history of ischemic heart disease and other diseases of the circulatory system; Z88.6 Allergy status to analgesic agent; Z88.2 Allergy status to sulfonamides; Z88.5 Allergy status to narcotic agent; Z88.8 Allergy status to other drugs, medicaments and biological substances; Z79.82 Long term (current) use of aspirin; Z79.899 Other long term (current) drug therapy; Z79.1 Long term (current) use of non-steroidal anti-inflammatories (NSAID)

== ENCOUNTER → 2021-02-18 | Outpatient (CLI) | payer MEDICARE | END | disposition home or self-care (01) | LOC: MEDIPORT 02-11 10:00 | PROVIDERS: ATTEND Internal Medicine | DX: Z45.2 Encounter for adjustment and management of vascular access device (principal) ==

== ENCOUNTER → 2021-03-18 | Outpatient (CLI) | payer MEDICARE | END | disposition home or self-care (01) | LOC: MEDIPORT 09:44 | PROVIDERS: ATTEND Internal Medicine | DX: Z45.2 Encounter for adjustment and management of vascular access device (principal) ==

== ENCOUNTER → 2021-04-22 | Outpatient (CLI) | payer MEDICARE | END | disposition home or self-care (01) | LOC: MEDIPORT 04-18 10:00 | PROVIDERS: ATTEND Internal Medicine | DX: Z45.2 Encounter for adjustment and management of vascular access device (principal) ==

== ENCOUNTER → 2021-05-29 | Outpatient (CLI) | payer MEDICARE | END | disposition home or self-care (01) | LOC: MEDIPORT 05-20 10:00 | PROVIDERS: ATTEND Internal Medicine | DX: Z45.2 Encounter for adjustment and management of vascular access device (principal); I10 Essential (primary) hypertension; K21.9 Gastro-esophageal reflux disease without esophagitis; J44.9 Chronic obstructive pulmonary disease, unspecified; E78.00 Pure hypercholesterolemia, unspecified; Z86.73 Personal history of transient ischemic attack (TIA), and cerebral infarction without residual deficits; Z93.3 Colostomy status; Z87.891 Personal history of nicotine dependence ==

== ENCOUNTER → 2021-07-05 | Outpatient (CLI) | payer MEDICARE | END | disposition home or self-care (01) | LOC: MEDIPORT 07-01 10:00 | PROVIDERS: ATTEND Internal Medicine | DX: Z45.2 Encounter for adjustment and management of vascular access device (principal) ==

== ENCOUNTER → 2021-08-02 | Outpatient (CLI) | payer MEDICARE | END | disposition home or self-care (01) | LOC: MEDIPORT 08:00 | PROVIDERS: ATTEND Internal Medicine | DX: Z45.2 Encounter for adjustment and management of vascular access device (principal) ==

== ENCOUNTER → 2021-09-03 | Outpatient (CLI) | payer MEDICARE | END | disposition home or self-care (01) | LOC: MEDIPORT 08-30 08:00 | PROVIDERS: ATTEND Internal Medicine | DX: Z45.2 Encounter for adjustment and management of vascular access device (principal) ==

== ENCOUNTER 2021-10-05 08:00 | Emergency (ER) | payer MEDICARE ==
[~2021-10-05] VITALS: Ht 167.6 cm; Wt 87.2 kg
[2021-10-05 08:12] VITALS: BP 154/79
== END 2021-10-05 09:12 | disposition home or self-care (01) ==
LOC: ED 08:00
DX: S69.91XA Unspecified injury of right wrist, hand and finger(s), initial encounter (principal); K21.9 Gastro-esophageal reflux disease without esophagitis; I10 Essential (primary) hypertension; E66.9 Obesity, unspecified; E11.9 Type 2 diabetes mellitus without complications; Z88.8 Allergy status to other drugs, medicaments and biological substances; Z88.1 Allergy status to other antibiotic agents; Z79.899 Other long term (current) drug therapy; Z79.82 Long term (current) use of aspirin; Z98.890 Other specified postprocedural states; Z90.89 Acquired absence of other organs; Z90.710 Acquired absence of both cervix and uterus; Z90.49 Acquired absence of other specified parts of digestive tract; Z87.891 Personal history of nicotine dependence; W01.0XXA Fall on same level from slipping, tripping and stumbling without subsequent striking against object, initial encounter; Y93.89 Activity, other specified; Y92.89 Other specified places as the place of occurrence of the external cause; Y99.8 Other external cause status

== ENCOUNTER → 2021-10-15 | Outpatient (CLI) | payer MEDICARE | END | disposition home or self-care (01) | LOC: MEDIPORT 10-08 08:00 | PROVIDERS: ATTEND Internal Medicine | DX: Z45.2 Encounter for adjustment and management of vascular access device (principal) ==

== ENCOUNTER → 2021-10-28 | Outpatient (CLI) | payer MEDICARE | END | disposition home or self-care (01) | LOC: ORTHO 02:40 | PROVIDERS: ATTEND Orthopaedic Surgery | DX: M79.644 Pain in right finger(s) (principal) ==

== ENCOUNTER → 2021-11-05 | Outpatient (CLI) | payer MEDICARE | END | disposition home or self-care (01) | LOC: RESCLI 03:21 | PROVIDERS: ATTEND Internal Medicine | DX: N39.0 Urinary tract infection, site not specified (principal); I10 Essential (primary) hypertension; E78.2 Mixed hyperlipidemia; K59.00 Constipation, unspecified; R11.0 Nausea; G47.00 Insomnia, unspecified; G89.29 Other chronic pain; E56.0 Deficiency of vitamin E; K43.5 Parastomal hernia without obstruction or gangrene; I67.9 Cerebrovascular disease, unspecified; Z79.899 Other long term (current) drug therapy; Z79.82 Long term (current) use of aspirin; Z88.8 Allergy status to other drugs, medicaments and biological substances ==

== ENCOUNTER → 2021-11-12 | Outpatient (CLI) | payer MEDICARE | END | disposition home or self-care (01) | LOC: MEDIPORT 08:00 | PROVIDERS: ATTEND Internal Medicine | DX: Z45.2 Encounter for adjustment and management of vascular access device (principal) ==

== ENCOUNTER → 2022-02-26 | Outpatient (CLI) | payer MEDICARE ==
[~2022-02-26] MED LIST changes: +COLACE100 MG PO; +DOXYCYCLINE HY100 M3 PO; +PRESERVISION A1 EAC3 PO
== END | disposition home or self-care (01) ==
LOC: MEDIPORT 00:49
PROVIDERS: ATTEND Internal Medicine
DX: Z45.2 Encounter for adjustment and management of vascular access device (principal)

== ENCOUNTER 2022-03-05 06:12 | Emergency (ER) | payer MEDICARE ==
[~2022-03-05] VITALS: Ht 167.6 cm; Wt 81.6 kg
[2022-03-05 06:14] VITALS: BP 169/109
[2022-03-05 06:35] LABS: BASO % 0.3 % (0.0-1.0); EOS # 0.2 10*3/uL (0.0-0.4); EOS % 1.9 % (1.0-4.0); LYMPH # 2.1 10*3/uL (1.3-4.4); LYMPH % 21.5 % (27.0-41.0); MEAN CELL VOLUME 94.9 fl (81.0-99.0); MEAN CORPUSCULAR HGB 31.3 pg (27.0-31.0); MEAN PLATELET VOLUME 10.4 fl (9.6-12.3); MONO # 0.7 10*3/uL (0.1-1.0); MONO % 7.4 % (3.0-9.0); NEUT # 6.7 10*3/uL (2.3-7.9); NEUT % 68.6 % (47.0-73.0); PLATELET COUNT AUTOMATED 287 10*3/uL (130-400); RED CELL DISTRI WIDTH 13.3 % (0-14.5); WHITE BLOOD COUNT 9.8 10*3/uL (4.8-10.8)
[2022-03-05 06:54] LABS: BUN 9 mg/dl (7-24); CHLORIDE 103 mmol/L (98-107); CREATININE 0.78 mg/dL (0.55-1.02); LIPASE 109 U/L (73-393); POTASSIUM 3.3 mmol/L (3.5-5.1); SGOT/AST 17 IU/L (3-35); SGPT/ALT 15 U/L (12-78); SODIUM 140 mmol/L (136-145)
[2022-03-05 06:55] LABS: ALKALINE PHOSPHATASE 94 U/L (45-117); TOTAL PROTEIN 7.9 gm/dL (6.4-8.2)
[2022-03-05 08:25] LABS: BILIRUBIN Negative (Negative); BLOOD Negative (Negative); CLARITY Clear (Clear); COLOR Yellow (Yellow); GLUCOSE Negative (Negative); KETONE Negative (Negative); LEUKO ESTERASE Trace (Negative); NITRITE Negative (Negative); SPECIFIC GRAVITY 1.015 (1.001-1.030); UROBILINOGEN 0.2 E.U./dl (0.0-1.0)
[2022-03-05 09:47] LABS: BACTERIA 1+
[2022-03-05] MEDS ORDERED: ONDANSETRON HYDR4 M1 PO (09:56)
== END 2022-03-05 10:18 | disposition home or self-care (01) ==
LOC: ED 06:12
PROVIDERS: Emergency Medicine
DX: R10.31 Right lower quadrant pain (principal); R10.32 Left lower quadrant pain; R11.2 Nausea with vomiting, unspecified; J44.9 Chronic obstructive pulmonary disease, unspecified; K21.9 Gastro-esophageal reflux disease without esophagitis; I10 Essential (primary) hypertension; E66.9 Obesity, unspecified; E11.42 Type 2 diabetes mellitus with diabetic polyneuropathy; Z90.710 Acquired absence of both cervix and uterus; Z88.1 Allergy status to other antibiotic agents; Z88.2 Allergy status to sulfonamides; Z88.6 Allergy status to analgesic agent; Z91.048 Other nonmedicinal substance allergy status; Z88.5 Allergy status to narcotic agent; Z88.8 Allergy status to other drugs, medicaments and biological substances; Z79.899 Other long term (current) drug therapy; Z79.2 Long term (current) use of antibiotics; Z79.82 Long term (current) use of aspirin; Z68.30 Body mass index [BMI] 30.0-30.9, adult; Z98.890 Other specified postprocedural states; Z90.49 Acquired absence of other specified parts of digestive tract; Z87.891 Personal history of nicotine dependence

== ENCOUNTER 2022-06-07 08:14 | Emergency (ER) | payer MEDICARE ==
[~2022-06-07] VITALS: Ht 167.6 cm; Wt 77.6 kg
[~2022-06-07 08:14] MED LIST changes: +B121000 MCG/1 IM; +CLONAZEPAM1 MG PO; +MIRTAZAPINE15 M2 PO; +ONDANSETRON HYDR4 M1 PO; +PHARMASSURE FO0.4 MG PO; +THERA M PLUS T1 EACH PO; +VITAMIN D3125 MC1 PO
[2022-06-07 08:23] VITALS: BP 150/65
[2022-06-07] MEDS ORDERED: Percocet 325 MG1 TAB PO (09:00)
[2022-06-07] MEDS ORDERED: VIBRA-TAB100 MG PO (09:00)
== END 2022-06-07 10:20 | disposition home or self-care (01) ==
LOC: ED 08:14
DX: R04.0 Epistaxis (principal); Z88.2 Allergy status to sulfonamides; Z88.5 Allergy status to narcotic agent; Z88.8 Allergy status to other drugs, medicaments and biological substances; Z88.9 Allergy status to unspecified drugs, medicaments and biological substances; Z93.3 Colostomy status; Z90.49 Acquired absence of other specified parts of digestive tract; Z90.89 Acquired absence of other organs; Z90.710 Acquired absence of both cervix and uterus; Z98.890 Other specified postprocedural states; Z87.891 Personal history of nicotine dependence

== ENCOUNTER 2022-09-14 17:22 | Emergency (ER) | payer MEDICARE ==
[~2022-09-14] VITALS: Ht 167.6 cm; Wt 79.4 kg
[~2022-09-14 17:22] MED LIST changes: +VIBRA-TAB100 MG PO
[2022-09-14 17:57] VITALS: BP 138/55
[2022-09-14] MEDS ORDERED: PERCOCET 5-3251 EACH PO (18:20)
== END 2022-09-14 18:54 | disposition home or self-care (01) ==
LOC: ED 17:22
DX: S52.602A Unspecified fracture of lower end of left ulna, initial encounter for closed fracture (principal); Z86.73 Personal history of transient ischemic attack (TIA), and cerebral infarction without residual deficits; I10 Essential (primary) hypertension; K21.9 Gastro-esophageal reflux disease without esophagitis; J44.9 Chronic obstructive pulmonary disease, unspecified; F32.A Depression, unspecified; E78.00 Pure hypercholesterolemia, unspecified; Z86.718 Personal history of other venous thrombosis and embolism; Z88.1 Allergy status to other antibiotic agents; Z88.2 Allergy status to sulfonamides; Z88.5 Allergy status to narcotic agent; Z88.8 Allergy status to other drugs, medicaments and biological substances; Z90.49 Acquired absence of other specified parts of digestive tract; Z90.89 Acquired absence of other organs; Z90.710 Acquired absence of both cervix and uterus; Z98.890 Other specified postprocedural states; Z87.891 Personal history of nicotine dependence; W01.0XXA Fall on same level from slipping, tripping and stumbling without subsequent striking against object, initial encounter; Y93.89 Activity, other specified; Y92.89 Other specified places as the place of occurrence of the external cause; Y99.8 Other external cause status

== ENCOUNTER → 2022-10-01 | Outpatient (CLI) | payer MEDICARE, MEDICAID | END | disposition home or self-care (01) | LOC: ORTHO 02:34 | PROVIDERS: ATTEND Orthopaedic Surgery | DX: S52.532D Colles' fracture of left radius, subsequent encounter for closed fracture with routine healing (principal); X58.XXXD Exposure to other specified factors, subsequent encounter ==

== ENCOUNTER → 2022-10-03 | Outpatient (CLI) | payer MEDICARE, MEDICAID | END | disposition home or self-care (01) | LOC: RAD 09-26 01:29 | PROVIDERS: ATTEND Orthopaedic Surgery | DX: M85.851 Other specified disorders of bone density and structure, right thigh (principal); M81.0 Age-related osteoporosis without current pathological fracture ==

== ENCOUNTER → 2022-10-22 | Outpatient (CLI) | payer OTHER, MEDICAID | END | disposition home or self-care (01) | LOC: ORTHO 01:03 | PROVIDERS: ATTEND Orthopaedic Surgery | DX: S52.532D Colles' fracture of left radius, subsequent encounter for closed fracture with routine healing (principal); M80.83 Other osteoporosis with current pathological fracture, forearm; X58.XXXD Exposure to other specified factors, subsequent encounter ==

== ENCOUNTER → 2022-12-03 | Outpatient (CLI) | payer OTHER, MEDICAID | END | disposition home or self-care (01) | LOC: RAD 13:55 | PROVIDERS: ATTEND Orthopaedic Surgery | DX: S52.532D Colles' fracture of left radius, subsequent encounter for closed fracture with routine healing (principal); X58.XXXD Exposure to other specified factors, subsequent encounter ==

== ENCOUNTER → 2023-01-14 | Day surgery (SDC) | payer OTHER, MEDICAID ==
[~2023-01-14] VITALS: Ht 160 cm; Wt 90.7 kg
[2023-01-14 07:50] VITALS: BP 148/53
== END ==
LOC: SDC 01-12 08:00
PROVIDERS: ATTEND Specialist
DX: Q18.1 Preauricular sinus and cyst (principal); Z53.8 Procedure and treatment not carried out for other reasons; H61.21 Impacted cerumen, right ear